=== PATIENT | male | born 1980 | race Caucasian/White ===

== ENCOUNTER 2016-10-31 09:00 | Outpatient (RCR) | payer MEDICAID ==
[~2016-10-31 09:00] MED LIST: ALBU8.5H2 IH; CEPH500C PO; HYDR1TAB PO; INSU100I14 SQ; INSU100I29 SQ; LEVO500T80 PO; METF500T8 PO; OFLO5DRO6 OT; PRD5T PO; PRED20TA PO; SULF1TAB38 PO
== END 2016-12-04 13:55 | disposition home or self-care (01) ==
PROVIDERS: ATTEND Nurse Practitioner Adult Health
DX: M54.9 Dorsalgia, unspecified (principal)

== ENCOUNTER → 2016-12-18 | Outpatient (CLI) | payer MEDICAID ==
[~2016-12-18] MED LIST changes: +RT-ALBUTEROL SULF 2.5 MG/3 ML PRE-MIX VIAL IH ONE
[2016-12-18 13:13] LABS: ABG BASE EXCESS -0.7 MMOL/L (-2.5-2.5); ABG HCO3 24 MMOL/L (23-27); ABG OXYGEN SATURATION 98 % (94-100); ABG PCO2 38 MMHG (35-45); ABG PO2 115 MMHG (79-93); ABG TCO2 24.7 MMOL/L (21.0-31.0)
[2016-12-18 13:14] LABS: ALLENS TEST YES-POS; PATIENT TEMP 97.9
--- NOTE | 2016-12-18 14:10 | Diagnostic Imaging Report ---
PA and lateral views of the chest. INDICATION: Shortness of breath. FINDINGS: There is suggestion of a prominent right pericardial fat pad with no focal infiltrate identified. The heart size is normal. No effusion or pneumothorax. Mediastinum and albin appear unremarkable. IMPRESSION: Unremarkable exam. Dictated by: Dictated on workstation # [id number]
== END ==
LOC: RT 11:40
PROVIDERS: ATTEND Nurse Practitioner Family
DX: G47.50 Parasomnia, unspecified (principal); G47.10 Hypersomnia, unspecified; F12.10 Cannabis abuse, uncomplicated; R06.00 Dyspnea, unspecified
CPT/HCPCS: 71020; 82805; 94060; 94640; 94726; 94729

== ENCOUNTER 2017-12-24 19:45 | Observation (INO) | payer MEDICAID ==
[~2017-12-24] VITALS: Ht 170.2 cm; Wt 163.3 kg
[~2017-12-24 19:45] MED LIST changes: -RT-ALBUTEROL SULF 2.5 MG/3 ML PRE-MIX VIAL IH ONE
[2017-12-24] MEDS ORDERED: ATOR40TA70 PO (20:32)
[2017-12-24] MEDS ORDERED: METF-399 PO (20:32)
[2017-12-24] MEDS ORDERED: LISI-556 PO (20:32)
[2017-12-24] MEDS ORDERED: NS IV 1000 ML 1,000 ML IV ONE (20:50)
--- NOTE | 2017-12-24 20:53 | ED General ---
General Chief Complaint: Abdominal/GI Problems Stated Complaint: NAUSEA/STOMACH PAIN Nursing Triage Note: UPPER ABDOMINAL PAIN, NAUSEA, X2 DAYS Nursing Sepsis Screen: Possible Sepsis Risk Source of Information: Patient Exam Limitations: No Limitations History of Present Illness Date Seen by Provider: Dec 24, 2017 Time Seen by Provider: 20:40 Initial Comments Here with report of upper abdominal pain and nausea for the last couple of days. Had normal bowel movement today. States he has not been able to eat well. Arrives with fever and sweating. Timing/Duration: 2-3 Days Severity: Moderate Associated Systoms: No Chest Pain, No Cough; Fever/Chills, Nausea/Vomiting; No Shortness of Air, No Weakness Allergies and Home Medications Allergies Coded Allergies: No Known Drug Allergies (Unverified , 12/19/10) Patient Home Medication List Home Medication List Reviewed: Yes Review of Systems Review of Systems Constitutional: see HPI, chills, fever EENTM: no symptoms reported Respiratory: No cough, No short of breath Cardiovascular: No chest pain, No edema Gastrointestinal: abdominal pain; No diarrhea; nausea; No vomiting Genitourinary: No dysuria, No pain Musculoskeletal: no symptoms reported Skin: no symptoms reported All Other Systems Reviewed Negative Unless Noted: Yes Past Bnrkfxa-Acoggv-Iabizx Hx Past Med/Social Hx: Reviewed Nursing Past Med/Soc Hx Patient Social History Alcohol Use: Denies Use Recreational Drug Use: Yes Drug of Choice: CANNIBUS Smoking Status: Never a Smoker 2nd Hand Smoke Exposure: No Recent Foreign Travel: No Contact w/Someone Who Travel: No Recent Infectious Disease Expo: No Recent Hopitalizations: No Immunizations Up To Date Tetanus Booster (TDap): Less than 5yrs PED Vaccines UTD: No Date of Influenza Vaccine: Feb 06, 2012 Seasonal Allergies Seasonal Allergies: No Past Medical History Surgeries: Yes (HERNIA REPAIR, ear tubes) Respiratory: Yes Asthma Currently Using CPAP: No Currently Using BIPAP: No Cardiac: No High Cholesterol, Hypertension Neurological: No Reproductive Disorders: No Genitourinary: Yes Kidney Stones Gastrointestinal: Yes (UMBILICAL HERNIA) Musculoskeletal: Yes (ankle fracture) Fractures Endocrine: Yes Diabetes, Non-Insulin dep HEENT: No Cancer: No Psychosocial: No Integumentary: No Blood Disorders: No Family Medical History Reviewed Nursing Family Hx Patient reports no known family medical history. No Pertinent Family Hx Physical Exam-Suspected Sepsis Physical Exam Vital Signs Vital Signs - First Documented 12/24/17 20:25 Temp 101.0 Pulse 117 Resp 20 B/P (MAP) 176/113 (134) Pulse Ox 98 O2 Delivery Room Air Capillary Refill : Less Than 3 Seconds Blood Pressure Mean: 134 Height, Weight, BMI Height: 5'7.00" Weight: 300lbs. 0oz. 136.541577zt; 50.23 BMI Method:Stated General Appearance: No Apparent Distress, WD/WN HEENT: PERRL/EOMI, Pharynx Normal Neck: Non Tender, Supple Respiratory: Lungs Clear, Normal Breath Sounds Cardiovascular: No Murmur, Tachycardia Gastrointestinal: Non Tender, Soft Back: Normal Inspection, No CVA Tenderness, No Vertebral Tenderness Extremity: Normal Range of Motion, Non Tender Neurologic/Psychiatric: Alert, Oriented x3 Skin: normal color, warm/dry Focused Exam Lactate Level 12/24/17 20:40: Lactic Acid Level 2.59*H 12/24/17 23:10: Lactic Acid Level 1.29 Lactic Acid Level Laboratory Tests Test 12/24/17 20:40 12/24/17 23:10 Lactic Acid Level 2.59 MMOL/L (0.50-2.00) *H 1.29 MMOL/L (0.50-2.00) Progress/Results/Core Measures Suspected Sepsis Recent Fever Within 48 Hours: Yes Infection Criteria Present: Suspected New Infection New/Unexplained Altered Menta: No Sepsis Screen: Possible Sepsis Risk SIRS Temperature:101.0 Pulse: 117 Respiratory Rate: 20 Laboratory Tests 12/24/17 20:40: White Blood Count 16.5H Blood Pressure 176 /113 Mean: 134 12/24/17 20:40: Lactic Acid Level 2.59*H 12/24/17 23:10: Lactic Acid Level 1.29 Laboratory Tests 12/24/17 20:40: Creatinine 0.87, INR Comment 1.0, Platelet Count 326, Total Bilirubin 0.8 Results/Orders Lab Results Laboratory Tests Test 12/24/17 20:40 12/24/17 20:54 12/24/17 23:10 Range/Units White Blood Count 16.5 H 4.3-11.0 10^3/uL Red Blood Count 5.01 4.35-5.85 10^6/uL Hemoglobin 14.4 13.3-17.7 G/DL Hematocrit 42 40-54 % Mean Corpuscular Volume 84 80-99 FL Mean Corpuscular Hemoglobin 29 25-34 PG Mean Corpuscular Hemoglobin Concent 34 32-36 G/DL Red Cell Distribution Width 14.0 10.0-14.5 % Platelet Count 326 130-400 10^3/uL Mean Platelet Volume 10.8 H 7.4-10.4 FL Neutrophils (%) (Auto) 77 H 42-75 % Lymphocytes (%) (Auto) 14 12-44 % Monocytes (%) (Auto) 9 0-12 % Eosinophils (%) (Auto) 0 0-10 % Basophils (%) (Auto) 0 0-10 % Neutrophils # (Auto) 12.7 H 1.8-7.8 X 10^3 Lymphocytes # (Auto) 2.3 1.0-4.0 X 10^3 Monocytes # (Auto) 1.5 H 0.0-1.0 X 10^3 Eosinophils # (Auto) 0.0 0.0-0.3 10^3/uL Basophils # (Auto) 0.0 0.0-0.1 10^3/uL Neutrophils % (Manual) 77 % Lymphocytes % (Manual) 14 % Monocytes % (Manual) 8 % Eosinophils % (Manual) 0 % Basophils % (Manual) 0 % Band Neutrophils 1 % Blood Morphology Comment NORMAL Prothrombin Time 13.1 12.2-14.7 SEC INR Comment 1.0 0.8-1.4 Activated Partial Thromboplast Time 27 24-35 SEC Sodium Level 138 135-145 MMOL/L Potassium Level 3.5 L 3.6-5.0 MMOL/L Chloride Level 102 98-107 MMOL/L Carbon Dioxide Level 23 21-32 MMOL/L Anion Gap 13 5-14 MMOL/L Blood Urea Nitrogen 7 7-18 MG/DL Creatinine 0.87 0.60-1.30 MG/DL Estimat Glomerular Filtration Rate > 60 BUN/Creatinine Ratio 8 Glucose Level 170 H 70-105 MG/DL Lactic Acid Level 2.59 *H 1.29 0.50-2.00 MMOL/L Calcium Level 10.2 H 8.5-10.1 MG/DL Corrected Calcium 10.0 8.5-10.1 MG/DL Total Bilirubin 0.8 0.1-1.0 MG/DL Aspartate Amino Transf (AST/SGOT) 22 5-34 U/L Alanine Aminotransferase (ALT/SGPT) 48 0-55 U/L Alkaline Phosphatase 126 40-136 U/L Total Protein 7.2 6.4-8.2 GM/DL Albumin 4.2 3.2-4.5 GM/DL Amylase Level 34 25-125 U/L Lipase 13 8-78 U/L Urine Color YELLOW Urine Clarity CLEAR Urine pH 7 5-9 Urine Specific [place] 1.015 L 1.016-1.022 Urine Protein 2+ H NEGATIVE Urine Glucose (UA) 4+ H NEGATIVE Urine Ketones 1+ H NEGATIVE Urine Nitrite NEGATIVE NEGATIVE Urine Bilirubin NEGATIVE NEGATIVE Urine Urobilinogen NORMAL NORMAL MG/DL Urine Leukocyte Esterase 1+ H NEGATIVE Urine RBC (Auto) 2+ H NEGATIVE Urine RBC 0-2 /HPF Urine WBC 10-25 H /HPF Urine Crystals NONE /LPF Urine Bacteria FEW H /HPF Urine Casts NONE /LPF Urine Mucus NEGATIVE /LPF Urine Culture Indicated YES My Orders Orders - FABIAN OBREGON MD Cbc With Automated Diff (12/24/17 20:50) Comprehensive Metabolic Panel (12/24/17 20:50) Blood Culture (12/24/17 20:50) Sputum Culture (12/24/17 20:50) Urinalysis (12/24/17 20:50) Protime With Inr (12/24/17 20:50) Partial Thromboplastin Time (12/24/17 20:50) Acetaminophen Tablet (Tylenol Tablet) (12/24/17 21:00) Saline Lock/Iv-Start (12/24/17 20:50) Saline Lock/Iv-Start (12/24/17 20:50) Vital Signs Adult Sepsis Patie Q15M (12/24/17 20:50) O2 (12/24/17 20:50) Remove Rings In Anticipation O (12/24/17 20:50) Lactic Acid Analyzer (12/24/17 20:50) Saline Lock/Iv-Start (12/24/17 20:50) Ns Iv 1000 Ml (Sodium Chloride 0.9%) (12/24/17 20:50) Chest Pa/Lat (2 View) (12/24/17 20:50) Amylase (12/24/17 20:52) Lipase (12/24/17 20:52) Manual Differential (12/24/17 20:40) Urine Culture (12/24/17 20:54) Ct Abdomen/Pelvis Wo (12/24/17 22:10) Ceftriaxone For Iv Use (Rocephin For I (12/24/17 23:15) Lorazepam Injection (Ativan Injection) (12/24/17 23:30) Medications Given in ED Current Medications Medications Dose Ordered Sig/Franco Route Start Time Stop Time Status Last Admin Dose Admin Acetaminophen 1,000 mg ONCE PRN PO 12/24/17 21:00 12/24/17 21:00 DC 12/24/17 20:56 1,000 MG Ceftriaxone Sodium 1000 mg/ Sodium Chloride 60 ml @ 100 mls/hr ONCE ONCE IV 12/24/17 23:15 12/24/17 23:50 12/24/17 23:14 100 MLS/HR Lorazepam 0.5 mg ONCE ONCE IVP 12/24/17 23:30 12/24/17 23:31 DC 12/24/17 23:31 0.5 MG Sodium Chloride 1,000 ml @ 0 mls/hr Q0M ONCE IV 12/24/17 20:50 12/24/17 20:52 DC 12/24/17 20:55 0 MLS/HR Vital Signs/I&O 12/24/17 12/24/17 12/24/17 20:25 20:56 21:50 Temp 101.0 101.0 101.3 Pulse 117 Resp 20 B/P (MAP) 176/113 (134) Pulse Ox 98 O2 Delivery Room Air Capillary Refill : Less Than 3 Seconds Blood Pressure Mean: 134 Progress Note : Progress Note Seen and evaluated. IV, labs, UA, normal saline 1 L bolus and chest x-ray ordered. Monitor patient. Lactic acid elevated. Patient seems to have right upper quadrant abdominal pain. We will get CT abdomen pelvis with contrast. Patient declined contrast so this was changed to a noncontrasted CT scan. Overall doing better after Tylenol and a liter of fluid. 2300: CT results noted. UA is positive. We will initiate Rocephin 1 g IV. 2325: I did discuss the case with Dr. Wilson and Dr. Paul. Patient to be admitted on the [facility] to Dr. Paul with Dr. Wilson on consult. We will get a gallbladder ultrasound in the morning. Patient is somewhat anxious. Ativan 0.5 mg IV ordered. We will continue that as needed. Patient informed of all the concerning findings and agrees with plan. Diagnostic Imaging Diagonstic Imaging: Xray Plain Films/CT/US/NM/MRI: chest Comments NAME: GRAEME ROBERTS [facility] REC#: [id number] PT STATUS: REG ER : 1980 PHYSICIAN: FABIAN OBREGON MD ADMIT DATE: 12/24/17/ER Signed Date of Exam: 12/24/17 CHEST PA/LAT (2 VIEW) INDICATION: Abdominal pain and nausea. Exam compared 12/18/2016 FINDINGS: The heart size upper limits but stable. No gross overdistention of the vascularity. The lungs are free of infiltrate. There is no effusion or pneumothorax. There has been no change. IMPRESSION: Stable chest Dictated by: Dictated on workstation # [id number] Dict: 12/24/172104 Trans: 12/24/172127 Interpreted by: DANIEL RANDALL Electronically signed by: DANIEL RANDALL 12/24/172127 Diagonstic Imaging: CT Plain Films/CT/US/NM/MRI: abdomen, pelvis Comments Noncontrast CT abdomen pelvis shows diffuse fatty filtration of the liver. Punctate calcifications or suspected in the right kidney without evidence of hydronephrosis or ureteral stone. Reviewed: Reviewed Night Vin Study, Reviewed by Me Departure Communication (Admissions) Time/Spoke to Admitting Phy: 23:25 Time/Spoke to Consulting Phy: 23:15 Impression Primary Impression: Urinary tract infection Qualified Codes: N30.00 - Acute cystitis without hematuria Additional Impression: Upper abdominal pain Disposition: ADMITTED INPATIENT Condition: Improved Admissions Decision to Admit Reason: Admit from ER (General) Decision to Admit/Date: Dec 24, 2017 Time/Decision to Admit Time: 23:25 Departure-Patient Inst. Referrals: LILLIE TOLBERT (PCP) Primary Care Physician [facility] (Family) Primary Care Physician FABIAN OBREGON MD Dec 24, 2017 20:52
[2017-12-24] MEDS ORDERED: ACETAMINOPHEN 500 MG TAB (TYLENOL) PO PRN (21:00)
[2017-12-24 21:05] LABS: BASOPHILS % (AUTO) 0 % (0-10); EOSINOPHILS % (AUTO) 0 % (0-10); HEMATOCRIT 42 % (40-54); HEMOGLOBIN 14.4 G/DL (13.3-17.7); LYMPHOCYTES # (AUTO) 2.3 X 10^3 (1.0-4.0); LYMPHOCYTES % (AUTO) 14 % (12-44); MEAN CORPUSCULAR HEMOGLOBIN 29 PG (25-34); MEAN CORPUSCULAR HGB CONC 34 G/DL (32-36); MEAN CORPUSCULAR VOLUME 84 FL (80-99); MEAN PLATELET VOLUME 10.8 FL (7.4-10.4); MONOCYTES # (AUTO) 1.5 X 10^3 (0.0-1.0); MONOCYTES % (AUTO) 9 % (0-12); NEUTROPHILS # (AUTO) 12.7 X 10^3 (1.8-7.8); NEUTROPHILS % (AUTO) 77 % (42-75); PLATELET COUNT 326 10^3/uL (130-400); RED BLOOD COUNT 5.01 10^6/uL (4.35-5.85); WHITE BLOOD COUNT 16.5 10^3/uL (4.3-11.0)
--- NOTE | 2017-12-24 21:12 | Diagnostic Imaging Report ---
INDICATION: Abdominal pain and nausea. Exam compared 12/18/2016 FINDINGS: The heart size upper limits but stable. No gross overdistention of the vascularity. The lungs are free of infiltrate. There is no effusion or pneumothorax. There has been no change. IMPRESSION: Stable chest Dictated by: Dictated on workstation # [id number]
[2017-12-24 21:13] LABS: BILIRUBIN,URINE NEGATIVE (NEGATIVE); CLARITY,URINE CLEAR; COLOR,URINE YELLOW; GLUCOSE, URINE (UA) 4+ (NEGATIVE); KETONES,URINE 1+ (NEGATIVE); LEUKOCYTE ESTERASE ,URINE 1+ (NEGATIVE); NITRITE,URINE NEGATIVE (NEGATIVE); PH,URINE 7 (5-9); PROTEIN,URINE 2+ (NEGATIVE); UROBILINOGEN,URINE NORMAL (NORMAL)
[2017-12-24 21:16] LABS: PROTHROMBIN TIME PATIENT 13.1 SEC (12.2-14.7)
[2017-12-24 21:24] LABS: ALANINE AMINOTRANSFERASE 48 U/L (0-55); ALBUMIN 4.2 GM/DL (3.2-4.5); ALKALINE PHOSPHATASE 126 U/L (40-136); AMYLASE 34 U/L (25-125); BILIRUBIN,TOTAL 0.8 MG/DL (0.1-1.0); BUN/CREATININE RATIO 8; CALCIUM 10.2 MG/DL (8.5-10.1); CARBON DIOXIDE 23 MMOL/L (21-32); CHLORIDE 102 MMOL/L (98-107); CREATININE SERUM 0.87 MG/DL (0.60-1.30); GFR ESTIMATED > 60; GLUCOSE 170 MG/DL (70-105); LIPASE 13 U/L (8-78); POTASSIUM 3.5 MMOL/L (3.6-5.0); SODIUM 138 MMOL/L (135-145); TOTAL PROTEIN 7.2 GM/DL (6.4-8.2)
[2017-12-24 21:26] LABS: BACTERIA,URINE FEW /HPF; RBC,URINE 0-2 /HPF
[2017-12-24 21:29] LABS: BAND NEUTROPHILS 1 %; BASOPHILS % (MANUAL) 0 %; EOSINOPHILS % (MANUAL) 0 %; LYMPHOCYTES % (MANUAL) 14 %; MONOCYTES % (MANUAL) 8 %; NEUTROPHILS % (MANUAL) 77 %; RBC MORPH NORMAL
[2017-12-24] MEDS ORDERED: cefTRIAXone FOR IV USE 1,000 MG in NS (IVPB) 50 ML IV ONE (23:15)
[2017-12-24] MEDS ORDERED: LORazepam INJ 2 MG/ML (ATIVAN) VIAL IVP ONE (23:30)
--- OUTSIDE RECORDS SUMMARY | 2017-12-24 23:53 | XMS REPORT ---
Author Author MARGARITA THOMAS [facility] Address [address] [place] [address] Care Team Providers Care Mds Coordinator Name Role Phone MARGARITA THOMAS Unavailable PROBLEMS Type Condition ICD9-CM Code GAU48-XK Code Onset Dates Condition Status SNOMED Code Problem Hypertriglyceridemia E78.1 Active 632911488 Problem Essential hypertension I10 Active 25331562 Problem Tarsal tunnel syndrome, right G57.51 Active 57852137 Problem Type 2 diabetes mellitus with diabetic neuropathy E11.40 Active 91775990 Problem Morbid obesity E66.01 Active 599460726 Problem Neuropathy G62.9 Active 634395882 Problem Other chronic pain G89.29 Active 41177316 Problem Fatty liver K76.0 Active 753035168 Problem Obstructive sleep apnea syndrome G47.33 Active 68429325 Problem Pain in right ankle and joints of right foot M25.571 Active 488973178 ALLERGIES No Information ENCOUNTERS Encounter Location Date Diagnosis [facility] [address] [id number] Nov, Dental examination Z01.20 [facility] [id number] [place] [id number] Nov, Dental examination Z01.20 [facility] [id number] [place] [address] 18185- 7370 Nov, [facility] [id number] [place] [address]011- 3196 Nov, Type 2 diabetes mellitus with diabetic neuropathy E11.40 ; Morbid obesity E66.01 and BMI 50.0-59.9, adult Z68.43 [facility] [id number] [place] [address] 97267- 1757 August, [facility] [address] [address] August, Type 2 diabetes mellitus with diabetic neuropathy E11.40 ; Hypertriglyceridemia E78.1 and Essential hypertension I10 [facility] [id number] [place] [address]283 -1713 Apr, Cough R05 ; Bronchitis J40 and BMI 50.0-59.9, adult Z68.43 [place] [address] [address]- [address] Jan, [place] [address] [address]- 1340 Jan, Type 2 diabetes mellitus with diabetic neuropathy E11.40 ; Neuropathy G62.9 and Other chronic pain G89.29 [place] [id number] [place] [address] 47419- 9181 Dec, [place] [address] [address]- [address] Dec, Neuropathy G62.9 [place] [address] 74982- 6771 Dec, [facility] [id number] [place] [address] 13273 -7826 23 Dec, 2016 Marquis splints, left, initial encounter S86.892A [place] [id number] [place] [address] 17877- 0344 Dec, Other chronic pain G89.29 [place] [address] [address]- [address]282 14 Dec, 2016 nursing home current use of opiate analgesic Z79.891 and Other chronic pain G89.29 [place] [address] 10659- 0608 12 Dec, 2016 Other chronic pain G89.29 [place] [id number] [place] [address] 73207- 6824 Nov, Neuropathy G62.9 [place] [address] [address] Nov, [facility] [id number] [place] [address] 50824- 3299 Nov, [facility] [id number] [place] [address] 13230- 3767 Oct, [facility] [id number] [place] [address] 79698- 1397 Oct, [facility] [id number] [place] [address] 31003- 1303 Oct, Type 2 diabetes mellitus with diabetic neuropathy E11.40 ; Hypertriglyceridemia E78.1 ; local [employer] 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 ; Essential hypertension I10 ; Other chronic pain G89.29 ; Shortness of breath R06.02 ; Obstructive sleep apnea syndrome G47.33 and Neuropathy G62.9 [place] [id number] [place] [address] 70380- 6450 Oct, Type 2 diabetes mellitus with diabetic neuropathy E11.40 ; Fatty liver K76.0 and Hypertriglyceridemia E78.1 [place] [id number] [place] [address] 00062- 6349 Oct, [facility] [id number] [place] [address] 36422- 1649 Oct, [place] [id number] [place] [address] 11854- 1921 Oct, Other chronic pain G89.29 [facility] [id number] [place] [address] 80736 -9098 Sep, Oral candidiasis B37.0 ; Strep pharyngitis J02.0 and Sore throat J02.9 [facility] [address] [address] Sep, Type 2 diabetes mellitus with diabetic neuropathy E11.40 ; Long-term insulin use Z79.4 ; Tarsal tunnel syndrome, right G57.51 ; Other chronic pain G89.29 ; Hypertriglyceridemia E78.1 ; Shortness of breath R06.02 ; Essential hypertension I10 and Obstructive sleep apnea syndrome G47.33 [facility] [id number] [place] [address] 54860- 2317 August, [facility] [id number] [place] [address] 74018- 3006 August, [facility] [id number] [place] [address] 56474- 1637 August, Back pain at L4-L5 level M54.5 [facility] [id number] [place] [address] 09520- 2264 Jul, [place] [id number] [place] [address] 33206- 0551 14 May, 2016 Type 2 diabetes mellitus with diabetic neuropathy E11.40 ; Hypertriglyceridemia E78.1 ; Tarsal tunnel syndrome, right G57.51 ; Fatty liver K76.0 ; Acute upper respiratory infection, unspecified J06.9 ; Other viral agents as the cause of diseases classified elsewhere B97.89 ; Disorder of teeth and supporting structures, unspecified K08.9 ; Pain in right ankle and joints of right foot M25.571 ; Other chronic pain G89.29 and Back pain at L4-L5 level M54.5 [place] [id number] [place] [address] 76208- 3891 14 May, 2016 [facility] [id number] [place] [address] 86441- 1156 May, [facility] [id number] [place] [address] 74940- 7246 Apr, [place] [id number] [place] [address] 90709- 7296 Mar, [facility] [id number] [place] [address] 61606- 3695 Feb, Fatty liver K76.0 and Hypertriglyceridemia E78.1 [place] [id number] [place] [address] 29098- 0285 Feb, [facility] [address] 8[address]11- 7770 Feb, Hypertriglyceridemia, essential E78.1 and Elevated liver enzymes R74.8 [facility] [address] 15695- 3008 Feb, [facility] [address] 00957- 5090 Feb, Type 2 diabetes mellitus with diabetic neuropathy E11.40 ; Diastasis recti M62.08 ; Essential hypertension I10 and nursing home 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 [facility] [id number] [place] [address] 32690- 3618 Feb, Tarsal tunnel syndrome, right G57.51 and Neuroma D36.10 [facility] [id number] [place] [address] 50742- 8171 Dec, Type 2 diabetes mellitus with diabetic neuropathy E11.40 [facility] [id number] [place] [address] 00548- 5364 Dec, [facility] [id number] [place] [address] 51699- 9362 Nov, Low back pain M54.5 [facility] [id number] [place] [address] 51663- 5017 Nov, [facility] [id number] [place] [address] 69866- 6082 Nov, [facility] [id number] [place] [address] 16219- 8691 Nov, [facility] [id number] [place] [address] 28632- 9051 Nov, [facility] [id number] [place] [address] 72985- 1274 Nov, [facility] [address] [address]- 7001 Oct, [facility] [id number] [place] [address] 87515- 2785 Oct, Type 2 diabetes mellitus with diabetic autonomic (poly) neuropathy E11.43 ; nursing home 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 ; Low back pain M54.5 and Other chronic pain G89.29 [place] [id number] [place] [address] 97120- 9462 Sep, [place] [id number] [place] [address] 25350- 8811 August, [place] [id number] [place] [address] 13412- 7483 August, [place] [id number] [place] [address] 83761- 4320 August, Type 2 diabetes mellitus with diabetic neuropathy E11.40 ; Diabetes type 2, uncontrolled E11.65 ; Long-term insulin use Z79.4 and 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 [place] [id number] [place] [address] 70218- 8220 August, Type 2 diabetes mellitus with diabetic neuropathy E11.40 [place] [address] [address]- 7420 Jun, Type 2 diabetes mellitus with diabetic neuropathy E11.40 ; Long-term insulin use Z79.4 and Hypertriglyceridemia E78.1 [place] [address] [address]- 1630 Jun, [place] [id number] [place] [address] 04834- 9820 Jun, Diabetes type 2, uncontrolled E11.65 [place] [address] [address]- 9639 Jun, [place] [id number] [place] [address] 75443- 2808 Jul, [facility] [id number] [address]- 6196 Jul, [facility] [address], [place] [address] 2546 Nov, [facility] [address] [address] 2546 Oct, [facility] [id number] [place] [address] 78769- 2546 Oct, [facility] [address], [place] [address] 2540 Oct, [facility] [address] [address] 2546 Sep, [facility] [address] [address] 2548 Sep, [facility] [address], [place] [address] 2546 Nov, IMMUNIZATIONS No Known Immunizations SOCIAL HISTORY Never Assessed REASON FOR VISIT Maria E PLAN OF CARE VITAL SIGNS MEDICATIONS Unknown Medications RESULTS No Results PROCEDURES No Known procedures INSTRUCTIONS MEDICATIONS ADMINISTERED No Known Medications MEDICAL (GENERAL) HISTORY Type Description Date Medical History Diabetes Mellitus Type 2 w/ peripheral neuropathy - dx 06/2015 (A1c 8.6%) Medical History hx of benign nasopharyngela mass ([place]) Medical History hx of back injury (football) Medical History Hypertriglyceridemia Medical History hypertension Medical History Tubes in ears Surgical History Laryngoscopy Surgical History Ear tubes Surgical History Umbilical hernia repair Hospitalization History New onset DM type 2 w/ severe hyperglycemia 06/24-06/26
--- OUTSIDE RECORDS SUMMARY | 2017-12-24 23:54 | XMS REPORT ---
Author Author MARGARITA THOMAS Organization [facility] Address [address] [place] [address] Care Team Providers Care Nurse Aide Name Role Phone MARGARITA THOMAS Unavailable PROBLEMS Type Condition ICD9-CM Code KNC45-DW Code Onset Dates Condition Status SNOMED Code Problem Hypertriglyceridemia E78.1 Active 501802425 Problem Essential hypertension I10 Active 94807618 Problem Tarsal tunnel syndrome, right G57.51 Active 16645711 Problem Type 2 diabetes mellitus with diabetic neuropathy E11.40 Active 18713648 Problem Morbid obesity E66.01 Active 303010979 Problem Neuropathy G62.9 Active 140119887 Problem Other chronic pain G89.29 Active 53204829 Problem Fatty liver K76.0 Active 550441161 Problem Obstructive sleep apnea syndrome G47.33 Active 43275433 Problem Pain in right ankle and joints of right foot M25.571 Active [id number] ALLERGIES No Information ENCOUNTERS Encounter Location Date Diagnosis [facility] [address] [address]- 3999 Nov, [facility] [id number] [place] [address] 82345- 1025 Nov, Type 2 diabetes mellitus with diabetic neuropathy E11.40 ; Morbid obesity E66.01 and BMI 50.0-59.9, adult Z68.43 [facility] [id number] [place] [address] 39830- 4485 August, [facility] [address] [address]- 4810 August, Type 2 diabetes mellitus with diabetic neuropathy E11.40 ; Hypertriglyceridemia E78.1 and Essential hypertension I10 [facility] [id number] [place] [address] 23918 -9832 Apr, Cough R05 ; Bronchitis J40 and BMI 50.0-59.9, adult Z68.43 [facility] [address] 25000- 6072 13 Jan, 2017 [facility] [address] 9[address]45- 3940 02 Jan, 2017 Type 2 diabetes mellitus with diabetic neuropathy E11.40 ; Neuropathy G62.9 and Other chronic pain G89.29 [facility] [address] 10060- 7643 28 Dec, 2016 [facility] [address] 20004- 1669 27 Dec, 2016 Neuropathy G62.9 [place] [address] 58165- 1535 26 Dec, 2016 [facility] [address] 77048 -2245 23 Dec, 2016 Marquis splints, left, initial encounter S86.892A [facility] [address] 61290- 8160 21 Dec, 2016 Other chronic pain G89.29 [place] [address] 69164- 2012 14 Dec, 2016 Other chronic pain G89.29 and 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 Z79.891 [place] [address] 99322- 5951 12 Dec, 2016 Other chronic pain G89.29 [facility] [address] 13325- 4232 Nov, Neuropathy G62.9 [facility] [address] 67201- 9031 Nov, [facility] [address] 06123- 3246 Nov, [facility] [address] 97215- 3970 Oct, [facility] [id number] [place] [address] 03702- 6402 Oct, [place] [id number] [place] [address] 47370- 8841 Oct, Type 2 diabetes mellitus with diabetic neuropathy E11.40 ; Hypertriglyceridemia E78.1 ; 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 ; Essential hypertension I10 ; Other chronic pain G89.29 ; Shortness of breath R06.02 ; Obstructive sleep apnea syndrome G47.33 and Neuropathy G62.9 [place] [id number] [place] [address] 87224- 2220 Oct, Type 2 diabetes mellitus with diabetic neuropathy E11.40 ; Fatty liver K76.0 and Hypertriglyceridemia E78.1 [place] [id number] [place] [address] 17115- 5529 Oct, [place] [id number] [place] [address] 88419- 9877 Oct, [place] [id number] [place] [address] 96084- 5156 Oct, Other chronic pain G89.29 [facility] [address] [place] [id number] [place] [address] 22094 -3798 Sep, Oral candidiasis B37.0 ; Strep pharyngitis J02.0 and Sore throat J02.9 [place] [id number] [place] [address] 36582- 2156 Sep, Type 2 diabetes mellitus with diabetic neuropathy E11.40 ; Long-term insulin use Z79.4 ; Tarsal tunnel syndrome, right G57.51 ; Other chronic pain G89.29 ; Hypertriglyceridemia E78.1 ; Shortness of breath R06.02 ; Essential hypertension I10 and Obstructive sleep apnea syndrome G47.33 [place] [id number] [place] [address] 53008- 9156 August, [facility] [id number] [place] [address] 44436- 0183 August, [facility] [id number] [place] [address] 66067- 9499 August, Back pain at L4-L5 level M54.5 [facility] [id number] [place] [address] 54053- 4606 Jul, [facility] [id number] [place] [address] 98903- 2945 14 May, 2016 Type 2 diabetes mellitus [...] and Back pain at L4-L5 level M54.5 [facility] [id number] [place] [address] 92238- 6565 14 May, 2016 [facility] [id number] [place] [address] 41587- 0534 May, [facility] [id number] [place] [address] 73537- 8279 Apr, [facility] [id number] [place] [address] 12405- 6936 Mar, [facility] [id number] [place] [address] 00243- 9118 Feb, Fatty liver K76.0 and Hypertriglyceridemia E78.1 [facility] [id number] [place] [address] 10668- 5202 Feb, [facility] [id number] [place] [address] 80898- 3539 Feb, Hypertriglyceridemia, essential E78.1 and Elevated liver enzymes R74.8 [facility] [id number] [place] [address] 47356- 0636 Feb, [facility] [id number] [place] [address] 92369- 0548 Feb, Type 2 diabetes mellitus with diabetic neuropathy E11.40 ; Diastasis recti M62.08 ; Essential hypertension I10 and [facility] 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 [facility] [id number] [place] [address] 55124- 2527 Feb, Tarsal tunnel syndrome, right G57.51 and Neuroma D36.10 [facility] [id number] [place] [address] 39392- 9522 Dec, Type 2 diabetes mellitus with diabetic neuropathy E11.40 [facility] [id number] [place] [address] 91642- 1304 Dec, [facility] [id number] [place] [address] 73153- 8470 Nov, Low back pain M54.5 [facility] [id number] [place] [address] 49689- 6537 Nov, [facility] [id number] [place] [address] 33072- 8598 Nov, [facility] [id number] [place] [address] 63426- 9939 Nov, [facility] [id number] [place] [address] 70133- 9426 Nov, [facility] [id number] [place] [address] 54520- 4812 Nov, [facility] [id number] [place] [address] 67341- 5396 Oct, [facility] [id number] [place] [address] 29894- 9700 Oct, Type 2 diabetes mellitus with diabetic autonomic (poly) neuropathy E11.43 ; [facility] 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 ; Low back pain M54.5 and Other chronic pain G89.29 [facility] [id number] [place] [address] 17912- 5613 Sep, [facility] [address] [address]- 0473 August, [facility] [id number] [place] [address] 42533- 0034 August, [facility] [id number] [place] [address] 86391- 3149 August, Type 2 diabetes mellitus with diabetic neuropathy E11.40 ; Diabetes type 2, uncontrolled E11.65 ; Long-term insulin use Z79.4 and 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 [facility] [id number] [place] [address] 55378- 0683 August, Type 2 diabetes mellitus with diabetic neuropathy E11.40 [facility] [id number] [place] [address] 46757- 3591 Jun, Type 2 diabetes mellitus with diabetic neuropathy E11.40 ; Long-term insulin use Z79.4 and Hypertriglyceridemia E78.1 [facility] [address] [place] [address] 64545- 1516 Jun, [facility] [address] [address]- 0196 Jun, Diabetes type 2, uncontrolled E11.65 [facility] [address] [address]- 4345 Jun, [facility] [address] [place] [address] 79527- 9462 Jul, [facility] [id number] [place] [address] 90541- 6703 Jul, [facility] [address] [place] [address]- 8957 Nov, [facility] [id number] [address]- 7013 Oct, [facility] [id number] [address]- 6308 Oct, [facility] [address] [place] [address]- 5088 Oct, [facility] [id number] [address]- 4711 Sep, [facility] [address] [place] [address]- 6295 Sep, [facility] [address] [address]- 7566 Nov, IMMUNIZATIONS No Known Immunizations SOCIAL HISTORY Never Assessed REASON FOR VISIT PA initiated- Approved PLAN OF CARE VITAL SIGNS MEDICATIONS Unknown [...]
--- OUTSIDE RECORDS SUMMARY | 2017-12-24 23:54 | XMS REPORT ---
Author Author MARGARITA THOMAS Organization [facility] Address [address] [place] [address] Care Team Providers Care Field Property Loss Specialist Name Role Phone MARGARITA THOMAS Unavailable PROBLEMS Type Condition ICD9-CM Code MPC29-VQ Code Onset Dates Condition Status SNOMED Code Problem Hypertriglyceridemia E78.1 Active 597030106 Problem Essential hypertension I10 Active 04163956 Problem Tarsal tunnel syndrome, right G57.51 Active 34287848 Problem Type 2 diabetes mellitus with diabetic neuropathy E11.40 Active 25691410 Problem Morbid obesity E66.01 Active 590513279 Problem Neuropathy G62.9 Active 689283938 Problem Other chronic pain G89.29 Active 44193429 Problem Fatty liver K76.0 Active 839988312 Problem Obstructive sleep apnea syndrome G47.33 Active 90268948 Problem Pain in right ankle and joints of right foot M25.571 Active 199574651 ALLERGIES No Known Allergies ENCOUNTERS Encounter Location Date Diagnosis [facility] [id number] [place] [address] 16724- 0572 Nov, [facility] [id number] [place] [address] 14968- 1453 Nov, Type 2 diabetes mellitus with diabetic neuropathy E11.40 ; Morbid obesity E66.01 and BMI 50.0-59.9, adult Z68.43 [facility] [id number] [place] [address] 97915- 7553 August, [facility] [address] 90243- 1905 August, Type 2 diabetes mellitus with diabetic neuropathy E11.40 ; Hypertriglyceridemia E78.1 and Essential hypertension I10 [facility] [id number] [place] [address] 40754 -1606 11 George, 2018 Cough R05 ; Bronchitis J40 and BMI 50.0-59.9, adult Z68.43 [facility] [address] 84925- 8060 Jan, [facility] [address] 76446- 7658 02 Jan, 2017 Type 2 diabetes mellitus with diabetic neuropathy E11.40 ; Neuropathy G62.9 and Other chronic pain G89.29 [facility] [address] 17705- 5972 28 Dec, 2016 [facility] [address] 24595- 3893 27 Dec, 2016 Neuropathy G62.9 [facility] [address] 39077- 3188 26 Dec, 2016 [facility] [address] 75459 -6912 23 Dec, 2016 Marquis splints, left, initial encounter S86.892A [facility] [address] 34076- 4817 21 Dec, 2016 Other chronic pain G89.29 [facility] [id number] [place] [address] 80865- 7465 14 Dec, 2016 Other chronic pain G89.29 and 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 [place] [address] 77543- 3954 12 Dec, 2016 Other chronic pain G89.29 [facility] [id number] [place] [address] 73745- 5076 Nov, Neuropathy G62.9 [facility] [address] 48200- 8815 Nov, [facility] [address] 82572- 2325 Nov, [facility] [address] [place] [address]- 9457 Oct, [facility] [address] 24554- 0060 Oct, [place] [address] 91555- 7715 Oct, Type 2 diabetes mellitus with diabetic neuropathy E11.40 ; Hypertriglyceridemia E78.1 ; halfway 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 ; Essential hypertension I10 ; Other chronic pain G89.29 ; Shortness of breath R06.02 ; Obstructive sleep apnea syndrome G47.33 and Neuropathy G62.9 [place] [address] 77298- 8933 Oct, Type 2 diabetes mellitus with diabetic neuropathy E11.40 ; Fatty liver K76.0 and Hypertriglyceridemia E78.1 [place] [address] 98256- 1673 Oct, [place] [address] 07418- 6802 Oct, [place] [address] 81349- 7327 Oct, Other chronic pain G89.29 [facility] [id number] [place] [address] 36231 -2410 Sep, Oral candidiasis B37.0 ; Strep pharyngitis J02.0 and Sore throat J02.9 [facility] [address] 55952- 8684 Sep, Type 2 diabetes mellitus with diabetic neuropathy E11.40 ; Long-term insulin use Z79.4 ; Tarsal tunnel syndrome, right G57.51 ; Other chronic pain G89.29 ; Hypertriglyceridemia E78.1 ; Shortness of breath R06.02 ; Essential hypertension I10 and Obstructive sleep apnea syndrome G47.33 [place] [address] 25087- 1358 August, [facility] [id number] [place] [address] 29204- 0812 August, [facility] [id number] [place] [address] 56621- 0670 August, Back pain at L4-L5 level M54.5 [facility] [id number] [place] [address] 34955- 4926 Jul, [facility] [id number] [place] [address] 45437- 4912 14 May, 2016 Type 2 diabetes mellitus [...] and Back pain at L4-L5 level M54.5 [facility] [id number] [place] [address] 68178- 1977 14 May, 2016 [facility] [id number] [place] [address] 99733- 7435 May, [facility] [id number] [place] [address] 99598- 4618 Apr, [facility] [id number] [place] [address] 93012- 3113 Mar, [facility] [id number] [place] [address] 48755- 1163 Feb, Fatty liver K76.0 and Hypertriglyceridemia E78.1 [facility] [id number] [place] [address] 23380- 5561 Feb, [facility] [id number] [place] [address] 82778- 1326 Feb, Hypertriglyceridemia, essential E78.1 and Elevated liver enzymes R74.8 [facility] [id number] [place] [address] 69438- 1970 Feb, [facility] [address] 89847- 2049 Feb, Type 2 diabetes mellitus with diabetic neuropathy E11.40 ; Diastasis recti M62.08 ; Essential hypertension I10 and 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 [facility] [address] 99991- 3460 Feb, Tarsal tunnel syndrome, right G57.51 and Neuroma D36.10 [facility] [id number] [place] [address] 62614- 0905 Dec, Type 2 diabetes mellitus with diabetic neuropathy E11.40 [facility] [address] 16450- 8640 Dec, [facility] [address] 83299- 0563 Nov, Low back pain M54.5 [facility] [id number] [place] [address] 86094- 2338 Nov, [facility] [id number] [place] [address] 86013- 5602 Nov, [facility] [id number] [place] [address] 71215- 0784 Nov, [facility] [id number] [place] [address] 36250- 8125 Nov, [facility] [id number] [place] [address] 65084- 5851 Nov, [facility] [id number] [place] [address] 73587- 3920 Oct, [facility] [id number] [place] [address] 53989- 5632 Oct, Type 2 diabetes mellitus with diabetic autonomic (poly) neuropathy E11.43 ; halfway 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 ; Low back pain M54.5 and Other chronic pain G89.29 [facility] [id number] [place] [address] 49158- 3637 Sep, [facility] [id number] [address]- 4072 August, [facility] [id number] [place] [address] 05293- 6444 August, [facility] [id number] [place] [address] 76276- 9501 August, Type 2 diabetes mellitus with diabetic neuropathy E11.40 ; Diabetes type 2, uncontrolled E11.65 ; Long-term insulin use Z79.4 and 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 [facility] [id number] [place] [address] 60795- 0837 August, Type 2 diabetes mellitus with diabetic neuropathy E11.40 [facility] [id number] [place] [address] 63598- 9688 Jun, Type 2 diabetes mellitus with diabetic neuropathy E11.40 ; Long-term insulin use Z79.4 and Hypertriglyceridemia E78.1 [facility] [address], [place] [address]- 4659 Jun, [facility] [address], [place] [address]- 9715 Jun, Diabetes type 2, uncontrolled E11.65 [facility] [address], [place] [address]- 7823 Jun, [facility] [id number] [place] [address] 52082- 9211 Jul, [facility] [id number] [place] [address] 30237- 8547 Jul, [facility] [address], [place] [address]- 7164 Nov, [facility] [address] [facility] [id number] [address]- 4692 Oct, [facility] [id number] [address]- 4897 Oct, [facility] [id number] [address]- 9402 Oct, [facility] [address], [place] [address]- 7669 Sep, [facility] [address] [facility] [id number] [address]- 5661 Sep, [facility] [address], [place] [address]- 8792 Nov, IMMUNIZATIONS No Known Immunizations SOCIAL HISTORY Never Assessed REASON FOR VISIT Transition of Care, PT is in need of med refills and has lots of foot pain- Jaylen ALCANTAR PLAN OF CARE Activity Details Follow Up 3 Months Reason: VITAL SIGNS Height 67 in 2017-08-05 Weight 354.3 lbs 2017-08-05 Temperature 98.2 degrees Fahrenheit 2017-08-05 Heart Rate 78 bpm 2017-08-05 Respiratory Rate 22 2017-08-05 BMI 55.49 kg/m2 2017-08-05 Blood pressure systolic 108 mmHg 2017-08-05 Blood pressure diastolic 80 mmHg 2017-08-05 MEDICATIONS Medication Instructions Dosage Frequency Start Date End Date Duration Status Atorvastatin Calcium 40 mg Orally Once a day 1 tablet 24h 30 Active ProAir HFA 108 (90 Base) MCG/ACT Inhalation every 6 hrs 2 puffs as needed 6h Apr, 5 days Active Metformin HCl 1000 MG Orally Twice a day 1 tablet 12h 30 Active Lisinopril 5 mg Orally Once a day 1 tablet 24h 30 Active Lyrica 150 MG Orally twice a day 1 12h August, Active RESULTS Name Result Date Reference Range A1C (IN HOUSE) 2017-08-05 A1C IN HOUSE 6.9 4.3 - 5.6 % Previous A1c 6.1 Lot [id number] Exp date 05/2019 PROCEDURES Procedure Date Ordered Result Body Site GLYCATED HEMOGLOBIN TEST August 05, 2017 INSTRUCTIONS MEDICATIONS ADMINISTERED No Known Medications MEDICAL [...]
--- OUTSIDE RECORDS SUMMARY | 2017-12-24 23:54 | XMS REPORT ---
Author Author TOMASZ LILLIE [facility] Address [address] [place] [address] Care Team Providers Care Microfilm Operator Name Role Phone LILLIE TOLBERT Unavailable PROBLEMS Type Condition ICD9-CM Code [id number] Code Onset Dates Condition Status SNOMED Code Problem FCI 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 Active 329997794 Problem Essential hypertension I10 Active 29718797 Problem Tarsal tunnel syndrome, right G57.51 Active 04176830 Problem Type 2 diabetes mellitus with diabetic neuropathy E11.40 Active 41833881 Problem Hypertriglyceridemia E78.1 Active 357613421 Problem Neuropathy G62.9 Active 230367903 Problem Shortness of breath R06.02 Active 093548801 Problem Pain in right ankle and joints of right foot M25.571 Active 071162241 Problem Fatty liver K76.0 Active 241144294 Problem Obstructive sleep apnea syndrome G47.33 Active 78770385 Problem Other chronic pain G89.29 Active 81252189 ALLERGIES No Known Allergies SOCIAL HISTORY Never Assessed PLAN OF CARE Activity Details Follow Up 4 Weeks Reason:dm VITAL SIGNS Height 67 in 2016-05-21 Weight 336.9 lbs 2016-05-21 Temperature 98.4 degrees Fahrenheit 2016-05-21 Heart Rate 86 bpm 2016-05-21 Respiratory Rate 22 2016-05-21 BMI 52.76 kg/m2 2016-05-21 Blood pressure systolic 112 mmHg 2016-05-21 Blood pressure diastolic 78 mmHg 2016-05-21 MEDICATIONS Medication Instructions Dosage Frequency Start Date End Date Duration Status Levemir Flexpen 100units subcutaneously evening 25 units Active Metformin HCl 1000 MG Orally Twice a day 1 tablet 12h Apr, Active Ultram 50 mg Orally in the evening and then before bed 1 tablet as needed May, 30 days Active Neurontin 600 MG Orally Three times a day 1 capsule 8h Jun, Active Atorvastatin Calcium 40 mg Orally Once a day 1 tablet 24h Feb, Active Levemir Flexpen 100 UNIT/ML 30units Jun, Active Lisinopril 10 mg Orally Once a day 1 tablet 24h Feb, Active Bydureon 2 MG Subcutaneous Once weekly. DX- E11.65 Inject 2 mg 1 times per week Active RESULTS Name Result Date Reference Range A1C (IN HOUSE) 2016-05-21 A1C IN HOUSE 6.3 4.3 - 5.6 % Previous A1c 6.8 Lot [id number] Exp date 02/2018 MICROALBUMIN, URINE (IN HOUSE) MICROALBUMIN Lot # Exp date Clarity Color ALB CRE A:C (IN HOUSE) Control Control Lot # Exp date Xray : Spine, Lumbar 2-3 views (IN HOUSE) 2016-05-21 Xray : Ankle, Right 3 views (IN HOUSE) 2016-05-21 PROCEDURES Procedure Date Ordered Result Body Site GLYCATED HEMOGLOBIN TEST May 21, 2016 MICROALBUMIN, SEMIQUANT May 21, 2016 X-RAY EXAM OF LOWER SPINE May 21, 2016 X-RAY EXAM OF ANKLE May 21, 2016 IMMUNIZATIONS No Known Immunizations MEDICAL (GENERAL) HISTORY Type Description Date Medical [...]
--- OUTSIDE RECORDS SUMMARY | 2017-12-24 23:54 | XMS REPORT ---
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
--- OUTSIDE RECORDS SUMMARY | 2017-12-24 23:54 | XMS REPORT ---
Author Author Negrito LILLIE Organization [facility] Address [address] [place] [address] Care Team Providers Care Audit Mgr Name Role Phone [email or web address] LILLIE Unavailable PROBLEMS Type Condition ICD9-CM Code MAX06-IA Code Onset Dates Condition Status SNOMED Code Problem Hypertriglyceridemia E78.1 Active 532522346 Problem Tarsal tunnel syndrome, right G57.51 Active 07702171 Problem Type 2 diabetes mellitus with diabetic neuropathy E11.40 Active 59454089 Problem Neuropathy G62.9 Active 981242855 Problem Obstructive sleep apnea syndrome G47.33 Active 55951071 Problem Fatty liver K76.0 Active 471934546 Problem Essential hypertension I10 Active 89882532 Problem Pain in right ankle and joints of right foot M25.571 Active 001543408 Problem Other chronic pain G89.29 Active 55616808 ALLERGIES No Information ENCOUNTERS Encounter Location Date Diagnosis [facility] [address] [address] August, [facility] [address] [address] Apr, Cough R05 ; Bronchitis J40 and BMI 50.0-59.9, adult Z68.43 [facility] [address] [address] Jan, [facility] [address] [address] Jan, Type 2 diabetes mellitus with diabetic neuropathy E11.40 ; Neuropathy G62.9 and Other chronic pain G89.29 [facility] [address] [address] Dec, [facility] [address] [place] [address] 27 Dec, 2016 Neuropathy G62.9 [facility] [address] [id number] [place] [address] 26 Dec, 2016 [facility] [id number] [place] [address] 23 Dec, 2016 Marquis splints, left, initial encounter S86.892A [facility] [address] [address] 21 Dec, 2016 Other chronic pain G89.29 [facility] [address] [address] 14 Dec, 2016 detention current use of opiate analgesic Z79.891 and Other chronic pain G89.29 [place] [address] [address] 12 Dec, 2016 Other chronic pain G89.29 [facility] [id number] [place] [address] Nov, Neuropathy G62.9 [place] [address] [address] Nov, [facility] [facility] [id number] [place] [address] Nov, [facility] [facility] [id number] [place] [address] Oct, [place] [address] [address] Oct, [facility] [id number] [place] [address] Oct, Type 2 diabetes mellitus with diabetic neuropathy E11.40 ; Hypertriglyceridemia E78.1 ; 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 ; Essential hypertension I10 ; Other chronic pain G89.29 ; Shortness of breath R06.02 ; Obstructive sleep apnea syndrome G47.33 and Neuropathy G62.9 [facility] [id number] [place] [address] Oct, Type 2 diabetes mellitus with diabetic neuropathy E11.40 ; Fatty liver K76.0 and Hypertriglyceridemia E78.1 [facility] [id number] [place] [address] Oct, [facility] [address] [address] Oct, [facility] [address] [address] Oct, Other chronic pain G89.29 [facility] [address] [address] Sep, Oral candidiasis B37.0 ; Strep pharyngitis J02.0 and Sore throat J02.9 [place] [address] [address] Sep, Type 2 diabetes mellitus with diabetic neuropathy E11.40 ; Long-term insulin use Z79.4 ; Tarsal tunnel syndrome, right G57.51 ; Other chronic pain G89.29 ; Hypertriglyceridemia E78.1 ; Shortness of breath R06.02 ; Essential hypertension I10 and Obstructive sleep apnea syndrome G47.33 [facility] [facility] [id number] [place] [address] August, [facility] [id number] [place] [address] August, [facility] [id number] [place] [address] August, Back pain at L4-L5 level M54.5 [facility] [address] [address] Jul, [facility] [id number] [place] [address] May, [facility] [address] [address] 14 May, 2016 Type 2 diabetes mellitus [...] and Back pain at L4-L5 level M54.5 [place] [address] [address] 14 May, 2016 [place] [address] [address] 10 May, 2016 [place] [address] [address] Apr, [facility] [id number] [place] [address] Mar, [place] [address] [address] Feb, Fatty liver K76.0 and Hypertriglyceridemia E78.1 [place] [id number] [place] [address] Feb, [place] [facility] [id number] [place] [address] Feb, Hypertriglyceridemia, essential E78.1 and Elevated liver enzymes R74.8 [facility] [id number] [place] [address] Feb, [place] [address] [address] Feb, Type 2 diabetes mellitus with diabetic neuropathy E11.40 ; Diastasis recti M62.08 ; Essential hypertension I10 and detention 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 [place] [address] [address] Feb, Tarsal tunnel syndrome, right G57.51 and Neuroma D36.10 [facility] [id number] [place] [address] Dec, Type 2 diabetes mellitus with diabetic neuropathy E11.40 [facility] [id number] [place] [address] Dec, [facility] [id number] [place] [address] Nov, Low back pain M54.5 [facility] [id number] [place] [address] Nov, [facility] [id number] [place] [address] Nov, [facility] [id number] [place] [address] Nov, [facility] [id number] [place] [address]- [address] Nov, [facility] [id number] [place] [address] Nov, [facility] [id number] [place] [address] Oct, [facility] [id number] [place] [address] Oct, Type 2 diabetes mellitus with diabetic autonomic (poly) neuropathy E11.43 ; detention 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 ; Low back pain M54.5 and Other chronic pain G89.29 [facility] [id number] [place] [address] Sep, [facility] [id number] [place] [address] August, [facility] [id number] [place] [address] August, [facility] [address] [address] August, Type 2 diabetes mellitus with diabetic neuropathy E11.40 ; Diabetes type 2, uncontrolled E11.65 ; Long-term insulin use Z79.4 and 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 [facility] [address] [address] August, Type 2 diabetes mellitus with diabetic neuropathy E11.40 [facility] [id number] [place] [address] Jun, Type 2 diabetes mellitus with diabetic neuropathy E11.40 ; Long-term insulin use Z79.4 and Hypertriglyceridemia E78.1 [facility] [address] [address] Jun, [facility] [id number] [place] [address] Jun, Diabetes type 2, uncontrolled E11.65 [facility] [address] [address] Jun, [facility] [id number] [address] Jul, [facility] [address] [address] Jul, [facility] [address] [address] Nov, [facility] [address] [address] Oct, [facility] [id number] [address] Oct, [facility] [address] [address] Oct, [facility] [address] [address] Sep, [facility] [address] [facility] [id number] [address] Sep, [facility] [address] [facility] [id number] [place] [address] Nov, IMMUNIZATIONS No Known Immunizations SOCIAL HISTORY Never Assessed REASON FOR VISIT Controlled Med Refill PLAN OF CARE VITAL SIGNS MEDICATIONS Unknown [...]
--- OUTSIDE RECORDS SUMMARY | 2017-12-24 23:54 | XMS REPORT ---
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
--- OUTSIDE RECORDS SUMMARY | 2017-12-24 23:54 | XMS REPORT ---
Author Author MARGARITA THOMAS Organization [facility] Address [address] [place] [address] Care Team Providers Care Focus Puller Name Role Phone MARGARITA THOMAS Unavailable PROBLEMS Type Condition ICD9-CM Code KID41-YI Code Onset Dates Condition Status SNOMED Code Problem Hypertriglyceridemia E78.1 Active 970690695 Problem Tarsal tunnel syndrome, right G57.51 Active 80704247 Problem Type 2 diabetes mellitus with diabetic neuropathy E11.40 Active 30153624 Problem Neuropathy G62.9 Active 414055994 Problem Obstructive sleep apnea syndrome G47.33 Active 47489713 Problem Fatty liver K76.0 Active 367008168 Problem Essential hypertension I10 Active 89678137 Problem Pain in right ankle and joints of right foot M25.571 Active 668807131 Problem Other chronic pain G89.29 Active 74672711 ALLERGIES No Known Allergies ENCOUNTERS Encounter Location Date Diagnosis [facility] [address] [address] August, [facility] [address] [address] August, Type 2 diabetes mellitus with diabetic neuropathy E11.40 ; Hypertriglyceridemia E78.1 and Essential hypertension I10 [facility] [id number] [place] [address]83 -[address]01 Apr, Cough R05 ; Bronchitis J40 and BMI 50.0-59.9, adult Z68.43 [facility] [address] [address] Jan, [facility] [address] [address] Jan, Type 2 diabetes mellitus with diabetic neuropathy E11.40 ; Neuropathy G62.9 and Other chronic pain G89.29 [facility] [address] [place] [address] 34657- 9873 28 Dec, 2016 [facility] [id number] [place] [address] 38106- 3311 27 Dec, 2016 Neuropathy G62.9 [facility] [id number] [place] [address] 91029- 2555 26 Dec, 2016 [facility] [id number] [place] [address] 34525 -3711 23 Dec, 2016 Marquis splints, left, initial encounter S86.892A [facility] [id number] [place] [address] 54908- 5825 21 Dec, 2016 Other chronic pain G89.29 [facility] [id number] [place] [address] 92484- 1483 14 Dec, 2016 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.891 and Other chronic pain G89.29 [facility] [id number] [place] [address] 93086- 4865 12 Dec, 2016 Other chronic pain G89.29 [facility] [id number] [place] [address] 25596- 3226 18 Nov, 2016 Neuropathy G62.9 [facility] [id number] [place] [address] 34552- 8631 Nov, [facility] [id number] [place] [address] 68192- 5610 Nov, [facility] [id number] [place] [address] 69618- 3042 Oct, [facility] [id number] [place] [address] 72301- 6679 Oct, [facility] [address] [place] [address] 37861- 3314 Oct, Type 2 diabetes mellitus with diabetic neuropathy E11.40 ; Hypertriglyceridemia E78.1 ; snf 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 ; Essential hypertension I10 ; Other chronic pain G89.29 ; Shortness of breath R06.02 ; Obstructive sleep apnea syndrome G47.33 and Neuropathy G62.9 [facility] [id number] [place] [address] 20503- 2890 Oct, Type 2 diabetes mellitus with diabetic neuropathy E11.40 ; Fatty liver K76.0 and Hypertriglyceridemia E78.1 [place] [address] [address]- 5849 Oct, [facility] [address] 30[address]- 6694 Oct, [place] [address] 22[address]- 4949 Oct, Other chronic pain G89.29 [facility] [address] [address] Sep, Oral candidiasis B37.0 ; Strep pharyngitis J02.0 and Sore throat J02.9 [place] [id number] [place] [address] 54837- 5589 Sep, Type 2 diabetes mellitus with diabetic neuropathy E11.40 ; Long-term insulin use Z79.4 ; Tarsal tunnel syndrome, right G57.51 ; Other chronic pain G89.29 ; Hypertriglyceridemia E78.1 ; Shortness of breath R06.02 ; Essential hypertension I10 and Obstructive sleep apnea syndrome G47.33 [place] [facility] [id number] [place] [address] 33643- 4864 August, [place] [facility] [id number] [place] [address] 09034- 5768 August, [place] [facility] [id number] [place] [address] 15731- 3678 August, Back pain at L4-L5 level M54.5 [place] [facility] [id number] [place] [address] 44834- 7845 Jul, [place] [facility] [id number] [place] [address] 38364- 4173 May, [place] [address] 0[address]- 7142 May, Type 2 diabetes mellitus with diabetic neuropathy [...] and Back pain at L4-L5 level M54.5 [place] [facility] [id number] [place] [address] 52911- 6242 14 May, 2016 [place] [address] [address]- 3804 May, [place] [address] 289[address]- 2407 Apr, [place] [address] 22409- 0697 Mar, [place] [id number] [place] [address] 12113- 8606 Feb, Fatty liver K76.0 and Hypertriglyceridemia E78.1 [place] [id number] [place] [address] 78998- 0078 Feb, [place] [facility] [id number] [place] [address] 60308- 1827 Feb, Hypertriglyceridemia, essential E78.1 and Elevated liver enzymes R74.8 [place] [id number] [place] [address] 91550- 3394 Feb, [facility] [id number] [place] [address] 03715- 1969 Feb, Type 2 diabetes mellitus with diabetic neuropathy E11.40 ; Diastasis recti M62.08 ; Essential hypertension I10 and terminal carman 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 [facility] [id number] [place] [address] 17015- 9029 Feb, Tarsal tunnel syndrome, right G57.51 and Neuroma D36.10 [facility] [id number] [place] [address] 95831- 1812 Dec, Type 2 diabetes mellitus with diabetic neuropathy E11.40 [facility] [id number] [place] [address] 78428- 1155 Dec, [facility] [address] 33439- 9125 Nov, Low back pain M54.5 [facility] [id number] [place] [address] 98640- 3553 Nov, [facility] [id number] [place] [address] 33607- 4212 Nov, [facility] [id number] [place] [address] 95275- 1728 Nov, [facility] [id number] [place] [address] 97178- 9327 Nov, [facility] [id number] [place] [address] 48267- 1539 Nov, [facility] [id number] [place] [address] 23363- 7170 Oct, [facility] [id number] [place] [address] 40781- 8209 Oct, Type 2 diabetes mellitus with diabetic autonomic (poly) neuropathy E11.43 ; terminal carman 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 ; Low back pain M54.5 and Other chronic pain G89.29 [facility] [id number] [place] [address] 03367- 2576 Sep, [facility] [id number] [place] [address] [place] [address]- 9391 August, [facility] [address] [address] August, [facility] [address] [address] August, Type 2 diabetes mellitus with diabetic neuropathy E11.40 ; Diabetes type 2, uncontrolled E11.65 ; Long-term insulin use Z79.4 and 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 [facility] [address] [address] August, Type 2 diabetes mellitus with diabetic neuropathy E11.40 [facility] [id number] [place] [address] 16672- 5554 Jun, Type 2 diabetes mellitus with diabetic neuropathy E11.40 ; Long-term insulin use Z79.4 and Hypertriglyceridemia E78.1 [facility] [id number] [address]- 8824 Jun, [facility] [address] [address]- 0321 Jun, Diabetes type 2, uncontrolled E11.65 [facility] [address] [address]- 4255 Jun, [facility] [address] [address]- 7721 Jul, [facility] [address] [address]- 0912 Jul, [facility] [address] [address]- 2335 Nov, [facility] [address] [address] 8580 Oct, [facility] [address] [address]- 0325 Oct, [facility] [id number] [address]- 8137 Oct, [facility] [address] [facility] [id number] [address] 0818 Sep, [facility] [address] [facility] [id number], [place] [address]- 9382 Sep, [facility] [address] [facility] [id number] [address]- [address]17 Nov, IMMUNIZATIONS No Known Immunizations SOCIAL HISTORY Never Assessed REASON FOR VISIT Diabetes and neurothopy pain . PT is also having lots of pain in his right leg- Jaylen ALCANTAR PLAN OF CARE Activity Details Follow Up 3 Months Reason: VITAL SIGNS Height 67 in 2017-01-06 Weight 340.8 lbs 2017-01-06 Temperature 98.3 degrees Fahrenheit 2017-01-06 Heart Rate 96 bpm 2017-01-06 Respiratory Rate 20 2017-01-06 BMI 53.37 kg/m2 2017-01-06 Blood pressure systolic 168 mmHg 2017-01-06 Blood pressure diastolic 86 mmHg 2017-01-06 MEDICATIONS Medication Instructions Dosage Frequency Start Date End Date Duration Status Acetaminophen 500 MG Orally every 6 hrs 2 capsules as needed 6h Active Metformin HCl 1000 MG Orally Twice a day 1 tablet 12h 30 Active Proventil HFA 108 (90 Base) MCG/ACT Inhalation every 4 hrs 2 puffs as needed 4h Sep, Active Gabapentin 600 MG Orally Three times a day 1 capsule 8h Dec, 30 day(s) Active Atorvastatin Calcium 40 mg Orally Once a day 1 tablet 24h 30 Active Lisinopril 10 mg Orally Once a day 1 tablet 24h 30 Active Lopid 600 MG Orally Twice a day 1 tablet 12h Oct, 30 day(s) Active Actos 45 MG Orally Once a day 1 tablet 24h Sep, 30 day(s) Active Naproxen 500 mg Orally every 12 hrs 1 tablet as needed 12h Dec, Active Levemir Flexpen 100units subcutaneously evening 25 units Active RESULTS Name Result Date Reference Range A1C (IN HOUSE) 2017-01-06 A1C IN HOUSE 6.1 4.3 - 5.6 % Previous A1c 7.0 Lot 0732 Exp date 08/2018 PROCEDURES Procedure Date Ordered Result Body Site GLYCATED HEMOGLOBIN TEST Jan 06, 2017 INSTRUCTIONS MEDICATIONS ADMINISTERED No Known Medications [...]
--- OUTSIDE RECORDS SUMMARY | 2017-12-24 23:55 | XMS REPORT ---
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 Active Problem Diabetes type 2, uncontrolled E11.65 Active Problem Type 2 diabetes mellitus with diabetic autonomic (poly)neuropathy E11.43 Active Problem Hypertriglyceridemia E78.1 Active Problem Type 2 diabetes mellitus with diabetic neuropathy E11.40 Active Problem Long-term insulin use Z79.4 Active Medications Medication Code System Code Instructions Start Date End Date Status Dosage Trulicity NDC [address]-92 0.75 MG/0.5ML Subcutaneous Nov 06, 2015 Dec 06, 2015 0.5 ml Levemir Flexpen NDC 0 100 UNIT/ML Subcutaneous BID June 27, 2015 30 units in the am; 25 units qhs Results No Known Results Summary Purpose eClinicalWorks Submission
--- OUTSIDE RECORDS SUMMARY | 2017-12-24 23:55 | XMS REPORT ---
Author Author LILLIE Mahan Organization [facility] Address [address] [place] [address] Care Team Providers Care Marble Machine Tender Name Role Phone [email or web address] LILLIE Unavailable PROBLEMS Type Condition ICD9-CM Code QIB15-CU Code Onset Dates Condition Status SNOMED Code Problem Hypertriglyceridemia E78.1 Active 329744975 Problem Tarsal tunnel syndrome, right G57.51 Active 78651327 Problem Type 2 diabetes mellitus with diabetic neuropathy E11.40 Active 90011292 Problem Neuropathy G62.9 Active 100615930 Problem Obstructive sleep apnea syndrome G47.33 Active 73413923 Problem Fatty liver K76.0 Active 095452586 Problem Essential hypertension I10 Active 74295842 Problem Pain in right ankle and joints of right foot M25.571 Active 343449838 Problem Other chronic pain G89.29 Active 72172671 ALLERGIES No Information ENCOUNTERS Encounter Location Date Diagnosis [facility] [address] [address] August, [facility] [address] [address] Apr, Cough R05 ; Bronchitis J40 and BMI 50.0-59.9, adult Z68.43 [facility] [address] [address]- 1266 Jan, [facility] [address] 33[address]- 4479 Jan, Type 2 diabetes mellitus with diabetic neuropathy E11.40 ; Neuropathy G62.9 and Other chronic pain G89.29 [facility] [address] [address]- 8942 Dec, [facility] [address] [place] [address]- 2675 27 Dec, 2016 Neuropathy G62.9 [facility] [id number] [place] [address] 66334- 7343 26 Dec, 2016 [facility] [id number] [place] [address] 66942 -6389 23 Dec, 2016 Marquis splints, left, initial encounter S86.892A [facility] [address] [address]- 2439 21 Dec, 2016 Other chronic pain G89.29 [facility] [address] 40826- 2259 14 Dec, 2016 Other chronic pain G89.29 and 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 [place] [address] 996[address]- 9692 12 Dec, 2016 Other chronic pain G89.29 [place] [id number] [place] [address] 03382- 1768 Nov, Neuropathy G62.9 [place] [address] 00713- 1058 Nov, [place] [id number] [place] [address] 51994- 9357 Nov, [place] [id number] [place] [address] 77364- 8141 Oct, [place] [address] 57798- 8402 Oct, [place] [id number] [place] [address] 24422- 4435 Oct, Type 2 diabetes mellitus with diabetic neuropathy E11.40 ; Hypertriglyceridemia E78.1 ; 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 community 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 ; Essential hypertension I10 ; Other chronic pain G89.29 ; Shortness of breath R06.02 ; Obstructive sleep apnea syndrome G47.33 and Neuropathy G62.9 [place] [id number] [place] [address] 08973- 3991 Oct, Type 2 diabetes mellitus with diabetic neuropathy E11.40 ; Fatty liver K76.0 and Hypertriglyceridemia E78.1 [facility] [id number] [place] [address] 00457- 6237 Oct, [facility] [address] 22[address]- 1556 Oct, [facility] [address] 08066- 6160 Oct, Other chronic pain G89.29 [facility] [address] [address]137 Sep, Oral candidiasis B37.0 ; Strep pharyngitis J02.0 and Sore throat J02.9 [place] [address] 55487- 8988 Sep, Type 2 diabetes mellitus with diabetic neuropathy E11.40 ; Long-term insulin use Z79.4 ; Tarsal tunnel syndrome, right G57.51 ; Other chronic pain G89.29 ; Hypertriglyceridemia E78.1 ; Shortness of breath R06.02 ; Essential hypertension I10 and Obstructive sleep apnea syndrome G47.33 [place] [id number] [place] [address] 40921- 0001 August, [facility] [id number] [place] [address] 15587- 0531 August, [facility] [id number] [place] [address] 05320- 5038 August, Back pain at L4-L5 level M54.5 [facility] [address] 33896- 8694 Jul, [facility] [id number] [place] [address] 82998- 4588 May, [facility] [address] 70268- 8645 14 May, 2016 Type 2 diabetes mellitus [...] and Back pain at L4-L5 level M54.5 [place] [address] 31164- 3608 14 May, 2016 [place] [address] 36365- 1804 10 May, 2016 [place] [address] 48[address]- 2109 Apr, [place] [id number] [place] [address] 83714- 2402 Mar, [place] [address] 69204- 1686 Feb, Fatty liver K76.0 and Hypertriglyceridemia E78.1 [place] [id number] [place] [address] 35447- 4087 Feb, [place] [id number] [place] [address] 07723- 3020 Feb, Hypertriglyceridemia, essential E78.1 and Elevated liver enzymes R74.8 [place] [id number] [place] [address] 61365- 0152 Feb, [place] [address] 46955- 4976 Feb, Type 2 diabetes mellitus with diabetic neuropathy E11.40 ; Diastasis recti M62.08 ; Essential hypertension I10 and alf 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 [place] [address] 19180- 6765 Feb, Tarsal tunnel syndrome, right G57.51 and Neuroma D36.10 [facility] [id number] [place] [address] 77849- 6347 Dec, Type 2 diabetes mellitus with diabetic neuropathy E11.40 [facility] [id number] [place] [address] 41091- 1320 Dec, [facility] [id number] [place] [address] 97429- 2409 Nov, Low back pain M54.5 [facility] [id number] [place] [address] 21218- 1736 Nov, [facility] [id number] [place] [address] 03900- 5923 Nov, [facility] [id number] [place] [address] 04965- 4072 Nov, [facility] [id number] [place] [address] 69392- 2120 Nov, [facility] [id number] [place] [address] 61007- 1262 Nov, [facility] [id number] [place] [address] 90590- 9107 Oct, [facility] [id number] [place] [address] 95907- 5284 Oct, Type 2 diabetes mellitus with diabetic autonomic (poly) neuropathy E11.43 ; alf 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 ; Low back pain M54.5 and Other chronic pain G89.29 [facility] [id number] [place] [address] 53717- 5101 Sep, [facility] [id number] [place] [address] 44665- 8559 August, [facility] [id number] [place] [address] 16300- 4078 August, [facility] [address] [address]- 5286 August, Type 2 diabetes mellitus with diabetic neuropathy E11.40 ; Diabetes type 2, uncontrolled E11.65 ; Long-term insulin use Z79.4 and 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 [facility] [address] [address]- 3014 August, Type 2 diabetes mellitus with diabetic neuropathy E11.40 [facility] [id number] [place] [address] 99919- 9392 Jun, Type 2 diabetes mellitus with diabetic neuropathy E11.40 ; Long-term insulin use Z79.4 and Hypertriglyceridemia E78.1 [facility] [address] [address]- 0171 Jun, [facility] [id number] [place] [address] 19677- 9087 Jun, Diabetes type 2, uncontrolled E11.65 [facility] [address] [address]- 5258 Jun, [facility] [id number] [address]- 6136 Jul, [facility] [address] [address]- 9185 Jul, [facility] [id number] [address]- 3898 Nov, [facility] [id number] [address]- 9012 Oct, [facility] [id number] 2386 Oct, [facility] [id number] [address]- 1836 Oct, [facility] [id number] 3739 Sep, [facility] [address] [facility] [id number] [place] [address]859 Sep, [facility] [address] [facility] [id number] [place] [address] 6397 Nov, IMMUNIZATIONS No Known Immunizations SOCIAL HISTORY Never Assessed REASON FOR VISIT Other PLAN OF CARE VITAL SIGNS MEDICATIONS Unknown [...]
--- OUTSIDE RECORDS SUMMARY | 2017-12-24 23:55 | XMS REPORT ---
Author DIXIE Richards eClinical[employer] Address Unknown Phone Unavailable Care Team Providers Care Principal Engineer Name Role Phone DIXIE CHIRINOS CP Unavailable Allergies, Adverse Reactions, Alerts Substance Reaction Event Type N.K.D.A. 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 Active Problem Diabetes type 2, uncontrolled E11.65 Active Problem Type 2 diabetes mellitus with diabetic autonomic (poly)neuropathy E11.43 Active Problem Hypertriglyceridemia E78.1 Active Assessment Type 2 diabetes mellitus with diabetic autonomic (poly)neuropathy E11.43 Active Problem Type 2 diabetes mellitus with diabetic neuropathy E11.40 Active Problem Long-term insulin use Z79.4 Active Medications Medication Code System Code Instructions Start Date End Date Status Dosage OneTouch Delica Lancets 33G [facility] [id number] 33 TEST TWO TIMES A DAY Levemir Flexpen NDC 0 100 UNIT/ML Subcutaneous BID June 27, 2015 30 units in the am; 25 units qhs BD U/F Mini Pen Needle [facility] 27970657527 31 gauge USE ONE - DAILY INSTRUCTED Glucometer NDC 0 glucometer 2 times a day- June 27, 2015 test blood sugar Neurontin [facility] [address]-93 600 MG Orally Three times a day July 03, 2015 1 capsule MetFORMIN HCl ER [facility] [address]-79 500 MG Orally 2 times a day June 27, 2015 1 tablets Mobic [facility] [address]-06 7.5 MG Orally 2 times a day October 23, 2015 1 tablet NovoLog Flexpen [facility] 10913762242 100 UNIT/ML INJECT 25 UNITS SUBCUTANEOUSLY BEFORE MEALS One Touch Delica Lancets NDC 0 One Touch 2 times a day August 07, 2015 test blood sugar BD U/F Short Pen Needle [facility] 30924737638 31 gauge as directed BD U/F Short Pen Needle ND 8290-163657 31G X 8 MM June 27, 2015 as directed OneTouch Ultra Test [facility] [id number] TEST TWO TIMES A DAY Procedures Procedure Coding System Code Date Office Visit, Est Pt., Level 4 CPT-4 38909 October 23, 2015 GLYCATED HEMOGLOBIN TEST CPT-4 63558 October 23, 2015 Vital Signs Date/Time: October 23, 2015 Cardiac Monitoring Heart Rate 92 bpm Weight 349.6 lbs Height 67 in Blood Pressure Diastolic 82 mmHg Blood Pressure Systolic 128 mmHg Results No Known Results Summary Purpose eClinicalWorks Submission
--- OUTSIDE RECORDS SUMMARY | 2017-12-24 23:55 | XMS REPORT ---
Author Author LILLIE Mahan Organization [facility] Address [address] [place] [address] Care Team Providers Care Sizing End Bander Name Role Phone [email or web address] LILLIE Unavailable PROBLEMS Type Condition ICD9-CM Code HTM87-NT Code Onset Dates Condition Status SNOMED Code Problem Hypertriglyceridemia E78.1 Active 734459754 Problem Tarsal tunnel syndrome, right G57.51 Active 23019289 Problem Type 2 diabetes mellitus with diabetic neuropathy E11.40 Active 90962836 Problem Neuropathy G62.9 Active 630773550 Problem Obstructive sleep apnea syndrome G47.33 Active 47829511 Problem Fatty liver K76.0 Active 909920739 Problem Essential hypertension I10 Active 90861600 Problem Pain in right ankle and joints of right foot M25.571 Active 339346439 Problem Other chronic pain G89.29 Active 79139025 ALLERGIES No Information ENCOUNTERS Encounter Location Date Diagnosis [facility] [address] [address] August, [facility] [address] [address] Apr, Cough R05 ; Bronchitis J40 and BMI 50.0-59.9, adult Z68.43 [facility] [address] [address] Jan, [facility] [address] [address] Jan, Type 2 diabetes mellitus with diabetic neuropathy E11.40 ; Neuropathy G62.9 and Other chronic pain G89.29 [facility] [address] [address] Dec, [facility] [address] [place] [address] 27 Dec, 2016 Neuropathy G62.9 [facility] [id number] [place] [address] 26 Dec, 2016 [facility] [id number] [place] [address] 23 Dec, 2016 Marquis splints, left, initial encounter S86.892A [facility] [address] [address] 21 Dec, 2016 Other chronic pain G89.29 [facility] [address] [address] 14 Dec, 2016 Other chronic pain G89.29 and 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 [place] [address] [address] 12 Dec, 2016 Other chronic pain G89.29 [place] [id number] [place] [address] Nov, Neuropathy G62.9 [place] [address] [address] Nov, [place] [id number] [place] [address] Nov, [place] [id number] [place] [address] Oct, [place] [address] [address] Oct, [place] [id number] [place] [address] Oct, Type 2 diabetes mellitus with diabetic neuropathy E11.40 ; Hypertriglyceridemia E78.1 ; 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 ; Essential hypertension I10 ; Other chronic pain G89.29 ; Shortness of breath R06.02 ; Obstructive sleep apnea syndrome G47.33 and Neuropathy G62.9 [place] [id number] [place] [address] Oct, Type 2 diabetes mellitus with diabetic neuropathy E11.40 ; Fatty liver K76.0 and Hypertriglyceridemia E78.1 [facility] [id number] [place] [address] Oct, [facility] [address] [address] Oct, [facility] [address] [address] Oct, Other chronic pain G89.29 [facility] [address] [address] Sep, Oral candidiasis B37.0 ; Strep pharyngitis J02.0 and Sore throat J02.9 [place] [address] [address] Sep, Type 2 diabetes mellitus with diabetic neuropathy E11.40 ; Long-term insulin use Z79.4 ; Tarsal tunnel syndrome, right G57.51 ; Other chronic pain G89.29 ; Hypertriglyceridemia E78.1 ; Shortness of breath R06.02 ; Essential hypertension I10 and Obstructive sleep apnea syndrome G47.33 [place] [id number] [place] [address] August, [facility] [id number] [place] [address] August, [facility] [id number] [place] [address] August, Back pain at L4-L5 level M54.5 [facility] [address] [address] Jul, [facility] [id number] [place] [address] May, [facility] [address] [address] 14 May, 2016 Type 2 diabetes mellitus [...] and Back pain at L4-L5 level M54.5 [place] [address] [address] 14 May, 2016 [place] [address] [address] 10 May, 2016 [place] [address] [address] Apr, [place] [id number] [place] [address] Mar, [place] [address] [address] Feb, Fatty liver K76.0 and Hypertriglyceridemia E78.1 [place] [id number] [place] [address] Feb, [place] [id number] [place] [address] Feb, Hypertriglyceridemia, essential E78.1 and Elevated liver enzymes R74.8 [place] [id number] [place] [address] Feb, [place] [address] [address] Feb, Type 2 diabetes mellitus with diabetic neuropathy E11.40 ; Diastasis recti M62.08 ; Essential hypertension I10 and half-way 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 [place] [address] [address] Feb, Tarsal tunnel syndrome, right G57.51 and Neuroma D36.10 [facility] [id number] [place] [address] Dec, Type 2 diabetes mellitus with diabetic neuropathy E11.40 [facility] [id number] [place] [address] Dec, [facility] [id number] [place] [address] Nov, Low back pain M54.5 [facility] [id number] [place] [address] Nov, [facility] [id number] [place] [address] Nov, [facility] [id number] [place] [address] Nov, [facility] [id number] [place] [address] Nov, [facility] [id number] [place] [address] Nov, [facility] [id number] [place] [address] Oct, [facility] [id number] [place] [address] Oct, Type 2 diabetes mellitus with diabetic autonomic (poly) neuropathy E11.43 ; half-way 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 ; Low back pain M54.5 and Other chronic pain G89.29 [facility] [id number] [place] [address] Sep, [facility] [id number] [place] [address] August, [facility] [id number] [place] [address] August, [facility] [address] [place] [address] August, Type 2 diabetes mellitus with diabetic neuropathy E11.40 ; Diabetes type 2, uncontrolled E11.65 ; Long-term insulin use Z79.4 and 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 [facility] [address] [place] [address] August, Type 2 diabetes mellitus with diabetic neuropathy E11.40 [facility] [id number] [place] [address] Jun, Type 2 diabetes mellitus with diabetic neuropathy E11.40 ; Long-term insulin use Z79.4 and Hypertriglyceridemia E78.1 [facility] [address] [address] Jun, [facility] [id number] [place] [address] Jun, Diabetes type 2, uncontrolled E11.65 [facility] [address] [place] [address] Jun, [facility] [id number] [place] [address] Jul, [facility] [address] [place] [address] Jul, [facility] [address] [place] [address] Nov, [facility] [address] [place] [address] Oct, [facility] [id number] [address] Oct, [facility] [address] [place] [address] Oct, [facility] [address] [address] Sep, [facility] [address] [facility] [id number] [address] Sep, [facility] [address] [facility] [id number] [place] [address] Nov, IMMUNIZATIONS No Known Immunizations SOCIAL HISTORY Never Assessed REASON FOR VISIT Narc VIolation- PLAN OF CARE VITAL SIGNS MEDICATIONS Unknown [...]
--- OUTSIDE RECORDS SUMMARY | 2017-12-24 23:55 | XMS REPORT ---
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
--- OUTSIDE RECORDS SUMMARY | 2017-12-24 23:55 | XMS REPORT ---
Author DIXIE Richards eClinicalWorks Address Unknown Phone Unavailable Care Team Providers Care Heat Sealing Machine Operator Name Role Phone DIXIE CHIRINOS CP Unavailable Allergies, Adverse Reactions, Alerts Substance Reaction Event Type N.K.D.A. 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 35114647493 500 MG TAKE ONE TABLET BY MOUTH TWICE DAILY FOR 7 DAYS THEN INCREASE TO TWO TABLETS TWICE DAILY THEREAFTER Neurontin [facility] [address]-87 600 MG Orally Three times a day July 03, [address] [facility] [address]-76 2 MG Subcutaneous Once weekly. DX- E11.65 Nov Inject 2 mg 1 times per week MetFORMIN HCl ER [facility] 85072963321 1000 MG orally twice daily 1 tablet Levemir Flexpen [facility] 0 100 UNIT/ML Subcutaneous BID June 27, 2015 30 units in the am; 25 units qhs Lisinopril [facility] [address]-75 10 mg Orally Once a day Feb 12, 2016 as directed Procedures Procedure Coding System Code Date [facility] CPT-4 NOBLL Feb 12, 2016 VENIPUNCT, ROUTINE* CPT-4 28297 Feb 12, 2016 GLYCATED HEMOGLOBIN TEST CPT-4 06325 Feb 12, 2016 Office Visit, Est Pt., Level 4 CPT-4 08129 Feb 12, 2016 MICROALBUMIN, SEMIQUANT CPT-4 03249 Feb 12, 2016 Vital Signs Date/Time: Feb 12, 2016 Cardiac Monitoring Heart Rate 90 bpm Weight 350 lbs Height 67 in BMI 54.81 Index Blood Pressure Diastolic 90 mmHg Blood Pressure Systolic 140 mmHg Results Name Result Date Reference Range Unit Abnormality Flag MICROALBUMIN, URINE (IN HOUSE) ----Exp date 20160212 ----Clarity clear 20160212 ----[place] 20160212 ----ALB 30mg/L 20160212 ----CRE 200mg/dl 20160212 ----A:C (IN HOUSE) <30 mg/g 20160212 ----MICROALBUMIN normal 20160212 ----Lot # [id number] 20160212 MICROALBUMIN/CREATININE RATIO, URINE ----Creatinine, Urine 108.8 20160212 Not Estab. mg/dL ----Microalb/Creat Ratio 3.0 20160212 0.0-30.0 mg/g creat ----Microalbumin, Urine 3.3 20160212 Not Estab. ug/mL ROUTINE VENIPUNCTURE A1C (IN HOUSE) ----Exp date 20160212 ----Previous A1c 7.2 20160212 ----Lot [id number] 20160212 ----A1C IN HOUSE 6.8 20160212 4.3 - 5.6 % LIPID PANEL ----LDL Cholesterol Calc 113 20149406 0-99 mg/dL H ----VLDL Cholesterol Kye 35 18774891 5-40 mg/dL ----HDL Cholesterol 40 86392911 >39 mg/dL ----Triglycerides 176 89766476 0-149 mg/dL H ----Cholesterol, Total 188 40527658 100-199 mg/dL CMP ----Creatinine, Serum 1.04 78757644 0.76-1.27 mg/dL ----BUN 12 20160212 6-20 mg/dL ----eGFR If Africn Am 108 07830629 >59 mL/min/1.73 ----eGFR If NonAfricn Am 93 26456260 >59 mL/min/1.73 ----Sodium, Serum 138 20160212 136-144 mmol/L ----BUN/Creatinine Ratio 12 20160212 8-19 ----Chloride, Serum 97 20160212 97-106 mmol/L ----Potassium, Serum 4.7 94837728 3.5-5.2 mmol/L ----Carbon Dioxide, Total 26 20160212 18-29 mmol/L ----Protein, Total, Serum 6.7 20160212 6.0-8.5 g/dL ----Calcium, Serum 9.3 20160212 8.7-10.2 mg/dL ----Globulin, Total 2.5 82278413 1.5-4.5 g/dL ----Albumin, Serum 4.2 20160212 3.5-5.5 g/dL ----Bilirubin, Total 0.4 20160212 0.0-1.2 mg/dL ----Glucose, Serum 125 20160212 65-99 mg/dL H ----A/G Ratio 1.7 20160212 1.1-2.5 ----ALT (SGPT) 86 22472922 0-44 IU/L H ----Alkaline Phosphatase, S 127 06018241 39-117 IU/L H ----AST (SGOT) 81 29961131 0-40 IU/L H Summary Purpose eClinicalWorks Submission
--- OUTSIDE RECORDS SUMMARY | 2017-12-24 23:56 | XMS REPORT ---
Author Author MALISSA ORTEGA [facility] Address [address] [place] [address] Care Team Providers Care Post Graduate Intern Name Role Phone SHANNONADRIANAN Unavailable PROBLEMS Type Condition ICD9-CM Code ZKL40-TE Code Onset Dates Condition Status SNOMED Code Problem Hypertriglyceridemia E78.1 Active 369639834 Problem Tarsal tunnel syndrome, right G57.51 Active 00552148 Problem Type 2 diabetes mellitus with diabetic neuropathy E11.40 Active 70105028 Problem Neuropathy G62.9 Active 299097914 Problem Obstructive sleep apnea syndrome G47.33 Active 37903824 Problem Fatty liver K76.0 Active 916304334 Problem Essential hypertension I10 Active 73783925 Problem Pain in right ankle and joints of right foot M25.571 Active 282170971 Problem Other chronic pain G89.29 Active 40974334 ALLERGIES No Information SOCIAL HISTORY Never Assessed PLAN OF CARE Activity Details Follow Up 2 Weeks Reason:F/U PT VITAL SIGNS MEDICATIONS Unknown Medications RESULTS No Results PROCEDURES Procedure Date Ordered Result Body Site PT RE-EVALUATION August 21, 2016 IMMUNIZATIONS No Known Immunizations MEDICAL [...]
--- OUTSIDE RECORDS SUMMARY | 2017-12-24 23:56 | XMS REPORT ---
Author Author MALA SOLITARIO [facility] eClinicalWorks Address Unknown Phone Unavailable Care Team Providers Care Global Security Architect Name Role Phone MALA SOLITARIO CP Unavailable Allergies No Known Allergies Problems Problem Type Condition Code Onset Dates Condition Status Problem assisted 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 Active Problem Type 2 diabetes mellitus with diabetic neuropathy E11.40 Active Problem Tarsal tunnel syndrome, right G57.51 Active Assessment Tarsal tunnel syndrome, right G57.51 Active Assessment Neuroma D36.10 Active Problem Long-term insulin use Z79.4 Active Problem Hypertriglyceridemia E78.1 Active Medications No Known Medications Procedures Procedure Coding System Code Date Office Visit, Est Pt., Level 3 CPT-4 02490 Feb 09, 2016 Vital Signs Date/Time: Feb 09, 2016 Blood Pressure Diastolic 90 mmHg Blood Pressure Systolic 132 mmHg Height 67 in Results No Known Results Summary Purpose eClinicalWorks Submission
--- OUTSIDE RECORDS SUMMARY | 2017-12-24 23:56 | XMS REPORT ---
Author Author LILLIE TOLBERT Organization [facility] Address [address] [place] [address] Care Team Providers Care An Employee Sponsor Or Advocate And Name Role Phone TOLBERT LILLIE Unavailable PROBLEMS Type Condition ICD9-CM Code UVY42-AO Code Onset Dates Condition Status SNOMED Code Problem Hypertriglyceridemia E78.1 Active 949886474 Problem Tarsal tunnel syndrome, right G57.51 Active 98111686 Problem Type 2 diabetes mellitus with diabetic neuropathy E11.40 Active 31490986 Problem Neuropathy G62.9 Active 649091309 Problem Obstructive sleep apnea syndrome G47.33 Active 42242206 Problem Fatty liver K76.0 Active 037671632 Problem Essential hypertension I10 Active 44670052 Problem Pain in right ankle and joints of right foot M25.571 Active 247350724 Problem Other chronic pain G89.29 Active 84725198 ALLERGIES No Information SOCIAL HISTORY Never Assessed PLAN OF CARE VITAL SIGNS MEDICATIONS No Known Medications RESULTS No Results PROCEDURES No Known procedures IMMUNIZATIONS No Known Immunizations MEDICAL (GENERAL) HISTORY [...]
--- OUTSIDE RECORDS SUMMARY | 2017-12-24 23:56 | XMS REPORT ---
Author Author LILLIE Mahan Organization [facility] Address [address] [place] [address] Care Team Providers Care Web Analytics Developer Name Role Phone jaredJethroANJU LILLIE Unavailable PROBLEMS Type Condition ICD9-CM Code TTM19-AK Code Onset Dates Condition Status SNOMED Code Problem Hypertriglyceridemia E78.1 Active 696337032 Problem Tarsal tunnel syndrome, right G57.51 Active 18743437 Problem Type 2 diabetes mellitus with diabetic neuropathy E11.40 Active 22114159 Problem Neuropathy G62.9 Active 761860746 Problem Obstructive sleep apnea syndrome G47.33 Active 32746212 Problem Fatty liver K76.0 Active 272302616 Problem Essential hypertension I10 Active 38846236 Problem Pain in right ankle and joints of right foot M25.571 Active 714662568 Problem Other chronic pain G89.29 Active 36240887 ALLERGIES No Information ENCOUNTERS Encounter Location Date Diagnosis [facility] [address] [address] August, [facility] [address] [address] Apr, Cough R05 ; Bronchitis J40 and BMI 50.0-59.9, adult Z68.43 [facility] [address] [address] Jan, [facility] [address] [address] Jan, Type 2 diabetes mellitus with diabetic neuropathy E11.40 ; Neuropathy G62.9 and Other chronic pain G89.29 [facility] [address] [address] Dec, [facility] [address] [place] [address] 27 Dec, 2016 Neuropathy G62.9 [facility] [address] [id number] [place] [address] 99364- 4095 26 Dec, 2016 [facility] [id number] [place] [address] 36562 -6098 23 Dec, 2016 Marquis splints, left, initial encounter S86.892A [facility] [address] [address] 21 Dec, 2016 Other chronic pain G89.29 [facility] [address] [address]- 0713 14 Dec, 2016 [facility] current use of opiate analgesic Z79.891 and Other chronic pain G89.29 [place] [address] [address]- [address] 12 Dec, 2016 Other chronic pain G89.29 [facility] [id number] [place] [address] 68084- 7217 Nov, Neuropathy G62.9 [place] [address] 5[address]- 4295 Nov, [place] [id number] [place] [address] 95573- 8847 Nov, [place] [id number] [place] [address] 22411- 5975 Oct, [place] [address] 0[address]- [address] Oct, [facility] [id number] [place] [address] 68099- 1819 Oct, Type 2 diabetes mellitus with diabetic neuropathy E11.40 ; Hypertriglyceridemia E78.1 ; 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 ; Essential hypertension I10 ; Other chronic pain G89.29 ; Shortness of breath R06.02 ; Obstructive sleep apnea syndrome G47.33 and Neuropathy G62.9 [facility] [id number] [place] [address] 82901- 6210 Oct, Type 2 diabetes mellitus with diabetic neuropathy E11.40 ; Fatty liver K76.0 and Hypertriglyceridemia E78.1 [facility] [id number] [place] [address] 45866- 3313 Oct, [facility] [address] [address] Oct, [facility] [address] 48[address]- 2638 Oct, Other chronic pain G89.[address] [facility] [address] [address] Sep, Oral candidiasis B37.0 ; Strep pharyngitis J02.0 and Sore throat J02.9 [place] [address] 86[address]- 1655 Sep, Type 2 diabetes mellitus with diabetic neuropathy E11.40 ; Long-term insulin use Z79.4 ; Tarsal tunnel syndrome, right G57.51 ; Other chronic pain G89.29 ; Hypertriglyceridemia E78.1 ; Shortness of breath R06.02 ; Essential hypertension I10 and Obstructive sleep apnea syndrome G47.33 [place] [id number] [place] [address] 01666- 3508 August, [facility] [id number] [place] [address] 18603- 6371 August, [facility] [id number] [place] [address] 79507- 2705 August, Back pain at L4-L5 level M54.5 [facility] [address] 336[address]- 0350 Jul, [facility] [id number] [place] [address] 51539- 6223 May, [facility] [address] 84547- 4958 14 May, 2016 Type 2 diabetes mellitus [...] and Back pain at L4-L5 level M54.5 [place] [address] 47683- 9882 14 May, 2016 [place] [address] 537[address]- 3745 10 May, 2016 [place] [address] 20153- 7257 Apr, [place] [address] [id number] [place] [address] 64423- 6852 Mar, [place] [address] 87184- 9099 Feb, Fatty liver K76.0 and Hypertriglyceridemia E78.1 [place] [id number] [place] [address] 96568- 8163 Feb, [place] [id number] [place] [address] 54150- 9987 Feb, Hypertriglyceridemia, essential E78.1 and Elevated liver enzymes R74.8 [place] [id number] [place] [address] 02785- 4531 Feb, [place] [address] 91234- 4147 Feb, Type 2 diabetes mellitus with diabetic neuropathy E11.40 ; Diastasis recti M62.08 ; Essential hypertension I10 and [facility] 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 [place] [address] 10952- 0567 Feb, Tarsal tunnel syndrome, right G57.51 and Neuroma D36.10 [facility] [id number] [place] [address] 70682- 3645 Dec, Type 2 diabetes mellitus with diabetic neuropathy E11.40 [facility] [id number] [place] [address] 35572- 4271 Dec, [facility] [id number] [place] [address] 96336- 4675 Nov, Low back pain M54.5 [facility] [id number] [place] [address] 38637- 5040 Nov, [facility] [id number] [place] [address] 71986- 9075 Nov, [facility] [id number] [place] [address] 27810- 4848 Nov, [facility] [id number] [place] [address] 53875- 4216 Nov, [facility] [id number] [place] [address] 04272- 9292 Nov, [facility] [id number] [place] [address] 26248- 3366 Oct, [facility] [id number] [place] [address] 27996- 7284 Oct, Type 2 diabetes mellitus with diabetic autonomic (poly) neuropathy E11.43 ; [facility] 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 ; Low back pain M54.5 and Other chronic pain G89.29 [facility] [id number] [place] [address] 59767- 7100 Sep, [facility] [id number] [place] [address] 96964- 3733 August, [facility] [id number] [place] [address] 88262- 2813 August, [facility] [address] [address] August, Type 2 diabetes mellitus with diabetic neuropathy E11.40 ; Diabetes type 2, uncontrolled E11.65 ; Long-term insulin use Z79.4 and 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 [facility] [address] [address] 9[address] August, Type 2 diabetes mellitus with diabetic neuropathy E11.40 [facility] [id number] [place] [address] 79625- 0922 Jun, Type 2 diabetes mellitus with diabetic neuropathy E11.40 ; Long-term insulin use Z79.4 and Hypertriglyceridemia E78.1 [facility] [address] [address] 0[address] Jun, [facility] [id number] [place] [address] 61668- 6815 Jun, Diabetes type 2, uncontrolled E11.65 [facility] [address] [address]- 8260 Jun, [facility] [id number] [address]- 2699 Jul, [facility] [address] [address]- 8832 Jul, [facility] [address] [address]- 8093 Nov, [facility] [address] [address]- 5520 Oct, [facility] [id number] 0392 Oct, [facility] [address] [address]- 4966 Oct, [facility] [address] 89[address] Sep, [facility] [address] [facility] [id number] [place] [address] Sep, [facility] [address] [facility] [id number] [place] [address]- 0792 Nov, IMMUNIZATIONS No Known Immunizations SOCIAL HISTORY Never Assessed REASON FOR VISIT meds per lab PLAN OF CARE VITAL SIGNS MEDICATIONS Medication Instructions Dosage Frequency Start Date End Date Duration Status Lopid 600 MG Orally Twice a day 1 tablet 12h Oct, 30 day(s) Active RESULTS No Results PROCEDURES No Known procedures [...]
--- OUTSIDE RECORDS SUMMARY | 2017-12-24 23:56 | XMS REPORT ---
Author Author TOMASZ LILLIE Organization [facility] Address [address] [place] [address] Care Team Providers Care Counter Clerk Name Role Phone GUSTAVO TOLBERTE Unavailable PROBLEMS Type Condition ICD9-CM Code KEV33-VI Code Onset Dates Condition Status SNOMED Code Problem Hypertriglyceridemia E78.1 Active 623672602 Problem Tarsal tunnel syndrome, right G57.51 Active 87762728 Problem Type 2 diabetes mellitus with diabetic neuropathy E11.40 Active 20008449 Problem Neuropathy G62.9 Active 416702247 Problem Obstructive sleep apnea syndrome G47.33 Active 37643697 Problem Fatty liver K76.0 Active 334071974 Problem Essential hypertension I10 Active 57027896 Problem Pain in right ankle and joints of right foot M25.571 Active 832760850 Problem Other chronic pain G89.29 Active 77439401 ALLERGIES No Known Allergies SOCIAL HISTORY Never Assessed PLAN OF CARE Activity Details Follow Up one month Reason:diabetes, htn, sleep apnes VITAL SIGNS Height 67 in 2016-09-09 Weight 337.3 lbs 2016-09-09 Temperature 98.0 degrees Fahrenheit 2016-09-09 Heart Rate 84 bpm 2016-09-09 Respiratory Rate 22 2016-09-09 BMI 52.82 kg/m2 2016-09-09 Blood pressure systolic 128 mmHg 2016-09-09 Blood pressure diastolic 76 mmHg 2016-09-09 MEDICATIONS Medication Instructions Dosage Frequency Start Date End Date Duration Status Proventil HFA 108 (90 Base) MCG/ACT Inhalation every 4 hrs 2 puffs as needed 4h Sep, Active Actos 45 MG Orally Once a day 1 tablet 24h Sep, 30 day(s) Active Ultram 50 mg Orally 3 times a day 1 tablet as needed 8h Sep, Active Lisinopril 10 mg Orally Once a day 1 tablet 24h 30 Active Atorvastatin Calcium 40 mg Orally Once a day 1 tablet 24h 30 Active Acetaminophen 500 MG Orally every 6 hrs 2 capsules as needed 6h Active Metformin HCl 1000 MG Orally Twice a day 1 tablet 12h 30 Active RESULTS No Results PROCEDURES Procedure Date Ordered Result Body Site GLYCATED HEMOGLOBIN TEST September 09, 2016 CHEST X-RAY September 09, 2016 MICROALBUMIN, SEMIQUANT September 09, 2016 LAB NOT BILLED BY [facility] September 09, 2016 IMMUNIZATIONS No Known Immunizations MEDICAL (GENERAL) [...]
--- OUTSIDE RECORDS SUMMARY | 2017-12-24 23:56 | XMS REPORT ---
Author DIXIE Richards [facility] eClinicalWorks Address Unknown Phone Unavailable Care Team Providers Care Solar Photovoltaic Installer Name Role Phone DIXIE CHIRINOS CP Unavailable Allergies No Known Allergies Problems Problem Type Condition Code Onset Dates Condition Status Problem Type 2 diabetes mellitus with diabetic neuropathy E11.40 Active Problem Long-term insulin use Z79.4 Active Problem Diabetes type 2, uncontrolled E11.65 Active Problem Hypertriglyceridemia E78.1 Active Assessment Type 2 diabetes mellitus with diabetic neuropathy E11.40 Active Medications Medication Code System Code Instructions Start Date End Date Status Dosage One Touch Delica Lancets NDC 0 One Touch 2 times a day August 07, 2015 test blood sugar OneTouch Ultra Test ND [id number] TEST TWO TIMES A DAY BD U/F Short Pen Needle ND [id number] 31 gauge as directed Results No Known Results Summary Purpose eClinicalWorks Submission
--- OUTSIDE RECORDS SUMMARY | 2017-12-24 23:56 | XMS REPORT ---
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
--- OUTSIDE RECORDS SUMMARY | 2017-12-24 23:56 | XMS REPORT ---
Author Author Negrito LILLIE Organization [facility] Address [address] [place] [address] Care Team Providers Care Manager Mining Name Role Phone jaredLILLIE Mckeon Unavailable PROBLEMS Type Condition ICD9-CM Code SSZ71-JK Code Onset Dates Condition Status SNOMED Code Problem Hypertriglyceridemia E78.1 Active 983887641 Problem Tarsal tunnel syndrome, right G57.51 Active 36059967 Problem Type 2 diabetes mellitus with diabetic neuropathy E11.40 Active 68439547 Problem Neuropathy G62.9 Active 000983740 Problem Obstructive sleep apnea syndrome G47.33 Active 06431313 Problem Fatty liver K76.0 Active 638622904 Problem Essential hypertension I10 Active 00986290 Problem Pain in right ankle and joints of right foot M25.571 Active 127781402 Problem Other chronic pain G89.29 Active 00793741 ALLERGIES No Information ENCOUNTERS Encounter Location Date Diagnosis [facility] [address] [address] August, [facility] [address] [address]- [address] August, Type 2 diabetes mellitus with diabetic neuropathy E11.40 ; Hypertriglyceridemia E78.1 and Essential hypertension I10 [facility] [address] [address] Apr, Cough R05 ; Bronchitis J40 and BMI 50.0-59.9, adult Z68.43 [facility] [address] [address]- 5695 Jan, [facility] [address] [address]- 7549 Jan, Type 2 diabetes mellitus with diabetic neuropathy E11.40 ; Neuropathy G62.9 and Other chronic pain G89.29 [facility] [address] [address]- [address] 28 Dec, 2016 [facility] [id number] [place] [address] 46781- 7686 27 Dec, 2016 Neuropathy G62.9 [facility] [address] [place] [address] 99435- 5822 26 Dec, 2016 [facility] [id number] [place] [address] 95016 -4610 23 Dec, 2016 Marquis splints, left, initial encounter S86.892A [facility] [id number] [place] [address] 47726- 0592 21 Dec, 2016 Other chronic pain G89.29 [facility] [id number] [place] [address] 40552- 8696 14 Dec, 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 and Other chronic pain G89.29 [facility] [id number] [place] [address] 89997- 3132 12 Dec, 2016 Other chronic pain G89.29 [facility] [id number] [place] [address] 83157- 9939 Nov, Neuropathy G62.9 [facility] [address] [place] [address] 57823- 8647 Nov, [facility] [id number] [place] [address] 65656- 5520 Nov, [facility] [address] [place] [address] 15324- 2498 Oct, [facility] [id number] [place] [address] 68130- 9468 Oct, [facility] [address] [place] [address] 82537- 1619 Oct, Type 2 diabetes mellitus with diabetic neuropathy E11.40 ; Hypertriglyceridemia E78.1 ; [facility] 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 ; Essential hypertension I10 ; Other chronic pain G89.29 ; Shortness of breath R06.02 ; Obstructive sleep apnea syndrome G47.33 and Neuropathy G62.9 [place] [address] [address]- [address] Oct, Type 2 diabetes mellitus with diabetic neuropathy E11.40 ; Fatty liver K76.0 and Hypertriglyceridemia E78.1 [place] [address] 00604- 4635 Oct, [place] [address] [address]- 3707 Oct, [address] [address]- [address] Oct, Other chronic pain G89.29 [facility] [address] [address] Sep, Oral candidiasis B37.0 ; Strep pharyngitis J02.0 and Sore throat J02.9 [place] [id number] [place] [address] 78817- 9782 Sep, Type 2 diabetes mellitus with diabetic neuropathy E11.40 ; Long-term insulin use Z79.4 ; Tarsal tunnel syndrome, right G57.51 ; Other chronic pain G89.29 ; Hypertriglyceridemia E78.1 ; Shortness of breath R06.02 ; Essential hypertension I10 and Obstructive sleep apnea syndrome G47.33 [place] [id number] [place] [address] 70262- 5694 August, [place] [address] 72[address]- 0644 August, [address] [address]- 8855 August, Back pain at L4-L5 level M54.5 [place] [address] 46616- 0719 Jul, [facility] [id number] [place] [address] 40365- 6173 May, [facility] [id number] [place] [address] 96796- 1229 May, Type 2 diabetes mellitus with diabetic [...] and Back pain at L4-L5 level M54.5 [facility] [id number] [place] [address] 43737- 1944 May, [facility] [address] 58809- 9222 May, [facility] [id number] [place] [address] 64515- 7500 Apr, [facility] [address] 89[address]- 3372 Mar, [facility] [id number] [place] [address] 88294- 8906 Feb, Fatty liver K76.0 and Hypertriglyceridemia E78.1 [facility] [id number] [place] [address] 15418- 3234 Feb, [facility] [id number] [place] [address] 29743- 5814 Feb, Hypertriglyceridemia, essential E78.1 and Elevated liver enzymes R74.8 [facility] [id number] [place] [address] 16197- 2885 Feb, [facility] [id number] [place] [address] 78207- 7236 Feb, Type 2 diabetes mellitus with diabetic neuropathy E11.40 ; Diastasis recti M62.08 ; Essential hypertension I10 and 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 [facility] [id number] [place] [address] 98148- 7762 Feb, Tarsal tunnel syndrome, right G57.51 and Neuroma D36.10 [facility] [id number] [place] [address] 28946- 1963 Dec, Type 2 diabetes mellitus with diabetic neuropathy E11.40 [facility] [id number] [place] [address] 67737- 3100 Dec, [facility] [id number] [place] [address] 60647- 6774 Nov, Low back pain M54.5 [facility] [id number] [place] [address] 72923- 1663 Nov, [facility] [id number] [place] [address] 44285- 6106 Nov, [facility] [id number] [place] [address] 23253- 6254 Nov, [facility] [id number] [place] [address] 15164- 1695 Nov, [facility] [id number] [place] [address] 25706- 3797 Nov, [facility] [id number] [place] [address] 13459- 4632 Oct, [facility] [id number] [place] [address] 79222- 7261 Oct, Type 2 diabetes mellitus with diabetic autonomic (poly) neuropathy E11.43 ; 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 ; Low back pain M54.5 and Other chronic pain G89.29 [facility] [id number] [place] [address] 57878- 7252 Sep, [facility] [address] [address]- 9475 August, [facility] [address] [address]- 9413 August, [facility] [address] [address]- 4367 August, Type 2 diabetes mellitus with diabetic neuropathy E11.40 ; Diabetes type 2, uncontrolled E11.65 ; Long-term insulin use Z79.4 and 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 [facility] [address] [address]- 1794 August, Type 2 diabetes mellitus with diabetic neuropathy E11.40 [facility] [address] [address]- 0712 Jun, Type 2 diabetes mellitus with diabetic neuropathy E11.40 ; Long-term insulin use Z79.4 and Hypertriglyceridemia E78.1 [facility] [address] [address]- 8024 Jun, [facility] [address] [address]- 4688 Jun, Diabetes type 2, uncontrolled E11.65 [facility] [address] [address]- 1620 Jun, [facility] [address] [address]- 5661 Jul, [facility] [address] [address]- 6522 Jul, [facility] [address], [place] [address]- 6132 Nov, [facility] [address] [address]- 1371 Oct, [facility] [address] [address]- 3231 Oct, [facility] [address] [place] [id number] [address]- 6286 Oct, [facility] [address] [facility] [id number] [place] [address]- 4790 Sep, [facility] [address] [id number] [address]- 4038 Sep, [facility] [address] [facility] [id number] [address]- 8904 Nov, IMMUNIZATIONS No Known Immunizations SOCIAL HISTORY Never Assessed REASON FOR VISIT PLAN OF CARE VITAL SIGNS MEDICATIONS Unknown [...]
--- OUTSIDE RECORDS SUMMARY | 2017-12-24 23:56 | XMS REPORT ---
Author Author LILLIE Mahan Organization [facility] Address [address] [place] [address] Care Team Providers Care Human Resources Hr Representative Name Role Phone [email or web address] LILLIE Unavailable PROBLEMS Type Condition ICD9-CM Code WWN19-SR Code Onset Dates Condition Status SNOMED Code Problem Hypertriglyceridemia E78.1 Active 440205188 Problem Tarsal tunnel syndrome, right G57.51 Active 27713249 Problem Type 2 diabetes mellitus with diabetic neuropathy E11.40 Active 48230196 Problem Neuropathy G62.9 Active 365138097 Problem Obstructive sleep apnea syndrome G47.33 Active 44560048 Problem Fatty liver K76.0 Active 596876680 Problem Essential hypertension I10 Active 66669242 Problem Pain in right ankle and joints of right foot M25.571 Active 884371842 Problem Other chronic pain G89.29 Active 50803725 ALLERGIES No Information ENCOUNTERS Encounter Location Date Diagnosis [facility] [address] [address] August, [facility] [address] [address] Apr, Cough R05 ; Bronchitis J40 and BMI 50.0-59.[address], [address] [facility] [address] [address]658 Jan, [facility] [address] 50149- 9357 Jan, Type 2 diabetes mellitus with diabetic neuropathy E11.40 ; Neuropathy G62.9 and Other chronic pain G89.29 [facility] [address] [address] Dec, [facility] [address] [place] [address] 27 Dec, [address] [facility] [address] [place] [id number] [place] [address] 73030- 4657 26 Dec, 2016 [facility] [id number] [place] [address] 75269 -4661 23 Dec, 2016 Marquis splints, left, initial encounter S86.892A [facility] [address] [address]- 7428 21 Dec, 2016 Other chronic pain G89.29 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 [place] [address] 6[address]01- 5806 12 Dec, 2016 Other chronic pain G89.29 [place] [address] [place] [id number] [place] [address] 31164- 3295 Nov, Neuropathy G62.9 [place] [address] 60418- 0935 Nov, [place] [address] [address] [id number] [place] [address] 30355- 1599 Nov, [place] [address] [address] [id number] [place] [address] 77683- 8857 Oct, [place] [address] 59554- 2292 Oct, [place] [address] [address] [id number] [place] [address] 69974- 5653 Oct, Type 2 diabetes mellitus with diabetic neuropathy E11.40 ; Hypertriglyceridemia E78.1 ; 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 [id number] [place] [address] 47232- 4219 Oct, [facility] [address] 9[address]- 1639 Oct, [facility] [address] 91109- 8393 Oct, Other chronic pain G89.29 [facility] [address] 59[address]2273 Sep, Oral candidiasis B37.0 ; Strep pharyngitis J02.0 and Sore throat J02.9 [place] [address] 42607- 9780 Sep, Type 2 diabetes mellitus with diabetic neuropathy E11.40 ; Long-term insulin use Z79.4 ; Tarsal tunnel syndrome, right G57.51 ; Other chronic pain G89.29 ; Hypertriglyceridemia E78.1 ; Shortness of breath R06.02 ; Essential hypertension I10 and Obstructive sleep apnea syndrome G47.33 [place] [address] [address] [id number] [place] [address] 15692- 5311 August, [facility] [id number] [place] [address] 64299- 1896 August, [facility] [id number] [place] [address] 56191- 8508 August, Back pain at L4-L5 level M54.5 [facility] [address] 75785- 5306 Jul, [facility] [address] [address] [id number] [place] [address] 86985- 3738 May, [facility] [address] 51710- 8722 14 May, 2016 Type 2 diabetes mellitus [...] and Back pain at L4-L5 level M54.5 [place] [address] 72247- 6273 14 May, 2016 [place] [address] 09421- 1725 10 May, 2016 [place] [address] 42088- 7682 Apr, [place] [address] [place] [id number] [place] [address] 82269- 3417 Mar, [place] [address] 15970- 7737 Feb, Fatty liver K76.0 and Hypertriglyceridemia E78.1 [place] [address] [address] [id number] [place] [address] 64267- 2262 Feb, [place] [address] [address] [id number] [place] [address] 26512- 6551 Feb, Hypertriglyceridemia, essential E78.1 and Elevated liver enzymes R74.8 [place] [address] [address] [id number] [place] [address] 87132- 0804 Feb, [place] [address] 56214- 9812 Feb, Type 2 diabetes mellitus with diabetic neuropathy E11.40 ; Diastasis recti M62.08 ; Essential hypertension I10 and detention 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 [id number] [place] [address] 87319- 0456 Dec, Type 2 diabetes mellitus with diabetic neuropathy E11.40 [facility] [id number] [place] [address] 27660- 4983 Dec, [facility] [id number] [place] [address] 14563- 5342 Nov, Low back pain M54.5 [facility] [id number] [place] [address] 90900- 0978 Nov, [facility] [id number] [place] [address] 64118- 8061 Nov, [facility] [id number] [place] [address] 75807- 7768 Nov, [facility] [id number] [place] [address] 55048- 2511 Nov, [facility] [id number] [place] [address] 54810- 1811 Nov, [facility] [id number] [place] [address] 94795- 1244 Oct, 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 [id number] [place] [address] 99785- 7458 Sep, [facility] [id number] [place] [address] 50552- 3266 August, [facility] [id number] [place] [address] 02041- 8155 August, [facility] [address] [address] 89[address] August, Type 2 diabetes mellitus with diabetic neuropathy E11.40 ; Diabetes type 2, uncontrolled E11.65 ; Long-term insulin use Z79.4 and 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 [facility] [address] [address]- 4354 August, Type 2 diabetes mellitus with diabetic neuropathy E11.40 [facility] [id number] [place] [address] 18152- 3490 Jun, Type 2 diabetes mellitus with diabetic neuropathy E11.40 ; Long-term insulin use Z79.[address] [facility] [address] [address]3 Jun, [facility] [id number] [place] [address] 85555- 2883 Jun, Diabetes type 2, uncontrolled E11.65 [facility] [address], [place] [address]- 3990 Jun, [facility] [address] [address]- 3283 Jul, [facility] [address] [place] [address]- 7454 Jul, [facility] [address], [place] [address]- 4501 Nov, [facility] [address], [place] [address]- 0371 Oct, [facility] [address] 6[address] Oct, [facility] [address], [place] [address]- 9866 Oct, [facility] [address] Sep, [facility] [address] [facility] [id number] [place] [address]- [address] Sep, [facility] [address] [facility] [id number] [place] [address]- 0099 Nov, IMMUNIZATIONS No Known Immunizations SOCIAL HISTORY Never Assessed REASON FOR VISIT Lab (walk-in) PLAN OF CARE VITAL SIGNS MEDICATIONS Unknown Medications RESULTS Name Result Date Reference Range CBC 2016-10-31 WBC 10.0 3.4-10.8 RBC 4.91 4.14-5.80 Hemoglobin 14.1 12.6-17.7 Hematocrit 42.6 37.5-51.0 MCV 87 79-97 MCH 28.7 26.6-33.0 MCHC 33.1 31.5-35.7 RDW 13.9 12.3-15.4 Platelets 400 150-379 Neutrophils 53 Lymphs 35 Monocytes 8 Eos 3 Basos 0 Neutrophils (Absolute) 5.3 1.4-7.0 Lymphs (Absolute) 3.5 0.7-3.1 Monocytes(Absolute) 0.8 0.1-0.9 Eos (Absolute) 0.3 0.0-0.4 Baso (Absolute) 0.0 0.0-0.2 Immature Granulocytes 1 Immature Grans (Abs) 0.1 0.0-0.1 LIPID PANEL 2016-10-31 Cholesterol, Total 150 100-199 Triglycerides 446 0-149 HDL Cholesterol 39 >39 VLDL Cholesterol Kye 5-40 LDL Cholesterol Calc 0-99 CMP 2016-10-31 Glucose, Serum 104 65-99 BUN 10 6-20 Creatinine, Serum 0.91 0.76-1.27 eGFR If NonAfricn Am 110 >59 eGFR If Africn Am 127 >59 BUN/Creatinine Ratio 11 9-20 Sodium, Serum 138 134-144 Potassium, Serum 4.4 3.5-5.2 Chloride, Serum 98 96-106 Carbon Dioxide, Total 24 18-29 Calcium, Serum 10.2 8.7-10.2 Protein, Total, Serum 7.3 6.0-8.5 Albumin, Serum 4.3 3.5-5.5 Globulin, Total 3.0 1.5-4.5 A/G Ratio 1.4 1.2-2.2 Bilirubin, Total 0.4 0.0-1.2 Alkaline Phosphatase, S 137 39-117 AST (SGOT) 21 0-40 ALT (SGPT) 27 0-44 PROCEDURES Procedure Date Ordered Result Body Site LAB NOT BILLED BY [facility] October 31, 2016 VENIPUNCT, ROUTINE* October 31, 2016 INSTRUCTIONS MEDICATIONS ADMINISTERED No Known Medications MEDICAL [...]
--- OUTSIDE RECORDS SUMMARY | 2017-12-24 23:57 | XMS REPORT ---
Author Author PARRISH KAELA Organization [facility] Address [address] [place] [address] Care Team Providers Care Pot Room Tapper Name Role Phone KAELA SENIOR Unavailable PROBLEMS Type Condition ICD9-CM Code ALE62-RZ Code Onset Dates Condition Status SNOMED Code Problem Hypertriglyceridemia E78.1 Active 278783463 Problem Tarsal tunnel syndrome, right G57.51 Active 85435689 Problem Type 2 diabetes mellitus with diabetic neuropathy E11.40 Active 37337089 Problem Neuropathy G62.9 Active 818895123 Problem Obstructive sleep apnea syndrome G47.33 Active 69783614 Problem Fatty liver K76.0 Active 496835633 Problem Essential hypertension I10 Active 33479542 Problem Pain in right ankle and joints of right foot M25.571 Active 825507700 Problem Other chronic pain G89.29 Active 59853543 ALLERGIES No Information ENCOUNTERS Encounter Location Date Diagnosis [place] [id number] [address] August, [address] [address]- [address]702 August, Type 2 diabetes mellitus with diabetic neuropathy E11.40 ; Hypertriglyceridemia E78.1 and Essential hypertension I10 [facility] [address] [address] Apr, Cough R05 ; Bronchitis J40 and BMI 50.0-59.9, adult Z68.43 [facility] [address] [place] [address] 87583- 9707 Jan, [facility] [address] [place] [address] 44675- 5601 Jan, Type 2 diabetes mellitus with diabetic neuropathy E11.40 ; Neuropathy G62.9 and Other chronic pain G89.29 [place] [address] [place] [id number] [address]- 1665 28 Dec, 2016 [facility] [address] [place] [id number] [place] [address] 71605- 4983 27 Dec, 2016 Neuropathy G62.9 [facility] [address] [place] [id number] [place] [address] 78152- 6077 26 Dec, 2016 [facility] [address] [place] [address] [id number] [place] [address] 69858 -0435 23 Dec, 2016 Marquis splints, left, initial encounter S86.892A [facility] [address] [place] [id number] [place] [address] 12209- 3823 21 Dec, 2016 Other chronic pain G89.29 [facility] [address] [place] [id number] [place] [address] 32652- 1917 14 Dec, 2016 Other chronic pain G89.29 and alf current use of opiate analgesic Z79.891 [facility] [address] [place] [id number] [place] [address] 79836- 6376 12 Dec, 2016 Other chronic pain G89.29 [facility] [address] [place] [id number] [place] [address] 92427- 5826 18 Nov, 2016 Neuropathy G62.9 [facility] [address] [place] [address] [id number] [place] [address] 49493- 6320 10 Nov, 2016 [facility] [address] [place] [address] [id number] [place] [address] 63384- 6247 Nov, [facility] [address] [place] [address] [id number] [place] [address] 83374- 3015 Oct, [facility] [address] [place] [address] [id number] [place] [address] 47889- 6534 Oct, [facility] [address] [place] [address] 89861- 6715 Oct, Type 2 diabetes mellitus with diabetic neuropathy E11.40 ; Hypertriglyceridemia E78.1 ; 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 ; Essential hypertension I10 ; Other chronic pain G89.29 ; Shortness of breath R06.02 ; Obstructive sleep apnea syndrome G47.33 and Neuropathy G62.9 [facility] [address] [place] [id number] [place] [address] 97256- 7162 Oct, Type 2 diabetes mellitus with diabetic neuropathy E11.40 ; Fatty liver K76.0 and Hypertriglyceridemia E78.1 [place] [address] [place] [id number] [place] [address] 92532- 6070 Oct, [facility] [address] [place] [address] [id number] [place] [address] 62117- 1780 Oct, [place] [address] [place] [id number] [place] [address] 04300- 1421 Oct, Other chronic pain G89.29 [facility] [address] [place] [address] [id number] [place] [address] 05163 -9394 Sep, Oral candidiasis B37.0 ; Strep pharyngitis J02.0 and Sore throat J02.9 [place] [address] [place] [id number] [place] [address] 96363- 5225 Sep, Type 2 diabetes mellitus with diabetic neuropathy E11.40 ; Long-term insulin use Z79.4 ; Tarsal tunnel syndrome, right G57.51 ; Other chronic pain G89.29 ; Hypertriglyceridemia E78.1 ; Shortness of breath R06.02 ; Essential hypertension I10 and Obstructive sleep apnea syndrome G47.33 [place] [address] [place] [id number] [place] [address] 74138- 3594 August, [place] [address] [place] [id number] [place] [address] 79870- 4141 August, [place] [address] [place] [id number] [place] [address] 65967- 7279 August, Back pain at L4-L5 level M54.5 [place] [address] [place] [id number] [place] [address] 20110- 3773 Jul, [facility] [address] [place] [id number] [place] [address] 50388- 7591 May, [facility] [address] [place] [id number] [place] [address] 25114- 8372 May, Type 2 diabetes mellitus with diabetic [...] and Back pain at L4-L5 level M54.5 [place] [address] [place] [id number] [place] [address] 47066- 6441 14 May, 2016 [place] [address] [place] [id number] [place] [address] 58139- 5361 May, [place] [address] [place] [id number] [place] [address] 38578- 2680 Apr, [facility] [address] [place] [id number] [place] [address] 86311- 7281 Mar, [facility] [address] [place] [id number] [place] [address] 76485- 6491 Feb, Fatty liver K76.0 and Hypertriglyceridemia E78.1 [place] [address] [place] [id number] [place] [address] 12038- 9354 Feb, [place] [address] [place] [id number] [place] [address] 46483- 1994 Feb, Hypertriglyceridemia, essential E78.1 and Elevated liver enzymes R74.8 [place] [address] 10712- 8956 Feb, [facility] [address] [place] [id number] [place] [address] 26719- 8652 Feb, Type 2 diabetes mellitus with diabetic neuropathy E11.40 ; Diastasis recti M62.08 ; Essential hypertension I10 and 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 [facility] [address] [place] [id number] [place] [address] 20286- 6290 Feb, Tarsal tunnel syndrome, right G57.51 and Neuroma D36.10 [facility] [address] [place] [id number] [place] [address] 09845- 9152 Dec, Type 2 diabetes mellitus with diabetic neuropathy E11.40 [facility] [address] 44198- 9103 Dec, [facility] [address] [place] [id number] [place] [address] 71250- 6370 Nov, Low back pain M54.5 [facility] [address] [place] [id number] [place] [address] 63446- 2757 Nov, [facility] [address] [place] [id number] [place] [address] 69368- 0891 Nov, [facility] [address] [place] [address] [id number] [place] [address] 67796- 1625 Nov, [facility] [address] [place] [id number] [place] [address] 59821- 2903 Nov, [facility] [address] [place] [id number] [place] [address] 60447- 7088 Nov, [facility] [address] [place] [id number] [place] [address] 16112- 6819 Oct, [facility] [address] [place] [id number] [place] [address] 21626- 5534 Oct, Type 2 diabetes mellitus with diabetic autonomic (poly) neuropathy E11.43 ; alf 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 ; Low back pain M54.5 and Other chronic pain G89.29 [facility] [address] [place] [id number] [place] [address] 87262- 6802 Sep, [facility] [address] [place] [id number] [place] [address] 34861- 4361 August, [facility] [address] [address]- 1355 August, [facility] [address] 7224 August, Type 2 diabetes mellitus with diabetic neuropathy E11.40 ; Diabetes type 2, uncontrolled E11.65 ; Long-term insulin use Z79.4 and 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 [facility] [address], [place] [address]- 1450 August, Type 2 diabetes mellitus with diabetic neuropathy E11.40 [facility] [address] [place] [id number] [place] [address] 89639- 8610 Jun, Type 2 diabetes mellitus with diabetic neuropathy E11.40 ; Long-term insulin use Z79.4 and Hypertriglyceridemia E78.1 [facility] [address] [place] [id number] [place] [address] 62505- 2913 Jun, [facility] [address], [place] [address]- 1434 Jun, Diabetes type 2, uncontrolled E11.65 [facility] [address] [address]- 3851 Jun, [facility] [address] [address]- 1561 Jul, [facility] [address], [place] [address]- 1488 Jul, [facility] [address] [address]- 0808 Nov, [facility] [address] [place] [id number] [address]- 4654 Oct, [facility] [address] [address]- 3296 Oct, [facility] [address] [place] [address]- 0596 Oct, [facility] [address] [facility] [id number] [place] [address]- 8496 Sep, [facility] [address] [facility] [id number] [address]- [address] Sep, [facility] [address] [facility] [id number] [place] [address]- 4396 Nov, IMMUNIZATIONS No Known Immunizations SOCIAL HISTORY Never Assessed REASON FOR VISIT PA for Gabapentin PLAN OF CARE VITAL SIGNS MEDICATIONS Unknown [...]
--- OUTSIDE RECORDS SUMMARY | 2017-12-24 23:57 | XMS REPORT ---
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 Active 095287699 Problem Essential hypertension I10 Active 48727203 Problem Tarsal tunnel syndrome, right G57.51 Active 18008829 Problem Type 2 diabetes mellitus with diabetic neuropathy E11.40 Active 53854156 Problem Hypertriglyceridemia E78.1 Active 853649492 Problem Neuropathy G62.9 Active 481104363 Problem Shortness of breath R06.02 Active 237751588 Problem Pain in right ankle and joints of right foot M25.571 Active 817713364 Problem Fatty liver K76.0 Active 470704434 Problem Obstructive sleep apnea syndrome G47.33 Active 74022736 Problem Other chronic pain G89.29 Active 10386009 ALLERGIES Unknown Allergies SOCIAL HISTORY No smoking Hx information available PLAN OF CARE VITAL SIGNS MEDICATIONS Medication Instructions Dosage Frequency Start Date End Date Duration Status Metformin HCl 1000 MG Orally Twice a day 1 tablet with meals 12h Apr, 30 day(s) Active RESULTS No Results PROCEDURES No Known procedures IMMUNIZATIONS No Known Immunizations
--- OUTSIDE RECORDS SUMMARY | 2017-12-24 23:57 | XMS REPORT ---
Author DIXIE Richards [facility] eClinicalWorks Address Unknown Phone Unavailable Care Team Providers Care Spiral Winding Machine Helper Name Role Phone DIXIE CHIRINOS CP Unavailable Allergies No Known Allergies Problems Problem Type Condition Code Onset Dates Condition Status Assessment Fatty liver K76.0 Active Assessment Hypertriglyceridemia E78.1 Active Problem Essential hypertension I10 Active Problem Tarsal tunnel syndrome, right G57.51 Active Problem Fatty liver K76.0 Active Problem Long-term insulin use Z79.4 Active Problem Hypertriglyceridemia E78.1 Active Problem [facility] 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 Active Problem Type 2 diabetes mellitus with diabetic neuropathy E11.40 Active Medications Medication Code System Code Instructions Start Date End Date Status Dosage Atorvastatin Calcium [facility] [place] [address]-12 40 mg Orally Once a day Feb 22, 2016 1 tablet Results No Known Results Summary Purpose eClinicalWorks Submission
--- OUTSIDE RECORDS SUMMARY | 2017-12-24 23:57 | XMS REPORT ---
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 [id number] 1000 MG orally twice daily 1 tablet [address] [facility] [address]-85 10 mg Orally Once a day Feb 12, 2016 1 tablet Results No Known Results Summary Purpose eClinicalWorks Submission
--- OUTSIDE RECORDS SUMMARY | 2017-12-24 23:57 | XMS REPORT ---
Author Author LILLIE Mahan Organization [facility] [place] Address [address] [place] [address] Care Team Providers Care Metal Mold Dresser Name Role Phone [email or web address] LILLIE Unavailable PROBLEMS Type Condition ICD9-CM Code JIV01-XX Code Onset Dates Condition Status SNOMED Code Problem Hypertriglyceridemia E78.1 Active 420599358 Problem Tarsal tunnel syndrome, right G57.51 Active 64703326 Problem Type 2 diabetes mellitus with diabetic neuropathy E11.40 Active 38455192 Problem Neuropathy G62.9 Active 079477377 Problem Obstructive sleep apnea syndrome G47.33 Active 32050047 Problem Fatty liver K76.0 Active 680070962 Problem Essential hypertension I10 Active 74097370 Problem Pain in right ankle and joints of right foot M25.571 Active 619588626 Problem Other chronic pain G89.29 Active 36515126 ALLERGIES No Known Allergies ENCOUNTERS Encounter Location Date Diagnosis [facility] [place] [address] [address] August, [facility] [address] [address] Apr, Cough R05 ; Bronchitis J40 and BMI 50.0-59.9, adult Z68.43 [facility] [place] [id number] [place] [address] Jan, [facility] [place] [address] [address] Jan, Type 2 diabetes mellitus with diabetic neuropathy E11.40 ; Neuropathy G62.9 and Other chronic pain G89.29 [facility] [place] [address] [address] Dec, [facility] [place] [address] [place] [address] 27 Dec, 2016 Neuropathy G62.9 [facility] [place] [id number] [place] [address] 26 Dec, 2016 [facility] [id number] [place] [address] 23 Dec, 2016 Marquis splints, left, initial encounter S86.892A [facility] [place] [address] [address] 21 Dec, 2016 Other chronic pain G89.29 [facility] [place] [id number] [place] [address]- [address] 14 Dec, 2016 senior living current use of opiate analgesic Z79.891 and Other chronic pain G89.29 [facility] [id number] [place] [address] 12 Dec, 2016 Other chronic pain G89.29 [facility] [place] [id number] [place] [address]368 Nov, Neuropathy G62.9 [facility] [address] [address] Nov, [facility] [id number] [place] [address]- 4596 Nov, [facility] [id number] [place] [address]248- 9290 Oct, [facility] [id number] [place] [address]- 67[address] Oct, [facility] [id number] [place] [address]- [address] Oct, Type 2 diabetes mellitus with diabetic neuropathy E11.40 ; Hypertriglyceridemia E78.1 ; 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 ; Essential hypertension I10 ; Other chronic pain G89.29 ; Shortness of breath R06.02 ; Obstructive sleep apnea syndrome G47.33 and Neuropathy G62.9 [facility] [place] [id number] [place] [address] 89476- 65[address] Oct, Type 2 diabetes mellitus with diabetic neuropathy E11.40 ; Fatty liver K76.0 and Hypertriglyceridemia E78.1 [facility] [place] [id number] [place] [address]- [address] Oct, [facility] [place] [id number] [place] [address] 0[address]- [address] Oct, [facility] [place] [address] [address] Oct, Other chronic pain G89.29 [facility] [address] [address] Sep, Oral candidiasis B37.0 ; Strep pharyngitis J02.0 and Sore throat J02.9 [facility] [address] [address] Sep, Type 2 diabetes mellitus with diabetic neuropathy E11.40 ; Long-term insulin use Z79.4 ; Tarsal tunnel syndrome, right G57.51 ; Other chronic pain G89.29 ; Hypertriglyceridemia E78.1 ; Shortness of breath R06.02 ; Essential hypertension I10 and Obstructive sleep apnea syndrome G47.33 [facility] [id number] [place] [address] August, [facility] [place] [id number] [place] [address]26- [address] August, [facility] [place] [id number] [place] [address]- [address] August, Back pain at L4-L5 level M54.5 [facility] [place] [address] [address] Jul, [facility] [place] [id number] [place] [address]- [address] May, [facility] [place] [address] [address] 14 May, 2016 Type 2 diabetes mellitus [...] and Back pain at L4-L5 level M54.5 [facility] [address] [address] 14 May, 2016 [place] [address] [address] 10 May, 2016 [place] [address] [address] Apr, [facility] [address] [address] Mar, [facility] [address] [address] Feb, Fatty liver K76.0 and Hypertriglyceridemia E78.1 [facility] [id number] [place] [address] Feb, [facility] [id number] [place] [address]51- [address]284 Feb, Hypertriglyceridemia, essential E78.1 and Elevated liver enzymes R74.8 [facility] [id number] [place] [address] 6[address]65- [address] Feb, [facility] [address] [address] Feb, Type 2 diabetes mellitus with diabetic neuropathy E11.40 ; Diastasis recti M62.08 ; Essential hypertension I10 and senior living 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 [address] Feb, Tarsal tunnel syndrome, right G57.51 and Neuroma D36.10 [facility] [place] [id number] [place] [address]686- 9546 Dec, Type 2 diabetes mellitus with diabetic neuropathy E11.40 [facility] [place] [id number] [place] [address] 5[address]67- 395[address] Dec, [facility] [place] [id number] [place] [address] 61748- 7185 Nov, Low back pain M54.5 [facility] [place] [id number] [place] [address] 70741- 1778 Nov, [facility] [place] [id number] [place] [address]11- 6083 Nov, [facility] [place] [id number] [place] [address] 94169- 9661 Nov, [facility] [place] [id number] [place] [address] 64397- 12[address] Nov, [facility] [place] [id number] [place] [address] 18135- 3957 Nov, [facility] [place] [id number] [place] [address] 64129- 7275 Oct, [facility] [place] [id number] [place] [address]- 8723 Oct, Type 2 diabetes mellitus with diabetic autonomic (poly) neuropathy E11.43 ; 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 ; Low back pain M54.5 and Other chronic pain G89.29 [facility] [place] [id number] [place] [address] 10893- 5228 Sep, [facility] [place] [id number] [place] [address]- 2917 August, [facility] [place] [id number] [place] [address] 8[address]31- 9953 August, [facility] [place] [address] [address] August, Type 2 diabetes mellitus with diabetic neuropathy E11.40 ; Diabetes type 2, uncontrolled E11.65 ; Long-term insulin use Z79.4 and 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 [facility] [place] [address] [address] August, Type 2 diabetes mellitus with diabetic neuropathy E11.40 [facility] [place] [id number] [place] [address]108- 0074 Jun, Type 2 diabetes mellitus with diabetic neuropathy E11.40 ; Long-term insulin use Z79.4 and Hypertriglyceridemia E78.1 [facility] [place] [address] [address] Jun, [facility] [place] [id number] [place] [address] 59075- 2851 Jun, Diabetes type 2, uncontrolled E11.65 [facility] [place] [address] [address] 9[address] Jun, [facility] [place] [id number] [address] Jul, [facility] [place] [address] [address] Jul, [facility] [place] [address] [address] Nov, [facility] [place] [address] [address] Oct, [facility] [place] [id number] Oct, [facility] [place] [address] Oct, [facility] [place] [address] Sep, [facility] [place] [address] [facility] [id number] [place] [address]- 80[address] Sep, [facility] [place] [address] [facility] [id number] [place] Nov, IMMUNIZATIONS No Known Immunizations SOCIAL HISTORY Never Assessed REASON FOR VISIT Diabetes bs have been 110-120 fasting Carolian PLAN OF CARE Activity Details Follow Up 3 Months Reason:dm, htn VITAL SIGNS Height 67 in 2016-10-31 Weight 324 lbs 2016-10-31 Temperature 97.8 degrees Fahrenheit 2016-10-31 Heart Rate 104 bpm 2016-10-31 Respiratory Rate 18 2016-10-31 BMI 50.74 kg/m2 2016-10-31 Blood pressure systolic 118 mmHg 2016-10-31 Blood pressure diastolic 68 mmHg 2016-10-31 MEDICATIONS Medication Instructions Dosage Frequency Start Date End Date Duration Status Metformin HCl 1000 MG Orally Twice a day 1 tablet 12h 30 Active Acetaminophen 500 MG Orally every 6 hrs 2 capsules as needed 6h Active Lyrica 50 mg Orally 2 times daily 1 capsule Oct, Active Ultram 50 mg Orally 3 times a day 1 tablet as needed 8h Sep, Active Hydrocodone-Acetaminophen 5-325 MG Orally 3 times a day 1 tablet as needed 8h Oct, Active Actos 45 MG Orally Once a day 1 tablet 24h Sep, 30 day(s) Active Proventil HFA 108 (90 Base) MCG/ACT Inhalation every 4 hrs 2 puffs as needed 4h Sep, Active Atorvastatin Calcium 40 mg Orally Once a day 1 tablet 24h 30 Active Lisinopril 10 mg Orally Once a day 1 tablet 24h 30 Active RESULTS Name Result Date Reference Range MICROALBUMIN, URINE (IN HOUSE) 2016-10-31 MICROALBUMIN Abnormal Lot # [id number] Exp date 09/04/17 Clarity clear Color yellow ALB 80 CRE 200 A:C (IN HOUSE) 30-300 Control + Control Lot # Exp date PROCEDURES Procedure Date Ordered Result Body Site MICROALBUMIN, SEMIQUANT October 31, 2016 INSTRUCTIONS MEDICATIONS ADMINISTERED No [...]
--- OUTSIDE RECORDS SUMMARY | 2017-12-24 23:57 | XMS REPORT ---
Author Author KAELA SENIOR Organization [facility] Address [address] [place] [address] Care Team Providers Care Base Filler Name Role Phone KAELA SENIOR Unavailable PROBLEMS Type Condition ICD9-CM Code SQM52-JK Code Onset Dates Condition Status SNOMED Code Problem Hypertriglyceridemia E78.1 Active 325702117 Problem Tarsal tunnel syndrome, right G57.51 Active 69502380 Problem Type 2 diabetes mellitus with diabetic neuropathy E11.40 Active 61007028 Problem Neuropathy G62.9 Active 590095942 Problem Obstructive sleep apnea syndrome G47.33 Active 14874819 Problem Fatty liver K76.0 Active 659128887 Problem Essential hypertension I10 Active 31310202 Problem Pain in right ankle and joints of right foot M25.571 Active 360825536 Problem Other chronic pain G89.29 Active 57236599 ALLERGIES No Known Allergies ENCOUNTERS Encounter Location Date Diagnosis [facility] [address] [address] August, [facility] [id number] [place] [address]4870 -9030 Apr, Cough R05 ; Bronchitis J40 and BMI 50.0-59.[address], [address] [facility] [id number] [place] [address] 04151- 3701 Jan, [facility] [id number] [place] [address] 77347- 9787 Jan, Type 2 diabetes mellitus with diabetic neuropathy E11.40 ; Neuropathy G62.9 and Other chronic pain G89.29 [facility] [id number] [place] [address] 63483- 1431 Dec, [facility] [address] 89366- 6657 Dec, Neuropathy G62.9 [facility] [id number] [place] [address] 50827- 8468 Dec, [facility] [id number] [place] [address] 59858 -6154 23 Dec, 2016 Marquis splints, left, initial encounter S86.892A [facility] [id number] [place] [address] 23840- 6534 21 Dec, 2016 Other chronic pain G89.29 [facility] [id number] [place] [address] 24729- 1656 14 Dec, 2016 [facility] current use of opiate analgesic Z79.891 and Other chronic pain G89.29 [facility] [id number] [place] [address] 57226- 3188 12 Dec, 2016 Other chronic pain G89.29 [facility] [id number] [place] [address] 74493- 8645 Nov, Neuropathy G62.9 [facility] [id number] [place] [address] 21269- 0673 Nov, [facility] [id number] [place] [address] 88008- 3056 Nov, [facility] [id number] [place] [address] 61734- 1410 Oct, [facility] [id number] [place] [address] 27484- 6324 Oct, 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 [id number] [place] [address] 05058- 8405 Oct, Type 2 diabetes mellitus with diabetic neuropathy E11.40 ; Fatty liver K76.[address]1 [facility] [id number] [place] [address] 54680- 4219 Oct, [facility] [id number] [place] [address] 23990- 0683 Oct, [facility] [id number] [place] [address] 58041- 3002 Oct, Other chronic pain G89.29 [facility] [id number] [place] [address] 91569 -8002 Sep, Oral candidiasis B37.0 ; Strep pharyngitis J02.0 and Sore throat J02.9 [place] [id number] [place] [address] 10652- 3535 Sep, Type 2 diabetes mellitus with diabetic neuropathy E11.40 ; Long-term insulin use Z79.4 ; Tarsal tunnel syndrome, right G57.51 ; Other chronic pain G89.29 ; Hypertriglyceridemia E78.1 ; Shortness of breath R06.02 ; Essential hypertension I10 and Obstructive sleep apnea syndrome G47.33 [place] [id number] [place] [address] 20327- 7450 August, [place] [id number] [place] [address] 01755- 1526 August, [facility] [id number] [place] [address] 86982- 8127 August, Back pain at L4-L5 level M54.5 [place] [id number] [place] [address] 53849- 8410 Jul, [facility] [id number] [place] [address] 96089- 0807 May, [facility] [id number] [place] [address] 98329- 7989 May, Type 2 diabetes mellitus with diabetic [...] and Back pain at L4-L5 level M54.5 [place] [address] 23421- 7754 14 May, 2016 [place] [address] 05772- 2478 10 May, 2016 [place] [address] 62867- 3262 Apr, [place] [address] 22848- 9009 Mar, [place] [address] 89362- 9328 Feb, Fatty liver K76.0 and Hypertriglyceridemia E78.[address] 71030- 1588 Feb, [place] [address] 74086- 7896 Feb, Hypertriglyceridemia, essential E78.1 and Elevated liver enzymes R74.8 [place] [id number] [place] [address] 57134- 1447 Feb, [address] 70948- 0377 Feb, Type 2 diabetes mellitus with diabetic neuropathy E11.40 ; Diastasis recti M62.08 ; Essential hypertension I10 and 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 [address] [address]- 9287 Dec, Type 2 diabetes mellitus with diabetic neuropathy E11.40 [facility] [address] [facility] [id number] [address] 6408 Dec, [facility] [id number] [place] [address] 29181- 2246 Nov, Low back pain M54.5 [facility] [address] [facility] [id number] [place] [address]- 6470 Nov, [facility] [id number] [place] [address] 28312- 7367 Nov, [facility] [address] [place] [address] 49991- 6819 Nov, [facility] [address] [place] [address] 59364- 5860 Nov, [facility] [id number] [address]- 5404 Nov, [facility] [address] [place] [address] 75559- 0741 Oct, [facility] [address] [address]- 6988 Oct, Type 2 diabetes mellitus with diabetic autonomic (poly) neuropathy E11.43 ; [facility] 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 ; Low back pain M54.5 and Other chronic pain G89.29 [facility] [address] [address]- 0383 Sep, [facility] [address] [address]- 3581 August, [facility] [address] [address]- 3727 August, [facility] [address] [address]- 0518 August, Type 2 diabetes mellitus with diabetic neuropathy E11.40 ; Diabetes type 2, uncontrolled E11.65 ; Long-term insulin use Z79.4 and 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 [facility] [address] [address]- 9513 August, Type 2 diabetes mellitus with diabetic neuropathy E11.40 [facility] [address] [address]- 1488 Jun, Type 2 diabetes mellitus with diabetic neuropathy E11.40 ; Long-term insulin use Z79.[address] [facility] [address] [address]- 6116 Jun, [facility] [address] [address]- 0856 Jun, Diabetes type 2, uncontrolled E11.65 [facility] [address] [address]- 0969 Jun, [facility] [address] [address]- 5222 Jul, [facility] [address] [address]- 4086 Jul, [facility] [address] [address]- 4894 Nov, [facility] [address] [address]- 1044 Oct, [facility] [address] [address]- 9970 Oct, [facility] [address]- 6090 Oct, [facility] [address] [address] 6387 Sep, [facility] [address] [address]- 1760 Sep, [facility] [address] [facility] [id number] [address]- 4673 Nov, IMMUNIZATIONS No Known Immunizations SOCIAL HISTORY Never Assessed REASON FOR VISIT leg pain left ankle for about 1 week JStrasserRN, Ameritox failed last week PLAN OF CARE VITAL SIGNS Height 67 in 2016-12-28 Weight 334.0 lbs 2016-12-28 Temperature 98.0 degrees Fahrenheit 2016-12-28 Heart Rate 88 bpm 2016-12-28 Respiratory Rate 22 2016-12-28 BMI 52.31 kg/m2 2016-12-28 Blood pressure systolic 120 mmHg 2016-12-28 Blood pressure diastolic 70 mmHg 2016-12-28 MEDICATIONS Medication Instructions Dosage Frequency Start Date End Date Duration Status Lisinopril 10 mg Orally Once a day 1 tablet 24h 30 Active Naproxen 500 mg Orally every 12 hrs 1 tablet as needed 12h Dec, Active PredniSONE 20 mg Orally Once a day 2 tablets 24h Dec, Dec, 05 days Active Actos 45 MG Orally Once a day 1 tablet 24h Sep, 30 day(s) Active Atorvastatin Calcium 40 mg Orally Once a day 1 tablet 24h 30 Active Acetaminophen 500 MG Orally every 6 hrs 2 capsules as needed 6h Active Metformin HCl 1000 MG Orally Twice a day 1 tablet 12h 30 Active Lopid 600 MG Orally Twice a day 1 tablet 12h Oct, 30 day(s) Active Proventil HFA 108 (90 Base) MCG/ACT Inhalation every 4 hrs 2 puffs as needed 4h Sep, Active RESULTS No Results PROCEDURES No Known [...]
--- OUTSIDE RECORDS SUMMARY | 2017-12-24 23:58 | XMS REPORT ---
Author Author Negrito LILLIE Organization [facility] Address [address] [place] [address] Care Team Providers Care Supervisor Tank [employer] Name Role Phone [email or web address] LILLIE Unavailable PROBLEMS Type Condition ICD9-CM Code NNZ46-NM Code Onset Dates Condition Status SNOMED Code Problem Hypertriglyceridemia E78.1 Active 882313178 Problem Tarsal tunnel syndrome, right G57.51 Active 61019475 Problem Type 2 diabetes mellitus with diabetic neuropathy E11.40 Active 11409849 Problem Neuropathy G62.9 Active 337869207 Problem Obstructive sleep apnea syndrome G47.33 Active 63833950 Problem Fatty liver K76.0 Active 742329228 Problem Essential hypertension I10 Active 82160157 Problem Pain in right ankle and joints of right foot M25.571 Active 839836159 Problem Other chronic pain G89.29 Active 44846501 ALLERGIES No Information ENCOUNTERS Encounter Location Date Diagnosis [facility] [address] [address]- 9294 August, [facility] [address] 78745 -6998 Apr, Cough R05 ; Bronchitis J40 and BMI 50.0-59.9, adult Z68.43 [facility] [address] [address]- 4965 Jan, [facility] [address] 88042- 0989 Jan, Type 2 diabetes mellitus with diabetic neuropathy E11.40 ; Neuropathy G62.9 and Other chronic pain G89.29 [facility] [address] 98013- 4721 Dec, [facility] [address] [place] [address]- 6210 27 Dec, 2016 Neuropathy G62.9 [facility] [id number] [place] [address] 67466- 9485 26 Dec, 2016 [facility] [id number] [place] [address] 89907 -6176 23 Dec, 2016 Marquis splints, left, initial encounter S86.892A [facility] [address] 82458- 6995 21 Dec, 2016 Other chronic pain G89.29 [facility] [address] 17376- 1184 14 Dec, 2016 Other chronic pain G89.29 and 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 [place] [address] 06189- 3419 12 Dec, 2016 Other chronic pain G89.29 [place] [id number] [place] [address] 57667- 3405 Nov, Neuropathy G62.9 [place] [address] 60121- 5089 Nov, [place] [id number] [place] [address] 22901- 2980 Nov, [place] [id number] [place] [address] 57843- 5496 Oct, [place] [address] 36133- 0248 Oct, [place] [id number] [place] [address] 84685- 0515 Oct, Type 2 diabetes mellitus with diabetic neuropathy E11.40 ; Hypertriglyceridemia E78.1 ; intermediate card tender 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 ; Essential hypertension I10 ; Other chronic pain G89.29 ; Shortness of breath R06.02 ; Obstructive sleep apnea syndrome G47.33 and Neuropathy G62.9 [place] [id number] [place] [address] 83999- 4742 Oct, Type 2 diabetes mellitus with diabetic neuropathy E11.40 ; Fatty liver K76.0 and Hypertriglyceridemia E78.1 [facility] [id number] [place] [address] 78029- 0723 Oct, [facility] [address] 97388- 8830 Oct, [facility] [address] 08325- 9096 Oct, Other chronic pain G89.29 [facility] [address] [address] -3132 Sep, Oral candidiasis B37.0 ; Strep pharyngitis J02.0 and Sore throat J02.9 [place] [address] [address]32- 0005 Sep, Type 2 diabetes mellitus with diabetic neuropathy E11.40 ; Long-term insulin use Z79.4 ; Tarsal tunnel syndrome, right G57.51 ; Other chronic pain G89.29 ; Hypertriglyceridemia E78.1 ; Shortness of breath R06.02 ; Essential hypertension I10 and Obstructive sleep apnea syndrome G47.33 [place] [id number] [place] [address] 19567- 7297 August, [facility] [id number] [place] [address] 68588- 7871 August, [facility] [id number] [place] [address] 59376- 0267 August, Back pain at L4-L5 level M54.5 [facility] [address] 40691- 4064 Jul, [facility] [id number] [place] [address] 55611- 4731 May, [facility] [address] 19454- 2027 14 May, 2016 Type 2 diabetes mellitus [...] and Back pain at L4-L5 level M54.5 [place] [address] 01864- 4094 14 May, 2016 [place] [address] 00071- 9760 10 May, 2016 [place] [address] 67553- 8086 Apr, [place] [id number] [place] [address] 64009- 4255 Mar, [place] [address] 20502- 3823 Feb, Fatty liver K76.0 and Hypertriglyceridemia E78.1 [place] [id number] [place] [address] 57873- 7094 Feb, [place] [id number] [place] [address] 69627- 2015 Feb, Hypertriglyceridemia, essential E78.1 and Elevated liver enzymes R74.8 [place] [id number] [place] [address] 66867- 5943 Feb, [place] [address] 68507- 5445 Feb, Type 2 diabetes mellitus with diabetic neuropathy E11.40 ; Diastasis recti M62.08 ; Essential hypertension I10 and group home 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 [place] [address] 16438- 7950 Feb, Tarsal tunnel syndrome, right G57.51 and Neuroma D36.10 [facility] [id number] [place] [address] 26791- 6983 Dec, Type 2 diabetes mellitus with diabetic neuropathy E11.40 [facility] [id number] [place] [address] 77778- 1751 Dec, [facility] [id number] [place] [address] 71905- 5001 Nov, Low back pain M54.5 [facility] [id number] [place] [address] 02145- 3070 Nov, [facility] [id number] [place] [address] 03705- 9312 Nov, [facility] [id number] [place] [address] 14593- 6317 Nov, [facility] [id number] [place] [address] 47203- 0113 Nov, [facility] [id number] [place] [address] 92896- 3435 Nov, [facility] [id number] [place] [address] 40658- 5215 Oct, [facility] [id number] [place] [address] 78264- 8619 Oct, Type 2 diabetes mellitus with diabetic autonomic (poly) neuropathy E11.43 ; group home 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 ; Low back pain M54.5 and Other chronic pain G89.29 [facility] [id number] [place] [address] 06127- 8816 Sep, [facility] [id number] [place] [address] 44860- 4127 August, [facility] [id number] [place] [address] 78877- 1663 August, [facility] [address] [address]- 3085 August, Type 2 diabetes mellitus with diabetic neuropathy E11.40 ; Diabetes type 2, uncontrolled E11.65 ; Long-term insulin use Z79.4 and 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 [facility] [address] [address]- 4142 August, Type 2 diabetes mellitus with diabetic neuropathy E11.40 [facility] [id number] [place] [address] 85645- 6328 Jun, Type 2 diabetes mellitus with diabetic neuropathy E11.40 ; Long-term insulin use Z79.4 and Hypertriglyceridemia E78.1 [facility] [address] [address]- 6420 Jun, [facility] [id number] [place] [address] 70080- 0523 Jun, Diabetes type 2, uncontrolled E11.65 [facility] [address] [address]- 7313 Jun, [facility] [id number] [address]- 6853 Jul, [facility] [address] [address]- 6327 Jul, [facility] [address], [place] [address]- 1652 Nov, [facility] [address] [address]- 1525 Oct, [facility] [id number] 9524 Oct, [facility] [address], [place] [address]- 9906 Oct, [facility] [address]- 3747 Sep, [facility] [address] [facility] [id number] [id number] [address]20 Sep, [facility] [address] [facility] [id number] [place] [address] 5383 Nov, IMMUNIZATIONS No Known Immunizations SOCIAL HISTORY Never Assessed REASON FOR VISIT Controlled Refill Request PLAN OF CARE VITAL SIGNS MEDICATIONS Medication Instructions Dosage Frequency Start Date End Date Duration Status Ultram 50 mg Orally 3 times a day 1 tablet as needed 8h Sep, Active RESULTS No Results PROCEDURES No [...]
--- OUTSIDE RECORDS SUMMARY | 2017-12-24 23:58 | XMS REPORT ---
Author Author Negrito LILLIE Organization [facility] Address [address] [place] [address] Care Team Providers Care Assembler Cards And Announcements Name Role Phone jaredJethroANJU LILLIE Unavailable PROBLEMS Type Condition ICD9-CM Code SLX16-BB Code Onset Dates Condition Status SNOMED Code Problem Hypertriglyceridemia E78.1 Active 508303052 Problem Tarsal tunnel syndrome, right G57.51 Active 05871414 Problem Type 2 diabetes mellitus with diabetic neuropathy E11.40 Active 62483683 Problem Neuropathy G62.9 Active 646122853 Problem Obstructive sleep apnea syndrome G47.33 Active 51354780 Problem Fatty liver K76.0 Active 530462506 Problem Essential hypertension I10 Active 90992843 Problem Pain in right ankle and joints of right foot M25.571 Active 097992033 Problem Other chronic pain G89.29 Active 38116778 ALLERGIES No Information ENCOUNTERS Encounter Location Date Diagnosis [facility] [address] [address] August, [facility] [address] [address] Apr, Cough R05 ; Bronchitis J40 and BMI 50.0-59.9, adult Z68.43 [facility] [address] [address] Jan, [facility] [address] [address]- 5[address] Jan, Type 2 diabetes mellitus with diabetic neuropathy E11.40 ; Neuropathy G62.9 and Other chronic pain G89.29 [facility] [address] [address] Dec, [facility] [address] [place] [address] 27 Dec, 2016 Neuropathy G62.9 [facility] [id number] [place] [address] 41809- 1172 26 Dec, 2016 [facility] [id number] [place] [address] 8[address]19 -8705 23 Dec, 2016 Marquis splints, left, initial encounter S86.892A [facility] [address] [address] 0398 21 Dec, 2016 Other chronic pain G89.29 [facility] [address] 86369- 6862 14 Dec, 2016 Other chronic pain G89.29 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 [place] [address] [address]- 7308 12 Dec, 2016 Other chronic pain G89.29 [facility] [facility] [id number] [place] [address] 44986- 6492 Nov, Neuropathy G62.9 [place] [address] 9[address]31- 8295 Nov, [place] [id number] [place] [address] 44162- 7355 Nov, [place] [id number] [place] [address] 25081- 0939 Oct, [place] [address] 58163- 1267 Oct, [place] [id number] [place] [address] 67800- 9169 Oct, Type 2 diabetes mellitus with diabetic neuropathy E11.40 ; Hypertriglyceridemia E78.1 ; 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 ; Essential hypertension I10 ; Other chronic pain G89.29 ; Shortness of breath R06.02 ; Obstructive sleep apnea syndrome G47.33 and Neuropathy G62.9 [place] [id number] [place] [address] 60417- 8556 Oct, Type 2 diabetes mellitus with diabetic neuropathy E11.40 ; Fatty liver K76.0 and Hypertriglyceridemia E78.1 [facility] [id number] [place] [address] 75681- 5554 Oct, [facility] [address] 8[address]- 0649 Oct, [facility] [address] 66872- 0409 Oct, Other chronic pain G89.29 [facility] [address] [address] Sep, Oral candidiasis B37.0 ; Strep pharyngitis J02.0 and Sore throat J02.9 [place] [address] 9[address]- 1721 Sep, Type 2 diabetes mellitus with diabetic neuropathy E11.40 ; Long-term insulin use Z79.4 ; Tarsal tunnel syndrome, right G57.51 ; Other chronic pain G89.29 ; Hypertriglyceridemia E78.1 ; Shortness of breath R06.02 ; Essential hypertension I10 and Obstructive sleep apnea syndrome G47.33 [facility] [id number] [place] [address] 30069- 6199 August, [facility] [id number] [place] [address] 09958- 3870 August, [facility] [id number] [place] [address] 72682- 9917 August, Back pain at L4-L5 level M54.5 [facility] [address] 89814- 5606 Jul, [facility] [id number] [place] [address] 59872- 7280 May, [facility] [address] 07952- 0526 14 May, 2016 Type 2 diabetes mellitus [...] and Back pain at L4-L5 level M54.5 [place] [address] 6[address]- 5623 14 May, 2016 [place] [address] 38937- 7861 10 May, 2016 [place] [address] 60533- 8309 Apr, [place] [id number] [place] [address] 35711- 1771 Mar, [place] [address] 57336- 0266 Feb, Fatty liver K76.0 and Hypertriglyceridemia E78.1 [place] [id number] [place] [address] 75466- 2284 Feb, [facility] [id number] [place] [address] 03340- 1611 Feb, Hypertriglyceridemia, essential E78.1 and Elevated liver enzymes R74.8 [place] [id number] [place] [address] 17996- 3464 Feb, [place] [address] 03317- 0228 Feb, Type 2 diabetes mellitus with diabetic neuropathy E11.40 ; Diastasis recti M62.08 ; Essential hypertension I10 and prison 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 [place] [address] 39992- 8029 Feb, Tarsal tunnel syndrome, right G57.51 and Neuroma D36.10 [facility] [id number] [place] [address] 68006- 8340 Dec, Type 2 diabetes mellitus with diabetic neuropathy E11.40 [facility] [id number] [place] [address] 17560- 6969 Dec, [facility] [id number] [place] [address] 34378- 9164 Nov, Low back pain M54.5 [facility] [id number] [place] [address] 32857- 6795 Nov, [facility] [id number] [place] [address] 27116- 6819 Nov, [facility] [id number] [place] [address] 21495- 7479 Nov, [facility] [id number] [place] [address] 88678- 4025 Nov, [facility] [id number] [place] [address] 73126- 4901 Nov, [facility] [id number] [place] [address] 51574- 1892 Oct, [facility] [id number] [place] [address] 17859- 5051 Oct, Type 2 diabetes mellitus with diabetic autonomic (poly) neuropathy E11.43 ; prison 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 ; Low back pain M54.5 and Other chronic pain G89.29 [facility] [id number] [place] [address] 09843- 7887 Sep, [facility] [id number] [place] [address] 56423- 2429 August, [facility] [id number] [place] [address] 74445- 6268 August, [facility] [address] [address] 0994 August, Type 2 diabetes mellitus with diabetic neuropathy E11.40 ; Diabetes type 2, uncontrolled E11.65 ; Long-term insulin use Z79.4 and 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 [facility] [address], [place] [address] 7761 August, Type 2 diabetes mellitus with diabetic neuropathy E11.40 [facility] [id number] [place] [address] 18047- 6183 Jun, Type 2 diabetes mellitus with diabetic neuropathy E11.40 ; Long-term insulin use Z79.4 and Hypertriglyceridemia E78.1 [facility] [address] [address]- 8868 Jun, [facility] [id number] [place] [address] 07121- 3789 Jun, Diabetes type 2, uncontrolled E11.65 [facility] [address] [address]- 3066 Jun, [facility] [id number] [address]- 9835 Jul, [facility] [address] [address]- 2259 Jul, [facility] [address] [address]- 0544 Nov, [facility] [address] [address]- 3162 Oct, [facility] [id number] 2705 Oct, [facility] [address] [address]- 5176 Oct, [facility] [address] [address] [address] Sep, [facility] [address] [facility] [id number] [place] [address] Sep, [facility] [address] [facility] [id number] [place] [address] Nov, IMMUNIZATIONS No Known Immunizations SOCIAL HISTORY Never Assessed REASON FOR VISIT PA for sleep study. PLAN OF CARE VITAL SIGNS MEDICATIONS Unknown [...]
--- OUTSIDE RECORDS SUMMARY | 2017-12-24 23:59 | XMS REPORT ---
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
--- OUTSIDE RECORDS SUMMARY | 2017-12-24 23:59 | XMS REPORT ---
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 Active 470661143 Problem Essential hypertension I10 Active 27310949 Problem Tarsal tunnel syndrome, right G57.51 Active 72553049 Problem Type 2 diabetes mellitus with diabetic neuropathy E11.40 Active 90130431 Problem Hypertriglyceridemia E78.1 Active 353589621 Problem Neuropathy G62.9 Active 419402914 Problem Shortness of breath R06.02 Active 744430768 Problem Pain in right ankle and joints of right foot M25.571 Active 601715264 Problem Fatty liver K76.0 Active 556472468 Problem Obstructive sleep apnea syndrome G47.33 Active 38281533 Problem Other chronic pain G89.29 Active 44109378 ALLERGIES No Known Allergies SOCIAL HISTORY Never Assessed PLAN OF CARE VITAL SIGNS MEDICATIONS Medication Instructions Dosage Frequency Start Date End Date Duration Status Bydureon 2 MG Subcutaneous Once weekly. DX- E11.65 Inject 2 mg 1 times per week 28 Active Atorvastatin Calcium 40 mg Orally Once a day 1 tablet 24h Feb, Active Metformin HCl 1000 MG Orally Twice a day 1 tablet 12h Apr, Active Levemir Flexpen 100units subcutaneously evening 25 units Active Lisinopril 10 mg Orally Once a day 1 tablet 24h Feb, Active Levemir Flexpen 100 UNIT/ML 30units Jun, Active Neurontin 600 MG Orally Three times a day 1 capsule 8h 28 Jun, 2015 Active RESULTS No Results PROCEDURES No Known [...]
--- OUTSIDE RECORDS SUMMARY | 2017-12-24 23:59 | XMS REPORT ---
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
--- OUTSIDE RECORDS SUMMARY | 2017-12-24 23:59 | XMS REPORT ---
Author Author Negrito LILLIE Organization [facility] [place] Address [address] [place] [address] Care Team Providers Care Bleach Plant Operator Name Role Phone jaredJethroANJU LILLIE Unavailable PROBLEMS Type Condition ICD9-CM Code KCE60-KF Code Onset Dates Condition Status SNOMED Code Problem Hypertriglyceridemia E78.1 Active 856465282 Problem Tarsal tunnel syndrome, right G57.51 Active 94155885 Problem Type 2 diabetes mellitus with diabetic neuropathy E11.40 Active 59976687 Problem Neuropathy G62.9 Active 141297421 Problem Obstructive sleep apnea syndrome G47.33 Active 19255514 Problem Fatty liver K76.0 Active 331182812 Problem Essential hypertension I10 Active 97930278 Problem Pain in right ankle and joints of right foot M25.571 Active 067631812 Problem Other chronic pain G89.29 Active 23142336 ALLERGIES No Information ENCOUNTERS Encounter Location Date Diagnosis [facility] [place] [address] [address] August, [facility] [address] [address]04 Apr, Cough R05 ; Bronchitis J40 and BMI 50.0-59.9, adult Z68.43 [facility] [place] [address] 78466- 6965 Jan, [facility] [place] [address] 78498- 3792 Jan, Type 2 diabetes mellitus with diabetic neuropathy E11.40 ; Neuropathy G62.9 and Other chronic pain G89.29 [facility] [place] [address] 367[address]- 2690 Dec, [facility] [place] [address] [place] [address]- 2801 27 Dec, 2016 Neuropathy G62.9 [facility] [place] [id number] [place] [address] 91040- 5160 26 Dec, 2016 [facility] [id number] [place] [address] 80810 -8213 23 Dec, 2016 Marquis splints, left, initial encounter S86.892A [facility] [place] [address] 60096- 1805 21 Dec, 2016 Other chronic pain G89.29 [facility] [place] [address] 08751- 8564 14 Dec, 2016 Other chronic pain G89.29 and terminal system operator current use of opiate analgesic Z79.891 [place] [address] 88483- 5678 12 Dec, 2016 Other chronic pain G89.29 [place] [id number] [place] [address] 72184- 3688 Nov, Neuropathy G62.9 [place] [address] 81113- 6873 Nov, [place] [id number] [place] [address] 24152- 0082 Nov, [place] [id number] [place] [address] 42831- 2829 Oct, [place] [address] 64438- 2940 Oct, [place] [id number] [place] [address] 68836- 9469 Oct, Type 2 diabetes mellitus with diabetic neuropathy E11.40 ; Hypertriglyceridemia E78.1 ; terminal system operator 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 ; Essential hypertension I10 ; Other chronic pain G89.29 ; Shortness of breath R06.02 ; Obstructive sleep apnea syndrome G47.33 and Neuropathy G62.9 [place] [id number] [place] [address] 56475- 8426 Oct, Type 2 diabetes mellitus with diabetic neuropathy E11.40 ; Fatty liver K76.0 and Hypertriglyceridemia E78.1 [facility] [place] [id number] [place] [address] 69512- 9106 Oct, [facility] [place] [address] 68600- 9973 Oct, [facility] [place] [address] 76715- 2125 Oct, Other chronic pain G89.29 [facility] [address] 38[address] -[address]56 Sep, Oral candidiasis B37.0 ; Strep pharyngitis J02.0 and Sore throat J02.9 [place] [address] 61472- 9102 Sep, Type 2 diabetes mellitus with diabetic neuropathy E11.40 ; Long-term insulin use Z79.4 ; Tarsal tunnel syndrome, right G57.51 ; Other chronic pain G89.29 ; Hypertriglyceridemia E78.1 ; Shortness of breath R06.02 ; Essential hypertension I10 and Obstructive sleep apnea syndrome G47.33 [place] [id number] [place] [address] 56754- 8554 August, [facility] [place] [id number] [place] [address] 76001- 3109 August, [facility] [place] [id number] [place] [address] 16790- 7277 August, Back pain at L4-L5 level M54.5 [facility] [place] [address] 65641- 6206 Jul, [facility] [place] [id number] [place] [address] 39911- 3374 May, [facility] [place] [address] [address]83- 1969 14 May, 2016 Type 2 diabetes mellitus [...] and Back pain at L4-L5 level M54.5 [place] [address] 04186- 5139 14 May, 2016 [place] [address] 15623- 6395 10 May, 2016 [place] [address] 38573- 3451 Apr, [place] [id number] [place] [address] 77249- 3021 Mar, [place] [address] 07380- 0510 Feb, Fatty liver K76.0 and Hypertriglyceridemia E78.1 [place] [id number] [place] [address] 33899- 2674 Feb, [place] [id number] [place] [address] 30834- 6149 Feb, Hypertriglyceridemia, essential E78.1 and Elevated liver enzymes R74.8 [place] [id number] [place] [address] 43003- 4156 Feb, [place] [address] 31874- 7327 Feb, Type 2 diabetes mellitus with diabetic neuropathy E11.40 ; Diastasis recti M62.08 ; Essential hypertension I10 and residential 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 [place] [address] 07428- 0704 Feb, Tarsal tunnel syndrome, right G57.51 and Neuroma D36.10 [facility] [place] [id number] [place] [address] 19541- 8247 Dec, Type 2 diabetes mellitus with diabetic neuropathy E11.40 [facility] [place] [id number] [place] [address] 30370- 9987 Dec, [facility] [place] [id number] [place] [address] 02909- 8737 Nov, Low back pain M54.5 [facility] [place] [id number] [place] [address] 37197- 4433 Nov, [facility] [place] [id number] [place] [address] 97925- 5491 Nov, [facility] [place] [id number] [place] [address] 82669- 3243 Nov, [facility] [place] [id number] [place] [address] 40146- 5514 Nov, [facility] [place] [id number] [place] [address] 03873- 4707 Nov, [facility] [place] [id number] [place] [address] 62151- 2814 Oct, [facility] [place] [id number] [place] [address] 12242- 4838 Oct, Type 2 diabetes mellitus with diabetic autonomic (poly) neuropathy E11.43 ; residential 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 ; Low back pain M54.5 and Other chronic pain G89.29 [facility] [place] [id number] [place] [address] 50150- 8342 Sep, [facility] [place] [id number] [place] [address] 09294- 1172 August, [facility] [place] [id number] [place] [address] 24851- 5379 August, [facility] [place] [address] [address]- 8871 August, Type 2 diabetes mellitus with diabetic neuropathy E11.40 ; Diabetes type 2, uncontrolled E11.65 ; Long-term insulin use Z79.4 and 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 [facility] [place] [address] [address]- 6620 August, Type 2 diabetes mellitus with diabetic neuropathy E11.40 [facility] [place] [id number] [place] [address] 80794- 3681 Jun, Type 2 diabetes mellitus with diabetic neuropathy E11.40 ; Long-term insulin use Z79.4 and Hypertriglyceridemia E78.1 [facility] [place] [address] [address]- 0382 Jun, [facility] [place] [id number] [place] [address] 85281- 6700 Jun, Diabetes type 2, uncontrolled E11.65 [facility] [place] [address] [address]- 2302 Jun, [facility] [place] [id number] [address]- 2170 Jul, [facility] [place] [address] [address]- 3464 Jul, [facility] [place] [address] [address]- 6446 Nov, [facility] [place] [address] [address]- 9942 Oct, [facility] [place] [id number] 2335 Oct, [facility] [place] [address] [address]- 4246 Oct, [facility] [place] [address] [address]304 Sep, [facility] [place] [address] [facility] [id number] [address]- 8037 Sep, [facility] [place] [address] [facility] [id number] [id number] Nov, IMMUNIZATIONS No Known Immunizations SOCIAL HISTORY Never Assessed REASON FOR VISIT Duong Dawson RN, Patient here to complete UDS (in house) and Ameritox as ordered due to previous UDS (in house) being positive for methamphetamine and THC, Patient requesting narcotics be refilled today PLAN OF CARE VITAL SIGNS MEDICATIONS Unknown Medications RESULTS Name Result Date Reference Range AMERITOX 2016-12-20 URINE DRUG SCREEN (IN HOUSE) 2016-12-20 Lot # [id number] Exp date 03/2018 Control + COCAINE Negative AMPH Negative MTD Negative THC Positive OPIATE Negative BENZO Negative PCP Negative BAR Negative OXY Negative MAMP Negative TCA Negative BUP Negative MDMA Negative PROCEDURES Procedure Date Ordered Result Body Site No Charge Dec 19, 2016 LAB NOT BILLED BY [facility] Dec 19, 2016 INSTRUCTIONS MEDICATIONS ADMINISTERED No Known Medications [...]
--- OUTSIDE RECORDS SUMMARY | 2017-12-24 23:59 | XMS REPORT ---
Author MALISSA Gonzales [facility] eClinicalWorks Address Unknown Phone Unavailable Care Team Providers Care Assistant Professor Of English Name Role Phone MALISSA ORTEGA CP Unavailable Allergies No Known Allergies Problems Problem Type Condition Code Onset Dates Condition Status Problem nursing home 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 Active Problem Diabetes type 2, uncontrolled E11.65 Active Problem Type 2 diabetes mellitus with diabetic autonomic (poly)neuropathy E11.43 Active Problem Hypertriglyceridemia E78.1 Active Assessment Low back pain M54.5 Active Problem Type 2 diabetes mellitus with diabetic neuropathy E11.40 Active Problem Long-term insulin use Z79.4 Active Medications No Known Medications Procedures Procedure Coding System Code Date THERAPEUTIC EXERCISES CPT-4 26238 Nov 27, 2015 PT EVALUATION CPT-4 75562 Nov 27, 2015 Results No Known Results Summary Purpose eClinicalWorks Submission
--- OUTSIDE RECORDS SUMMARY | 2017-12-24 23:59 | XMS REPORT ---
Author DIXIE Richards [facility] eClinicalWorks Address Unknown Phone Unavailable Care Team Providers Care Chauffeur Name Role Phone DIXIE CHIRINOS CP Unavailable Allergies No Known Allergies Problems Problem Type Condition Code Onset Dates Condition Status Problem nutrition intern 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 Active Problem Diabetes type 2, uncontrolled E11.65 Active Problem Type 2 diabetes mellitus with diabetic autonomic (poly)neuropathy E11.43 Active Problem Hypertriglyceridemia E78.1 Active Problem Type 2 diabetes mellitus with diabetic neuropathy E11.40 Active Problem Long-term insulin use Z79.4 Active Medications No Known Medications Results No Known Results Summary Purpose eClinicalWorks Submission
--- OUTSIDE RECORDS SUMMARY | 2017-12-24 23:59 | XMS REPORT ---
Author DIXIE Richards [facility] eClinicalWorks Address Unknown Phone Unavailable Care Team Providers Care Thread Spinner Name Role Phone DIXIE CHIRINOS CP Unavailable Allergies No Known Allergies Problems Problem Type Condition Code Onset Dates Condition Status Assessment Elevated liver enzymes R74.8 Active Problem Tarsal tunnel syndrome, right G57.51 Active Problem emt intermediate 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 Active Problem Essential hypertension I10 Active Problem Hypertriglyceridemia E78.1 Active Assessment Hypertriglyceridemia, essential E78.1 Active Problem Type 2 diabetes mellitus with diabetic neuropathy E11.40 Active Problem Long-term insulin use Z79.4 Active Medications No Known Medications Results No Known Results Summary Purpose eClinicalWorks Submission
--- OUTSIDE RECORDS SUMMARY | 2017-12-24 23:59 | XMS REPORT ---
Author Author Negrito LILLIE Organization [facility] [place] Address [address] [place] [address] Care Team Providers Care Licensed Mortgage Loan Officer Name Role Phone [email or web address] LILLIE Unavailable PROBLEMS Type Condition ICD9-CM Code KUG60-EQ Code Onset Dates Condition Status SNOMED Code Problem Hypertriglyceridemia E78.1 Active 240867127 Problem Tarsal tunnel syndrome, right G57.51 Active 68065189 Problem Type 2 diabetes mellitus with diabetic neuropathy E11.40 Active 57487030 Problem Neuropathy G62.9 Active 817119872 Problem Obstructive sleep apnea syndrome G47.33 Active 58283905 Problem Fatty liver K76.0 Active 871461286 Problem Essential hypertension I10 Active 09166791 Problem Pain in right ankle and joints of right foot M25.571 Active 978768448 Problem Other chronic pain G89.29 Active 04282189 ALLERGIES No Information ENCOUNTERS Encounter Location Date Diagnosis [facility] [place] [address] [address] August, [facility] [address] [address] Apr, Cough R05 ; Bronchitis J40 and BMI 50.0-59.9, adult Z68.43 [facility] [place] [address] [address] Jan, [facility] [place] [address] [address] Jan, Type 2 diabetes mellitus with diabetic neuropathy E11.40 ; Neuropathy G62.9 and Other chronic pain G89.29 [facility] [place] [address] [address] Dec, [facility] [place] [address] [place] [address] 27 Dec, 2016 Neuropathy G62.9 [facility] [place] [address] [place] [id number] [place] [address] 26 Dec, 2016 [facility] [id number] [place] [address] 23 Dec, 2016 Marquis splints, left, initial encounter S86.892A [facility] [place] [address] [address] 21 Dec, 2016 Other chronic pain G89.29 [facility] [place] [address] [address] 14 Dec, 2016 long-term current use of opiate analgesic Z79.891 and Other chronic pain G89.29 [place] [address] [address] 12 Dec, 2016 Other chronic pain G89.29 [facility] [place] [id number] [place] [address] Nov, Neuropathy G62.9 [place] [address] [address] Nov, [place] [address] [place] [id number] [place] [address] Nov, [place] [address] [place] [id number] [place] [address] Oct, [place] [address] [address] Oct, [facility] [place] [id number] [place] [address] Oct, Type 2 diabetes mellitus with diabetic neuropathy E11.40 ; Hypertriglyceridemia E78.1 ; 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 ; Essential hypertension I10 ; Other chronic pain G89.29 ; Shortness of breath R06.02 ; Obstructive sleep apnea syndrome G47.33 and Neuropathy G62.9 [facility] [place] [id number] [place] [address] Oct, Type 2 diabetes mellitus with diabetic neuropathy E11.40 ; Fatty liver K76.0 and Hypertriglyceridemia E78.1 [facility] [place] [id number] [place] [address] Oct, [facility] [place] [address] [address] Oct, [facility] [place] [address] [address] Oct, Other chronic pain G89.29 [facility] [address] [address] Sep, Oral candidiasis B37.0 ; Strep pharyngitis J02.0 and Sore throat J02.9 [place] [address] [address] Sep, Type 2 diabetes mellitus with diabetic neuropathy E11.40 ; Long-term insulin use Z79.4 ; Tarsal tunnel syndrome, right G57.51 ; Other chronic pain G89.29 ; Hypertriglyceridemia E78.1 ; Shortness of breath R06.02 ; Essential hypertension I10 and Obstructive sleep apnea syndrome G47.33 [place] [id number] [place] [address] August, [facility] [place] [id number] [place] [address] August, [facility] [place] [id number] [place] [address] August, Back pain at L4-L5 level M54.5 [facility] [place] [address] [address] Jul, [facility] [place] [id number] [place] [address] May, [facility] [place] [address] [address] 14 May, 2016 Type 2 diabetes mellitus [...] and Back pain at L4-L5 level M54.5 [place] [address] [address] 14 May, 2016 [place] [address] [address] 10 May, 2016 [place] [address] [address] Apr, [place] [address] [id number] [place] [address] Mar, [place] [address] [address] Feb, Fatty liver K76.0 and Hypertriglyceridemia E78.1 [place] [address] [id number] [place] [address] Feb, [place] [address] [id number] [place] [address] Feb, Hypertriglyceridemia, essential E78.1 and Elevated liver enzymes R74.8 [place] [id number] [place] [address] Feb, [place] [address] [address] Feb, Type 2 diabetes mellitus with diabetic neuropathy E11.40 ; Diastasis recti M62.08 ; Essential hypertension I10 and long-term 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 [place] [address] [address] Feb, Tarsal tunnel syndrome, right G57.51 and Neuroma D36.10 [facility] [place] [id number] [place] [address] Dec, Type 2 diabetes mellitus with diabetic neuropathy E11.40 [facility] [place] [id number] [place] [address] Dec, [facility] [place] [id number] [place] [address] Nov, Low back pain M54.5 [facility] [place] [id number] [place] [address] Nov, [facility] [place] [id number] [place] [address]- [address] Nov, [facility] [place] [id number] [place] [address] 136[address]- [address] Nov, [facility] [place] [id number] [place] [address] 12[address]- [address] Nov, [facility] [place] [id number] [place] [address] 29[address]- [address] Nov, [facility] [place] [id number] [place] [address]- [address] Oct, [facility] [place] [id number] [place] [address]- [address] Oct, Type 2 diabetes mellitus with diabetic autonomic (poly) neuropathy E11.43 ; long-term 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 ; Low back pain M54.5 and Other chronic pain G89.29 [facility] [place] [id number] [place] [address] 8[address]- [address] Sep, [facility] [place] [id number] [place] [address]- [address] August, [facility] [place] [id number] [place] [address] August, [facility] [place] [address] [place] [address] August, Type 2 diabetes mellitus with diabetic neuropathy E11.40 ; Diabetes type 2, uncontrolled E11.65 ; Long-term insulin use Z79.4 and 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 [facility] [place] [address] [place] [address] August, Type 2 diabetes mellitus with diabetic neuropathy E11.40 [facility] [place] [id number] [place] [address]- [address] Jun, Type 2 diabetes mellitus with diabetic neuropathy E11.40 ; Long-term insulin use Z79.4 and Hypertriglyceridemia E78.1 [facility] [place] [address] [place] [address] Jun, [facility] [place] [id number] [place] [address]- [address] Jun, Diabetes type 2, uncontrolled E11.65 [facility] [place] [address] [place] [address] Jun, [facility] [place] [id number] [address] Jul, [facility] [place] [address] [place] [address] Jul, [facility] [place] [address] [place] [address] Nov, [facility] [place] [address] [place] [address] Oct, [facility] [place] [id number] [address] Oct, [facility] [place] [address] [place] [address] Oct, [facility] [place] [address] [address] Sep, [facility] [place] [address] [facility] [id number] [place] [id number] Sep, [facility] [place] [address] [facility] [id number] [place] [address] Nov, IMMUNIZATIONS No Known Immunizations SOCIAL HISTORY [...]
--- OUTSIDE RECORDS SUMMARY | 2017-12-24 23:59 | XMS REPORT ---
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 DX- E11.65 Nov Inject 2 mg 1 times per week Results No Known Results Summary Purpose eClinicalWorks Submission
--- OUTSIDE RECORDS SUMMARY | 2017-12-25 | XMS REPORT ---
Author Author LILLIE Mahan Organization [facility] Address [address] [place] [address] Care Team Providers Care Fac Engineer Name Role Phone [email or web address] LILLIE Unavailable PROBLEMS Type Condition ICD9-CM Code TYI80-MX Code Onset Dates Condition Status SNOMED Code Problem Hypertriglyceridemia E78.1 Active 586945478 Problem Tarsal tunnel syndrome, right G57.51 Active 22619731 Problem Type 2 diabetes mellitus with diabetic neuropathy E11.40 Active 86652479 Problem Neuropathy G62.9 Active 610885748 Problem Obstructive sleep apnea syndrome G47.33 Active 27303302 Problem Fatty liver K76.0 Active 746897888 Problem Essential hypertension I10 Active 88193981 Problem Pain in right ankle and joints of right foot M25.571 Active 957902656 Problem Other chronic pain G89.29 Active [id number] ALLERGIES No Information ENCOUNTERS Encounter Location Date Diagnosis [facility] [address] [address] August, [facility] [address] [address] Apr, Cough R05 ; Bronchitis J40 and BMI 50.0-59.9, adult Z68.43 [facility] [address] [address] Jan, [facility] [address] [address] Jan, Type 2 diabetes mellitus with diabetic neuropathy E11.40 ; Neuropathy G62.9 and Other chronic pain G89.29 [facility] [address] [address] Dec, [facility] [address] [place] [address] 27 Dec, 2016 Neuropathy G62.9 [facility] [id number] [place] [address] 26 Dec, 2016 [facility] [id number] [place] [address] 23 Dec, 2016 Marquis splints, left, initial encounter S86.892A [facility] [address] [address] 21 Dec, 2016 Other chronic pain G89.29 [facility] [address] [address] 14 Dec, 2016 intermediate current use of opiate analgesic Z79.891 and Other chronic pain G89.29 [place] [address] [address] 12 Dec, 2016 Other chronic pain G89.29 [facility] [id number] [place] [address] Nov, Neuropathy G62.9 [place] [address] [address] Nov, [place] [id number] [place] [address] Nov, [place] [id number] [place] [address] Oct, [place] [address] [address] Oct, [facility] [id number] [place] [address] Oct, Type 2 diabetes mellitus with diabetic neuropathy E11.40 ; Hypertriglyceridemia E78.1 ; 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 ; Essential hypertension I10 ; Other chronic pain G89.29 ; Shortness of breath R06.02 ; Obstructive sleep apnea syndrome G47.33 and Neuropathy G62.9 [facility] [id number] [place] [address] Oct, Type 2 diabetes mellitus with diabetic neuropathy E11.40 ; Fatty liver K76.0 and Hypertriglyceridemia E78.1 [facility] [id number] [place] [address] Oct, [facility] [address] [address] Oct, [facility] [address] [address] Oct, Other chronic pain G89.29 [facility] [address] [address] Sep, Oral candidiasis B37.0 ; Strep pharyngitis J02.0 and Sore throat J02.9 [place] [address] [address] Sep, Type 2 diabetes mellitus with diabetic neuropathy E11.40 ; Long-term insulin use Z79.4 ; Tarsal tunnel syndrome, right G57.51 ; Other chronic pain G89.29 ; Hypertriglyceridemia E78.1 ; Shortness of breath R06.02 ; Essential hypertension I10 and Obstructive sleep apnea syndrome G47.33 [place] [id number] [place] [address] August, [facility] [id number] [place] [address] August, [facility] [id number] [place] [address] August, Back pain at L4-L5 level M54.5 [facility] [address] [address] Jul, [facility] [id number] [place] [address] May, [facility] [address] [address] 14 May, 2016 Type 2 diabetes mellitus [...] and Back pain at L4-L5 level M54.5 [place] [address] [address] 14 May, 2016 [place] [address] [address] 10 May, 2016 [place] [address] [address] Apr, [place] [id number] [place] [address] Mar, [place] [address] [address] Feb, Fatty liver K76.0 and Hypertriglyceridemia E78.1 [place] [id number] [place] [address] Feb, [place] [id number] [place] [address] Feb, Hypertriglyceridemia, essential E78.1 and Elevated liver enzymes R74.8 [place] [id number] [place] [address] Feb, [place] [address] [address] Feb, Type 2 diabetes mellitus with diabetic neuropathy E11.40 ; Diastasis recti M62.08 ; Essential hypertension I10 and intermediate 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 [place] [address] [address] Feb, Tarsal tunnel syndrome, right G57.51 and Neuroma D36.10 [facility] [id number] [place] [address] Dec, Type 2 diabetes mellitus with diabetic neuropathy E11.40 [facility] [id number] [place] [address] Dec, [facility] [id number] [place] [address] Nov, Low back pain M54.5 [facility] [id number] [place] [address] Nov, [facility] [id number] [place] [address]- [address] Nov, [facility] [id number] [place] [address]- [address] Nov, [facility] [id number] [place] [address] Nov, [facility] [id number] [place] [address] Nov, [facility] [id number] [place] [address] Oct, [facility] [id number] [place] [address]- [address] Oct, Type 2 diabetes mellitus with diabetic autonomic (poly) neuropathy E11.43 ; intermediate 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 ; Low back pain M54.5 and Other chronic pain G89.29 [facility] [id number] [place] [address] Sep, [facility] [id number] [place] [address]- [address] August, [facility] [id number] [place] [address] August, [facility] [address] [place] [address] August, Type 2 diabetes mellitus with diabetic neuropathy E11.40 ; Diabetes type 2, uncontrolled E11.65 ; Long-term insulin use Z79.4 and 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 [facility] [address] [place] [address] August, Type 2 diabetes mellitus with diabetic neuropathy E11.40 [facility] [id number] [place] [address] Jun, Type 2 diabetes mellitus with diabetic neuropathy E11.40 ; Long-term insulin use Z79.4 and Hypertriglyceridemia E78.1 [facility] [address] [place] [address] Jun, [facility] [id number] [place] [address]- [address] Jun, Diabetes type 2, uncontrolled E11.65 [facility] [address] [place] [address] Jun, [facility] [id number] [place] [address] Jul, [facility] [address] [place] [address] Jul, [facility] [address] [place] [address] Nov, [facility] [address] [place] [address] Oct, [facility] [id number] [address] Oct, [facility] [address] [place] [address] Oct, [facility] [address] Sep, [facility] [address] [facility] [id number] [place] [id number] Sep, [facility] [address] [facility] [id number] [place] [id number] Nov, IMMUNIZATIONS No Known Immunizations SOCIAL HISTORY Never Assessed REASON FOR VISIT diet education PLAN OF CARE VITAL SIGNS MEDICATIONS Unknown [...]
--- OUTSIDE RECORDS SUMMARY | 2017-12-25 | XMS REPORT | Continuity of Care Document ---
Author Author [facility] Organization [facility] Address Unknown Phone Unavailable Allergies Active Description Code Type Severity Reaction Onset Reported/Identified Relationship to Patient Clinical Status Yes No Known Drug Allergies [id number] Drug Allergy Unknown N/A 12/19/2010 Medications There is no data. 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 Ot M54.9 DORSALGIA, UNSPECIFIED 10/29/2016 LILLIE TOLBERT CERTIFIED ALCOHOL AND DRUG COUNSELOR Ot M54.9 DORSALGIA, UNSPECIFIED 11/25/2016 LILLIE TOLBERT CERTIFIED ALCOHOL AND DRUG COUNSELOR Ot M54.9 DORSALGIA, UNSPECIFIED 11/29/2016 LILLIE TOLBERT CERTIFIED ALCOHOL AND DRUG COUNSELOR Ot M54.9 DORSALGIA, UNSPECIFIED 12/24/2016 SERGIO GHOTRA APRN Ot F12.10 CANNABIS ABUSE, UNCOMPLICATED 12/24/2016 SERGIO GHOTRA APRN Ot G47.10 HYPERSOMNIA, UNSPECIFIED 12/24/2016 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 Results Test Result Range Microalb/Creat Ratio, [facility] Ur - 02/12/16 11:14 Creatinine, Urine 108.8 mg/dL Not Estab. Microalbumin, Urine 3.3 ug/mL Not Estab. Microalb/Creat Ratio 3.0 mg/g creat 0.0-30.0 Comp. Metabolic Panel (14) - 02/12/16 11:14 Glucose, Serum 125 mg/dL 65-99 BUN 12 mg/dL 6-20 Creatinine, Serum 1.04 mg/dL 0.76-1.27 eGFR If NonAfricn Am 93 mL/min/1.73 >59 eGFR If Africn Am 108 mL/min/1.73 >59 BUN/Creatinine Ratio 12 8-19 Sodium, Serum 138 mmol/L 136-144 Potassium, Serum 4.7 mmol/L 3.5-5.2 Chloride, Serum 97 mmol/L 97-106 Carbon Dioxide, Total 26 mmol/L 18-29 Calcium, Serum 9.3 mg/dL 8.7-10.2 Protein, Total, Serum 6.7 g/dL 6.0-8.5 Albumin, Serum 4.2 g/dL 3.5-5.5 Globulin, Total 2.5 g/dL 1.5-4.5 A/G Ratio 1.7 1.1-2.5 Bilirubin, Total 0.4 mg/dL 0.0-1.2 Alkaline Phosphatase, S 127 IU/L 39-117 AST (SGOT) 81 IU/L 0-40 ALT (SGPT) 86 IU/L 0-44 Lipid Panel - 02/12/16 11:14 Cholesterol, Total 188 mg/dL 100-199 Triglycerides 176 mg/dL 0-149 HDL Cholesterol 40 mg/dL >39 VLDL Cholesterol Kye 35 mg/dL 5-40 LDL Cholesterol Calc 113 mg/dL 0-99 CBC With Differential/Platelet - 10/31/16 09:42 WBC 10.0 x10E3/uL 3.4-10.8 RBC 4.91 x10E6/uL 4.14-5.80 Hemoglobin 14.1 g/dL 12.6-17.7 Hematocrit 42.6 % 37.5-51.0 MCV 87 fL 79-97 MCH 28.7 pg 26.6-33.0 MCHC 33.1 g/dL 31.5-35.7 RDW 13.9 % 12.3-15.4 Platelets 400 x10E3/uL 150-379 Neutrophils 53 % Lymphs 35 % Monocytes 8 % Eos 3 % Basos 0 % Neutrophils (Absolute) 5.3 x10E3/uL 1.4-7.0 Lymphs (Absolute) 3.5 x10E3/uL 0.7-3.1 Monocytes(Absolute) 0.8 x10E3/uL 0.1-0.9 Eos (Absolute) 0.3 x10E3/uL 0.0-0.4 Baso (Absolute) 0.0 x10E3/uL 0.0-0.2 Immature Granulocytes 1 % Immature Grans (Abs) 0.1 x10E3/uL 0.0-0.1 Comp. Metabolic Panel (14) - 10/31/16 09:42 Glucose, Serum 104 mg/dL 65-99 BUN 10 mg/dL 6-20 Creatinine, Serum 0.91 mg/dL 0.76-1.27 eGFR If NonAfricn Am 110 mL/min/1.73 >59 eGFR If Africn Am 127 mL/min/1.73 >59 BUN/Creatinine Ratio 11 9-20 Sodium, Serum 138 mmol/L 134-144 Potassium, Serum 4.4 mmol/L 3.5-5.2 Chloride, Serum 98 mmol/L 96-106 Carbon Dioxide, Total 24 mmol/L 18-29 Calcium, Serum 10.2 mg/dL 8.7-10.2 Protein, Total, Serum 7.3 g/dL 6.0-8.5 Albumin, Serum 4.3 g/dL 3.5-5.5 Globulin, Total 3.0 g/dL 1.5-4.5 A/G Ratio 1.4 1.2-2.2 Bilirubin, Total 0.4 mg/dL 0.0-1.2 Alkaline Phosphatase, S 137 IU/L 39-117 AST (SGOT) 21 IU/L 0-40 ALT (SGPT) 27 IU/L 0-44 Lipid Panel - 10/31/16 09:42 Cholesterol, Total 150 mg/dL 100-199 Triglycerides 446 mg/dL 0-149 HDL Cholesterol 39 mg/dL >39 VLDL Cholesterol Kye Comment mg/dL 5-40 LDL Cholesterol Calc Comment mg/dL 0-99 Arterial blood gas measurement - 12/18/16 12:58 Blood pCO2 38 mm[Hg] 35-45 Blood pO2 115 mm[Hg] 79-93 Arterial blood bicarbonate measurement (moles/volume) 24 mmol/L 23-27 Arterial blood base excess by calculation -0.7 mmol/L - 2.5-2.5 Arterial blood oxygen saturation measurement 98 % 94-100 * Inhaled oxygen flow rate ROOM AIR NRG Arterial blood pH measurement with patient temperature correction 7.40 7.37-7.43 Arterial blood carbon dioxide, total measurement (moles/volume) 24.7 mmol/L 21.0-31.0 Body site RR NRG Assessment of wrist artery patency prior to arterial puncture YES- POS NRG Setting of ventilation mode NO NRG Measurement of body temperature 97.9 NRG Complete blood count (CBC) with automated white blood cell (WBC) differential - 12/24/17 20:40 Blood leukocytes automated count (number/volume) 16.5 10*3/uL 4.3-11.0 Blood erythrocytes automated count (number/volume) 5.01 10*6/uL 4.35-5.85 Venous blood hemoglobin measurement (mass/volume) 14.4 g/dL 13.3-17.7 Blood hematocrit (volume fraction) 42 % 40-54 Automated erythrocyte mean corpuscular volume 84 [foz_us] 80-99 Automated erythrocyte mean corpuscular hemoglobin (mass per erythrocyte) 29 pg 25-34 Automated erythrocyte mean corpuscular hemoglobin concentration measurement ( mass/volume) 34 g/dL 32-36 Automated erythrocyte distribution width ratio 14.0 % 10.0-14.5 Automated blood platelet count (count/volume) 326 10*3/uL 130-400 Automated blood platelet mean volume measurement 10.8 [foz_us] 7.4-10.4 Automated blood neutrophils/100 leukocytes 77 % 42-75 Automated blood lymphocytes/100 leukocytes 14 % 12-44 Blood monocytes/100 leukocytes 9 % 0-12 Automated blood eosinophils/100 leukocytes 0 % 0-10 Automated blood basophils/100 leukocytes 0 % 0-10 Blood neutrophils automated count (number/volume) 12.7 10*3 1.8-7.8 Blood lymphocytes automated count (number/volume) 2.3 10*3 1.0-4.0 Blood monocytes automated count (number/volume) 1.5 10*3 0.0-1.0 Automated eosinophil count 0.0 10*3/uL 0.0-0.3 Automated blood basophil count (count/volume) 0.0 10*3/uL 0.0-0.1 PT panel in platelet poor plasma by coagulation assay - 12/24/17 20:40 Prothrombin time (PT) in platelet poor plasma by coagulation assay 13.1 s 12.2-14.7 INR in platelet poor plasma or blood by coagulation assay 1.0 0.8-1.4 Activated partial thromboplastin time (aPTT) in platelet poor plasma bycoagulation assay - 12/24/17 20:40 Activated partial thromboplastin time (aPTT) in platelet poor plasma bycoagulation assay 27 s 24-35 Blood lactic acid measurement (moles/volume) - 12/24/17 20:40 Blood lactic acid measurement (moles/volume) 2.59 mmol/L 0.50-2.00 Comprehensive metabolic panel - 12/24/17 20:40 Serum or plasma sodium measurement (moles/volume) 138 mmol/L 135-145 Serum or plasma potassium measurement (moles/volume) 3.5 mmol/L 3.6-5.0 Serum or plasma chloride measurement (moles/volume) 102 mmol/L 98-107 Carbon dioxide 23 mmol/L 21-32 Serum or plasma anion gap determination (moles/volume) 13 mmol/L 5-14 Serum or plasma urea nitrogen measurement (mass/volume) 7 mg/dL 7-18 Serum or plasma creatinine measurement (mass/volume) 0.87 mg/dL 0.60-1.30 Serum or plasma urea nitrogen/creatinine mass ratio 8 NRG Serum or plasma creatinine measurement with calculation of estimated glomerular filtration rate > NRG Serum or plasma glucose measurement (mass/volume) 170 mg/dL 70-105 Serum or plasma calcium measurement (mass/volume) 10.2 mg/dL 8.5-10.1 Serum or plasma total bilirubin measurement (mass/volume) 0.8 mg/dL 0.1-1.0 Serum or plasma alkaline phosphatase measurement (enzymatic activity/volume) 126 U/L 40-136 Serum or plasma aspartate aminotransferase measurement (enzymatic activity/ volume) 22 U/L 5-34 Serum or plasma alanine aminotransferase measurement (enzymatic activity/volume ) 48 U/L 0-55 Serum or plasma protein measurement (mass/volume) 7.2 g/dL 6.4-8.2 Serum or plasma albumin measurement (mass/volume) 4.2 g/dL 3.2-4.5 CALCIUM CORRECTED 10.0 mg/dL 8.5-10.1 Serum or plasma amylase measurement (enzymatic activity/volume) - 12/24/17 20: 40 Serum or plasma amylase measurement (enzymatic activity/volume) 34 U /L 25-125 Lipase - 12/24/17 20:40 Lipase 13 U/L 8-78 Blood manual differential performed detection - 12/24/17 20:40 Blood monocytes/100 leukocytes 8 % NRG Manual blood segmented neutrophils/100 leukocytes 77 % NRG Blood band neutrophils/100 leukocytes 1 % NRG Manual blood lymphocytes/100 leukocytes 14 % NRG Manual eosinophils/100 leukocytes in nose 0 % NRG Manual blood basophils/100 leukocytes 0 % NRG Blood erythrocyte morphology finding identification NORMAL NRG Complete urinalysis with reflex to culture - 12/24/17 20:54 Urine color determination YELLOW NRG Urine clarity determination CLEAR NRG Urine pH measurement by test strip 7 5-9 Specific gravity of urine by test strip 1.015 1.016- 1.022 Urine protein assay by test strip, semi-quantitative 2+ NEGATIVE Urine glucose detection by automated test strip 4+ NEGATIVE Erythrocytes detection in urine sediment by light microscopy 2+ NEGATIVE Urine ketones detection by automated test strip 1+ NEGATIVE Urine nitrite detection by test strip NEGATIVE NEGATIVE Urine total bilirubin detection by test strip NEGATIVE NEGATIVE Urine urobilinogen measurement by automated test strip (mass/volume) NORMAL NORMAL Urine leukocyte esterase detection by dipstick 1+ NEGATIVE Automated urine sediment erythrocyte count by microscopy (number/high power field) [HPF] NRG Automated urine sediment leukocyte count by microscopy (number/high power field ) [HPF] NRG Bacteria detection in urine sediment by light microscopy FEW NRG Crystals detection in urine sediment by light microscopy NONE NRG Casts detection in urine sediment by light microscopy NONE NRG Mucus detection in urine sediment by light microscopy NEGATIVE NRG Complete urinalysis with reflex to culture YES NRG Serum or plasma lactate measurement (moles/volume) - 12/24/17 23:10 Serum or plasma lactate measurement (moles/volume) 1.29 mmol/L 0.50-2.00 Encounters ACCT No. Visit Date/Time Discharge Status Pt. Type Provider Facility Loc./Unit Complaint [id number] 12/18/2016 11:40:00 12/18/2016 23:59:59 CLS Outpatient SERGIO GHOTRA APRN [facility] RT SOB R06.00 [id number] 10/31/2016 09:00:00 12/04/2016 13:55:00 DIS Outpatient LILLIE TOLBERT [facility] REHAB CHRONIC BACK PAIN [id number] 11/19/2016 11:50:00 11/19/2016 23:59:59 CLS Preadmit SERGIO GHOTRA APRN [facility] SLEEP PARASOMNIA G47.50 [id number] 11/01/2016 11:52:00 11/01/2016 23:59:59 CLS Preadmit OTHER, UNLISTED [facility] RAD OBSERVED APNEAS [id number] 02/19/2016 07:23:00 02/19/2016 23:59:59 CLS Outpatient DIXIE CHIRINOS DO [facility] RAD ELEVATED LIVER ENZYMES [id number] 06/26/2015 08:30:00 06/27/2015 10:15:00 DIS Inpatient HELEN PAULSON MD [facility] 4TH [id number] 10/24/2014 20:02:00 10/24/2014 21:12:00 DIS Emergency LOUIS HESS [facility] ER [id number] 11/11/2012 06:48:00 11/11/2012 23:59:59 CLS Outpatient [id number] 11/09/2012 11:40:00 11/09/2012 23:59:59 CLS Outpatient [id number] 09/05/2012 13:28:00 09/05/2012 23:59:59 CLS Outpatient [id number] 07/31/2012 17:37:00 07/31/2012 23:59:59 CLS Outpatient [id number] 12/24/2017 21:13:00 Document Registration [id number] 11/01/2016 09:09:00 Document Registration [id number] 02/13/2016 13:06:00 Document Registration [id number] 02/13/2016 13:06:00 Document Registration [id number] 11/06/2017 09:00:00 11/06/2017 23:59:59 CLS Outpatient MARTHA LOCKHART, MARGARITA VILLEGASNii [id number] 10/24/2014 20:03:03 ACT Document Registration
[2017-12-25] MEDS ORDERED: NS IV 1000 ML 1,000 ML ONE (01:04)
[2017-12-25] MEDS ORDERED: ACETAMINOPHEN 500 MG TAB (TYLENOL) PO PRN (02:15)
[2017-12-25] MEDS ORDERED: LORazepam INJ 2 MG/ML (ATIVAN) VIAL IV PRN (02:15)
[2017-12-25] MEDS ORDERED: NS IV 1000 ML 1,000 ML IV SCH (02:15)
[2017-12-25] MEDS ORDERED: ONDANSETRON 4 MG/2 ML (SDV) Z0FRAN IV PRN (02:15)
[2017-12-25] MEDS ORDERED: CATHETER FLUSH 10 ML SYR IV PRN (02:15)
[2017-12-25 04:01] VITALS: BP 159/91
[2017-12-25] MEDS ORDERED: CATHETER FLUSH 10 ML SYR IV SCH (06:00)
[2017-12-25 07:08] LABS: BASOPHILS % (AUTO) 0 % (0-10); EOSINOPHILS % (AUTO) 0 % (0-10); HEMATOCRIT 39 % (40-54); HEMOGLOBIN 13.7 G/DL (13.3-17.7); LYMPHOCYTES % (AUTO) 15 % (12-44); MEAN CORPUSCULAR HEMOGLOBIN 30 PG (25-34); MEAN CORPUSCULAR HGB CONC 35 G/DL (32-36); MEAN CORPUSCULAR VOLUME 85 FL (80-99); MEAN PLATELET VOLUME 10.9 FL (7.4-10.4); MONOCYTES # (AUTO) 1.5 X 10^3 (0.0-1.0); MONOCYTES % (AUTO) 12 % (0-12); NEUTROPHILS # (AUTO) 9.5 X 10^3 (1.8-7.8); NEUTROPHILS % (AUTO) 73 % (42-75); PLATELET COUNT 267 10^3/uL (130-400); RED BLOOD COUNT 4.62 10^6/uL (4.35-5.85); RED CELL DISTRIBUTION WIDTH 13.7 % (10.0-14.5); WHITE BLOOD COUNT 13.1 10^3/uL (4.3-11.0)
[2017-12-25 07:33] LABS: ALANINE AMINOTRANSFERASE 39 U/L (0-55); ALBUMIN 3.9 GM/DL (3.2-4.5); ALKALINE PHOSPHATASE 111 U/L (40-136); BUN/CREATININE RATIO 6; CALCIUM 9.3 MG/DL (8.5-10.1); CARBON DIOXIDE 22 MMOL/L (21-32); CHLORIDE 103 MMOL/L (98-107); CREATININE SERUM 0.82 MG/DL (0.60-1.30); GFR ESTIMATED > 60; GLUCOSE 181 MG/DL (70-105); POTASSIUM 3.5 MMOL/L (3.6-5.0); SODIUM 137 MMOL/L (135-145); TOTAL PROTEIN 6.8 GM/DL (6.4-8.2)
--- NOTE | 2017-12-25 07:43 | Diagnostic Imaging Report ---
PROCEDURE: CT abdomen and pelvis without contrast. TECHNIQUE: Multiple contiguous axial images were obtained through the abdomen and pelvis without the use of intravenous contrast. INDICATION: Abdominal pain with nausea Study is limited by patient body habitus. Comparison is made to study of 07/24/2016. There is diffuse low-density throughout the liver. No focal hepatic or splenic abnormality is identified. There is no evidence of biliary ductal dilatation. Pancreas, adrenal glands and kidneys are unremarkable. There is slight prominence of the left renal collecting system with a questionable punctate calcification at the left ureteropelvic junction. No bowel obstruction is identified. There is no evidence of free fluid in the abdomen or pelvis. No organized fluid collection is seen. IMPRESSION: Mild prominence of left renal collecting system with possible punctate calcification at the left ureteropelvic junction which may represent a stone. This is suboptimally visualized due to patient body habitus and clinical correlation and urinalysis would be of use. Otherwise, there is hepatic steatosis without other evidence of acute abnormality in the abdomen or pelvis. Dictated by: Dictated on workstation # [id number]
--- NOTE | 2017-12-25 08:51 | Diagnostic Imaging Report ---
PROCEDURE: US Gallbladder. TECHNIQUE: Multiple real-time grayscale images were obtained over the right upper quadrant in various projections. INDICATION: Right upper quadrant pain. The liver is enlarged at 20 cm. There appears to be increased echogenicity suggestive of hepatic steatosis. No discrete liver mass is identified. Gallbladder is without stones or sludge. No wall thickening or biliary ductal dilatation is seen, although the extrahepatic bile duct is somewhat difficult to visualize due to bowel gas. The pancreas is obscured. The right kidney is very difficult to visualize. Imaging is limited due to patient body habitus. No ascites is seen. IMPRESSION: 1. Hepatomegaly and probable hepatic steatosis. 2. No definite evidence of cholelithiasis or acute cholecystitis. Dictated by: Dictated on workstation # [id number]
[2017-12-25] MEDS ORDERED: FLU QUADRIvalent (5+ YOA) 2018-2019 (AFLURIA) 0.5 ML IM ONE (09:00)
--- NOTE | 2017-12-25 10:28 | Short Stay Summary-Hospitalist ---
LANDON BROWNE MEDICAL STUDENT 12/25/17 1028: History of Present Illness HPI/Chief Complaint CC: Abdominal Pain HPI: Pt is a 37 yo male with a history of HTN, HLD, DM, asthma, and nephrolithiasis. One day prior to admission, he developed a left upper flank pain that he says felt tight. He had nausea and felt like he needed to vomit, but never did. Because of the nausea, he has had decreased PO intake the past few days. At first he thought it was a kidney stone as he has had two in the past, but the next day his pain began to radiate across his entire upper abdomen. There were no changes in his bowel movements associated with his pain. He did not note feeling feverish at home - he was sweaty but this is baseline for him. He denies burning or frequency with urination as well. Source: patient Exam Limitations: no limitations Date Seen 12/25/17 Time Seen by a Provider: 10:15 Attending Physician Sunshine Hannah Lynnette A Arnp Referring Physician Date of Admission Dec 24, 2017 at 23:30 Home Medications & Allergies Home Medications Reviewed patient Home Medication Reconciliation performed by pharmacy medication reconciliations commercial technician and/or nursing. Patients Allergies have been reviewed. Allergies Allergies Coded Allergies No Known Drug Allergies (Unverified12/19/10) Past Ibhmzrd-Ekvssk-Eledzz Hx Past Med/Social Hx: Reviewed Nursing Past Med/Soc Hx Patient Social History Number of Children: 2 Employed/Student: employed Alcohol Use: Denies Use Recreational Drug Use: Yes (CANNIBUS) Drug of Choice: CANNIBUS Smoking Status: Former Smoker (15 pack year history) 2nd Hand Smoke Exposure: No Physical Abuse Screen: No Sexual Abuse: No Recent Foreign Travel: No Contact w/other who traveled: No Recent Hopitalizations: No Recent Infectious Disease Expo: No Immunizations Up To Date Tetanus Booster (TDap): Less than 5yrs Pediatric: No Date of Influenza Vaccine: Feb 06, 2012 Seasonal Allergies Seasonal Allergies: No Past Medical History Surgeries: Abdominal (Hernia repair), Ear Surgery (Tympanostomy tubes) Respiratory: Asthma Currently Using CPAP: No Currently Using BIPAP: No Cardiac: High Cholesterol, Hypertension Reproductive: No Genitourinary: Kidney Stones Musculoskeletal: Fractures Endocrine: Diabetes, Non-Insulin dep Are Your Blood Sugars Over 250: No Psychosocial: Anxiety History of Blood Disorders: No Adverse Reaction to Blood Ruiz: No Family History Reviewed Nursing Family Hx Patient reports no known family medical history. No Pertinent Family Hx Review of Systems Constitutional: diaphoresis, weight loss (17 lb intentional weight loss) EENTM: No nose congestion, No throat pain Respiratory: No cough Cardiovascular: No chest pain Gastrointestinal: abdominal pain (LUQ and RUQ), diarrhea, nausea; No vomiting Genitourinary: no symptoms reported Skin: no symptoms reported Physical Exam Physical Exam Vital Signs Vital Signs - First Documented 12/24/17 20:25 Temp 101.0 Pulse 117 Resp 20 B/P (MAP) 176/113 (134) Pulse Ox 98 O2 Delivery Room Air Capillary Refill : Less Than 3 Seconds Height, Weight, BMI Height: 5'7.00" Weight: 360lbs. 0.0oz. [id number]; 56.4 BMI Method:Stated General Appearance: No Apparent Distress, WD/WN HEENT: Moist Mucous Membranes Respiratory: Chest Non Tender, Lungs Clear, Normal Breath Sounds Cardiovascular: Regular Rate, Rhythm, No Murmur Gastrointestinal: Normal Bowel Sounds, Non Tender, Soft, Distended Extremity: No Pedal Edema Neurologic/Psychiatric: Alert, Oriented x3 Skin: Normal Color, Warm/Dry Results Results/Procedures Labs Laboratory Tests 12/24/17 20:40 12/25/17 06:51 Patient resulted labs reviewed. Short Stay Diagnosis Discharge Diagnosis-Short Stay Admission Diagnosis Urinary Tract Infection Final Discharge Diagnosis Urinary Tract Infection Conclusion Plan 37 year old male with HTN, HLD, DM, nephrolithiasis, and asthma that presented to the ED with 2 days of abdominal pain found to have an elevated white count and UTI and potential stone at his left UPJ. Abdominal Pain: Likely UTI vs. nephrolithiasis. CT suggests possible nephrolithiasis. Abdominal US negative for cholecystitis. -Received NS bolus and rocephin in the ED and white count has decreased from 16 to 13 overnight -Pt asymptomatic today and wanting to discharge -Discharge on cefdinir for a 7 day course Dispo: Discharge home today Diagnosis/Problems Diagnosis/Problems (1) UTI (urinary tract infection) Status: Acute (2) Essential (primary) hypertension Status: Chronic (3) Mixed hyperlipidemia Status: Chronic (4) Nephrolithiasis Status: Acute (5) Diabetes mellitus Status: Chronic Qualifiers: Qualified Codes: E11.42 - Type 2 diabetes mellitus with diabetic polyneuropathy (6) Upper abdominal pain Status: Acute Clinical Quality Measures DVT/VTE Risk/Contraindication: Risk Factor Score Per Nursin RFS Level Per Nursing on Admit: 2=Moderate SUNSHINE HANNAH DO 12/25/17 1148: History of Present Illness HPI/Chief Complaint Patient seen and examined and patient feels well and will be DC. Appreciate Dr Wilson consultation. Source: patient, family Exam Limitations: no limitations Time Seen by a Provider: 10:30 Past Wwuzjbs-Dqrvzr-Fhpkom Hx Past Med/Social Hx: Reviewed Nursing Past Med/Soc Hx, Reviewed and Corrections made Patient Social History Smoking Status: Former Smoker (15 pack year history) Family History Patient reports no known family medical history. Review of Systems Constitutional: diaphoresis, weakness EENTM: no symptoms reported Respiratory: no symptoms reported Cardiovascular: no symptoms reported Gastrointestinal: abdominal pain (LUQ and RUQ), diarrhea, nausea Genitourinary: no symptoms reported Musculoskeletal: no symptoms reported Skin: no symptoms reported Psychiatric/Neurological: No Symptoms Reported All Other Systems Reviewed Negative Unless Noted: Yes Physical Exam Physical Exam General Appearance: No Apparent Distress, WD/WN, Chronically ill, Obese Eyes: Bilateral Eye Normal Inspection, Bilateral Eye PERRL HEENT: PERRL/EOMI, TMs Normal, Normal ENT Inspection, Pharynx Normal Neck: Full Range of Motion, Normal Inspection, Non Tender, Supple, Carotid Bruit Respiratory: Chest Non Tender, Lungs Clear, Normal Breath Sounds, No Accessory Muscle Use, No Respiratory Distress Cardiovascular: Regular Rate, Rhythm, No Edema, No Gallop, No JVD, No Murmur, Normal Peripheral Pulses Gastrointestinal: Normal Bowel Sounds, No Organomegaly, No Pulsatile Mass, Non Tender, Soft Back: Normal Inspection, No CVA Tenderness, No Vertebral Tenderness Extremity: Normal Capillary Refill, Normal Inspection, Normal Range of Motion, Non Tender, No Calf Tenderness, No Pedal Edema Neurologic/Psychiatric: Alert, Oriented x3, No Motor/Sensory Deficits, Normal Mood/Affect Skin: Normal Color, Warm/Dry Lymphatic: No Adenopathy Short Stay Diagnosis Discharge Diagnosis-Short Stay Admission Diagnosis Fever Kidney stone UTI Obesity HTN HLP Final Discharge Diagnosis Fever Kidney stone UTI Obesity HTN HLP Conclusion Plan DC home Abx PCP in 1 week Diagnosis/Problems Diagnosis/Problems (1) Upper abdominal pain Status: Acute (2) Diabetes mellitus Status: Chronic Qualifiers: Qualified Codes: E11.42 - Type 2 diabetes mellitus with diabetic polyneuropathy (3) Nephrolithiasis Status: Acute (4) Mixed hyperlipidemia Status: Chronic (5) UTI (urinary tract infection) Status: Acute (6) Essential (primary) hypertension Status: Chronic (7) Elevated lactic acid level (8) Obesity LANDON BROWNE MEDICAL STUDENT Dec 25, 2017 10:28 SUNSHINE HANNAH DO Dec 25, 2017 11:48
[2017-12-25] MEDS ORDERED: RT-ALBUINH INH (10:39)
[2017-12-25] MEDS ORDERED: GABA600T2 PO (10:39)
[2017-12-25] MEDS ORDERED: CEFD300C3 PO (10:58)
--- NOTE | 2017-12-25 11:52 | Consultation ---
History of Present Illness History of Present Illness Patient Consulted On(jackie/time) 12/25/17 11:51 Time Seen by Provider: 10:34 History of Present Illness Surgery asked to consult regarding RUQ pain, Leukocytosis. HPI per ED: Here with report of upper abdominal pain and nausea for the last couple of days. Had normal bowel movement today. States he has not been able to eat well. Arrives with fever and sweating. Timing/Duration: 2-3 Days Severity: Moderate Associated Systoms: No Chest Pain, No Cough; Fever/Chills, Nausea/Vomiting; No Shortness of Air, No Weakness HPI per IM: Pt is a 37 yo male with a history of HTN, HLD, DM, asthma, and nephrolithiasis. One day prior to admission, he developed a left upper flank pain that he says felt tight. He had nausea and felt like he needed to vomit, but never did. Because of the nausea, he has had decreased PO intake the past few days. At first he thought it was a kidney stone as he has had two in the past, but the next day his pain began to radiate across his entire upper abdomen. There were no changes in his bowel movements associated with his pain. He did not note feeling feverish at home - he was sweaty but this is baseline for him. He denies burning or frequency with urination as well. When I saw pt he stated his pain was gone, he was hungry and he wanted to leave. States he feels better. When he came in last night he met sepsis criteria and the CT was not a good study, so they wanted to get an US this am since his main complaint was RUQ pain. Allergies and Home Medications Allergies Coded Allergies: No Known Drug Allergies (Unverified , 12/19/10) Home Medications Albuterol Sulfate 1 Puff Puff, 2 PUFF INH Q4H PRN for SHORTNESS OF BREATH, ( Reported) Atorvastatin Calcium 40 Mg Tablet, 40 MG PO HS, (Reported) LAST FILLED #30 8-2-18 Cefdinir 300 Mg Capsule, 300 MG PO BID Prescribed by: ALEJANDRINA HANNAH on 12/25/17 1058 Gabapentin 600 Mg Tablet, 600 MG PO BID, (Reported) LAST FILLED #90 5-8-18 Lisinopril 5 Mg Tablet, 5 MG PO DAILY, (Reported) LAST FILLED #30 8-2-18 Metformin HCl 1,000 Mg Tablet, 1,000 MG PO BID, (Reported) LAST FILLED #180 08-05-17 Patient Home Medication List Home Medication List Reviewed: Yes Past Sjwyioi-Aedeqb-Jgwivx Hx Patient Social History Alcohol Use: Denies Use Recreational Drug Use: Yes (CANNIBUS) Drug of Choice: CANNIBUS Smoking Status: Former Smoker (15 pack year history) 2nd Hand Smoke Exposure: No Recent Foreign Travel: No Contact w/Someone Who Travel: No Recent Infectious Disease Expo: No Recent Hopitalizations: No Physical Abuse Screen: No Sexual Abuse: No Immunizations Up To Date Tetanus Booster (TDap): Less than 5yrs PED Vaccines UTD: No Date of Influenza Vaccine: Feb 06, 2012 Seasonal Allergies Seasonal Allergies: No Surgeries History of Surgeries: Yes (EAR TUBES, UMBILICAL HERNIA) Surgeries: Abdominal (Hernia repair), Ear Surgery (Tympanostomy tubes) Respiratory History of Respiratory Disorde: Yes Respiratory Disorders: Asthma Cardiovascular History of Cardiac Disorders: Yes Cardiac Disorders: High Cholesterol, Hypertension Neurological History of Neurological Disord: No Reproductive System Hx Reproductive Disorders: No Genitourinary History of Genitourinary Disor: Yes Genitourinary Disorders: Kidney Stones Gastrointestinal History of Gastrointestinal Di: Yes (UMBILICAL HERNIA) Musculoskeletal History of Musculoskeletal Dis: Yes (ANKLE FRACTURE) Musculoskeletal Disorders: Fractures Endocrine History of Endocrine Disorders: Yes Endocrine Disorders: Diabetes, Non-Insulin dep HEENT History of HEENT Disorders: No Cancer History of Cancer: No Psychosocial History of Psychiatric Problem: Yes Behavioral Health Disorders: Anxiety Integumentary History of Skin or Integumenta: No Blood Transfusions History of Blood Disorders: No Adverse Reaction to a Blood Tr: No Family Medical History Significant Family History: No Pertinent Family Hx, Diabetes, Hypertension Family Medial History: Patient reports no known family medical history. Review of Systems-General Constitutional: chills, malaise, weakness EENTM: No blurred vision, No double vision, No mouth swelling, No epistaxis Respiratory: No cough, No dyspnea on exertion, No hemoptysis, No short of breath, No wheezing Cardiovascular: No chest pain, No edema Gastrointestinal: RUQ; No hematemesis, No jaundice Genitourinary: dysuria, frequency; No hematuria; nocturia Musculoskeletal: back pain, joint pain, muscle stiffness Psychiatric/Neurological: Anxiety, Depressed Physical Exam-General Problems Physical Exam Vital Signs Vital Signs - First Documented 12/24/17 20:25 Temp 101.0 Pulse 117 Resp 20 B/P (MAP) 176/113 (134) Pulse Ox 98 O2 Delivery Room Air Capillary Refill : Less Than 3 Seconds General Appearance: WD/WN, no apparent distress, obese HEENT: PERRL/EOMI, pharynx normal Respiratory: chest non-tender, lungs clear, normal breath sounds, no respiratory distress, no accessory muscle use Cardiovascular: regular rate, rhythm, no edema, no gallop, no JVD, no murmur Gastrointestinal: normal bowel sounds, soft, no organomegaly Back: no CVA tenderness, no vertebral tenderness Extremities: no pedal edema, no calf tenderness, normal capillary refill 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, no motor/sensory deficits, alert, normal mood/affect, oriented x 3 Skin: normal color, warm/dry Lymphatic: no adenopathy (neck, axilla or groin) Data Review Labs Laboratory Tests 12/24/17 20:40: White Blood Count 16.5H, Red Blood Count 5.01, Hemoglobin 14.4, Hematocrit 42, Mean Corpuscular Volume 84, Mean Corpuscular Hemoglobin 29, Mean Corpuscular Hemoglobin Concent 34, Red Cell Distribution Width 14.0, Platelet Count 326, Mean Platelet Volume 10.8H, Neutrophils (%) (Auto) 77H, Lymphocytes (%) (Auto) 14, Monocytes (%) (Auto) 9, Eosinophils (%) (Auto) 0, Basophils (%) (Auto) 0, Neutrophils # (Auto) 12.7H, Lymphocytes # (Auto) 2.3, Monocytes # (Auto) 1.5H, Eosinophils # (Auto) 0.0, Basophils # (Auto) 0.0, Neutrophils % (Manual) 77, Lymphocytes % (Manual) 14, Monocytes % (Manual) 8, Eosinophils % (Manual) 0, Basophils % (Manual) 0, Band Neutrophils 1, Blood Morphology Comment NORMAL, Prothrombin Time 13.1, INR Comment 1.0, Activated Partial Thromboplast Time 27, Sodium Level 138, Potassium Level 3.5L, Chloride Level 102, Carbon Dioxide Level 23, Anion Gap 13, Blood Urea Nitrogen 7, Creatinine 0.87, Estimat Glomerular Filtration Rate > 60, BUN/Creatinine Ratio 8, Glucose Level 170H, Lactic Acid Level 2.59*H, Calcium Level 10.2H, Corrected Calcium 10.0, Total Bilirubin 0.8, Aspartate Amino Transf (AST/SGOT) 22, Alanine Aminotransferase ( ALT/SGPT) 48, Alkaline Phosphatase 126, Total Protein 7.2, Albumin 4.2, Amylase Level 34, Lipase 13 12/24/17 20:54: Urine Color YELLOW, Urine Clarity CLEAR, Urine pH 7, Urine Specific [place] 1.015L, Urine Protein 2+H, Urine Glucose (UA) 4+H, Urine Ketones 1+H, Urine Nitrite NEGATIVE, Urine Bilirubin NEGATIVE, Urine Urobilinogen NORMAL, Urine Leukocyte Esterase 1+H, Urine RBC (Auto) 2+H, Urine RBC 0-2, Urine WBC 10-25H, Urine Crystals NONE, Urine Bacteria FEWH, Urine Casts NONE, Urine Mucus NEGATIVE , Urine Culture Indicated YES 12/24/17 23:10: Lactic Acid Level 1.29 12/25/17 06:51: White Blood Count 13.1H, Red Blood Count 4.62, Hemoglobin 13.7, Hematocrit 39L, Mean Corpuscular Volume 85, Mean Corpuscular Hemoglobin 30, Mean Corpuscular Hemoglobin Concent 35, Red Cell Distribution Width 13.7, Platelet Count 267, Mean Platelet Volume 10.9H, Neutrophils (%) (Auto) 73, Lymphocytes (%) (Auto) 15 , Monocytes (%) (Auto) 12, Eosinophils (%) (Auto) 0, Basophils (%) (Auto) 0, Neutrophils # (Auto) 9.5H, Lymphocytes # (Auto) 2.0, Monocytes # (Auto) 1.5H, Eosinophils # (Auto) 0.0, Basophils # (Auto) 0.0, Sodium Level 137, Potassium Level 3.5L, Chloride Level 103, Carbon Dioxide Level 22, Anion Gap 12, Blood Urea Nitrogen 5L, Creatinine 0.82, Estimat Glomerular Filtration Rate > 60, BUN/ Creatinine Ratio 6, Glucose Level 181H, Calcium Level 9.3, Corrected Calcium 9.4 , Total Bilirubin 1.0, Aspartate Amino Transf (AST/SGOT) 18, Alanine Aminotransferase (ALT/SGPT) 39, Alkaline Phosphatase 111, Total Protein 6.8, Albumin 3.9 Radiology NAME: [facility] REC#: [id number] PHYSICIAN: ALEJANDRINA HANNAH DO CC: LILIANA RIZVI MD; ALEJANDRINA HANNAH DO Page 1 of 1 RADIOLOGY REPORT VIA [facility]. [place], [place] CC: LILIANA RIZVI MD; ALEJANDRINA HANNAH DO Page 1 of 1 RADIOLOGY REPORT PROCEDURE: US Gallbladder. TECHNIQUE: Multiple real-time grayscale images were obtained over the right upper quadrant in various projections. INDICATION: Right upper quadrant pain. The liver is enlarged at 20 cm. There appears to be increased echogenicity suggestive of hepatic steatosis. No discrete liver mass is identified. Gallbladder is without stones or sludge. No wall thickening or biliary ductal dilatation is seen, although the extrahepatic bile duct is somewhat difficult to visualize due to bowel gas. The pancreas is obscured. The right kidney is very difficult to visualize. Imaging is limited due to patient body habitus. No ascites is seen. IMPRESSION: 1. Hepatomegaly and probable hepatic steatosis. 2. No definite evidence of cholelithiasis or acute cholecystitis. Dictated by: Dictated on workstation # [id number] Dict: 12/25/17 0847 Trans: 12/25/17 1054 Interpreted by: LILIANA RIZVI MD Electronically signed by: LILIANA RIZVI MD 12/25/17 1054 Assessment/Plan Assessment/Plan Assessment/Plan RUQ pain Leukocytosis UTI Pt WBC is trending down, CT did not show anything specific and US also showed no stones or acute cholecystitis. Most likely pt's pain and elevated WBC was due to UTI. Pt does not need surgery at this time. Thank you for this consult. Clinical Quality Measures DVT/VTE Risk/Contraindication: Risk Factor Score Per Nursin RFS Level Per Nursing on Admit: 2=Moderate PREMA POLLACK DO Dec 25, 2017 11:51
[2017-12-25 11:57] VITALS: BP 159/91
[2017-12-25] MEDS ORDERED: cefTRIAXone 1 GM/NS 50 ML IVPB IV SCH ×2 (21:00)
== END 2017-12-25 11:59 | disposition home or self-care (01) ==
LOC: ER 19:45 → EDUNIT# 19:45 → 4TH 23:30
PROVIDERS: ADMIT Internal Medicine; ATTEND Internal Medicine
DX: N39.0 Urinary tract infection, site not specified (principal); I10 Essential (primary) hypertension; E78.2 Mixed hyperlipidemia; N20.0 Calculus of kidney; E11.42 Type 2 diabetes mellitus with diabetic polyneuropathy; Z87.891 Personal history of nicotine dependence; E66.9 Obesity, unspecified; J45.909 Unspecified asthma, uncomplicated; Z68.43 Body mass index [BMI] 50.0-59.9, adult; F41.9 Anxiety disorder, unspecified
CPT/HCPCS: 36415; 71046; 74176; 76705; 80053; 81000; 82150; 83605; 83690; 85007; 85025; 85027; 85610; 85730; 87040; 87088; 96361; 96365; 96375; G0378

== ENCOUNTER 2018-01-20 19:10 | Emergency (ER) | payer SELFPAY ==
[~2018-01-20] VITALS: Ht 190.5 cm; Wt 102.1 kg
[~2018-01-20 19:10] MED LIST changes: +ATOR40TA70 PO; +CEFD300C3 PO; +GABA600T2 PO; +LISI-556 PO; +METF-399 PO; +RT-ALBUINH INH
--- OUTSIDE RECORDS SUMMARY | 2018-01-20 19:39 | XMS REPORT ---
Author Author MIKI DAVIS [facility] Address Unknown Care Team Providers Care Station Chief Name Role Phone MIKI DAVIS Unavailable PROBLEMS Type Condition ICD9-CM Code BRG83-GI Code Onset Dates Condition Status SNOMED Code Problem Hypertriglyceridemia E78.1 Active 230898080 Problem Essential hypertension I10 Active 44542897 Problem Tarsal tunnel syndrome, right G57.51 Active 33834467 Problem Type 2 diabetes mellitus with diabetic neuropathy E11.40 Active 34735707 Problem Morbid obesity E66.01 Active 103931680 Problem Neuropathy G62.9 Active 611437723 Problem Other chronic pain G89.29 Active 52744405 Problem Fatty liver K76.0 Active 035364856 Problem Obstructive sleep apnea syndrome G47.33 Active 26345797 Problem Pain in right ankle and joints of right foot M25.571 Active 084061335 ALLERGIES No Known Allergies ENCOUNTERS Encounter Location Date Diagnosis [facility] [address] [id number] Nov, Dental examination Z01.20 [facility] [id number] [place] [address] [id number] Nov, Dental examination Z01.20 [facility] [id number] [place] [address] 31407- 8818 Nov, [facility] [id number] [place] [address] 26673- 2088 Nov, Type 2 diabetes mellitus with diabetic neuropathy E11.40 ; Morbid obesity E66.01 and BMI 50.0-59.9, adult Z68.43 [facility] [id number] [place] [address] 36786- 5116 August, [facility] [id number] [place] [address] 68010- 4827 August, Type 2 diabetes mellitus with diabetic neuropathy E11.40 ; Hypertriglyceridemia E78.1 and Essential hypertension I10 [facility] [id number] [place] [address] 60209 -7056 Apr, Cough R05 ; Bronchitis J40 and BMI 50.0-59.9, adult Z68.43 [facility] [address] 50433- 4537 Jan, [place] [address] 03776- 6298 Jan, Type 2 diabetes mellitus with diabetic neuropathy E11.40 ; Neuropathy G62.9 and Other chronic pain G89.29 [place] [address] 66581- 0137 Dec, [facility] [address] 97905- 3801 Dec, Neuropathy G62.9 [facility] [address] 18022- 1304 Dec, [facility] [address] 40620 -9038 23 Dec, 2016 Marquis splints, left, initial encounter S86.892A [facility] [id number] [place] [address] 56658- 2532 Dec, Other chronic pain G89.29 [facility] [id number] [place] [address] 63722- 9875 14 Dec, 2016 long-term current use of opiate analgesic Z79.891 and Other chronic pain G89.29 [place] [address] 77378- 5042 12 Dec, 2016 Other chronic pain G89.29 [facility] [id number] [place] [address] 26039- 8704 Nov, Neuropathy G62.9 [facility] [address] 40589- 6652 Nov, [place] [id number] [place] [address] 86980- 3437 Nov, [place] [id number] [place] [address] 75687- 3178 Oct, [place] [id number] [place] [address] 44773- 0580 Oct, [place] [id number] [place] [address] 80328- 1532 Oct, Type 2 diabetes mellitus with diabetic neuropathy E11.40 ; Hypertriglyceridemia E78.1 ; emt intermediate 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 ; Essential hypertension I10 ; Other chronic pain G89.29 ; Shortness of breath R06.02 ; Obstructive sleep apnea syndrome G47.33 and Neuropathy G62.9 [place] [id number] [place] [address] 65590- 7103 Oct, Type 2 diabetes mellitus with diabetic neuropathy E11.40 ; Fatty liver K76.0 and Hypertriglyceridemia E78.1 [place] [id number] [place] [address] 14081- 0919 Oct, [place] [id number] [place] [address] 37805- 2979 Oct, [place] [id number] [place] [address] 97705- 8853 Oct, Other chronic pain G89.29 [facility] [address] [place] [address] 02665 -9645 Sep, Oral candidiasis B37.0 ; Strep pharyngitis J02.0 and Sore throat J02.9 [place] [address] [place] [address] 96872- 1771 Sep, Type 2 diabetes mellitus with diabetic neuropathy E11.40 ; Long-term insulin use Z79.4 ; Tarsal tunnel syndrome, right G57.51 ; Other chronic pain G89.29 ; Hypertriglyceridemia E78.1 ; Shortness of breath R06.02 ; Essential hypertension I10 and Obstructive sleep apnea syndrome G47.33 [place] [id number] [place] [address] 64360- 1511 August, [place] [id number] [place] [address] 06305- 8652 August, [place] [address] 80210- 9522 August, Back pain at L4-L5 level M54.5 [place] [id number] [place] [address] 39497- 8200 Jul, [place] [address] 47935- 2369 14 May, 2016 Type 2 diabetes mellitus [...] and Back pain at L4-L5 level M54.5 [place] [id number] [place] [address] 64644- 7666 14 May, 2016 [place] [id number] [place] [address] 79477- 7565 May, [place] [id number] [place] [address] 54650- 0181 Apr, [place] [id number] [place] [address] 42877- 6814 Mar, [place] [id number] [place] [address] 44582- 7659 Feb, Fatty liver K76.0 and Hypertriglyceridemia E78.1 [place] [id number] [place] [address] 22831- 9509 Feb, [facility] [id number] [place] [address] 56080- 6894 Feb, Hypertriglyceridemia, essential E78.1 and Elevated liver enzymes R74.8 [facility] [id number] [place] [address] 54864- 2995 Feb, [facility] [address] 04771- 7479 Feb, Type 2 diabetes mellitus with diabetic neuropathy E11.40 ; Diastasis recti M62.08 ; Essential hypertension I10 and long-term 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 [facility] [address] 48102- 9717 Feb, Tarsal tunnel syndrome, right G57.51 and Neuroma D36.10 [facility] [id number] [place] [address] 21786- 0531 Dec, Type 2 diabetes mellitus with diabetic neuropathy E11.40 [facility] [id number] [place] [address] 22678- 3055 Dec, [facility] [id number] [place] [address] 43017- 3043 Nov, Low back pain M54.5 [facility] [id number] [place] [address] 14466- 3044 Nov, [facility] [id number] [place] [address] 04750- 2056 Nov, [facility] [id number] [place] [address] 07102- 3674 Nov, [facility] [id number] [place] [address] 59297- 6498 Nov, [facility] [id number] [place] [address] 93855- 0481 Nov, [facility] [id number] [place] [address] 11379- 2944 Oct, [facility] [address] [address]- 3850 Oct, Type 2 diabetes mellitus with diabetic autonomic (poly) neuropathy E11.43 ; long-term 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 ; Low back pain M54.5 and Other chronic pain G89.29 [facility] [id number] [place] [address] 35061- 1436 Sep, [facility] [id number] [place] [address] 28067- 1532 August, [facility] [id number] [place] [address] 91229- 7081 August, [facility] [id number] [place] [address] 20371- 3121 August, Type 2 diabetes mellitus with diabetic neuropathy E11.40 ; Diabetes type 2, uncontrolled E11.65 ; Long-term insulin use Z79.4 and 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 [place] [address] [place] [address] 73560- 2798 August, Type 2 diabetes mellitus with diabetic neuropathy E11.40 [place] [id number] [place] [address] 04739- 5641 Jun, Type 2 diabetes mellitus with diabetic neuropathy E11.40 ; Long-term insulin use Z79.4 and Hypertriglyceridemia E78.1 [place] [address] [address]- 3357 Jun, [facility] [id number] [place] [address] 32572- 1881 Jun, Diabetes type 2, uncontrolled E11.65 [facility] [id number] [place] [address] 71443- 1653 Jun, [facility] [address] [address]- 1217 Jul, [facility] [id number] [address]- 6776 Jul, [facility] [address] [address]- 4228 Nov, [facility] [address] [address]- 7786 Oct, [facility] [address] [place] [address]- 0369 Oct, [facility] [address] [place] [address]- 8818 Oct, [facility] [id number] [place] [address] 44802- 5969 Sep, [facility] [address], [place] [address]- 6850 Sep, [facility] [address] [place] [address]- 6978 Nov, IMMUNIZATIONS No Known Immunizations SOCIAL HISTORY Never Assessed REASON FOR VISIT RADHA/PAIN PLAN OF CARE Activity Details Follow Up 1 Week Reason:te VITAL SIGNS Height 67 in 2017-11-25 Blood pressure systolic 150 mmHg 2017-11-25 Blood pressure diastolic 98 mmHg 2017-11-25 MEDICATIONS Medication Instructions Dosage Frequency Start Date End Date Duration Status Atorvastatin Calcium 40 mg Orally Once a day 1 tablet 24h 30 Active Clindamycin HCl 150 MG Orally every 6 hrs 2 capsules 6h 7 days Active Zithromax Z-Alfredo 250 MG Orally Once a day 2 tablets on the first day, then 1 tablet daily for 4 days 24h Nov, 2 Dec, 2017 5 day(s) Active Lisinopril 5 mg Orally Once a day 1 tablet 24h 30 Active Lyrica 150 MG Orally twice a day 1 12h August, Active Metformin HCl 1000 MG Orally Twice a day 1 tablet 12h Active ProAir HFA 108 (90 Base) MCG/ACT Inhalation every 6 hrs 2 puffs as needed 6h Apr, 5 days Active Saxenda (Dose Escalation) 18 mg/3 mL Subcutaneous Once a day 0.6 mg QD x 7 days, 1.2 mg QD x 7 days, 1.8 mg QD x 7 days, 2.4 mg QD x 7 days, then 3 mg QD ( GOAL) 24h Nov, Active RESULTS No Results PROCEDURES Procedure Date Ordered Result Body Site LTD ORAL EVALUATION - PROBLEM FOCUS Nov 25, 2017 INTRAORL-PERIAPICAL 1 FILM 76431 Nov 25, 2017 BITEWING - SINGLE FILM Nov 25, 2017 INSTRUCTIONS MEDICATIONS ADMINISTERED No Known Medications [...]
--- OUTSIDE RECORDS SUMMARY | 2018-01-20 19:39 | XMS REPORT ---
Author Author MIKI DAVIS [facility] Address Unknown Care Team Providers Care Wire Strander Name Role Phone MIKI DAVIS Unavailable PROBLEMS Type Condition ICD9-CM Code BMA44-CI Code Onset Dates Condition Status SNOMED Code Problem Hypertriglyceridemia E78.1 Active 457669533 Problem Essential hypertension I10 Active 84709110 Problem Tarsal tunnel syndrome, right G57.51 Active 11904870 Problem Type 2 diabetes mellitus with diabetic neuropathy E11.40 Active 80956579 Problem Morbid obesity E66.01 Active 245797877 Problem Neuropathy G62.9 Active 109136245 Problem Other chronic pain G89.29 Active 46703495 Problem Fatty liver K76.0 Active 421901705 Problem Obstructive sleep apnea syndrome G47.33 Active 87099770 Problem Pain in right ankle and joints of right foot M25.571 Active 417682339 ALLERGIES No Known Allergies ENCOUNTERS Encounter Location Date Diagnosis [facility] [address] [id number] Nov, Dental examination Z01.20 [facility] [id number] [place] [address] [id number] Nov, Dental examination Z01.20 [facility] [id number] [place] [address] 18953- 3880 Nov, [facility] [id number] [place] [address] 57497- 1266 Nov, Type 2 diabetes mellitus with diabetic neuropathy E11.40 ; Morbid obesity E66.01 and BMI 50.0-59.9, adult Z68.43 [facility] [id number] [place] [address] 12887- 0389 August, [facility] [id number] [place] [address] 79893- 4420 August, Type 2 diabetes mellitus with diabetic neuropathy E11.40 ; Hypertriglyceridemia E78.1 and Essential hypertension I10 [facility] [id number] [place] [address] 85572 -4299 Apr, Cough R05 ; Bronchitis J40 and BMI 50.0-59.9, adult Z68.43 [facility] [address] 13208- 5707 Jan, [place] [address] 60784- 8554 Jan, Type 2 diabetes mellitus with diabetic neuropathy E11.40 ; Neuropathy G62.9 and Other chronic pain G89.29 [place] [address] 75545- 7157 Dec, [facility] [address] 86641- 3366 Dec, Neuropathy G62.9 [facility] [address] 67362- 7117 Dec, [facility] [address] 53269 -4373 23 Dec, 2016 Marquis splints, left, initial encounter S86.892A [facility] [id number] [place] [address] 20071- 2060 Dec, Other chronic pain G89.29 [facility] [id number] [place] [address] 68657- 7828 14 Dec, 2016 penitentiary current use of opiate analgesic Z79.891 and Other chronic pain G89.29 [place] [address] 47577- 9315 12 Dec, 2016 Other chronic pain G89.29 [facility] [id number] [place] [address] 82413- 9043 Nov, Neuropathy G62.9 [facility] [address] 12848- 0910 Nov, [place] [id number] [place] [address] 50525- 3830 Nov, [place] [address] [id number] [place] [address] 06156- 7837 Oct, [place] [id number] [place] [address] 46375- 7514 Oct, [place] [id number] [place] [address] 45313- 2152 Oct, Type 2 diabetes mellitus with diabetic neuropathy E11.40 ; Hypertriglyceridemia E78.1 ; long term care administrator 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 ; Essential hypertension I10 ; Other chronic pain G89.29 ; Shortness of breath R06.02 ; Obstructive sleep apnea syndrome G47.33 and Neuropathy G62.9 [place] [id number] [place] [address] 38594- 3826 Oct, Type 2 diabetes mellitus with diabetic neuropathy E11.40 ; Fatty liver K76.0 and Hypertriglyceridemia E78.1 [place] [address] [place] [address] 87517- 2992 Oct, [place] [id number] [place] [address] 12419- 5377 Oct, [place] [address] [place] [address] 71279- 9791 Oct, Other chronic pain G89.29 [facility] [address] [place] [address] 19350 -1883 Sep, Oral candidiasis B37.0 ; Strep pharyngitis J02.0 and Sore throat J02.9 [place] [address] [place] [address] 05949- 0911 Sep, Type 2 diabetes mellitus with diabetic neuropathy E11.40 ; Long-term insulin use Z79.4 ; Tarsal tunnel syndrome, right G57.51 ; Other chronic pain G89.29 ; Hypertriglyceridemia E78.1 ; Shortness of breath R06.02 ; Essential hypertension I10 and Obstructive sleep apnea syndrome G47.33 [place] [address] [id number] [place] [address] 99619- 3387 August, [place] [address] [id number] [place] [address] 81991- 8713 August, [place] [address] 31826- 0387 August, Back pain at L4-L5 level M54.5 [place] [id number] [place] [address] 48216- 3494 Jul, [place] [address] 50008- 1835 14 May, 2016 Type 2 diabetes mellitus [...] and Back pain at L4-L5 level M54.5 [place] [id number] [place] [address] 35765- 5910 14 May, 2016 [place] [id number] [place] [address] 02569- 7504 May, [place] [id number] [place] [address] 47492- 1608 Apr, [place] [id number] [place] [address] 44849- 2716 Mar, [place] [id number] [place] [address] 33663- 5191 Feb, Fatty liver K76.0 and Hypertriglyceridemia E78.1 [place] [id number] [place] [address] 38323- 0909 Feb, [facility] [id number] [place] [address] 42204- 9951 Feb, Hypertriglyceridemia, essential E78.1 and Elevated liver enzymes R74.8 [facility] [id number] [place] [address] 20926- 5398 Feb, [facility] [address] 56621- 8535 Feb, Type 2 diabetes mellitus with diabetic neuropathy E11.40 ; Diastasis recti M62.08 ; Essential hypertension I10 and penitentiary 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 [facility] [address] 89983- 3059 Feb, Tarsal tunnel syndrome, right G57.51 and Neuroma D36.10 [facility] [id number] [place] [address] 90890- 8292 Dec, Type 2 diabetes mellitus with diabetic neuropathy E11.40 [facility] [id number] [place] [address] 49195- 7599 Dec, [facility] [id number] [place] [address] 18856- 0287 Nov, Low back pain M54.5 [facility] [id number] [place] [address] 82147- 2517 Nov, [facility] [id number] [place] [address] 85643- 7924 Nov, [facility] [id number] [place] [address] 84047- 0012 Nov, [facility] [id number] [place] [address] 27768- 8536 Nov, [facility] [id number] [place] [address] 86391- 8242 Nov, [facility] [id number] [place] [address] 84379- 1567 Oct, [facility] [address] [address]- 3040 Oct, Type 2 diabetes mellitus with diabetic autonomic (poly) neuropathy E11.43 ; penitentiary 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 ; Low back pain M54.5 and Other chronic pain G89.29 [facility] [id number] [place] [address] 60509- 3321 Sep, [facility] [id number] [place] [address] 65979- 4787 August, [facility] [id number] [place] [address] 98789- 0643 August, [facility] [id number] [place] [address] 30419- 4267 August, Type 2 diabetes mellitus with diabetic neuropathy E11.40 ; Diabetes type 2, uncontrolled E11.65 ; Long-term insulin use Z79.4 and 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 [place] [address] [place] [address] 15199- 3047 August, Type 2 diabetes mellitus with diabetic neuropathy E11.40 [place] [id number] [place] [address] 83462- 4833 Jun, Type 2 diabetes mellitus with diabetic neuropathy E11.40 ; Long-term insulin use Z79.4 and Hypertriglyceridemia E78.1 [place] [address] [address]- 3682 Jun, [facility] [id number] [place] [address] 34374- 7071 Jun, Diabetes type 2, uncontrolled E11.65 [facility] [id number] [place] [address] 29610- 4129 Jun, [facility] [address] [address]- 1811 Jul, [facility] [id number] [address]- 7622 Jul, [facility] [address], [place] [address]- 5560 Nov, [facility] [address], [place] [address]- 9639 Oct, [facility] [address], [place] [address]- 4614 Oct, [facility] [address] [address]- 0286 Oct, [facility] [id number] [place] [address] 58867- 9816 Sep, [facility] [address], [place] [address]- 3400 Sep, [facility] [address], [place] [address]- 3045 Nov, IMMUNIZATIONS No Known Immunizations SOCIAL HISTORY Never Assessed REASON FOR VISIT TE PLAN OF CARE Activity Details Follow Up prn Reason:catherine/hygiene VITAL SIGNS Height 67 in 2017-12-02 Blood pressure systolic 135 mmHg 2017-12-02 Blood pressure diastolic 88 mmHg 2017-12-02 MEDICATIONS Medication Instructions Dosage Frequency Start Date End Date Duration Status Lyrica 150 MG Orally twice a day 1 12h August, Active Clindamycin HCl 150 MG Orally every 6 hrs 2 capsules 6h 7 days Active Lisinopril 5 mg Orally Once a day 1 tablet 24h 30 Active Metformin HCl 1000 MG Orally Twice a day 1 tablet 12h Active ProAir HFA 108 (90 Base) MCG/ACT Inhalation every 6 hrs 2 puffs as needed 6h Apr, 5 days Active Atorvastatin Calcium 40 mg Orally Once a day 1 tablet 24h 30 Active Saxenda (Dose Escalation) 18 mg/3 mL Subcutaneous Once a day 0.6 mg QD x 7 days, 1.2 mg QD x 7 days, 1.8 mg QD x 7 days, 2.4 mg QD x 7 days, then 3 mg QD ( GOAL) 24h Nov, Active RESULTS No Results PROCEDURES Procedure Date Ordered Result Body Site Dental no charge Dec 02, 2017 INSTRUCTIONS MEDICATIONS ADMINISTERED No Known Medications [...]
--- OUTSIDE RECORDS SUMMARY | 2018-01-20 19:46 | XMS REPORT | Continuity of Care Document ---
Author Author [facility] Organization [facility] Address Unknown Phone Unavailable Allergies Active Description Code Type Severity Reaction Onset Reported/Identified Relationship to Patient Clinical Status Yes No Known Drug Allergies [id number] Drug Allergy Unknown N/A 12/19/2010 Medications There is no data. Problems Date Dx Coded Attending Type Code Diagnosis Diagnosed By 10/24/2014 LOUIS HESS Ot 380.10 INFEC OTITIS EXTERNA NOS 10/24/2014 LOUIS HESS Ot 388.70 OTALGIA NOS 10/24/2014 LOUIS HESS Ot 473.9 CHRONIC SINUSITIS NOS 06/27/2015 HELEN PAULSON MD Ot B96.89 OTH BACTERIAL AGENTS THE CAUSE OF DIS 06/27/2015 HELEN PAULSON MD Ot E11.65 TYPE 2 DIABETES MELLITUS WITH HYPERGLYCE 06/27/2015 HELEN PAULSON MD Ot E66.01 MORBID (SEVERE) OBESITY DUE TO EXCESS CA 06/27/2015 HELEN PAULSON MD Ot E78.1 PURE HYPERGLYCERIDEMIA 06/27/2015 HELEN PAULSON MD Ot N39.0 URINARY TRACT INFECTION, SITE NOT SPECIF 06/27/2015 HELEN PAULSON MD Ot Z68.43 BODY MASS INDEX (BMI) 50-59.9 , ADULT 02/20/2016 DIXIE CHIRINOS DO Ot R74.8 ABNORMAL LEVELS OF OTHER SERUM ENZYMES 03/07/2016 DIXIE CHIRINOS DO Ot R74.8 ABNORMAL LEVELS OF OTHER SERUM ENZYMES 10/24/2016 LILLIE TOLBERT [employer]AF[employer]Y INSTRUCTION POLICE OFFICER Ot M54.9 DORSALGIA, UNSPECIFIED 10/29/2016 LILLIE TOLBERT [employer]AF[employer] INSTRUCTION POLICE OFFICER Ot M54.9 DORSALGIA, UNSPECIFIED 11/25/2016 LILLIE TOLBERT SAFETY INSTRUCTION POLICE OFFICER Ot M54.9 DORSALGIA, UNSPECIFIED 11/29/2016 LILLIE TOLBERT SAFETY INSTRUCTION POLICE OFFICER Ot M54.9 DORSALGIA, UNSPECIFIED 12/04/2016 LILLIE TOLBERT SAFETY INSTRUCTION POLICE OFFICER Ot M54.9 DORSALGIA, UNSPECIFIED 12/24/2016 SERGIO GHOTRA PLACEMENT INTERVIEWER Ot F12.10 CANNABIS ABUSE, UNCOMPLICATED 12/24/2016 SERGIO GHOTRA PLACEMENT INTERVIEWER Ot G47.10 HYPERSOMNIA, UNSPECIFIED 12/24/2016 BRANDINSERGIO TA PLACEMENT INTERVIEWER Ot G47.50 PARASOMNIA, UNSPECIFIED 12/24/2016 SERGIO GHOTRA PLACEMENT INTERVIEWER Ot R06.00 DYSPNEA, UNSPECIFIED 01/03/2017 BRANDINSERGIO TA PLACEMENT INTERVIEWER Ot F12.10 CANNABIS ABUSE, UNCOMPLICATED 01/03/2017 BRANDINSERGIO TA PLACEMENT INTERVIEWER Ot G47.10 HYPERSOMNIA, UNSPECIFIED 01/03/2017 SERGIO GHOTRA PLACEMENT INTERVIEWER Ot G47.50 PARASOMNIA, UNSPECIFIED 01/03/2017 SERGIO GHOTRA PLACEMENT INTERVIEWER Ot R06.00 DYSPNEA, UNSPECIFIED 12/24/2017 BREANNA LOCKHART, MAGALY Pierce Ot 553.1 UMBILICAL HERNIA 12/24/2017 BREANNA LOCKHART, MAGALY Pierce Ot V72.63 PRE-PROCEDURAL LABORATORY EXAMINATION 12/24/2017 BREANNA LOCKHART, MAGALY Pierce Ot V72.83 EXAM PRE-OPERATIVE NEC 12/24/2017 BREANNA LOCKHART, MAGALY Pierce Ot V74.8 SCREEN-BACTERIAL DIS NEC 12/24/2017 BREANNA LOCKHART, MAGALY Pierce Ot 553.1 UMBILICAL HERNIA 12/24/2017 DIXIE CHIRINOS DO Ot R74.8 ABNORMAL LEVELS OF OTHER SERUM ENZYMES 12/24/2017 SERGIO GHOTRA PLACEMENT INTERVIEWER Ot F12.10 CANNABIS ABUSE, UNCOMPLICATED 12/24/2017 SERGIO GHOTRA PLACEMENT INTERVIEWER Ot G47.10 HYPERSOMNIA, UNSPECIFIED 12/24/2017 SERGIO GHOTRA PLACEMENT INTERVIEWER Ot G47.50 PARASOMNIA, UNSPECIFIED 12/24/2017 SERGIO GHOTRA PLACEMENT INTERVIEWER Ot R06.00 DYSPNEA, UNSPECIFIED 12/25/2017 HANNAH DO, ALEJANDRINA Ot E11.42 TYPE 2 DIABETES MELLITUS WITH DIABETIC P 12/25/2017 HANNAH DO, ALEJANDRINA Ot E66.9 OBESITY, UNSPECIFIED 12/25/2017 HANNAH DO, ALEJANDRINA Ot E78.2 MIXED HYPERLIPIDEMIA 12/25/2017 HANNAH DO, ALEJANDRINA Ot F41.9 ANXIETY DISORDER, UNSPECIFIED 12/25/2017 ALEJANDRINA HANNAH DO Ot I10 ESSENTIAL (PRIMARY) HYPERTENSION 12/25/2017 ALEJANDRINA HANNAH DO Ot J45.909 UNSPECIFIED ASTHMA, UNCOMPLICATED 12/25/2017 SUE HANNAH DOI Ot N20.0 CALCULUS OF KIDNEY 12/25/2017 SUE HANNAH DOI Ot N39.0 URINARY TRACT INFECTION, SITE NOT SPECIF 12/25/2017 ALEJANDRINA HANNAH DO Ot Z68.43 BODY MASS INDEX (BMI) 50-59.9 , ADULT 12/25/2017 SUE HANNAH DOI Ot Z87.891 PERSONAL HISTORY OF NICOTINE DEPENDENCE Procedures There is no data. Results Test Result Range Microalb/Creat Ratio, Rand Ur - 02/12/16 11:14 Creatinine, Urine 108.8 [...] 12/24/17 20:40 Blood monocytes/100 leukocytes 8 % NR Manual blood segmented neutrophils/100 leukocytes 77 % NRG Blood band neutrophils/100 leukocytes 1 % NRG Manual blood lymphocytes/100 leukocytes 14 % NRG Manual eosinophils/100 leukocytes in nose 0 % NR Manual blood basophils/100 leukocytes 0 % NR Blood erythrocyte morphology finding identification NORMAL NR Bacterial blood culture - 12/24/17 20:40 FREE TEXT EXTERNAL PROBABLE KLEBSIELLA OR ENTEROBACTER NRG QUANTITY OF GROWTH . [facility] Bacterial blood culture SEE REPORT NR Complete urinalysis with reflex to culture - [...] urinalysis with reflex to culture YES NRG Bacterial urine culture - 12/24/17 20:54 Bacterial urine culture SEE COMMEN NRG COLONY COUNT . NRG Bacterial blood culture - 12/24/17 21:14 Bacterial blood culture NG NRG Serum or plasma lactate measurement (moles/volume) - 12/24/17 23:10 Serum or plasma lactate measurement (moles/volume) 1.29 mmol/L 0.50-2.00 Complete blood count (CBC) with automated white blood cell (WBC) differential - 12/25/17 06:51 Blood leukocytes automated count (number/volume) 13.1 10*3/uL 4.3-11.0 Blood erythrocytes automated count (number/volume) 4.62 10*6/uL 4.35-5.85 Venous blood hemoglobin measurement (mass/volume) 13.7 g/dL 13.3-17.7 Blood hematocrit (volume fraction) 39 % 40-54 Automated erythrocyte mean corpuscular volume 85 [foz_us] 80-99 Automated erythrocyte mean corpuscular hemoglobin (mass per erythrocyte) 30 pg 25-34 Automated erythrocyte mean corpuscular hemoglobin concentration measurement ( mass/volume) 35 g/dL 32-36 Automated erythrocyte distribution width ratio 13.7 % 10.0-14.5 Automated blood platelet count (count/volume) 267 10*3/uL 130-400 Automated blood platelet mean volume measurement 10.9 [foz_us] 7.4-10.4 Automated blood neutrophils/100 leukocytes 73 % 42-75 Automated blood lymphocytes/100 leukocytes 15 % 12-44 Blood monocytes/100 leukocytes 12 % 0-12 Automated blood eosinophils/100 leukocytes 0 % 0-10 Automated blood basophils/100 leukocytes 0 % 0-10 Blood neutrophils automated count (number/volume) 9.5 10*3 1.8-7.8 Blood lymphocytes automated count (number/volume) 2.0 10*3 1.0-4.0 Blood monocytes automated count (number/volume) 1.5 10*3 0.0-1.0 Automated eosinophil count 0.0 10*3/uL 0.0-0.3 Automated blood basophil count (count/volume) 0.0 10*3/uL 0.0-0.1 Comprehensive metabolic panel - 12/25/17 06:51 Serum or plasma sodium measurement (moles/volume) 137 mmol/L 135-145 Serum or plasma potassium measurement (moles/volume) 3.5 mmol/L 3.6-5.0 Serum or plasma chloride measurement (moles/volume) 103 mmol/L 98-107 Carbon dioxide 22 mmol/L 21-32 Serum or plasma anion gap determination (moles/volume) 12 mmol/L 5-14 Serum or plasma urea nitrogen measurement (mass/volume) 5 mg/dL 7-18 Serum or plasma creatinine measurement (mass/volume) 0.82 mg/dL 0.60-1.30 Serum or plasma urea nitrogen/creatinine mass ratio 6 NRG Serum or plasma creatinine measurement with calculation of estimated glomerular filtration rate > NRG Serum or plasma glucose measurement (mass/volume) 181 mg/dL 70-105 Serum or plasma calcium measurement (mass/volume) 9.3 mg/dL 8.5-10.1 Serum or plasma total bilirubin measurement (mass/volume) 1.0 mg/dL 0.1-1.0 Serum or plasma alkaline phosphatase measurement (enzymatic activity/volume) 111 U/L 40-136 Serum or plasma aspartate aminotransferase measurement (enzymatic activity/ volume) 18 U/L 5-34 Serum or plasma alanine aminotransferase measurement (enzymatic activity/volume ) 39 U/L 0-55 Serum or plasma protein measurement (mass/volume) 6.8 g/dL 6.4-8.2 Serum or plasma albumin measurement (mass/volume) 3.9 g/dL 3.2-4.5 CALCIUM CORRECTED 9.4 mg/dL 8.5-10.1 Encounters ACCT No. Visit Date/Time Discharge Status Pt. Type Provider Facility Loc./Unit Complaint [id number] 12/24/2017 23:30:00 12/25/2017 12:00:00 DIS Inpatient ALEJANDRINA HANNAH DO [facility] 4TH UTI [id number] 12/18/2016 11:40:00 12/18/2016 23:59:59 CLS Outpatient SERGIO GHOTRA APRN [facility] RT SOB R06.00 [id number] 10/31/2016 09:00:00 12/04/2016 13:55:00 DIS Outpatient LILLIE TOLBERT JAMESON [facility] REHAB CHRONIC BACK PAIN [id number] 11/19/2016 11:50:00 11/19/2016 23:59:59 CLS Preadmit SERGIO GHOTRA APRN [facility] SLEEP PARASOMNIA G47.50 [id number] 11/01/2016 11:52:00 11/01/2016 23:59:59 CLS Preadmit OTHER, UNLISTED [facility] RAD OBSERVED APNEAS [id number] 02/19/2016 07:23:00 02/19/2016 23:59:59 CLS Outpatient CANDIS MARTEL DIXIE K [facility] RAD ELEVATED LIVER ENZYMES [id number] 06/26/2015 08:30:00 06/27/2015 10:15:00 DIS Inpatient HELEN PAULSON MD [facility] 4TH NEW ONSET DIABETES;HHNK; UTI [id number] 10/24/2014 20:02:00 10/24/2014 21:12:00 DIS Emergency LOUIS HESS [facility] ER R EAR PAIN [id number] 11/11/2012 06:48:00 11/11/2012 23:59:59 CLS Outpatient MAGALY CARLOS MD [facility] SDC UMBILICAL HERNIA [id number] 11/09/2012 11:40:00 11/09/2012 23:59:59 CLS Outpatient MAGALY CARLOS MD [facility] PREOP UMBILICAL HERNIA REPAIR [id number] 09/05/2012 13:28:00 09/05/2012 23:59:59 CLS Outpatient [id number] 07/31/2012 17:37:00 07/31/2012 23:59:59 CLS Outpatient [id number] 11/01/2016 09:09:00 Document Registration [id number] 02/13/2016 13:06:00 Document Registration [id number] 02/13/2016 13:06:00 Document Registration [id number] 11/06/2017 09:00:00 11/06/2017 23:59:59 CLS Outpatient MARTHA LOCKHART, MARGARITA WANG [id number] 10/24/2014 20:03:03 ACT Document Registration
[2018-01-20] MEDS ORDERED: HYDROcodone/APAP 7.5 MG/325 MG (LORTAB, LORCET PLUS) TABLET PO ONE (20:15)
--- NOTE | 2018-01-20 20:18 | Diagnostic Imaging Report ---
INDICATION: Cough, left rib pain 3 views of the left ribs show no fracture or other bony abnormality. There is no effusion or pneumothorax. IMPRESSION: Normal left ribs. Dictated by: Dictated on workstation # [id number]
--- NOTE | 2018-01-20 20:18 | Diagnostic Imaging Report ---
INDICATION: Cough, left rib pain EXAMINATION: PA and lateral views of the chest. FINDINGS: The heart size and vascularity are normal. Lungs are clear. There is no effusion. There is no acute bony abnormality. IMPRESSION: No acute abnormality is seen. There is no change from 12/24/2017. Dictated by: Dictated on workstation # [id number]
[2018-01-20] MEDS ORDERED: ACHD5005 PO (20:33)
[2018-01-20] MEDS ORDERED: CYCL10TA9 PO (20:33)
--- NOTE | 2018-01-20 20:33 | ED General ---
General Chief Complaint: Chest Wall/Rib Pain Stated Complaint: SOB/RIB PAIN L SIDE/COUGH Nursing Triage Note: pt presents to ed with complaints of l sided upper rib pain under l breast worse with deep breaths and coughing/sneezing. pt reports initial pain started after a coughing spell. Nursing Sepsis Screen: No Definite Risk Source of Information: Patient Exam Limitations: No Limitations History of Present Illness Date Seen by Provider: Jan 20, 2018 Time Seen by Provider: 19:58 Initial Comments Patient is a 38 year old male who presents to the emergency room with complaints of left sided rib pain for 1 week. He reports that 1 week ago he reports choking on a piece of chicken while eating and immediately coughed it back up but in doing so he felt that his ribs on the left side popped. He report pain to the left ribs with coughing and sneezing now. Timing/Duration: 1 Week Associated Systoms: Cough Allergies and Home Medications Allergies Coded Allergies: No Known Drug Allergies (Unverified , 12/19/10) Home Medications Albuterol Sulfate 1 Puff Puff, 2 PUFF INH Q4H PRN for SHORTNESS OF BREATH, ( Reported) Atorvastatin Calcium 40 Mg Tablet, 40 MG PO HS, (Reported) LAST FILLED #30 18 Cefdinir 300 Mg Capsule, 300 MG PO BID Prescribed by: ALEJANDRINA HANNAH on 12/25/17 105 Cyclobenzaprine HCl 10 Mg Tablet, 10 MG PO TID Prescribed by: JI BAZAN on 01/20/182032 Gabapentin 600 Mg Tablet, 600 MG PO BID, (Reported) LAST FILLED #90 18 Hydrocodone Bit/Acetaminophen 1 Tab Tab, 1 EACH PO Q4-6HR PRN for PAIN-MODERATE Prescribed by: JI BAZAN on 01/20/182032 Lisinopril 5 Mg Tablet, 5 MG PO DAILY, (Reported) LAST FILLED #30 2-18 Metformin HCl 1,000 Mg Tablet, 1,000 MG PO BID, (Reported) LAST FILLED #180 18 Patient Home Medication List Home Medication List Reviewed: Yes Review of Systems Review of Systems Constitutional: see HPI; No chills, No fever Respiratory: see HPI, cough; No short of breath; other (left rib pain ) Cardiovascular: see HPI; No chest pain All Other Systems Reviewed Negative Unless Noted: Yes Past Yxotfam-Wnvioy-Euclag Hx Past Med/Social Hx: Reviewed Nursing Past Med/Soc Hx Patient Social History Alcohol Use: Denies Use Recreational Drug Use: Yes (MARIJUANA IN PAST MONTH) Drug of Choice: CANNIBUS Smoking Status: Former Smoker Former Smoker, Quit: Jan 07, 2009 2nd Hand Smoke Exposure: No Recent Foreign Travel: No Contact w/Someone Who Travel: No Recent Infectious Disease Expo: No Recent Hopitalizations: No Physical Abuse: No Sexual Abuse: No Mistreated: No Fear: No Immunizations Up To Date Tetanus Booster (TDap): Unknown PED Vaccines UTD: No Date of Influenza Vaccine: Feb 06, 2012 Seasonal Allergies Seasonal Allergies: No Past Medical History Surgeries: Yes (EAR TUBES, UMBILICAL HERNIA) Abdominal, Ear Surgery Respiratory: Yes Asthma Currently Using CPAP: No Currently Using BIPAP: No Cardiac: Yes High Cholesterol, Hypertension Neurological: No Reproductive Disorders: No Genitourinary: Yes Kidney Stones Gastrointestinal: Yes (UMBILICAL HERNIA) Musculoskeletal: Yes (ANKLE FRACTURE) Fractures Endocrine: Yes Diabetes, Non-Insulin dep HEENT: No Cancer: No Psychosocial: Yes Anxiety Integumentary: No Blood Disorders: No Adverse Reaction/Blood Tranf: No Family Medical History Reviewed Nursing Family Hx Patient reports no known family medical history. No Pertinent Family Hx, Diabetes, Hypertension Physical Exam Vital Signs Vital Signs - First Documented 01/20/18 19:58 Temp 99.2 Pulse 79 Resp 20 B/P (MAP) 161/106 (124) Pulse Ox 97 Capillary Refill : Less Than 3 Seconds Height, Weight, BMI Height: 6'3.00" Weight: 225lbs. 0.0oz. 102.343571ev; 56.4 BMI Method:Stated General Appearance: No Apparent Distress, WD/WN HEENT: PERRL/EOMI, Normal ENT Inspection Respiratory: Lungs Clear, Normal Breath Sounds, No Accessory Muscle Use, No Respiratory Distress, Other (left chest tenderness on palpation) Cardiovascular: Regular Rate, Rhythm, No Edema, No Gallop, No JVD, No Murmur, Normal Peripheral Pulses Gastrointestinal: Normal Bowel Sounds, No Organomegaly, No Pulsatile Mass, Non Tender, Soft Back: Normal Inspection, No CVA Tenderness, No Vertebral Tenderness Neurologic/Psychiatric: Alert, Oriented x3, Normal Mood/Affect Skin: Normal Color, Warm/Dry Progress/Results/Core Measures Suspected Sepsis Recent Fever Within 48 Hours: No Infection Criteria Present: None New/Unexplained Altered Menta: No Sepsis Screen: No Definite Risk SIRS Temperature:99.2 Pulse: 79 Respiratory Rate: 20 Blood Pressure 161 /106 Mean: 124 Results/Orders My Orders Orders - JI BAZAN Chest Pa/Lat (2 View) (01/20/18 20:01) Ribs, Left 2-3 Views (01/20/18 20:01) Hydrocodone/Apap 7.5/325 Tab (Lortab 7. (01/20/18 20:15) Cyclobenzaprine Tablet (Flexeril Tablet) (01/20/18 20:45) Medications Given in ED Vital Signs/I&O Capillary Refill : Less Than 3 Seconds Blood Pressure Mean: 124 Progress Note : Time: 20:30 Progress Note I have seen and evaluated the patient. I have informed him of normal imaging studies. He agrees with plan of care, plans for discharge, return precautions were given. Voices no questions or concerns. Diagnostic Imaging Diagonstic Imaging: Xray Plain Films/CT/US/NM/MRI: chest, other (ribs) Comments NAME: GRAEME ROBERTS MED REC#: [id number] PT STATUS: REG ER : 1980 PHYSICIAN: JI BAZAN ADMIT DATE: 01/20/18/ER Signed Date of Exam: 01/20/18 CHEST PA/LAT (2 VIEW) INDICATION: Cough, left rib pain EXAMINATION: PA and lateral views of the chest. FINDINGS: The heart size and vascularity are normal. Lungs are clear. There is no effusion. There is no acute bony abnormality. IMPRESSION: No acute abnormality is seen. There is no change from 12/24/2017. Dictated by: Dictated on workstation # [id number] Dict: 01/20/182015 Trans: 01/20/182041 Interpreted by: CARLOS VARGAS MD Electronically signed by: CARLOS VARGAS MD 01/20/182041 NAME: GRAEME ROBERTS MED REC#: [id number] PT STATUS: REG ER : 1980 PHYSICIAN: JI BAZAN ADMIT DATE: 01/20/18/ER Signed Date of Exam: 01/20/18 RIBS, LEFT 2-3 VIEWS INDICATION: Cough, left rib pain 3 views of the left ribs show no fracture or other bony abnormality. There is no effusion or pneumothorax. IMPRESSION: Normal left ribs. Dictated by: Dictated on workstation # [id number] Dict: 01/20/182014 Trans: 01/20/182041 Interpreted by: CARLOS VARGAS MD Electronically signed by: CARLOS VARGAS MD 01/20/182041 Reviewed: Reviewed by Me Departure Impression Primary Impression: Rib pain Disposition: HOME, SELF-CARE Condition: Stable/Unchanged Departure-Patient Inst. Decision time for Depature: 20:30 Referrals: LILLIE TOLBERT (PCP) Primary Care Physician [facility] (Family) Primary Care Physician Patient Instructions: RIB CONTUSION Add. Discharge Instructions: Take medications as directed. Follow-up with your primary care provider within 1 week for recheck. Return back to the emergency room for any worsening symptoms or concerns as needed. All discharge instructions reviewed with patient and/or family. Voiced understanding. Scripts Hydrocodone Bit/Acetaminophen (Hydrocodone/Acetaminophen 5/325mg Tablet) 1 Tab Tab 1 EACH PO Q4-6HR PRN for PAIN-MODERATE MDD 10, #14 TAB Prov: JI BAZAN 01/20/18 Cyclobenzaprine HCl (Cyclobenzaprine HCl) 10 Mg Tablet 10 MG PO TID, #14 TAB Prov: JI BAZAN 01/20/18 JI BAZAN Jan 20, 2018 20:33
[2018-01-20] MEDS ORDERED: CYCLOBENZAPRINE 10 MG (FLEXERIL) TAB PO SCH (20:45)
[2018-01-20 20:58] VITALS: BP 139/89
== END 2018-01-20 20:58 | disposition home or self-care (01) ==
LOC: EDUNIT# 19:10 → ER 19:12
DX: R07.81 Pleurodynia (principal); J45.909 Unspecified asthma, uncomplicated; E78.00 Pure hypercholesterolemia, unspecified; I10 Essential (primary) hypertension; F41.9 Anxiety disorder, unspecified; E11.9 Type 2 diabetes mellitus without complications; F12.10 Cannabis abuse, uncomplicated; Z87.19 Personal history of other diseases of the digestive system; Z87.442 Personal history of urinary calculi; Z79.51 Long term (current) use of inhaled steroids; Z79.84 Long term (current) use of oral hypoglycemic drugs; Z87.891 Personal history of nicotine dependence
CPT/HCPCS: 71046; 71100

== ENCOUNTER 2018-01-29 07:43 | Emergency (ER) | payer SELFPAY ==
[~2018-01-29] VITALS: Ht 170.2 cm; Wt 140.6 kg
[~2018-01-29 07:43] MED LIST changes: +ACHD5005 PO; +CYCL10TA9 PO
--- OUTSIDE RECORDS SUMMARY | 2018-01-29 07:55 | XMS REPORT | Continuity of Care Document ---
Author Author [facility] Organization [facility] Address Unknown Phone Unavailable Allergies Active Description Code Type Severity Reaction Onset Reported/Identified Relationship to Patient Clinical Status Yes No Known Drug Allergies [id number] Drug Allergy Unknown N/A 12/19/2010 Medications There [...] OF OTHER SERUM ENZYMES 10/24/2016 LILLIE TOLBERT COMPUGRAPH OPERATOR Ot M54.9 DORSALGIA, UNSPECIFIED 10/29/2016 LILLIE TOLBERT COMPUGRAPH OPERATOR Ot M54.9 DORSALGIA, UNSPECIFIED 11/25/2016 LILLIE TOLBERT COMPUGRAPH OPERATOR Ot M54.9 DORSALGIA, UNSPECIFIED 11/29/2016 LLILIE TOLBERT COMPUGRAPH OPERATOR Ot M54.9 DORSALGIA, UNSPECIFIED 12/04/2016 LILLIE TOLBERT COMPUGRAPH OPERATOR Ot M54.9 DORSALGIA, UNSPECIFIED 12/24/2016 SERGIO GHOTRA SHEEP RANCHER Ot F12.10 CANNABIS ABUSE, UNCOMPLICATED 12/24/2016 SERGIO GHOTRA SHEEP RANCHER Ot G47.10 HYPERSOMNIA, UNSPECIFIED 12/24/2016 BRANDINSERGIO TA SHEEP RANCHER Ot G47.50 PARASOMNIA, UNSPECIFIED 12/24/2016 SERGIO GHOTRA SHEEP RANCHER Ot R06.00 DYSPNEA, UNSPECIFIED 01/03/2017 BRANDINSERGIO TA SHEEP RANCHER Ot F12.10 CANNABIS ABUSE, UNCOMPLICATED 01/03/2017 BRANDINSERGIO TA SHEEP RANCHER Ot G47.10 HYPERSOMNIA, UNSPECIFIED 01/03/2017 SERGIO GHOTRA SHEEP RANCHER Ot G47.50 PARASOMNIA, UNSPECIFIED 01/03/2017 SERGIO GHOTRA SHEEP RANCHER Ot R06.00 DYSPNEA, UNSPECIFIED 12/24/2017 BREANNA LOCKHART, [...] OF OTHER SERUM ENZYMES 12/24/2017 SERGIO GHOTRA SHEEP RANCHER Ot F12.10 CANNABIS ABUSE, UNCOMPLICATED 12/24/2017 SERGIO GHOTRA SHEEP RANCHER Ot G47.10 HYPERSOMNIA, UNSPECIFIED 12/24/2017 SERGIO GHOTRA SHEEP RANCHER Ot G47.50 PARASOMNIA, UNSPECIFIED 12/24/2017 SERGIO GHOTRA SHEEP RANCHER Ot R06.00 DYSPNEA, UNSPECIFIED 12/25/2017 HANNAH DO, ALEJANDRINA Ot E11.42 TYPE 2 DIABETES MELLITUS WITH DIABETIC P 12/25/2017 HANNAH DO, ALEJANDRINA Ot E66.9 OBESITY, UNSPECIFIED 12/25/2017 HANNAH DO, ALEJANDRINA Ot E78.2 MIXED HYPERLIPIDEMIA 12/25/2017 HANNAH DO, ALEJANDRINA Ot F41.9 ANXIETY DISORDER, UNSPECIFIED 12/25/2017 HANNAH DO, ALEJANDRINA Ot I10 ESSENTIAL (PRIMARY) HYPERTENSION 12/25/2017 HANNAH DO, ALEJANDRINA Ot J45.909 UNSPECIFIED ASTHMA, UNCOMPLICATED 12/25/2017 HANNAH DO, ALEJANDRINA Ot N20.0 CALCULUS OF KIDNEY 12/25/2017 HANNAH DO, ALEJANDRINA Ot N39.0 URINARY TRACT INFECTION, SITE NOT SPECIF 12/25/2017 HANNAH DO ALEJANDRINA Ot Z68.43 BODY MASS INDEX (BMI) 50-59.9 , ADULT 12/25/2017 HANNAH DO, ALEJANDRINA Ot Z87.891 PERSONAL HISTORY OF NICOTINE DEPENDENCE 01/20/2018 BREANNA LOCKHART, MAGALY Pierce Ot 553.1 UMBILICAL HERNIA 01/20/2018 BREANNA LOCKHART, MAGALY Pierce Ot V72.63 PRE-PROCEDURAL LABORATORY EXAMINATION 01/20/2018 BREANNA LOCKHART, MAGALY Pierce Ot V72.83 EXAM PRE-OPERATIVE NEC 01/20/2018 BREANNA LOCHKART, MAGALY Pierce Ot V74.8 SCREEN-BACTERIAL DIS NEC 01/20/2018 BREANNA LOCKHART, MAGALY M Ot 553.1 UMBILICAL HERNIA 01/20/2018 DIXIE CHIRINOS DO Ot R74.8 ABNORMAL LEVELS OF OTHER SERUM ENZYMES 01/20/2018 SERGIO GHOTRA SHEEP RANCHER Ot F12.10 CANNABIS ABUSE, UNCOMPLICATED 01/20/2018 SERGIO GHOTRA SHEEP RANCHER Ot G47.10 HYPERSOMNIA, UNSPECIFIED 01/20/2018 SERGIO GHOTRA SHEEP RANCHER Ot G47.50 PARASOMNIA, UNSPECIFIED 01/20/2018 SERGIO GHOTRA SHEEP RANCHER Ot R06.00 DYSPNEA, UNSPECIFIED 01/22/2018 BERNOT JI Ot E11.9 TYPE 2 DIABETES MELLITUS WITHOUT COMPLIC 01/22/2018 BERNOT JI Ot E78.00 PURE HYPERCHOLESTEROLEMIA, UNSPECIFIED 01/22/2018 BERNOT, JI Ot F12.10 CANNABIS ABUSE, UNCOMPLICATED 01/22/2018 BERNOT, JI Ot F41.9 ANXIETY DISORDER, UNSPECIFIED 01/22/2018 BERNOT, JI Ot I10 ESSENTIAL (PRIMARY) HYPERTENSION 01/22/2018 BERNADDIE JI Ot J45.909 UNSPECIFIED ASTHMA, UNCOMPLICATED 01/22/2018 BERNOT, JI Ot R07.81 PLEURODYNIA 01/22/2018 BERNOT, JI Ot Z79.51 CHEMICALS DISTILLER (CURRENT) USE OF INHALED STERO 01/22/2018 JI BAZAN Ot Z79.84 ASSISTED (CURRENT) USE OF ORAL HYPOGLYC 01/22/2018 JI BAZAN Ot Z87.19 PERSONAL HISTORY OF OTHER DISEASES OF TH 01/22/2018 JI BAZAN Ot Z87.442 PERSONAL HISTORY OF URINARY CALCULI 01/22/2018 JI BAZAN Ot Z87.891 PERSONAL HISTORY OF NICOTINE DEPENDENCE Procedures There is no data. Results Test Result Range Microalb/Creat Ratio, [facility] Ur - 02/12/16 11:14 Creatinine, Urine [...] ENTEROBACTER NRG QUANTITY OF GROWTH . [facility] Bacterial blood culture SEE REPORT NR [...] count by microscopy (number/high power field) [HPF] NR Automated urine sediment leukocyte count by microscopy [...] Status Pt. Type Provider Facility Loc./Unit Complaint [id number] 01/20/2018 19:12:00 01/20/2018 20:58:00 DIS Outpatient JI BAZAN [facility] ER SOB/RIB PAIN L SIDE/COUGH [id number] 12/24/2017 23:30:00 12/25/2017 12:00:00 DIS Inpatient ALEJANDRINA HANNAH DO [facility] 4TH UTI [id number] 12/18/2016 11:40:00 12/18/2016 23:59:59 CLS Outpatient SERGIO GHOTRA APRN [facility] RT SOB R06.00 [id number] 10/31/2016 09:00:00 12/04/2016 13:55:00 DIS Outpatient LILLIE TOLBERT [facility] REHAB CHRONIC BACK PAIN [id number] 11/19/2016 11:50:00 11/19/2016 23:59:59 CLS Preadmit SERGIO GHOTRA APRN [facility] SLEEP PARASOMNIA G47.50 [id number] 11/01/2016 11:52:00 11/01/2016 23:59:59 CLS Preadmit OTHER, UNLISTED [facility] RAD OBSERVED APNEAS [id number] 02/19/2016 07:23:00 02/19/2016 23:59:59 CLS Outpatient DIXIE CHIRINOS DO [facility] RAD ELEVATED LIVER ENZYMES [id number] 06/26/2015 08:30:00 06/27/2015 10:15:00 DIS Inpatient KHURRAM LOCKHART, HELEN Zabala [facility] 4TH NEW ONSET DIABETES;HHNK; UTI [id number] 10/24/2014 20:02:00 10/24/2014 21:12:00 DIS Emergency LOUIS HESS [facility] ER R EAR PAIN [id number] 11/11/2012 06:48:00 11/11/2012 23:59:59 CLS Outpatient MAGALY CARLOS MD [facility] SDC UMBILICAL HERNIA [id number] 11/09/2012 11:40:00 11/09/2012 23:59:59 CLS Outpatient MAGALY CARLOS MD [facility] PREOP UMBILICAL HERNIA REPAIR [id number] 09/05/2012 13:28:00 09/05/2012 23:59:59 CLS Outpatient [id number] 07/31/2012 17:37:00 07/31/2012 23:59:59 CLS Outpatient [id number] 11/01/2016 09:09:00 Document Registration [id number] 02/13/2016 13:06:00 Document Registration [id number] 02/13/2016 13:06:00 Document Registration [id number] 11/06/2017 09:00:00 11/06/2017 23:59:59 [facility] Outpatient MARTH[facility] LOCKHART[id number] 10/24/2014 20:03:03 ACT Document Registration
--- NOTE | 2018-01-29 08:37 | Diagnostic Imaging Report ---
PROCEDURE: CT maxillofacial without contrast. TECHNIQUE: Multiple contiguous axial images were obtained through the facial bones without the use of intravenous contrast. INDICATION: Right-sided facial swelling. COMPARISON: None. FINDINGS: There is edema throughout the soft tissues overlying the right mandible. No discrete fluid collections are evident on this noncontrast exam. The parotid and visualized submandibular glands are negative. No sialoliths. No cervical lymphadenopathy in the kjzyk-ag-ehia. The floor the mouth, tongue base and visualized epiglottis are negative. No large periapical lucencies about the maxillary or mandibular dentition. There is a small caries in the right first mandibular molar. Symmetric mild anterior subluxation of the temporomandibular joints is likely positional. Moderate mucosal thickening in the floor of the left maxillary sinus. The mastoids and middle ears are clear. Skull base is intact. IMPRESSION: Nonspecific cellulitis in the soft tissues overlying the right mandible. No discrete fluid collections, no large periapical lucencies about the mandibular dentition. There is a small caries in the right first mandibular molar. Dictated by: Dictated on workstation # [id number]
[2018-01-29] MEDS ORDERED: CLINDAMYCIN 600 MG/4ML (CLEOCIN) VIAL IM ONE (09:00)
--- NOTE | 2018-01-29 09:02 | ED EENT ---
History of Present Illness General Chief Complaint: Dental Problems/Pain Stated Complaint: TOOTH INFECTION Nursing Triage Note: PT STATES RT LOWER DENTAL PAIN THAT STARTED YESTERDAY. STATES HE HAD THIS A COUPLE MONTHS AGO ALSO. JAW IS VISIBLY SWOLLEN. Source: patient Exam Limitations: no limitations History of Present Illness Date Seen by Provider: Jan 29, 2018 Time Seen by Provider: 07:50 Initial Comments This 38-year-old gentleman presents to emergency room with complaints of pain and swelling about the right jaw. He has had known dental problems in that area for quite a while. Pain and swelling flared up last night. He took a leftover clindamycin dose at home. He denies any fevers. Allergies and Home Medications Allergies Coded Allergies: No Known Drug Allergies (Unverified , 12/19/10) Home Medications Albuterol Sulfate 1 Puff Puff, 2 PUFF INH Q4H PRN for SHORTNESS OF BREATH, ( Reported) Atorvastatin Calcium 40 Mg Tablet, 40 MG PO HS, (Reported) LAST FILLED #30 2-18 Cefdinir 300 Mg Capsule, 300 MG PO BID Prescribed by: ALEJANDRINA HANNAH on 12/25/17 1058 Clindamycin HCl 300 Mg Capsule, 300 MG PO QID Prescribed by: DEE BOATENG on 01/29/18 0934 Cyclobenzaprine HCl 10 Mg Tablet, 10 MG PO TID Prescribed by: JI BAZAN on 01/20/182032 Gabapentin 600 Mg Tablet, 600 MG PO BID, (Reported) LAST FILLED #90 18 Hydrocodone Bit/Acetaminophen 1 Tab Tab, 1 EACH PO Q4-6HR PRN for PAIN-MODERATE Prescribed by: JI BAZAN on 01/20/182032 Lisinopril 5 Mg Tablet, 5 MG PO DAILY, (Reported) LAST FILLED #30 2-18 Metformin HCl 1,000 Mg Tablet, 1,000 MG PO BID, (Reported) LAST FILLED #180 08-05-18 Patient Home Medication List Home Medication List Reviewed: Yes Review of Systems Review of Systems Constitutional: no symptoms reported Eyes: No Symptoms Reported Ears: No Symptoms Reported Nose: no symptoms reported Mouth: see HPI Throat: no symptoms reported Respiratory: no symptoms reported Cardiovascular: no symptoms reported Gastrointestinal: no symptoms reported Musculoskeletal: no symptoms reported Skin: no symptoms reported Neurological: No Symptoms Reported Hematologic/Lymphatic: No Symptoms Reported Past Inmivov-Jtqjre-Kzrudp Hx Past Med/Social Hx: Reviewed Nursing Past Med/Soc Hx Patient Social History Alcohol Use: Denies Use Recreational Drug Use: Yes (HX OF MARIJUANA ) Drug of Choice: CANNIBUS Smoking Status: Former Smoker Former Smoker, Quit: Jan 07, 2009 2nd Hand Smoke Exposure: No Recent Foreign Travel: No Contact w/Someone Who Travel: No Recent Infectious Disease Expo: No Recent Hopitalizations: Yes (UTI 11/22) Immunizations Up To Date Tetanus Booster (TDap): Unknown PED Vaccines UTD: No Date of Influenza Vaccine: Feb 06, 2012 Seasonal Allergies Seasonal Allergies: No Past Medical History Surgeries: Yes (EAR TUBES, UMBILICAL HERNIA) Abdominal, Ear Surgery Respiratory: Yes Asthma Currently Using CPAP: No Currently Using BIPAP: No Cardiac: Yes High Cholesterol, Hypertension Neurological: No Reproductive Disorders: No Genitourinary: Yes Kidney Stones Gastrointestinal: Yes (UMBILICAL HERNIA) Musculoskeletal: Yes (ANKLE FRACTURE) Fractures Endocrine: Yes Diabetes, Non-Insulin dep HEENT: No Cancer: No Psychosocial: Yes Anxiety Integumentary: No Blood Disorders: No Adverse Reaction/Blood Tranf: No Family Medical History Patient reports no known family medical history. No Pertinent Family Hx, Diabetes, Hypertension Physical Exam Vital Signs Vital Signs - First Documented 01/29/18 07:52 Temp 97.9 Pulse 107 Resp 22 B/P (MAP) 139/80 (99) Pulse Ox 96 O2 Delivery Room Air Height, Weight, BMI Height: 5'7.00" Weight: 310lbs. 0.0oz. 140.309514sk; 56.4 BMI Method:Stated General Appearance: WD/WN, mild distress Eyes: bilateral eye normal inspection, bilateral eye PERRL, bilateral eye EOMI Ears: bilateral ear auricle normal, bilateral ear canal normal, bilateral ear TM normal Nose: normal inspection Mouth/Throat: pharynx normal, other (firm swelling to the lateral aspect of the right jaw. Difficult to ascertain if this is induration or firm abscess. External facial swelling is obvious in this region as well.) Neck: normal inspection Respiratory: lungs clear, normal breath sounds, no respiratory distress, no accessory muscle use Neurologic/Psychiatric: science editor II-XII nml as tested, no motor/sensory deficits, alert, normal mood/affect, oriented x 3 Skin: normal color, warm/dry Progress/Results/Core Measures Results/Orders My Orders Medications Given in ED Vital Signs/I&O Blood Pressure Mean: 99 Progress Progress Note : Time: 08:59 Progress Note Patient had firm swelling to the right of the jaw. It was difficult to ascertain if this was tight abscess versus induration. CT scan was offered versus attempt at aspiration followed by incision and drainage. Patient was concerned about having a wound in his mouth with being a poor healer with diabetes. He preferred to pursue the CT scan. CT scan was obtained. Inflammation was noted without overt abscess. Patient was offered attempt at aspiration to determine if any purulent material was present versus aggressive treatment with antibiotics. After discussion of risks and benefits, patient wishes to pursue antibiotics alone at this time. Clindamycin 600 mg IM has been ordered and will be followed with a prescription. Diagnostic Imaging Diagonstic Imaging: CT Plain Films/CT/US/NM/MRI: facial bones Comments CT face viewed by me and report reviewed. See report below:. NAME: [facility] REC#: [id number] PT STATUS: REG ER : 1980 PHYSICIAN: DEE MOROCHO MD ADMIT DATE: 01/29/18/ER Signed Date of Exam: 01/29/18 CT MAXILLOFACIAL WO PROCEDURE: CT maxillofacial without contrast. TECHNIQUE: Multiple contiguous axial images were obtained through the facial bones without the use of intravenous contrast. INDICATION: Right-sided facial swelling. COMPARISON: None. FINDINGS: There is edema throughout the soft tissues overlying the right mandible. No discrete fluid collections are evident on this noncontrast exam. The parotid and visualized submandibular glands are negative. No sialoliths. No cervical lymphadenopathy in the pxyyf-tp-ogpx. The floor the mouth, tongue base and visualized epiglottis are negative. No large periapical lucencies about the maxillary or mandibular dentition. There is a small caries in the right first mandibular molar. Symmetric mild anterior subluxation of the temporomandibular joints is likely positional. Moderate mucosal thickening in the floor of the left maxillary sinus. The mastoids and middle ears are clear. Skull base is intact. IMPRESSION: Nonspecific cellulitis in the soft tissues overlying the right mandible. No discrete fluid collections, no large periapical lucencies about the mandibular dentition. There is a small caries in the right first mandibular molar. Dictated by: Dictated on workstation # [id number] Dict: 01/29/18819 Trans: 01/29/181727 Interpreted by: ELLY BUERNOSTRO MD Electronically signed by: ELLY BUENROSTRO MD 01/29/181727 Departure Impression Primary Impression: Dental abscess Additional Impression: Facial cellulitis Disposition: 01 HOME, SELF-CARE Condition: Improved Departure-Patient Inst. Decision time for Depature: 09:15 Referrals: NO,LOCAL PHYSICIAN (PCP/Family) Primary Care Physician Patient Instructions: Tooth Abscess (DC) Add. Discharge Instructions: Complete your antibiotics as prescribed. Follow-up with a dentist as soon as possible. You may take ibuprofen up to 600 mg every 6 hours as needed for pain. Add Tylenol (acetaminophen) up to 1000 mg every 6 hours as needed for additional pain relief. Return to care if symptoms worsen, especially if you develop fevers over 100. All discharge instructions reviewed with patient and/or family. Voiced understanding. Scripts Clindamycin HCl (Clindamycin HCl) 300 Mg Capsule 300 MG PO QID, #40 CAP Prov: DEE MOROCHO MD 01/29/18 DEE MOROCHO MD Jan 29, 2018 09:02
[2018-01-29] MEDS ORDERED: CLIN300C11 PO (09:34)
[2018-01-29 09:50] VITALS: BP 139/80
== END 2018-01-29 09:50 | disposition home or self-care (01) ==
LOC: EDUNIT# 07:43 → ER 07:45
DX: K04.7 Periapical abscess without sinus (principal); L03.211 Cellulitis of face; E78.00 Pure hypercholesterolemia, unspecified; I10 Essential (primary) hypertension; E11.9 Type 2 diabetes mellitus without complications; F41.9 Anxiety disorder, unspecified; Z87.442 Personal history of urinary calculi; Z79.51 Long term (current) use of inhaled steroids; Z79.84 Long term (current) use of oral hypoglycemic drugs; Z87.891 Personal history of nicotine dependence; Z98.890 Other specified postprocedural states
CPT/HCPCS: 70486; 96372; 99284

== ENCOUNTER 2018-04-21 19:57 | Emergency (ER) | payer MEDICAID, OTHER ==
[~2018-04-21] VITALS: Ht 170.2 cm; Wt 137.4 kg
[~2018-04-21 19:57] MED LIST changes: +CLIN300C11 PO
[2018-04-21] MEDS ORDERED: NS IV 1000 ML 1,000 ML IV SCH ×2 (20:15→21:45)
[2018-04-21] MEDS ORDERED: inSUlin DETERMIR 1 UNIT/0.01 ML (LEVEMIR) CHARGE PER UNIT SQ ONE (20:15)
[2018-04-21] MEDS ORDERED: inSUlin (REGULAR) HUMAN 1 UNIT/0.01 ML (CHARGE PER UNIT) IV ONE ×2 (20:15→21:45)
--- NOTE | 2018-04-21 20:16 | ED GU-Male ---
General Stated Complaint: FREQUENT URINATION Source: patient Exam Limitations: no limitations History of Present Illness Date Seen by Provider: Apr 21, 2018 Time Seen by Provider: 20:14 Initial Comments To ER per private vehicle with reports of frequent urination. He states that he wakes up about every hour on the hour during the night and urinates a large volume. He states it is a very large volume that he is urinating each time. He states that he does have diabetes but he has stopped drinking pop and switched to water and occasionally even takes his metformin. He follows with [facility] Timing/Duration: constant Severity/Quality: moderate Radiation: none Prior Genitourinary Problems: none Associated Symptoms: nocturia, polyuria, urinary frequency Allergies and Home Medications Allergies Coded Allergies: No Known Drug Allergies (Unverified , 04/21/18) Home Medications Albuterol Sulfate 1 Puff Puff, 2 PUFF INH Q4H PRN for SHORTNESS OF BREATH, ( Reported) Atorvastatin Calcium 40 Mg Tablet, 40 MG PO HS, (Reported) LAST FILLED #30 2-18 Cefdinir 300 Mg Capsule, 300 MG PO BID Prescribed by: ALEJANDRINA HANNAH on 12/25/17 1058 Cefuroxime Axetil 500 Mg Tablet, 500 MG PO BID Prescribed by: LILIAN BROWNE on 04/21/182054 Clindamycin HCl 300 Mg Capsule, 300 MG PO QID Prescribed by: DEE BOATENG on 01/29/18 0934 Cyclobenzaprine HCl 10 Mg Tablet, 10 MG PO TID Prescribed by: JI BAZAN on 01/20/182032 Gabapentin 600 Mg Tablet, 600 MG PO BID, (Reported) LAST FILLED #90 58-18 Hydrocodone Bit/Acetaminophen 1 Tab Tab, 1 EACH PO Q4-6HR PRN for PAIN-MODERATE Prescribed by: JI BAZAN on 01/20/182032 Lisinopril 5 Mg Tablet, 5 MG PO DAILY, (Reported) LAST FILLED #30 8-2-18 Metformin HCl 1,000 Mg Tablet, 1,000 MG PO BID, (Reported) LAST FILLED #180 5-1-18 Metformin HCl 1,000 Mg Tablet, 1,000 MG PO BID Prescribed by: LILIAN BROWNE on 04/21/182020 Patient Home Medication List Home Medication List Reviewed: Yes Review of Systems Review of Systems Constitutional: see HPI EENTM: see HPI Respiratory: no symptoms reported Cardiovascular: no symptoms reported Genitourinary: see HPI Musculoskeletal: no symptoms reported Skin: no symptoms reported Psychiatric/Neurological: No Symptoms Reported Endocrine: No Symptoms Reported Past Aarlvzy-Tnrrlf-Liplqw Hx Patient Social History Drug of Choice: CANNIBUS Former Smoker, Quit: Jan 07, 2009 2nd Hand Smoke Exposure: No Recent Foreign Travel: No Contact w/Someone Who Travel: No Recent Hopitalizations: Yes (UTI 11/22) Immunizations Up To Date Tetanus Booster (TDap): Unknown PED Vaccines UTD: No Date of Influenza Vaccine: Feb 06, 2012 Seasonal Allergies Seasonal Allergies: No Past Medical History Surgeries: Yes (EAR TUBES, UMBILICAL HERNIA) Abdominal, Ear Surgery Respiratory: Yes Asthma Currently Using CPAP: No Currently Using BIPAP: No Cardiac: Yes High Cholesterol, Hypertension Neurological: No Reproductive Disorders: No Genitourinary: Yes Kidney Stones Gastrointestinal: Yes (UMBILICAL HERNIA) Musculoskeletal: Yes (ANKLE FRACTURE) Fractures Endocrine: Yes Diabetes, Non-Insulin dep HEENT: No Cancer: No Psychosocial: Yes Anxiety Integumentary: No Blood Disorders: No Adverse Reaction/Blood Tranf: No Family Medical History Patient reports no known family medical history. No Pertinent Family Hx, Diabetes, Hypertension Physical Exam Vital Signs Vital Signs - First Documented 04/21/18 20:03 Temp 98.1 Pulse 113 Resp 18 B/P (MAP) 130/86 (101) Pulse Ox 99 Capillary Refill : Height, Weight, BMI Height: 5'7.00" Weight: 310lbs. 0.0oz. [id number]; 56.4 BMI Method:Stated General Appearance: WD/WN, no apparent distress, obese HEENT: PERRL/EOMI, normal ENT inspection Respiratory: no respiratory distress, no accessory muscle use Gastrointestinal: normal bowel sounds, non tender Extremities: normal range of motion, non-tender Neurologic/Psychiatric: alert, normal mood/affect, oriented x 3 Skin: normal color, warm/dry Progress/Results/Core Measures Suspected Sepsis SIRS Temperature: Pulse: Respiratory Rate: Laboratory Tests 04/21/18 20:18: White Blood Count 16.8H Blood Pressure / Mean: Laboratory Tests 04/21/18 20:18: Creatinine 1.35H, Platelet Count 306, Total Bilirubin 0.7 Results/Orders Lab Results Laboratory Tests Test 04/21/18 20:12 04/21/18 20:18 04/21/18 20:30 Range/Units Glucometer 494 *H 70-110 MG/DL White Blood Count 16.8 H 4.3-11.0 10^3/uL Red Blood Count 5.51 4.35-5.85 10^6/uL Hemoglobin 15.8 13.3-17.7 G/DL Hematocrit 46 40-54 % Mean Corpuscular Volume 83 80-99 FL Mean Corpuscular Hemoglobin 29 25-34 PG Mean Corpuscular Hemoglobin Concent 35 32-36 G/DL Red Cell Distribution Width 13.6 10.0-14.5 % Platelet Count 306 130-400 10^3/uL Mean Platelet Volume 11.3 H 7.4-10.4 FL Neutrophils (%) (Auto) 74 42-75 % Lymphocytes (%) (Auto) 18 12-44 % Monocytes (%) (Auto) 7 0-12 % Eosinophils (%) (Auto) 1 0-10 % Basophils (%) (Auto) 0 0-10 % Neutrophils # (Auto) 12.4 H 1.8-7.8 X 10^3 Lymphocytes # (Auto) 3.0 1.0-4.0 X 10^3 Monocytes # (Auto) 1.2 H 0.0-1.0 X 10^3 Eosinophils # (Auto) 0.2 0.0-0.3 10^3/uL Basophils # (Auto) 0.1 0.0-0.1 10^3/uL Neutrophils % (Manual) 88 % Lymphocytes % (Manual) 8 % Monocytes % (Manual) 3 % Eosinophils % (Manual) 0 % Basophils % (Manual) 1 % Band Neutrophils 0 % Blood Morphology Comment NORMAL Sodium Level 133 L 135-145 MMOL/L Potassium Level 4.2 3.6-5.0 MMOL/L Chloride Level 99 98-107 MMOL/L Carbon Dioxide Level 12 L 21-32 MMOL/L Anion Gap 22 H 5-14 MMOL/L Blood Urea Nitrogen 11 7-18 MG/DL Creatinine 1.35 H 0.60-1.30 MG/DL Estimat Glomerular Filtration Rate 60 BUN/Creatinine Ratio 8 Glucose Level 542 *H 70-105 MG/DL Calcium Level 9.9 8.5-10.1 MG/DL Corrected Calcium 9.7 8.5-10.1 MG/DL Total Bilirubin 0.7 0.1-1.0 MG/DL Aspartate Amino Transf (AST/SGOT) 27 5-34 U/L Alanine Aminotransferase (ALT/SGPT) 49 0-55 U/L Alkaline Phosphatase 212 H 40-136 U/L Total Protein 7.6 6.4-8.2 GM/DL Albumin 4.2 3.2-4.5 GM/DL Urine Color YELLOW Urine Clarity CLEAR Urine pH 5 5-9 Urine Specific Errol 1.025 H 1.016-1.022 Urine Protein 1+ H NEGATIVE Urine Glucose (UA) 4+ H NEGATIVE Urine Ketones 4+ H NEGATIVE Urine Nitrite POSITIVE H NEGATIVE Urine Bilirubin NEGATIVE NEGATIVE Urine Urobilinogen NORMAL NORMAL MG/DL Urine Leukocyte Esterase 2+ H NEGATIVE Urine RBC (Auto) NEGATIVE NEGATIVE Urine RBC NONE /HPF Urine WBC 2-5 /HPF Urine Crystals NONE /LPF Urine Bacteria TRACE /HPF Urine Casts NONE /LPF Urine Mucus NEGATIVE /LPF Urine Yeast FEW H /HPF Urine Culture Indicated YES My Orders Orders - LILIAN BROWNE APRN Ua Culture If Indicated (04/21/18 19:59) Accucheck Stat ONCE (04/21/18 20:10) Cbc With Automated Diff (04/21/18 20:10) Comprehensive Metabolic Panel (04/21/18 20:10) Iv Heplock-Insert (Order) (04/21/18 20:10) Ns Iv 1000 Ml (Sodium Chloride 0.9%) (04/21/18 20:15) Insulin Determir (Per Unit) (Levemir (Pe (04/21/18 20:15) Insulin (Regular) Human (Humulin R (Per (04/21/18 20:15) Antacid Suspension (Mylanta Suspension (04/21/18 20:30) Lidocaine 2% Viscous 15 Ml (Xylocaine Vi (04/21/18 20:30) Manual Differential (04/21/18 20:18) Urine Culture (04/21/18 20:30) Ceftriaxone For Iv Use (Rocephin For I (04/21/18 21:00) Insulin Regular Tpn/Drip Only (Humulin R (04/21/18 21:00) Medications Given in ED Current Medications Medications Dose Ordered Sig/Franco Route Start Time Stop Time Status Last Admin Dose Admin Al Hydrox/Mg Hydrox/Simethicone 30 ml ONCE ONCE PO 04/21/18 20:30 04/21/18 20:31 DC 04/21/18 20:29 30 ML Insulin Detemir 10 unit ONCE ONCE SQ 04/21/18 20:15 04/21/18 20:16 DC 04/21/18 20:29 10 UNIT Insulin Human Regular 8 unit ONCE ONCE IV 04/21/18 20:15 04/21/18 20:16 DC 04/21/18 20:29 8 UNIT Lidocaine HCl 10 ml ONCE ONCE PO 04/21/18 20:30 04/21/18 20:31 DC 04/21/18 20:28 10 ML Vital Signs/I&O 04/21/18 20:03 Temp 98.1 Pulse 113 Resp 18 B/P (MAP) 130/86 (101) Pulse Ox 99 Capillary Refill : Departure Communication (Admissions) 2100-Discussed with him the diagnosis of diabetic ketoacidosis and the need to be admitted to the hospital on insulin drip and IV fluids. He states "no". He states "my bills don't care about my health. If I miss work tomorrow ill be fired". I strongly encouraged him to stay and have treatment but he states that he is insistent on going home. He will stay to receive a liter of IV fluids and a dose of IV antibiotics. Agrees to Sign out AGAINST MEDICAL ADVICE. Impression Primary Impression: DKA (diabetic ketoacidoses) Qualified Codes: E13.10 - Other specified diabetes mellitus with ketoacidosis without coma Additional Impressions: Diabetes mellitus Qualified Codes: E13.8 - Other specified diabetes mellitus with unspecified complications UTI (urinary tract infection) Qualified Codes: N30.00 - Acute cystitis without hematuria Disposition: 07 AGAINST MEDICAL ADVICE Condition: Against Medical Advice Departure-Patient Inst. Referrals: NO,LOCAL PHYSICIAN (PCP/Family) Primary Care Physician Scripts Cefuroxime Axetil (Cefuroxime) 500 Mg Tablet 500 MG PO BID, #14 TAB Prov: LILIAN BROWNE DIALYSIS EQUIPMENT TECHNICIAN 04/21/18 Metformin HCl (Metformin HCl) 1,000 Mg Tablet 1000 MG PO BID, #60 TAB Prov: LILIAN BROWNE DIALYSIS EQUIPMENT TECHNICIAN 04/21/18 LILIAN BROWNE DIALYSIS EQUIPMENT TECHNICIAN Apr 21, 2018 20:16
--- OUTSIDE RECORDS SUMMARY | 2018-04-21 20:18 | XMS REPORT | Continuity of Care Document ---
Author Author [facility] Organization [facility] Address Unknown Phone Unavailable Allergies Active Description Code Type Severity Reaction Onset Reported/Identified Relationship to Patient Clinical Status Yes No Known Drug Allergies [id number] Drug Allergy Unknown N/A 12/19/2010 Medications There [...] OF OTHER SERUM ENZYMES 10/24/2016 LILLIE TOLBERT PRECIPITATOR SUPERVISOR Ot M54.9 DORSALGIA, UNSPECIFIED 10/29/2016 LILLIE TOLBERT PRECIPITATOR SUPERVISOR Ot M54.9 DORSALGIA, UNSPECIFIED 11/25/2016 LILLIE TOLBERT PRECIPITATOR SUPERVISOR Ot M54.9 DORSALGIA, UNSPECIFIED 11/29/2016 LILLIE TOLBERT PRECIPITATOR SUPERVISOR Ot M54.9 DORSALGIA, UNSPECIFIED 12/04/2016 LILLIE TOLBERT PRECIPITATOR SUPERVISOR Ot M54.9 DORSALGIA, UNSPECIFIED 12/24/2016 SERGIO GHOTRA SQL ANALYST Ot F12.10 CANNABIS ABUSE, UNCOMPLICATED 12/24/2016 SERGIO GHOTRA SQL ANALYST Ot G47.10 HYPERSOMNIA, UNSPECIFIED 12/24/2016 BRANDINSERGIO TA SQL ANALYST Ot G47.50 PARASOMNIA, UNSPECIFIED 12/24/2016 SERGIO GHOTRA SQL ANALYST Ot R06.00 DYSPNEA, UNSPECIFIED 01/03/2017 BRANDINSERGIO TA SQL ANALYST Ot F12.10 CANNABIS ABUSE, UNCOMPLICATED 01/03/2017 BRANDINSERGIO TA SQL ANALYST Ot G47.10 HYPERSOMNIA, UNSPECIFIED 01/03/2017 SERGIO GHOTRA SQL ANALYST Ot G47.50 PARASOMNIA, UNSPECIFIED 01/03/2017 SERGIO GHOTRA SQL ANALYST Ot R06.00 DYSPNEA, UNSPECIFIED 12/24/2017 BREANNA LOCKHART, [...] OF OTHER SERUM ENZYMES 12/24/2017 SERGIO GHOTRA SQL ANALYST Ot F12.10 CANNABIS ABUSE, UNCOMPLICATED 12/24/2017 SERGIO GHOTRA SQL ANALYST Ot G47.10 HYPERSOMNIA, UNSPECIFIED 12/24/2017 SERGIO GHOTRA SQL ANALYST Ot G47.50 PARASOMNIA, UNSPECIFIED 12/24/2017 SERGIO GHOTRA SQL ANALYST Ot R06.00 DYSPNEA, UNSPECIFIED 12/25/2017 HANNAH DO, ALEJANDRINA Ot E11.42 TYPE 2 DIABETES MELLITUS WITH DIABETIC P 12/25/2017 HANNAH DO, ALEJANDRINA Ot E66.9 OBESITY, UNSPECIFIED 12/25/2017 HANNAH DO, ALEJANDRINA Ot E78.2 MIXED HYPERLIPIDEMIA 12/25/2017 HANNAH DO, ALEJANDRINA Ot F41.9 ANXIETY DISORDER, UNSPECIFIED 12/25/2017 HANNAH DO, ALEJANDRINA Ot I10 ESSENTIAL (PRIMARY) HYPERTENSION 12/25/2017 HANNAH , ALEJANDRINA Ot J45.909 UNSPECIFIED ASTHMA, UNCOMPLICATED 12/25/2017 HANNAH DO, ALEJANDRINA Ot N20.0 CALCULUS OF KIDNEY 12/25/2017 HANNAH DO, ALEJANDRINA Ot N39.0 URINARY TRACT INFECTION, SITE NOT SPECIF 12/25/2017 HANNAHTRINI MARTEL ALEJANDRINA Ot Z68.43 BODY MASS INDEX (BMI) 50-59.9 , ADULT 12/25/2017 HANNAH DO, ALEJANDRINA Ot Z87.891 PERSONAL HISTORY OF NICOTINE DEPENDENCE 01/20/2018 BERNOT, JI Ot E11.9 TYPE 2 DIABETES MELLITUS WITHOUT COMPLIC 01/20/2018 BERNADDIE, JI Ot E78.00 PURE HYPERCHOLESTEROLEMIA, UNSPECIFIED 01/20/2018 BERNOT, JI Ot F12.10 CANNABIS ABUSE, UNCOMPLICATED 01/20/2018 BERNADDIE, JI Ot F41.9 ANXIETY DISORDER, UNSPECIFIED 01/20/2018 BERNOT JI Ot I10 ESSENTIAL (PRIMARY) HYPERTENSION 01/20/2018 BERNADDIE JI Ot J45.909 UNSPECIFIED ASTHMA, UNCOMPLICATED 01/20/2018 BERNOT, JI Ot R07.81 PLEURODYNIA 01/20/2018 BERNADDIE JI Ot Z79.51 SNF (CURRENT) USE OF INHALED STERO 01/20/2018 BENI, JI Ot Z79.84 SNF (CURRENT) USE OF ORAL HYPOGLYC 01/20/2018 BENI, JI Ot Z87.19 PERSONAL HISTORY OF OTHER DISEASES OF TH 01/20/2018 BENI JI Ot Z87.442 PERSONAL HISTORY OF URINARY CALCULI 01/20/2018 BENI JI Ot Z87.891 PERSONAL HISTORY OF NICOTINE DEPENDENCE 01/20/2018 BREANNA LOCKHART, MAGALY Pierce Ot 553.1 UMBILICAL HERNIA 01/20/2018 BREANNA LOCKHART, MAGALY Pierce Ot V72.63 PRE-PROCEDURAL LABORATORY EXAMINATION 01/20/2018 BREANNA LOCKHART, MAGALY Pierce Ot V72.83 EXAM PRE-OPERATIVE NEC 01/20/2018 BREANNA LOCKHART, MAGALY Pierce Ot V74.8 SCREEN-BACTERIAL DIS NEC 01/20/2018 BREANNA LOCKHART, MAGALY Pierce Ot 553.1 UMBILICAL HERNIA 01/20/2018 CHIRINOS DO, DIXIE K Ot R74.8 ABNORMAL LEVELS OF OTHER SERUM ENZYMES 01/20/2018 SERGIO GHOTRA SQL ANALYST Ot F12.10 CANNABIS ABUSE, UNCOMPLICATED 01/20/2018 SERGIO GHOTRA E SQL ANALYST Ot G47.10 HYPERSOMNIA, UNSPECIFIED 01/20/2018 DOMINIC GHOTRAINE E SQL ANALYST Ot G47.50 PARASOMNIA, UNSPECIFIED 01/20/2018 SERGIO GHOTRA SQL ANALYST Ot R06.00 DYSPNEA, UNSPECIFIED 01/22/2018 BERNOT, JI Ot E11.9 TYPE 2 DIABETES MELLITUS WITHOUT COMPLIC 01/22/2018 BERNOT, JI Ot E78.00 PURE HYPERCHOLESTEROLEMIA, UNSPECIFIED 01/22/2018 BERNOT, JI Ot F12.10 CANNABIS ABUSE, UNCOMPLICATED 01/22/2018 BERNOT, JI Ot F41.9 ANXIETY DISORDER, UNSPECIFIED 01/22/2018 BERNOT, JI Ot I10 ESSENTIAL (PRIMARY) HYPERTENSION 01/22/2018 BERNOT, JI Ot J45.909 UNSPECIFIED ASTHMA, UNCOMPLICATED 01/22/2018 BERNOT, JI Ot R07.81 PLEURODYNIA 01/22/2018 BERNOT, JI Ot 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 01/22/2018 BERNOT, JI Ot Z79.84 SNF (CURRENT) USE OF ORAL HYPOGLYC 01/22/2018 BERNOT, JI Ot Z87.19 PERSONAL HISTORY OF OTHER DISEASES OF TH 01/22/2018 BERNOT, JI Ot Z87.442 PERSONAL HISTORY OF URINARY CALCULI 01/22/2018 BERNOT, JI Ot Z87.891 PERSONAL HISTORY OF NICOTINE DEPENDENCE 01/29/2018 BREANNA LOCKHART, MAGALY Pierce Ot 553.1 UMBILICAL HERNIA 01/29/2018 BREANNA LOCKHART, MAGALY Pierce Ot V72.63 PRE-PROCEDURAL LABORATORY EXAMINATION 01/29/2018 BREANNA LOCKHART, MAGALY Pierce Ot V72.83 EXAM PRE-OPERATIVE NEC 01/29/2018 BREANNA LOCKHART, MAGALY Pierce Ot V74.8 SCREEN-BACTERIAL DIS NEC 01/29/2018 BREANNA LOCKHART, MAGALY Pierce Ot 553.1 UMBILICAL HERNIA 01/29/2018 RAHUL CHIRINOS DOA K Ot R74.8 ABNORMAL LEVELS OF OTHER SERUM ENZYMES 01/29/2018 SERGIO GHOTRA SQL ANALYST Ot F12.10 CANNABIS ABUSE, UNCOMPLICATED 01/29/2018 SERGIO GHOTRA APRN Ot G47.10 HYPERSOMNIA, UNSPECIFIED 01/29/2018 SERGIO GHOTRA APRN Ot G47.50 PARASOMNIA, UNSPECIFIED 01/29/2018 SERGIO GHOTRA Glo KENDAL Ot R06.00 DYSPNEA, UNSPECIFIED Procedures There is no data. Results Test Result Range Microalb/Creat Ratio, Randm Ur - 02/12/16 11:14 Creatinine, Urine 108.8 [...] Blood erythrocyte morphology finding identification NORMAL NRG Bacterial blood culture - 12/24/17 20:40 FREE TEXT EXTERNAL PROBABLE KLEBSIELLA OR ENTEROBACTER NRG QUANTITY OF GROWTH . NR Bacterial blood culture SEE REPORT NRG Complete urinalysis with reflex to culture [...] Status Pt. Type Provider Facility Loc./Unit Complaint [id number] 01/29/2018 07:45:00 01/29/2018 09:50:00 DIS Emergency BAILEE LOCKHART, DEE Jaime [facility] ER TOOTH INFECTION [id number] 01/20/2018 19:12:00 01/20/2018 20:58:00 DIS Emergency JI BAZAN [facility] ER SOB/RIB PAIN L SIDE/COUGH [id number] 12/24/2017 23:30:00 12/25/2017 12:00:00 DIS Inpatient ALEJANDRINA HANNAH DO [facility] 4TH UTI [id number] 12/18/2016 11:40:00 12/18/2016 23:59:59 CLS Outpatient SERGIO GHOTRA APRN [facility] RT SOB R06.00 [id number] 10/31/2016 09:00:00 12/04/2016 13:55:00 DIS Outpatient LILLIE TOLBERT [facility] REHAB CHRONIC BACK PAIN [id number] 11/19/2016 11:50:00 11/19/2016 23:59:59 CLS Preadmit SERGIO GHOTRA APRN [facility] SLEEP PARASOMNIA G47.50 [id number] 11/01/2016 11:52:00 11/01/2016 23:59:59 CLS Preadmit OTHER, UNLISTED [facility] RAD OBSERVED APNEAS [id number] 02/19/2016 07:23:00 02/19/2016 23:59:59 CLS Outpatient DIXIE CHIRINOS DO [facility] RAD ELEVATED LIVER ENZYMES [id number] 06/26/2015 08:30:00 06/27/2015 10:15:00 DIS Inpatient HELEN PAULSON MD [facility] 4TH NEW ONSET DIABETES;HHNK; UTI [id number] 10/24/2014 20:02:00 10/24/2014 21:12:00 DIS Emergency LOUIS HESS [facility] ER R EAR PAIN [id number] 11/11/2012 06:48:00 11/11/2012 23:59:59 CLS Outpatient MAGALY CARLOS MD [facility] SDC UMBILICAL HERNIA [id number] 11/09/2012 11:40:00 11/09/2012 23:59:59 CLS Outpatient MAGALY CARLOS MD [facility] PREOP UMBILICAL HERNIA REPAIR [id number] 09/05/2012 13:28:00 09/05/2012 23:59:59 CLS Outpatient [id number] 07/31/2012 17:37:00 07/31/2012 23:59:59 CLS Outpatient [id number] 04/21/2018 19:59:00 ACT Emergency BROWNELILIAN SQL ANALYST [facility] ER FREQUENT URINATION [id number] 11/01/2016 09:09:00 Document Registration [id number] 02/13/2016 13:06:00 Document Registration [id number] 02/13/2016 13:06:00 Document Registration [id number] 04/08/2018 13:15:00 04/08/2018 23:59:59 [facility] Outpatient MARTHA LOCKHART, MARGARITA WANG [id number] 10/24/2014 20:03:03 ACT Document Registration
[2018-04-21] MEDS ORDERED: METF-399 PO (20:21)
[2018-04-21 20:24] LABS: BASOPHILS # (AUTO) 0.1 10^3/uL (0.0-0.1); BASOPHILS % (AUTO) 0 % (0-10); EOSINOPHILS # (AUTO) 0.2 10^3/uL (0.0-0.3); EOSINOPHILS % (AUTO) 1 % (0-10); HEMATOCRIT 46 % (40-54); HEMOGLOBIN 15.8 G/DL (13.3-17.7); LYMPHOCYTES % (AUTO) 18 % (12-44); MEAN CORPUSCULAR HEMOGLOBIN 29 PG (25-34); MEAN CORPUSCULAR HGB CONC 35 G/DL (32-36); MEAN CORPUSCULAR VOLUME 83 FL (80-99); MEAN PLATELET VOLUME 11.3 FL (7.4-10.4); MONOCYTES # (AUTO) 1.2 X 10^3 (0.0-1.0); MONOCYTES % (AUTO) 7 % (0-12); NEUTROPHILS # (AUTO) 12.4 X 10^3 (1.8-7.8); NEUTROPHILS % (AUTO) 74 % (42-75); PLATELET COUNT 306 10^3/uL (130-400); RED BLOOD COUNT 5.51 10^6/uL (4.35-5.85); RED CELL DISTRIBUTION WIDTH 13.6 % (10.0-14.5); WHITE BLOOD COUNT 16.8 10^3/uL (4.3-11.0)
[2018-04-21] MEDS ORDERED: ANTACID SUSP 30 ML UDC (MYLANTA) PO ONE (20:30)
[2018-04-21] MEDS ORDERED: LIDOCAINE 2% VISCOUS 15 ML UDC PO ONE (20:30)
[2018-04-21 20:37] LABS: BILIRUBIN,URINE NEGATIVE (NEGATIVE); CLARITY,URINE CLEAR; COLOR,URINE YELLOW; GLUCOSE, URINE (UA) 4+ (NEGATIVE); KETONES,URINE 4+ (NEGATIVE); LEUKOCYTE ESTERASE ,URINE 2+ (NEGATIVE); NITRITE,URINE POSITIVE (NEGATIVE); PH,URINE 5 (5-9); PROTEIN,URINE 1+ (NEGATIVE); UROBILINOGEN,URINE NORMAL (NORMAL)
[2018-04-21 20:45] LABS: ALBUMIN 4.2 GM/DL (3.2-4.5); BILIRUBIN,TOTAL 0.7 MG/DL (0.1-1.0); CALCIUM 9.9 MG/DL (8.5-10.1); CREATININE SERUM 1.35 MG/DL (0.60-1.30); POTASSIUM 4.2 MMOL/L (3.6-5.0); TOTAL PROTEIN 7.6 GM/DL (6.4-8.2)
[2018-04-21 20:47] LABS: BACTERIA,URINE TRACE /HPF; YEAST,URINE FEW /HPF
[2018-04-21 20:52] LABS: BAND NEUTROPHILS 0 %; BASOPHILS % (MANUAL) 1 %; EOSINOPHILS % (MANUAL) 0 %; LYMPHOCYTES % (MANUAL) 8 %; MONOCYTES % (MANUAL) 3 %; NEUTROPHILS % (MANUAL) 88 %; RBC MORPH NORMAL
[2018-04-21] MEDS ORDERED: CEFU500T63 PO (20:55)
[2018-04-21] MEDS ORDERED: cefTRIAXone FOR IV USE 1,000 MG in NS (IVPB) 50 ML IV ONE (21:00)
[2018-04-21] MEDS ORDERED: inSUlin REGULAR TPN/DRIP ONLY 250 UNITS in NORMAL SALINE 250 ML IV SCH (21:00)
--- NOTE | 2018-04-21 21:01 | NUR ---
pt does not wish to be admitted. ama paper signed
[2018-04-21] MEDS ORDERED: FAMOTIDINE 20MG/2ML IV (PEPCID) IVP ONE (22:30)
[2018-04-21 23:28] VITALS: BP 130/86
== END 2018-04-21 23:28 | disposition left against medical advice (07) ==
LOC: EDUNIT# 19:57 → ER 19:59
DX: E13.10 Other specified diabetes mellitus with ketoacidosis without coma (principal); N39.0 Urinary tract infection, site not specified; E11.9 Type 2 diabetes mellitus without complications; J45.909 Unspecified asthma, uncomplicated; E78.00 Pure hypercholesterolemia, unspecified; I10 Essential (primary) hypertension; F41.9 Anxiety disorder, unspecified; Z79.84 Long term (current) use of oral hypoglycemic drugs; Z79.51 Long term (current) use of inhaled steroids; Z87.891 Personal history of nicotine dependence; Z87.442 Personal history of urinary calculi; Z98.890 Other specified postprocedural states
CPT/HCPCS: 36415; 80053; 81000; 82962; 85007; 85027; 87077; 87088

== ENCOUNTER 2018-04-23 07:06 | Inpatient (IN) | payer MEDICAID ==
[~2018-04-23] VITALS: Ht 167.6 cm; Wt 148.1 kg
[2018-04-23] VITALS (26 sets, daily range): BP systolic 90–227; BP diastolic 57–156
[~2018-04-23 07:06] MED LIST changes: +CEFU500T63 PO; -GABA600T2 PO; +GBPN600T PO
[2018-04-23] MEDS ORDERED: NS IV 1000 ML 1,000 ML IV ONE ×3 (07:26→11:30)
[2018-04-23] MEDS ORDERED: inSUlin (REGULAR) HUMAN 1 UNIT/0.01 ML (CHARGE PER UNIT) IV STA (07:43)
--- NOTE | 2018-04-23 07:53 | NUR ---
LAB IN ROOM ATTEMPTING TO DRAW AT THIS TIME.
--- NOTE | 2018-04-23 08:22 | ED General ---
General Chief Complaint: Glucose Problems Stated Complaint: HEARTBURN;N/V Nursing Triage Note: AMBULATED TO ROO7. HYPERVENTILATING. COMPLAINS OF HEARTBURN THAT IS MAKING HIM VOMIT. ALSO STATES HIS BLOOD SUGAR HAS BEEN AROUND 400. DEMANDING WATER, ICECHIPS, AND FOOD. Nursing Sepsis Screen: No Definite Risk Source of Information: Patient Exam Limitations: No Limitations History of Present Illness Date Seen by Provider: Apr 23, 2018 Time Seen by Provider: 07:20 Initial Comments Here with report of heartburn and vomiting. This is been going on for several hours. Seen 2 days ago for the same and had diagnosis of DKA. Patient left AMA that day because he stated he needed to go to work. He returns today with rapid deep breathing and the complaint of heartburn and vomiting. Unsure if he complied with any of the directions. Denies fevers. Reports that he is extremely thirsty Timing/Duration: 1 Week, Getting Worse Severity: Moderate, Severe Associated Systoms: No Chest Pain, No Fever/Chills; Nausea/Vomiting, Shortness of Air, Weakness Allergies and Home Medications Allergies Coded Allergies: No Known Drug Allergies (Unverified , 04/21/18) Home Medications Albuterol Sulfate 1 Puff Puff, 2 PUFF INH Q4H PRN for SHORTNESS OF BREATH, ( Reported) Atorvastatin Calcium 40 Mg Tablet, 40 MG PO HS, (Reported) LAST FILLED #30 11-06-17 Cefdinir 300 Mg Capsule, 300 MG PO BID Prescribed by: ALEJANDRINA HANNAH on 12/25/17 105 Cefuroxime Axetil 500 Mg Tablet, 500 MG PO BID Prescribed by: LILIAN BROWNE on 04/21/182054 Clindamycin HCl 300 Mg Capsule, 300 MG PO QID Prescribed by: DEE BOATENG on 01/29/18 0934 Cyclobenzaprine HCl 10 Mg Tablet, 10 MG PO TID Prescribed by: JI BAZAN on 01/20/182032 Gabapentin 600 Mg Tablet, 600 MG PO BID, (Reported) LAST FILLED #90 08-12-17 Hydrocodone Bit/Acetaminophen 1 Tab Tab, 1 EACH PO Q4-6HR PRN for PAIN-MODERATE Prescribed by: JI BAZAN on 01/20/182032 Lisinopril 5 Mg Tablet, 5 MG PO DAILY, (Reported) LAST FILLED #30 11-06-17 Metformin HCl 1,000 Mg Tablet, 1,000 MG PO BID, (Reported) LAST FILLED #180 08-05-17 Metformin HCl 1,000 Mg Tablet, 1,000 MG PO BID Prescribed by: LILIAN BROWNE on 04/21/182020 Patient Home Medication List Home Medication List Reviewed: Yes Review of Systems Review of Systems Constitutional: see HPI; No chills, No fever; weakness EENTM: no symptoms reported Respiratory: No cough; short of breath; No wheezing Cardiovascular: No chest pain, No edema Gastrointestinal: abdominal pain, heartburn, nausea, vomiting Genitourinary: No dysuria; frequency Musculoskeletal: no symptoms reported Skin: no symptoms reported All Other Systems Reviewed Negative Unless Noted: Yes Past Gbbgdyv-Fclotd-Xguypa Hx Past Med/Social Hx: Reviewed Nursing Past Med/Soc Hx Patient Social History Alcohol Use: Denies Use Recreational Drug Use: Yes Drug of Choice: POT Smoking Status: Never a Smoker Former Smoker, Quit: Jan 07, 2009 2nd Hand Smoke Exposure: No Recent Foreign Travel: No Contact w/Someone Who Travel: No Recent Infectious Disease Expo: No Recent Hopitalizations: Yes (UTI 11/22) Immunizations Up To Date Tetanus Booster (TDap): Unknown PED Vaccines UTD: No Date of Influenza Vaccine: Feb 06, 2012 Seasonal Allergies Seasonal Allergies: No Past Medical History Surgeries: Yes (EAR TUBES, UMBILICAL HERNIA) Abdominal, Ear Surgery Respiratory: Yes Asthma Currently Using CPAP: No Currently Using BIPAP: No Cardiac: Yes High Cholesterol, Hypertension Neurological: No Reproductive Disorders: No Genitourinary: Yes Kidney Stones Gastrointestinal: Yes (UMBILICAL HERNIA) Musculoskeletal: Yes (ANKLE FRACTURE) Fractures Endocrine: Yes Diabetes, Non-Insulin dep HEENT: No Cancer: No Psychosocial: Yes Anxiety Integumentary: No Blood Disorders: No Adverse Reaction/Blood Tranf: No Family Medical History Reviewed Nursing Family Hx Patient reports no known family medical history. No Pertinent Family Hx, Diabetes, Hypertension Physical Exam Vital Signs Vital Signs - First Documented 04/23/18 07:10 Temp 98.0 Pulse 131 Resp 16 B/P (MAP) 96/ Pulse Ox 98 O2 Delivery Room Air Capillary Refill : Less Than 3 Seconds Height, Weight, BMI Height: 5'6.00" Weight: 300lbs. 0.0oz. 136.507067tw; 56.4 BMI Method:Stated General Appearance: No Apparent Distress, WD/WN HEENT: PERRL/EOMI, Pharynx Normal Neck: Non Tender, Supple Respiratory: Lungs Clear, Normal Breath Sounds, Other (deep, rapid breathing.) Cardiovascular: No Murmur, Tachycardia Gastrointestinal: Non Tender, Soft Back: Normal Inspection, No CVA Tenderness, No Vertebral Tenderness Extremity: Normal Range of Motion, Non Tender Neurologic/Psychiatric: Alert, Oriented x3 Skin: Normal Color, Warm/Dry Progress/Results/Core Measures Suspected Sepsis Recent Fever Within 48 Hours: No Infection Criteria Present: None New/Unexplained Altered Menta: No Sepsis Screen: No Definite Risk SIRS Temperature:98.0 Pulse: 131 Respiratory Rate: 16 Laboratory Tests 04/23/18 08:13: White Blood Count 24.1H Blood Pressure 96 / Mean: Laboratory Tests 04/23/18 08:13: Creatinine 2.09H, Platelet Count 449H, Total Bilirubin 0.5 Results/Orders Lab Results Laboratory Tests Test 04/23/18 07:28 04/23/18 08:13 04/23/18 08:54 04/23/18 09:15 Range/Units Glucometer 571 *H 574 *H 70-110 MG/DL White Blood Count 24.1 H 4.3-11.0 10^3/uL Red Blood Count 6.00 H 4.35-5.85 10^6/uL Hemoglobin 17.0 13.3-17.7 G/DL Hematocrit 51 40-54 % Mean Corpuscular Volume 86 80-99 FL Mean Corpuscular Hemoglobin 28 25-34 PG Mean Corpuscular Hemoglobin Concent 33 32-36 G/DL Red Cell Distribution Width 14.2 10.0-14.5 % Platelet Count 449 H 130-400 10^3/uL Mean Platelet Volume 11.7 H 7.4-10.4 FL Neutrophils (%) (Auto) 91 H 42-75 % Lymphocytes (%) (Auto) 6 L 12-44 % Monocytes (%) (Auto) 4 0-12 % Eosinophils (%) (Auto) 0 0-10 % Basophils (%) (Auto) 0 0-10 % Neutrophils # (Auto) 21.7 H 1.8-7.8 X 10^3 Lymphocytes # (Auto) 1.4 1.0-4.0 X 10^3 Monocytes # (Auto) 0.9 0.0-1.0 X 10^3 Eosinophils # (Auto) 0.0 0.0-0.3 10^3/uL Basophils # (Auto) 0.0 0.0-0.1 10^3/uL Neutrophils % (Manual) 90 % Lymphocytes % (Manual) 7 % Monocytes % (Manual) 1 % Eosinophils % (Manual) 0 % Basophils % (Manual) 0 % Band Neutrophils 2 % Blood Morphology Comment NORMAL Sodium Level 133 L 135-145 MMOL/L Potassium Level 4.7 3.6-5.0 MMOL/L Chloride Level 100 98-107 MMOL/L Carbon Dioxide Level < 5 *L 21-32 MMOL/L Anion Gap 28 H 5-14 MMOL/L Blood Urea Nitrogen 13 7-18 MG/DL Creatinine 2.09 H 0.60-1.30 MG/DL Estimat Glomerular Filtration Rate 36 BUN/Creatinine Ratio 6 Glucose Level 613 *H 70-105 MG/DL Calcium Level 10.7 H 8.5-10.1 MG/DL Corrected Calcium 8.5-10.1 MG/DL Phosphorus Level 6.0 H 2.3-4.7 MG/DL Magnesium Level 2.9 H 1.8-2.4 MG/DL Total Bilirubin 0.5 0.1-1.0 MG/DL Aspartate Amino Transf (AST/SGOT) 56 H 5-34 U/L Alanine Aminotransferase (ALT/SGPT) 75 H 0-55 U/L Alkaline Phosphatase 226 H 40-136 U/L C-Reactive Protein High Sensitivity 2.92 H 0.00-0.50 MG/DL Total Protein 9.3 H 6.4-8.2 GM/DL Albumin 4.9 H 3.2-4.5 GM/DL My Orders Orders - FABIAN OBREGON MD Cbc With Automated Diff (04/23/18 07:26) Comprehensive Metabolic Panel (04/23/18 07:26) Hs C Reactive Protein (04/23/18 07:26) Magnesium (04/23/18 07:26) Ua Culture If Indicated (04/23/18 07:26) Phosphorus (04/23/18 07:26) Accucheck Stat ONCE (04/23/18 07:26) Saline Lock/Iv-Start (04/23/18 07:26) Ns Iv 1000 Ml (Sodium Chloride 0.9%) (04/23/18 07:26) Insulin (Regular) Human (Humulin R (Per (04/23/18 07:43) Saline Lock/Iv-Start (04/23/18 08:18) Ns Iv 1000 Ml (Sodium Chloride 0.9%) (04/23/18 08:18) Manual Differential (04/23/18 08:13) Ekg Tracing (04/23/18 08:55) Arterial Blood Gas (04/23/18 08:56) Blood Culture (04/23/18 09:12) Ceftriaxone For Iv Use (Rocephin For I (04/23/18 09:15) Lidocaine 2% Viscous 15 Ml (Xylocaine Vi (04/23/18 09:30) Antacid Suspension (Mylanta Suspension (04/23/18 09:30) Famotidine Injection (Pepcid Injection) (04/23/18 09:18) Medications Given in ED Current Medications Medications Dose Ordered Sig/Franco Route Start Time Stop Time Status Last Admin Dose Admin Sodium Chloride 1,000 ml @ 0 mls/hr Q0M ONCE IV 04/23/18 07:26 04/23/18 07:28 DC 04/23/18 07:34 1,000 MLS/HR Sodium Chloride 1,000 ml @ 0 mls/hr Q0M ONCE IV 04/23/18 08:18 04/23/18 08:19 DC 04/23/18 08:22 1,000 MLS/HR Vital Signs/I&O 04/23/18 07:10 Temp 98.0 Pulse 131 Resp 16 B/P (MAP) 96/ Pulse Ox 98 O2 Delivery Room Air Capillary Refill : Less Than 3 Seconds Point of Care Testing Finger Stick Blood Glucose: 571 Blood Glucose Action Taken: NOTIFIED Progress Note : Progress Note Seen and evaluated. Reviewed previous visit. IV, labs, UA, normal saline 1L bolus and insulin 15 units IV ordered. Patient very difficult IV stick. We were able to get small line in the right hand. I was able to place a 20-gauge to the left antecubital space via ultrasound guidance. Second liter of fluid initiated there. Monitor patient. Patient on previous visit did have urinary tract infection and has started cefuroxime apparently yesterday. Cultures show strep agal that should be pansensitive. We will rule out any of blood cultures here and give Rocephin. Patient has findings consistent with DKA. Lactic acid not drawn as we do not believe this is septic shock. Patient does have a side note of urinary tract infection which is not the main problem that we are treating currently. We will continue treating that but the main focus will be the diabetic ketoacidosis and significantly uncontrolled diabetes. 0910: I did discuss this with Dr. Lomax and she agrees. Lactic acid will be grossly elevated and I do not believe that it is a valuable test in this instance as it is not be related to the infection but just the diabetes. Patient will be admitted to the ICU. Admit, inpatient status. Patient and family agree with plan. ECG Initial ECG Impression Date: Apr 23, 2018 Initial ECG Impression Time: 09:00 Initial ECG Rate: 126 Initial ECG Rhythm: S.Tach Comment Sinus tachycardia with left atrial abnormality. Nonspecific intraventricular conduction delay noted. Normal axis. Departure Communication (Admissions) Time/Spoke to Admitting Phy: 09:10 Impression Primary Impression: Diabetic ketoacidosis Qualified Codes: E11.10 - Type 2 diabetes mellitus with ketoacidosis without coma Additional Impression: Urinary tract infection Qualified Codes: N30.00 - Acute cystitis without hematuria Disposition: ADMITTED INPATIENT Condition: Critical Admissions Decision to Admit Reason: Admit from ER (General) Decision to Admit/Date: Apr 23, 2018 Time/Decision to Admit Time: 09:10 Departure-Patient Inst. Referrals: NO,LOCAL PHYSICIAN (PCP/Family) Primary Care Physician FABIAN OBREGON MD Apr 23, 2018 08:22
[2018-04-23 08:27] LABS: BASOPHILS % (AUTO) 0 % (0-10); EOSINOPHILS % (AUTO) 0 % (0-10); HEMATOCRIT 51 % (40-54); LYMPHOCYTES # (AUTO) 1.4 X 10^3 (1.0-4.0); LYMPHOCYTES % (AUTO) 6 % (12-44); MEAN CORPUSCULAR HEMOGLOBIN 28 PG (25-34); MEAN CORPUSCULAR HGB CONC 33 G/DL (32-36); MEAN CORPUSCULAR VOLUME 86 FL (80-99); MEAN PLATELET VOLUME 11.7 FL (7.4-10.4); MONOCYTES # (AUTO) 0.9 X 10^3 (0.0-1.0); MONOCYTES % (AUTO) 4 % (0-12); NEUTROPHILS # (AUTO) 21.7 X 10^3 (1.8-7.8); NEUTROPHILS % (AUTO) 91 % (42-75); PLATELET COUNT 449 10^3/uL (130-400); RED CELL DISTRIBUTION WIDTH 14.2 % (10.0-14.5); WHITE BLOOD COUNT 24.1 10^3/uL (4.3-11.0)
[2018-04-23 08:43] LABS: ALANINE AMINOTRANSFERASE 75 U/L (0-55); ALBUMIN 4.9 GM/DL (3.2-4.5); ALKALINE PHOSPHATASE 226 U/L (40-136); BILIRUBIN,TOTAL 0.5 MG/DL (0.1-1.0); BUN/CREATININE RATIO 6; CALCIUM 10.7 MG/DL (8.5-10.1); CHLORIDE 100 MMOL/L (98-107); CREATININE SERUM 2.09 MG/DL (0.60-1.30); GFR ESTIMATED 36; MAGNESIUM 2.9 MG/DL (1.8-2.4); POTASSIUM 4.7 MMOL/L (3.6-5.0); SODIUM 133 MMOL/L (135-145); TOTAL PROTEIN 9.3 GM/DL (6.4-8.2)
[2018-04-23 08:49] LABS: CARBON DIOXIDE < 5 MMOL/L (21-32); GLUCOSE 613 MG/DL (70-105)
[2018-04-23 08:55] LABS: BAND NEUTROPHILS 2 %; BASOPHILS % (MANUAL) 0 %; EOSINOPHILS % (MANUAL) 0 %; LYMPHOCYTES % (MANUAL) 7 %; MONOCYTES % (MANUAL) 1 %; NEUTROPHILS % (MANUAL) 90 %; RBC MORPH NORMAL
--- NOTE | 2018-04-23 08:58 | NUR ---
RT CONTACTED FOR BLOOD DRAW.
[2018-04-23 09:03] LABS: BILIRUBIN,URINE NEGATIVE (NEGATIVE); CLARITY,URINE CLEAR; COLOR,URINE YELLOW; GLUCOSE, URINE (UA) 4+ (NEGATIVE); KETONES,URINE 4+ (NEGATIVE); LEUKOCYTE ESTERASE ,URINE NEGATIVE (NEGATIVE); NITRITE,URINE NEGATIVE (NEGATIVE); PH,URINE 5 (5-9); PROTEIN,URINE 3+ (NEGATIVE); UROBILINOGEN,URINE NORMAL (NORMAL)
--- NOTE | 2018-04-23 09:11 | NUR ---
RT HERE FOR ABG.
[2018-04-23] MEDS ORDERED: cefTRIAXone FOR IV USE 1,000 MG in NS (IVPB) 50 ML IV ONE (09:15)
[2018-04-23] MEDS ORDERED: FAMOTIDINE 20MG/2ML IV (PEPCID) IV STA (09:18)
--- NOTE | 2018-04-23 09:19 | NUR ---
IN TALKING TO PT AT THIS TIME.
[2018-04-23 09:30] LABS: BACTERIA,URINE NEGATIVE /HPF; RBC,URINE 0-2 /HPF; WBC,URINE RARE /HPF; YEAST,URINE FEW /HPF
[2018-04-23 09:30] LABS: ABG BASE EXCESS -27.2 MMOL/L (-2.5-2.5); ABG OXYGEN SATURATION 99 % (94-100); ABG PO2 142 MMHG (79-93); ABG TCO2 2.5 MMOL/L (21.0-31.0)
[2018-04-23] MEDS ORDERED: ANTACID SUSP 30 ML UDC (MYLANTA) PO ONE (09:30)
[2018-04-23] MEDS ORDERED: LIDOCAINE 2% VISCOUS 15 ML UDC PO ONE (09:30)
--- NOTE | 2018-04-23 09:30 | NUR ---
UNABLE TO DRAW BLOOD CULTURES FROM IV. NOTIFIED ET LAB NOTIFIED TO COME AND DRAW.
[2018-04-23 09:33] LABS: ALLENS TEST YES-POS; INSPIRED O2 RM AIR; PATIENT TEMP 98.9; VENTILATOR NO
[2018-04-23 09:34] LABS: ABG PH 7.02 (7.37-7.43)
[2018-04-23 09:35] LABS: ABG PCO2 9 MMHG (35-45)
--- NOTE | 2018-04-23 09:43 | NUR ---
LAB IN ATTEMPTING FOR BLOOD CULTURES. NOTIFPAULA LAB IS HAVING TROUBLE.
--- NOTE | 2018-04-23 09:50 | NUR ---
GAVINO NOTIFIED IN REPORT THAT LAB WAS ABLE TO GET X1 BLOOD CX BUT STILL WANTED TO WAIT ON ROCEPHIN.
--- NOTE | 2018-04-23 10:00 | NUR ---
PT ADMITTED TO ICU7 VIA STRETCHER W/ STAFF/FAMILY. ORIENTED PT TO SURROUNDINGS AND PLACED ON MONITORS. CALL LIGHT W/IN REACH. WILL CONT TO MONITOR.
--- OUTSIDE RECORDS SUMMARY | 2018-04-23 10:11 | XMS REPORT | Continuity of Care Document ---
Author Author [facility] Organization [facility] Address Unknown Phone Unavailable Allergies Active Description Code Type Severity Reaction Onset Reported/Identified Relationship to Patient Clinical Status Yes No Known Drug Allergies [id number] Drug Allergy Unknown N/A 04/21/2018 Medications There is no data. Problems Date [...] OF OTHER SERUM ENZYMES 10/24/2016 LILLIE TOLBERT [employer] OFFICER Ot M54.9 DORSALGIA, UNSPECIFIED 10/29/2016 ILLLIE TOLBERT [employer] OFFICER Ot M54.9 DORSALGIA, UNSPECIFIED 11/25/2016 LILLIE TOLBERT [employer] OFFICER Ot M54.9 DORSALGIA, UNSPECIFIED 11/29/2016 LILLIE TOLBERT [employer] OFFICER Ot M54.9 DORSALGIA, UNSPECIFIED 12/04/2016 LILLIE TOLBERT [employer] OFFICER Ot M54.9 DORSALGIA, UNSPECIFIED 12/24/2016 SERGIO GHOTRA PET GROOMER Ot F12.10 CANNABIS ABUSE, UNCOMPLICATED 12/24/2016 SERGIO GHOTRA PET GROOMER Ot G47.10 HYPERSOMNIA, UNSPECIFIED 12/24/2016 BRANDINSERGIO TA PET GROOMER Ot G47.50 PARASOMNIA, UNSPECIFIED 12/24/2016 SERGIO GHOTRA PET GROOMER Ot R06.00 DYSPNEA, UNSPECIFIED 01/03/2017 BRANDINSERGIO TA PET GROOMER Ot F12.10 CANNABIS ABUSE, UNCOMPLICATED 01/03/2017 BRANDINESRGIO TA PET GROOMER Ot G47.10 HYPERSOMNIA, UNSPECIFIED 01/03/2017 SERGIO GHOTRA PET GROOMER Ot G47.50 PARASOMNIA, UNSPECIFIED 01/03/2017 SERGIO GHOTRA PET GROOMER Ot R06.00 DYSPNEA, UNSPECIFIED 12/24/2017 BREANNA LOCKHART, [...] OF OTHER SERUM ENZYMES 12/24/2017 SERGIO GHOTRA PET GROOMER Ot F12.10 CANNABIS ABUSE, UNCOMPLICATED 12/24/2017 SERGIO GHOTRA PET GROOMER Ot G47.10 HYPERSOMNIA, UNSPECIFIED 12/24/2017 SERGIO GHOTRA PET GROOMER Ot G47.50 PARASOMNIA, UNSPECIFIED 12/24/2017 SERGIO GHOTRA PET GROOMER Ot R06.00 DYSPNEA, UNSPECIFIED 12/25/2017 HANNAH DO, [...] R07.81 PLEURODYNIA 01/20/2018 BERNADDIE JI Ot Z79.51 LONGTERM (CURRENT) USE OF INHALED STERO 01/20/2018 BENI, JI Ot Z79.84 LONGTERM (CURRENT) USE OF ORAL HYPOGLYC 01/20/2018 BENI, [...] OF OTHER SERUM ENZYMES 01/20/2018 SERGIO GHOTRA PET GROOMER Ot F12.10 CANNABIS ABUSE, UNCOMPLICATED 01/20/2018 SERGIO GHOTRA E PET GROOMER Ot G47.10 HYPERSOMNIA, UNSPECIFIED 01/20/2018 DOMINIC GHOTRAINE E PET GROOMER Ot G47.50 PARASOMNIA, UNSPECIFIED 01/20/2018 SERGIO GHOTRA PET GROOMER Ot R06.00 DYSPNEA, UNSPECIFIED 01/22/2018 BERNOT, JI [...] R07.81 PLEURODYNIA 01/22/2018 BERNOT, JI Ot Z79.51 CARBON GRINDER (CURRENT) USE OF INHALED STERO 01/22/2018 BERNOT, JI Ot Z79.84 LONGTERM (CURRENT) USE OF ORAL HYPOGLYC 01/22/2018 BERNOT, [...] OF OTHER SERUM ENZYMES 01/29/2018 SERGIO GHOTRA PET GROOMER Ot F12.10 CANNABIS ABUSE, UNCOMPLICATED 01/29/2018 SERGIO GHOTRA APRN Ot G47.10 HYPERSOMNIA, UNSPECIFIED 01/29/2018 SERGIO GHOTRA PET GROOMER Ot G47.50 PARASOMNIA, UNSPECIFIED 01/29/2018 SERGIO GHOTRA APRN Ot R06.00 DYSPNEA, UNSPECIFIED 01/29/2018 DEE MOROCHO MD Ot E11.9 TYPE 2 DIABETES MELLITUS WITHOUT COMPLIC 01/29/2018 DEE MOROCHO MD Ot E78.00 PURE HYPERCHOLESTEROLEMIA, UNSPECIFIED 01/29/2018 DEE MOROCHO MD Ot F41.9 ANXIETY DISORDER, UNSPECIFIED 01/29/2018 DEE MOROCHO MD Ot I10 ESSENTIAL (PRIMARY) HYPERTENSION 01/29/2018 DEE MOROCHO MD Ot K04.7 PERIAPICAL ABSCESS WITHOUT SINUS 01/29/2018 DEE MOROCHO MD Ot K08.89 OTHER SPECIFIED DISORDERS OF TEETH AND S 01/29/2018 DEE MOROCHO MD Ot L03.211 CELLULITIS OF FACE 01/29/2018 DEE MOROCHO MD Ot Z79.51 CARBON GRINDER (CURRENT) USE OF INHALED STERO 01/29/2018 DEE MOROCHO MD Ot Z79.84 CARBON GRINDER (CURRENT) USE OF ORAL HYPOGLYC 01/29/2018 DEE MOROCHO MD Ot Z87.442 PERSONAL HISTORY OF URINARY CALCULI 01/29/2018 DEE MOROCHO MD Ot Z87.891 PERSONAL HISTORY OF NICOTINE DEPENDENCE 01/29/2018 DEE MOROCHO MD Ot Z98.890 OTHER SPECIFIED POSTPROCEDURAL STATES 04/23/2018 DEE MOROCHO MD Ot E11.9 TYPE 2 DIABETES MELLITUS WITHOUT COMPLIC 04/23/2018 DEE MOROCHO MD Ot E13.10 OTH DIABETES MELLITUS WITH KETOACIDOSIS 04/23/2018 DEE MOROCHO MD Ot E78.00 PURE HYPERCHOLESTEROLEMIA, UNSPECIFIED 04/23/2018 DEE MOROCHO MD Ot F41.9 ANXIETY DISORDER, UNSPECIFIED 04/23/2018 DEE MOROCHO MD, Ot I10 ESSENTIAL (PRIMARY) HYPERTENSION 04/23/2018 DEE MOROCHO MD, Ot J45.909 UNSPECIFIED ASTHMA, UNCOMPLICATED 04/23/2018 DEE MOROCHO MD, Ot N39.0 URINARY TRACT INFECTION, SITE NOT SPECIF 04/23/2018 DEE MOROCHO MD, Ot R35.0 FREQUENCY OF MICTURITION 04/23/2018 DEE MOROCHO MD, Ot Z79.51 LONGTERM (CURRENT) USE OF INHALED STERO 04/23/2018 DEE MOROCHO MD, Ot Z79.84 LONGTERM (CURRENT) USE OF ORAL HYPOGLYC 04/23/2018 DEE MOROCHO MD, Ot Z87.442 PERSONAL HISTORY OF URINARY CALCULI 04/23/2018 DEE MOROCHO MD, Ot Z87.891 PERSONAL HISTORY OF NICOTINE DEPENDENCE 04/23/2018 DEE MOROCHO MD, Ot Z98.890 OTHER SPECIFIED POSTPROCEDURAL STATES Procedures There is no data. Results Test Result Range Microalb/Creat Ratio, [facility] Ur - 02/12/16 11:14 Creatinine, Urine 108.8 [...] OR ENTEROBACTER NRG QUANTITY OF GROWTH . [facility] Bacterial blood culture SEE REPORT NRG Complete [...] g/dL 3.2-4.5 CALCIUM CORRECTED 9.4 mg/dL 8.5-10.1 Capillary blood glucose measurement by glucometer (mass/volume) - 04/21/18 20: 12 Capillary blood glucose measurement by glucometer (mass/volume) 494 mg/dL 70-110 Complete blood count (CBC) with automated white blood cell (WBC) differential - 04/21/18 20:18 Blood leukocytes automated count (number/volume) 16.8 10*3/uL 4.3-11.0 Blood erythrocytes automated count (number/volume) 5.51 10*6/uL 4.35-5.85 Venous blood hemoglobin measurement (mass/volume) 15.8 g/dL 13.3-17.7 Blood hematocrit (volume fraction) 46 % 40-54 Automated erythrocyte mean corpuscular volume 83 [foz_us] 80-99 Automated erythrocyte mean corpuscular hemoglobin (mass per erythrocyte) 29 pg 25-34 Automated erythrocyte mean corpuscular hemoglobin concentration measurement ( mass/volume) 35 g/dL 32-36 Automated erythrocyte distribution width ratio 13.6 % 10.0-14.5 Automated blood platelet count (count/volume) 306 10*3/uL 130-400 Automated blood platelet mean volume measurement 11.3 [foz_us] 7.4-10.4 Automated blood neutrophils/100 leukocytes 74 % 42-75 Automated blood lymphocytes/100 leukocytes 18 % 12-44 Blood monocytes/100 leukocytes 7 % 0-12 Automated blood eosinophils/100 leukocytes 1 % 0-10 Automated blood basophils/100 leukocytes 0 % 0-10 Blood neutrophils automated count (number/volume) 12.4 10*3 1.8-7.8 Blood lymphocytes automated count (number/volume) 3.0 10*3 1.0-4.0 Blood monocytes automated count (number/volume) 1.2 10*3 0.0-1.0 Automated eosinophil count 0.2 10*3/uL 0.0-0.3 Automated blood basophil count (count/volume) 0.1 10*3/uL 0.0-0.1 Comprehensive metabolic panel - 04/21/18 20:18 Serum or plasma sodium measurement (moles/volume) 133 mmol/L 135-145 Serum or plasma potassium measurement (moles/volume) 4.2 mmol/L 3.6-5.0 Serum or plasma chloride measurement (moles/volume) 99 mmol/L 98-107 Carbon dioxide 12 mmol/L 21-32 Serum or plasma anion gap determination (moles/volume) 22 mmol/L 5-14 Serum or plasma urea nitrogen measurement (mass/volume) 11 mg/dL 7-18 Serum or plasma creatinine measurement (mass/volume) 1.35 mg/dL 0.60-1.30 Serum or plasma urea nitrogen/creatinine mass ratio 8 NRG Serum or plasma creatinine measurement with calculation of estimated glomerular filtration rate 60 NRG Serum or plasma glucose measurement (mass/volume) 542 mg/dL 70-105 Serum or plasma calcium measurement (mass/volume) 9.9 mg/dL 8.5-10.1 Serum or plasma total bilirubin measurement (mass/volume) 0.7 mg/dL 0.1-1.0 Serum or plasma alkaline phosphatase measurement (enzymatic activity/volume) 212 U/L 40-136 Serum or plasma aspartate aminotransferase measurement (enzymatic activity/ volume) 27 U/L 5-34 Serum or plasma alanine aminotransferase measurement (enzymatic activity/volume ) 49 U/L 0-55 Serum or plasma protein measurement (mass/volume) 7.6 g/dL 6.4-8.2 Serum or plasma albumin measurement (mass/volume) 4.2 g/dL 3.2-4.5 CALCIUM CORRECTED 9.7 mg/dL 8.5-10.1 Blood manual differential performed detection - 04/21/18 20:18 Blood monocytes/100 leukocytes 3 % NRG Manual blood segmented neutrophils/100 leukocytes 88 % NRG Blood band neutrophils/100 leukocytes 0 % NRG Manual blood lymphocytes/100 leukocytes 8 % NRG Manual eosinophils/100 leukocytes in nose 0 % NRG Manual blood basophils/100 leukocytes 1 % NRG Blood erythrocyte morphology finding identification NORMAL NRG Complete urinalysis with reflex to culture - 04/21/18 20:30 Urine color determination YELLOW NRG Urine clarity determination CLEAR NRG Urine pH measurement by test strip 5 5-9 Specific gravity of urine by test strip 1.025 1.016- 1.022 Urine protein assay by test strip, semi-quantitative 1+ NEGATIVE Urine glucose detection by automated test strip 4+ NEGATIVE Erythrocytes detection in urine sediment by light microscopy NEGATIVE NEGATIVE Urine ketones detection by automated test strip 4+ NEGATIVE Urine nitrite detection by test strip POSITIVE NEGATIVE Urine total bilirubin detection by test strip NEGATIVE NEGATIVE Urine urobilinogen measurement by automated test strip (mass/volume) NORMAL NORMAL Urine leukocyte esterase detection by dipstick 2+ NEGATIVE Automated urine sediment erythrocyte count by microscopy (number/high power field) NONE NRG Automated urine sediment leukocyte count by microscopy (number/high power field ) [HPF] NRG Bacteria detection in urine sediment by light microscopy TRACE NRG Crystals detection in urine sediment by light microscopy NONE NRG Casts detection in urine sediment by light microscopy NONE NRG Mucus detection in urine sediment by light microscopy NEGATIVE NRG Complete urinalysis with reflex to culture YES NRG Yeast detection in urine sediment by light microscopy FEW NRG Encounters ACCT No. Visit Date/Time Discharge Status Pt. Type Provider Facility Loc./Unit Complaint [id number] 04/21/2018 19:59:00 04/21/2018 23:28:00 DIS Outpatient DEE MOROCHO MD [facility] ER FREQUENT URINATION [id number] 01/29/2018 07:45:00 01/29/2018 09:50:00 DIS Emergency DEE MOROCHO MD [facility] ER TOOTH INFECTION [id number] 01/20/2018 19:12:00 01/20/2018 20:58:00 DIS Emergency BERNOT, JI [facility] ER SOB/RIB PAIN L SIDE/COUGH [id number] 12/24/2017 23:30:00 12/25/2017 12:00:00 DIS Inpatient ALEJANDRINA HANNAH DO [facility] 4TH UTI [id number] 12/18/2016 11:40:00 12/18/2016 23:59:59 CLS Outpatient SERGIO GHOTRA APRN [facility] RT SOB R06.00 [id number] 10/31/2016 09:00:00 12/04/2016 13:55:00 DIS Outpatient LILLIE TOLBERT [facility] REHAB CHRONIC BACK PAIN [id number] 11/19/2016 11:50:00 11/19/2016 23:59:59 CLS Preadmit SERGIO GHOTRA APRN [facility] SLEEP PARASOMNIA G47.50 [id number] 11/01/2016 11:52:00 11/01/2016 23:59:59 CLS Preadmit OTHER, UNLISTED [facility] RAD OBSERVED APNEAS [id number] 02/19/2016 07:23:00 02/19/2016 23:59:59 CLS Outpatient DIXIE CHIRINOS DO [facility] RAD ELEVATED LIVER ENZYMES [id number] 06/26/2015 08:30:00 06/27/2015 10:15:00 DIS Inpatient HELEN PAULSON MD [facility] 4TH NEW ONSET DIABETES;HHNK; UTI [id number] 10/24/2014 20:02:00 10/24/2014 21:12:00 DIS Emergency MALIKA PA, LOUIS L [facility] ER R EAR PAIN [id number] 11/11/2012 06:48:00 11/11/2012 23:59:59 CLS Outpatient MAGALY CARLOS MD [facility] SDC UMBILICAL HERNIA [id number] 11/09/2012 11:40:00 11/09/2012 23:59:59 CLS Outpatient MAGALY CARLOS MD [facility] PREOP UMBILICAL HERNIA REPAIR [id number] 09/05/2012 13:28:00 09/05/2012 23:59:59 CLS Outpatient [id number] 07/31/2012 17:37:00 07/31/2012 23:59:59 CLS Outpatient [id number] 04/23/2018 09:32:00 ACT Inpatient ROMA FREDERICK MD [facility] ICU DKA;UTI [id number] 11/01/2016 09:09:00 Document Registration [id number] 02/13/2016 13:06:00 Document Registration [id number] 02/13/2016 13:06:00 Document Registration [id number] 04/08/2018 13:15:00 04/08/2018 23:59:59 CLS Outpatient MARTHA LOCKHART, [id number] 10/24/2014 20:03:03 ACT Document Registration
[2018-04-23] MEDS ORDERED: ONDANSETRON 4 MG/2 ML (SDV) Z0FRAN IV PRN (10:30)
--- NOTE | 2018-04-23 10:31 | NUR ---
SPOKE WITH THE PATIENT ABOUT HIS MEDICATIONS. HE ADMITS HE HE DOES NOT TAKE HIS MEDS LIKE HE IS SUPPOSED TO. WHEN HE WAS HERE LAST HE WAS PAST DUE FOR REFILLS ON HIS MAINTENANCE MEDS AND [facility] HAS NOT FILLED ANYTHING FOR HIM RECENTLY EXCEPT THE TWO SCRIPTS FROM ED WERE FILLED AND PICKED UP YESTERDAY. I REMOVED ALL MEDS EXCEPT THE TWO PICKED UP YESTERDAY FROM THE MED REC SINCE IT LOOKS THOUGH THEY HAVE NOT BEEN FILLED SINCE NOVEMBER. HE STATES HE HAS NOT BEEN TAKING ANYTHING OTC EITHER.
[2018-04-23] MEDS ORDERED: FLU QUADRIvalent (5+ YOA) 2018-2019 (AFLURIA) 0.5 ML IM ONE (10:45)
--- NOTE | 2018-04-23 10:45 | NUR ---
Pastoral care Visit.
[2018-04-23] MEDS: 1/2 NS IV SOLUTION 1,000 ML IV SCH ×4 (10:49→20:07)
[2018-04-23] MEDS: POTASSIUM CL 10MEQ/50ML IVPB 50 ML IV SCH ×3 (10:50→22:50)
--- NOTE | 2018-04-23 11:00 | NUR ---
2ND SET OF BLOOD CX'S OBTAINED, OK TO START ROCEPHIN PER DR FREDERICK.
[2018-04-23] MEDS ORDERED: MIDAZOLAM 2 MG/2 ML (VERSED) VIAL ONE (11:08)
[2018-04-23] MEDS ORDERED: MIDAZOLAM 2 MG/2 ML (VERSED) VIAL IM ONE (11:15)
[2018-04-23] MEDS ORDERED: SODIUM BICARB 8.4% 50 MEQ/50 ML (ABBOTT) SYR IV ONE (11:15)
--- NOTE | 2018-04-23 11:48 | Diagnostic Imaging Report ---
INDICATION: Central line placement. TIME OF EXAMINATION: 11:37 a.m. COMPARISON: Correlation is made with prior study from 01/20/2018. FINDINGS: Right IJ line has been placed, has a tip overlying the SVC. No pneumothorax is identified. The lungs are clear. IMPRESSION: Right IJ line placement, as described. No pneumothorax is detected. Dictated by: Dictated on workstation # [id number]
[2018-04-23 11:51] LABS: BUN/CREATININE RATIO 9; CALCIUM 9.7 MG/DL (8.5-10.1); CHLORIDE 103 MMOL/L (98-107); CREATININE SERUM 1.87 MG/DL (0.60-1.30); GFR ESTIMATED 41; POTASSIUM 5.4 MMOL/L (3.6-5.0); SODIUM 132 MMOL/L (135-145)
[2018-04-23 11:53] LABS: CARBON DIOXIDE < 5 MMOL/L (21-32); GLUCOSE 644 MG/DL (70-105)
[2018-04-23] MEDS ORDERED: NS (IVPB) 50 ML ONE (11:56)
--- NOTE | 2018-04-23 12:00 | NUR ---
OK TO USE CENTRAL LINE PER DR KELLEY.
[2018-04-23] MEDS: inSUlin REGULAR TPN/DRIP ONLY 250 UNITS in NORMAL SALINE 250 ML IV SCH (12:02)
--- NOTE | 2018-04-23 12:03 | Pulmonary Consultation ---
History of Present Illness History of Present Illness Date of Consultation 04/23/18 11:57 Date of Admission Allergies and Home Medications Allergies Coded Allergies: No Known Drug Allergies (Unverified , 04/21/18) Home Medications Cefuroxime Axetil 500 Mg Tablet, 500 MG PO BID Prescribed by: LILIAN BROWNE on 04/21/182054 Metformin HCl 1,000 Mg Tablet, 1,000 MG PO BID, (Reported) Past Hwrmlvq-Pcpvpu-Bxhfmp Hx Past Med/Social Hx: Reviewed Nursing Past Med/Soc Hx Patient Social History Alcohol Use: Denies Use Recreational Drug Use: Yes Drug of Choice: POT Smoking Status: Never a Smoker Former Smoker, Quit: Jan 07, 2009 2nd Hand Smoke Exposure: No Recent Foreign Travel: No Contact w/Someone Who Travel: No Recent Infectious Disease Expo: No Recent Hopitalizations: Yes (UTI 11/22) Immunizations Up To Date Tetanus Booster (TDap): Unknown PED Vaccines UTD: No Date of Influenza Vaccine: Feb 06, 2012 Seasonal Allergies Seasonal Allergies: No Past Medical History Surgeries: Yes (EAR TUBES, UMBILICAL HERNIA) Abdominal, Ear Surgery Respiratory: Yes Asthma Currently Using CPAP: No Currently Using BIPAP: No Cardiac: Yes High Cholesterol, Hypertension Neurological: No Reproductive Disorders: No Genitourinary: Yes Kidney Stones Gastrointestinal: Yes (UMBILICAL HERNIA) Musculoskeletal: Yes (ANKLE FRACTURE) Fractures Endocrine: Yes Diabetes, Non-Insulin dep HEENT: No Cancer: No Psychosocial: Yes Anxiety Integumentary: No Blood Disorders: No Adverse Reaction/Blood Tranf: No Family Medical History Reviewed Nursing Family Hx Patient reports no known family medical history. No Pertinent Family Hx, Diabetes, Hypertension Sepsis Event Evaluation Height, Weight, BMI Height: 5'6.00" Weight: 290lbs. 6.0oz. 131.094469ry; 46.9 BMI Method:Stated Exam Exam Vital Signs Date Time Temp Pulse Resp B/P (MAP) Pulse Ox O2 Delivery O2 Flow Rate FiO2 04/23/18 11:17 Vapotherm 10.00 30 04/23/18 10:48 118 04/23/18 10:45 118 35 145/81 (102) Vapotherm 100.00 10.00 04/23/18 10:30 117 34 152/89 (110) 100 Vapotherm 100.00 10.00 04/23/18 10:15 121 28 150/95 (113) 99 Nasal Cannula 5.00 04/23/18 09:50 127 16 139/86 (103) 98 Room Air 04/23/18 07:10 98.0 131 16 96/ 98 Room Air Height & Weight Height: 5'6.00" Weight: 290lbs. 6.0oz. 131.672934qi; 46.9 BMI Method:Stated General Appearance: WD/WN, Anxious, Obese, Severe Distress HEENT: PERRL/EOMI, Pharynx Normal Neck: Non Tender, Supple Respiratory: Lungs Clear, Normal Breath Sounds, Other (deep, rapid breathing.) Cardiovascular: No Murmur, Tachycardia Capillary Refill: Less Than 3 Seconds Extremity: Normal Range of Motion, Non Tender Neurologic/Psychiatric: Alert, Oriented x3 Skin: Normal Color, Warm/Dry Results Lab Laboratory Tests 04/23/18 08:13 04/23/18 11:22 Assessment/Plan Assessment/Plan Acute severe DKA -Give 2 amps of bicarb -DKA protocol -PT may need intubation if he does not improve soon. Currently he is very agitated. I am also going to add a Precedex gtt Dehydration -Aggressive IVF Agitation -Start Precedex Morbid obesity with OHS at bedside I explained patients current condition and answered all of her questions. AJ KELLEY DO Apr 23, 2018 12:03
[2018-04-23] MEDS: DEXMEDETOMIDINE INJECTION 200 MCG in NS (IVPB) 50 ML IV SCH ×3 (12:07→15:24)
[2018-04-23] MEDS: PANTOPRAZOLE 40 MG (PROTONIX) VIAL IV SCH (12:08)
--- NOTE | 2018-04-23 12:27 | History & Physical-Hospitalist ---
History of Present Illness HPI/Chief Complaint Pt is a 38yoCM with a PMH of NIDDMII and HTN who presented to the ER due to shortness of breath. He is very dyspneic during my exam and his history is limited due to that. He also gives a varying history with what he is able to give. He states at first all of his symptoms started last night but review of records show he was in the ER on 04/21 for similar symptoms and was diagnosed with DKA but left AMA. Source: patient Exam Limitations: no limitations Date Seen 04/23/18 Time Seen by a Provider: 12:13 Attending Physician Roma Lomax MD PCP No,Local Physician Referring Physician Date of Admission Apr 23, 2018 at 09:32 Home Medications & Allergies Home Medications Reviewed patient Home Medication Reconciliation performed by pharmacy medication reconciliations waste handling technician and/or nursing. Patients Allergies have been reviewed. Allergies Allergies Coded Allergies No Known Drug Allergies (Unverified04/23/18) Past Xjshpbn-Ctehiv-Zuemhv Hx Past Med/Social Hx: Reviewed Nursing Past Med/Soc Hx Patient Social History Alcohol Use: Denies Use Recreational Drug Use: Yes Drug of Choice: POT Smoking Status: Never a Smoker Former Smoker, Quit: Jan 07, 2009 2nd Hand Smoke Exposure: No Recent Foreign Travel: No Contact w/other who traveled: No Recent Hopitalizations: Yes (UTI 11/22) Recent Infectious Disease Expo: No Immunizations Up To Date Tetanus Booster (TDap): Unknown Pediatric: No Date of Influenza Vaccine: Feb 06, 2012 Seasonal Allergies Seasonal Allergies: No Past Medical History Surgeries: Abdominal, Ear Surgery Respiratory: Asthma Currently Using CPAP: No Currently Using BIPAP: No Cardiac: High Cholesterol, Hypertension Reproductive: No Genitourinary: Kidney Stones Musculoskeletal: Fractures Endocrine: Diabetes, Non-Insulin dep Psychosocial: Anxiety History of Blood Disorders: No Adverse Reaction to Blood Ruiz: No Family History Reviewed Nursing Family Hx Patient reports no known family medical history. No Pertinent Family Hx, Diabetes, Hypertension Review of Systems ROS-Unable to Obtain: limited due to clinical condition Constitutional: see HPI Respiratory: No cough, No phlegm; short of breath Gastrointestinal: nausea, vomiting Physical Exam Physical Exam Vital Signs Vital Signs - First Documented 04/23/18 04/23/18 04/23/18 07:10 10:15 11:17 Temp 98.0 Pulse 131 Resp 16 B/P (MAP) 96/ Pulse Ox 98 O2 Delivery Room Air O2 Flow Rate 5.00 FiO2 30 Capillary Refill : Less Than 3 Seconds Height, Weight, BMI Height: 5'6.00" Weight: 290lbs. 6.0oz. 131.862573hf; 46.9 BMI Method:Stated General Appearance: Obese, Severe Distress, Other (appears older than stated age) HEENT: PERRL/EOMI, Moist Mucous Membranes Neck: Non Tender, Supple Respiratory: Lungs Clear, Accessory Muscle Use, Other (tachypneic) Cardiovascular: No JVD, No Murmur, Tachycardia Gastrointestinal: Normal Bowel Sounds, Non Tender, Soft Extremity: No Calf Tenderness, No Pedal Edema Neurologic/Psychiatric: Alert, Oriented x3 Skin: Tattoos/Piercings Results Results/Procedures Labs Laboratory Tests 04/23/18 11:22 04/23/18 14:01 04/23/18 16:10 04/23/18 20:08 04/24/18 00:10 04/24/18 04:00 04/24/18 13:25 04/24/18 19:40 04/24/18 22:08 04/25/18 03:45 Patient resulted labs reviewed. Imaging: Reviewed Imaging Report Assessment/Plan Admission Diagnosis DKA Admission Status: Inpatient Order (span 2 midnights) Reason for Inpatient Admission: Severe DKA, bicarb less than 5, may need to be mechincally ventilated Diagnosis/Problems Diagnosis/Problems (1) Diabetic ketoacidosis Status: Acute Assessment & Plan: Severe DKA with bicarb less than 5 still Insulin gtt started Bicarb given Continue high volume fluid resuscitation Central line in place for frequent BMPs DKA protocol in place Has been noncompliant with home meds- will need education prior to discharge Qualifiers: Diabetes mellitus type: type 2 Diabetes mellitus complication detail: without coma Qualified Codes: E11.10 - Type 2 diabetes mellitus with ketoacidosis without coma (2) Acute respiratory distress Assessment & Plan: Discussed with Dr Yin given concerns for respiratory failure given accessory muscle use ABG reveals severe uncompensated metabolic acidosis Concerned that he cannot maintain respiratory status and already hyperventilated to CO2 9 Dr Yin states will go to bedside to possibly intubated (3) UTI (urinary tract infection) Status: Acute Assessment & Plan: Was on oral abx as an outpatient This is not sepsis- lab and vital abnormalities due to DKA Will get blood cultures as an abundance of caution Start on Rocephin to complete treatment Qualifiers: Urinary tract infection type: acute cystitis Hematuria presence: without hematuria Qualified Codes: N30.00 - Acute cystitis without hematuria (4) JOE (acute kidney injury) Assessment & Plan: Creatinine 2.09 and appears baseline 0.8 Continue IVF (5) Transaminitis Assessment & Plan: Likely due to hypovolemia Trend Underlying ANDERSON possible though (6) Essential (primary) hypertension Status: Chronic Assessment & Plan: Relatively well controlled currently, will trend (7) Marijuana abuse Assessment & Plan: Reports daily marijuana use Recommend cessation Clinical Quality Measures DVT/VTE Risk/Contraindication: Risk Factor Score Per Nursin RFS Level Per Nursing on Admit: 2=Moderate ROMA LOMAX MD Apr 23, 2018 12:27
[2018-04-23] MEDS ORDERED: PROPOFOL DRIP (ICU) 100 ML IV ONE ×3 (12:39→16:18)
[2018-04-23] MEDS ORDERED: fentaNYL INJECTION 100 MCG/2 ML AMP ONE (12:39)
--- NOTE | 2018-04-23 12:54 | NUR ---
DR KELLEY ON FLOOR TO INTUBATE PT. PT RECEIVED 100MG PROPOFOL VIA IVP, 50MCG FENTANYL IVP, AND 100MG SUCCINYLCHOLINE IVP. INTUBATED USING 7.5 ETT; POSITIONED 23 @ LIP.
--- NOTE | 2018-04-23 13:11 | Pulmonary Procedures ---
Pulmonary Procedures Date of Procedure Date of Service: Apr 23, 2018 Reason for Intubation: acute respiratory distress Time of Intubation: 13:09 Intubation Method: orotracheal (with glidoscope ) Medications: Fentanyl, Propofol, Succinylcholine, Versed Positive End Tide CO2: Yes Breath Sounds after Intubation: bilateral-equal Intubation Complications: no complications Post Intubation Xray: Yes AJ KELLEY DO Apr 23, 2018 13:11
[2018-04-23] MEDS ORDERED: fentaNYL INJECTION 1,250 MCG in NS (IVPB) 250 ML IV SCH (13:15)
--- NOTE | 2018-04-23 13:27 | Diagnostic Imaging Report ---
INDICATION: ET tube and OG tube placement. TIME OF EXAM: 01:09 p.m. Correlation is made with prior study earlier same day. Right IJ line has tip overlying the SVC. An ET tube has been placed and has a tip in good position above the darío. OG tube appears to pass into the stomach. Lungs are clear. There is no pneumothorax. IMPRESSION: Satisfactory OG tube and ET tube placement. Dictated by: Dictated on workstation # [id number]
[2018-04-23] MEDS ORDERED: LORazepam INJ 2 MG/ML (ATIVAN) VIAL ONE (14:58)
--- NOTE | 2018-04-23 15:00 | NUR ---
PT AGITATED AND FIGHTING VENT. DR KELLEY INFORMED,NEW ORDERS RECEIVED, SEE EMAR FOR DETAILS.
[2018-04-23 15:14] LABS: ABG BASE EXCESS -24.4 MMOL/L (-2.5-2.5); ABG OXYGEN SATURATION 100 % (94-100); ABG PO2 401 MMHG (79-93); ABG TCO2 5.1 MMOL/L (21.0-31.0)
[2018-04-23] MEDS ORDERED: HALOPERIDOL 5 MG/ML (HALDOL) AMP IV PRN (15:15)
[2018-04-23] MEDS ORDERED: LORazepam INJ 2 MG/ML (ATIVAN) VIAL IVP ONE (15:15)
[2018-04-23] MEDS: fentaNYL INJECTION 1,250 MCG in NS (IVPB) 250 ML IV SCH (15:19)
[2018-04-23 15:22] LABS: ALLENS TEST YES-POS; INSPIRED O2 100; PATIENT TEMP 99.1; VENTILATOR YES
[2018-04-23 15:22] LABS: CREATININE SERUM 1.74 MG/DL (0.60-1.30); POTASSIUM 5.5 MMOL/L (3.6-5.0)
[2018-04-23 15:24] LABS: ABG PCO2 19 MMHG (35-45); ABG PH 7.01 (7.37-7.43)
[2018-04-23] MEDS ORDERED: SODIUM BICARB 8.4% 50 MEQ/50 ML (ABBOTT) SYR IV NR (15:45)
[2018-04-23] MEDS ORDERED: SODIUM BICARB 8.4% 50 MEQ/50 ML (ABBOTT) SYR ONE (15:52)
[2018-04-23] MEDS: DEXMEDETOMIDINE INJECTION 1,000 MCG in NS (IVPB) 250 ML IV SCH ×2 (16:27→23:18)
[2018-04-23] MEDS: PROPOFOL DRIP (ICU) 100 ML IV SCH ×3 (16:27→21:42)
[2018-04-23 16:39] LABS: CALCIUM 8.3 MG/DL (8.5-10.1); CREATININE SERUM 1.63 MG/DL (0.60-1.30); POTASSIUM 5.3 MMOL/L (3.6-5.0)
--- NOTE | 2018-04-23 16:51 | Consultation ---
History of Present Illness History of Present Illness Patient Consulted On(jackie/time) 04/23/18 11:44 Date Seen by Provider: Apr 23, 2018 Time Seen by Provider: 11:20 History of Present Illness consult requested by Dr. Lomax 4 central line placement Patient is a 38-year-old male who presented to the emergency department with having extreme shortness of breath and extreme thirst. Patient states is been going on for a proximal last 24 hours or so. Patient was just in the emergency department on 2018 and was diagnosed with diabetic ketoacidosis that time but left AMA. Patient states that he is angled catch his breath. He is laboring fairly decent. Patient states he's just needing something to drink. Patient has had multiple attempts to have IV placed which none have been successful. Patient needing central line. Patient understands need. Patient giving Limited history due to condition. Allergies and Home Medications Allergies Coded Allergies: No Known Drug Allergies (Unverified , 04/21/18) Home Medications Cefuroxime Axetil 500 Mg Tablet, 500 MG PO BID Prescribed by: LILIAN BROWNE on 04/21/182054 Metformin HCl 1,000 Mg Tablet, 1,000 MG PO BID, (Reported) Patient Home Medication List Home Medication List Reviewed: Yes Past Koiwnmv-Evhomr-Joqdoz Hx Patient Social History Alcohol Use: Denies Use Recreational Drug Use: Yes Drug of Choice: POT Smoking Status: Never a Smoker Former Smoker, Quit: Jan 07, 2009 2nd Hand Smoke Exposure: No Recent Foreign Travel: No Contact w/Someone Who Travel: No Recent Infectious Disease Expo: No Recent Hopitalizations: Yes (UTI 11/22) Immunizations Up To Date Tetanus Booster (TDap): Unknown PED Vaccines UTD: No Date of Influenza Vaccine: Feb 06, 2012 Seasonal Allergies Seasonal Allergies: No Surgeries History of Surgeries: Yes (EAR TUBES, UMBILICAL HERNIA) Surgeries: Abdominal, Ear Surgery Respiratory History of Respiratory Disorde: Yes Respiratory Disorders: Asthma Cardiovascular History of Cardiac Disorders: Yes Cardiac Disorders: High Cholesterol, Hypertension Neurological History of Neurological Disord: No Reproductive System Hx Reproductive Disorders: No Genitourinary History of Genitourinary Disor: Yes Genitourinary Disorders: Kidney Stones Gastrointestinal History of Gastrointestinal Di: Yes (UMBILICAL HERNIA) Musculoskeletal History of Musculoskeletal Dis: Yes (ANKLE FRACTURE) Musculoskeletal Disorders: Fractures Endocrine History of Endocrine Disorders: Yes Endocrine Disorders: Diabetes, Non-Insulin dep HEENT History of HEENT Disorders: No Cancer History of Cancer: No Psychosocial History of Psychiatric Problem: Yes Behavioral Health Disorders: Anxiety Integumentary History of Skin or Integumenta: No Blood Transfusions History of Blood Disorders: No Adverse Reaction to a Blood Tr: No Family Medical History Significant Family History: No Pertinent Family Hx, Diabetes, Hypertension Family Medial History: Patient reports no known family medical history. Review of Systems-General ROS-Unable to Obtain: difficult to obtain due to patient condition Respiratory: see HPI Gastrointestinal: no symptoms reported Physical Exam-General Problems Physical Exam Vital Signs Vital Signs - First Documented 04/23/18 04/23/18 04/23/18 07:10 10:15 11:17 Temp 98.0 Pulse 131 Resp 16 B/P (MAP) 96/ Pulse Ox 98 O2 Delivery Room Air O2 Flow Rate 5.00 FiO2 30 Capillary Refill : Less Than 3 Seconds General Appearance: mild distress HEENT: PERRL/EOMI, other (dry oropharynx) Respiratory: chest non-tender, respiratory distress (early) Cardiovascular: tachycardia Gastrointestinal: non tender, soft Back: no CVA tenderness Extremities: non-tender, normal inspection 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, no motor/sensory deficits, alert, oriented x 3 Skin: warm/dry Lymphatic: no adenopathy Data Review Labs Laboratory Tests 04/23/18 07:28: Glucometer 571*H 04/23/18 08:13: White Blood Count 24.1H, Red Blood Count 6.00H, Hemoglobin 17.0, Hematocrit 51, Mean Corpuscular Volume 86, Mean Corpuscular Hemoglobin 28, Mean Corpuscular Hemoglobin Concent 33, Red Cell Distribution Width 14.2, Platelet Count 449H, Mean Platelet Volume 11.7H, Neutrophils (%) (Auto) 91H, Lymphocytes (%) (Auto) 6L, Monocytes (%) (Auto) 4, Eosinophils (%) (Auto) 0, Basophils (%) (Auto) 0, Neutrophils # (Auto) 21.7H, Lymphocytes # (Auto) 1.4, Monocytes # (Auto) 0.9, Eosinophils # (Auto) 0.0, Basophils # (Auto) 0.0, Neutrophils % (Manual) 90, Lymphocytes % (Manual) 7, Monocytes % (Manual) 1, Eosinophils % (Manual) 0, Basophils % (Manual) 0, Band Neutrophils 2, Blood Morphology Comment NORMAL, Sodium Level 133L, Potassium Level 4.7, Chloride Level 100, Carbon Dioxide Level < 5*L, Anion Gap 28H, Blood Urea Nitrogen 13, Creatinine 2.09H, Estimat Glomerular Filtration Rate 36, BUN/Creatinine Ratio 6, Glucose Level 613*H, Calcium Level 10.7H, Corrected Calcium , Phosphorus Level 6.0H, Magnesium Level 2.9H, Total Bilirubin 0.5, Aspartate Amino Transf (AST/SGOT) 56H, Alanine Aminotransferase (ALT/SGPT) 75H, Alkaline Phosphatase 226H, Total Creatine Kinase 55, C-Reactive Protein High Sensitivity 2.92H, Total Protein 9.3H, Albumin 4.9H 04/23/18 08:54: Urine Color YELLOW, Urine Clarity CLEAR, Urine pH 5, Urine Specific [place] 1.025H, Urine Protein 3+H, Urine Glucose (UA) 4+H, Urine Ketones 4+H, Urine Nitrite NEGATIVE, Urine Bilirubin NEGATIVE, Urine Urobilinogen NORMAL, Urine Leukocyte Esterase NEGATIVE, Urine RBC (Auto) 2+H, Urine RBC 0-2, Urine WBC RARE , Urine Squamous Epithelial Cells 2-5, Urine Crystals NONE, Urine Bacteria NEGATIVE, Urine Casts PRESENT, Urine Granular Casts 10-25H, Urine Mucus NEGATIVE , Urine Yeast FEWH, Urine Culture Indicated NO 04/23/18 09:15: Glucometer 574*H, Blood Gas Puncture Site L RAD, Blood Gas Patient Temperature 98.9, Arterial Blood pH 7.02*L, Arterial Blood Partial Pressure CO2 9*L, Arterial Blood Partial Pressure O2 142H, Arterial Blood HCO3 2*L, Arterial Blood Total CO2 2.5L, Arterial Blood Oxygen Saturation 99, Arterial Blood Base Excess -27.2L, Andrea Test YES-POS, Blood Gas Ventilator Setting NO, Blood Gas Inspired Oxygen RM AIR 04/23/18 10:31: Glucometer 590*H 04/23/18 11:22: Sodium Level 132L, Potassium Level 5.4H, Chloride Level 103, Carbon Dioxide Level < 5*L, Anion Gap 24H, Blood Urea Nitrogen 16, Creatinine 1.87H, Estimat Glomerular Filtration Rate 41, BUN/Creatinine Ratio 9, Glucose Level 644*H, Calcium Level 9.7 04/23/18 13:19: Glucometer 468*H 04/23/18 14:01: Sodium Level 131L, Potassium Level 5.5H, Chloride Level 104, Carbon Dioxide Level 6*L, Anion Gap 21H, Blood Urea Nitrogen 16, Creatinine 1.74H, Estimat Glomerular Filtration Rate 45, BUN/Creatinine Ratio 9, Glucose Level 532*H, Calcium Level 9.0 04/23/18 14:16: Glucometer 430*H 04/23/18 14:45: Blood Gas Puncture Site R RAD, Blood Gas Patient Temperature 99.1, Arterial Blood pH 7.01*L, Arterial Blood Partial Pressure CO2 19*L, Arterial Blood Partial Pressure O2 401H, Arterial Blood HCO3 5*L, Arterial Blood Total CO2 5.1L , Arterial Blood Oxygen Saturation 100, Arterial Blood Base Excess -24.4L, Andrea Test YES-POS, Blood Gas Ventilator Setting YES, Blood Gas Inspired Oxygen 100 04/23/18 15:26: Glucometer 390H 04/23/18 16:10: Sodium Level 137, Potassium Level 5.3H, Chloride Level 108H, Carbon Dioxide Level 7*L, Anion Gap 22H, Blood Urea Nitrogen 15, Creatinine 1.63H, Estimat Glomerular Filtration Rate 48, BUN/Creatinine Ratio 9, Glucose Level 375H, Calcium Level 8.3L Assessment/Plan Assessment/Plan Assessment/Plan DKA/dehydration/no venous access, marijuana use, UTI, morbid obesity Patient is 38-year-old male who is been admitted to the ICU. Central line risk and benefits were discussed with patient and family who understand wish to proceed. Patient to have central line placed. chest x-ray after to check for positioning. Patient is having some slight difficulty breathing. If this continues to persist will likely need to be intubated. Dr. Yin at bedside as well. Clinical Quality Measures DVT/VTE Risk/Contraindication: Risk Factor Score Per Nursin RFS Level Per Nursing on Admit: 2=Moderate XI DURAND DO Apr 23, 2018 16:51
[2018-04-23] MEDS: RT-ALBUTEROL/IPRATROPIUM 3 ML (DUONEB) VIAL INH SCH ×2 (19:48→22:47)
[2018-04-23] MEDS ORDERED: SUCCINYLCHOLINE INJ 100 MG/5 ML SYR INJ ONE (20:01)
[2018-04-23 20:28] LABS: CALCIUM 8.5 MG/DL (8.5-10.1); CREATININE SERUM 1.58 MG/DL (0.60-1.30)
[2018-04-23] MEDS: LORazepam INJ 2 MG/ML (ATIVAN) VIAL IVP PRN (20:33)
[2018-04-23 20:38] LABS: POTASSIUM 4.2 MMOL/L (3.6-5.0)
[2018-04-23] MEDS: D5 1/2 NS 1000 ML IV SOLUTION 1,000 ML IV SCH (21:17)
[2018-04-24] VITALS (34 sets, daily range): BP systolic 83–119; BP diastolic 39–94
[2018-04-24] MEDS: PROPOFOL DRIP (ICU) 100 ML IV SCH ×8 (00:11→23:22)
[2018-04-24 00:38] LABS: CALCIUM 8.4 MG/DL (8.5-10.1); CREATININE SERUM 1.41 MG/DL (0.60-1.30); POTASSIUM 3.5 MMOL/L (3.6-5.0)
[2018-04-24] MEDS: POTASSIUM CL 10MEQ/50ML IVPB 50 ML IV SCH ×15 (01:15→23:40)
[2018-04-24] MEDS: RT-ALBUTEROL/IPRATROPIUM 3 ML (DUONEB) VIAL INH SCH ×6 (01:55→22:38)
[2018-04-24] MEDS: 1/2 NS IV SOLUTION 1,000 ML IV SCH ×6 (02:42→22:23)
[2018-04-24] MEDS: LORazepam INJ 2 MG/ML (ATIVAN) VIAL IVP PRN ×2 (02:43→19:41)
[2018-04-24] MEDS: D5 1/2 NS 1000 ML IV SOLUTION 1,000 ML IV SCH ×5 (03:37→20:49)
--- NOTE | 2018-04-24 04:05 | OPERATIVE REPORT ---
DATE OF SERVICE: 04/23/2018 PREOPERATIVE DIAGNOSIS: Diabetic ketoacidosis with inability to get a venous access. POSTOPERATIVE DIAGNOSIS: Diabetic ketoacidosis with inability to get a venous access. PROCEDURE: Ultrasound-guided right internal jugular vein central line placement. SURGEON: Xi Shea DO ANESTHESIA: 1% lidocaine 3 mL. ESTIMATED BLOOD LOSS: Minimal. COMPLICATIONS: None. INDICATIONS: The patient is a 38-year-old male with diabetic ketoacidosis. He has had multiple attempts of getting IV placed and has been unable to get adequate access. The patient and family understand risks and benefits of procedure and wished to proceed with procedure. Consent was signed in the chart. DESCRIPTION OF PROCEDURE: The patient was prepped and draped in a sterile fashion. Timeout was performed. Using ultrasound, the right internal jugular vein was located. Local anesthetic was infiltrated using ultrasound in the right neck. Once anesthetic effect took place, the right internal jugular vein was then accessed, dark nonpulsatile blood was withdrawn. This was accessed under guidance of ultrasound. The guidewire was inserted through the needle and the needle was removed. An 11 blade scalpel was used to make a stab incision at the insertion point. A dilator was placed over the guidewire and removed. The triple lumen catheter was then placed over the guidewire and inserted and the guidewire was then removed. All ports were accessed and flushed without difficulty. The catheter was then secured with 3-0 silk suture. The area was then washed and dried and sterile bandage was applied. Chest x-ray is pending. Job ID: [id number] DocumentID: [id number] Dictated Date: 04/23/2018 16:16:47 Theater Set Production Designer Date: 04/24/2018 04:04:39 Dictated By: XI SHEA DO [facility]OSPITALRick
[2018-04-24 04:09] LABS: BASOPHILS % (AUTO) 0 % (0-10); EOSINOPHILS # (AUTO) 0.1 10^3/uL (0.0-0.3); EOSINOPHILS % (AUTO) 1 % (0-10); HEMATOCRIT 38 % (40-54); LYMPHOCYTES # (AUTO) 2.1 X 10^3 (1.0-4.0); LYMPHOCYTES % (AUTO) 16 % (12-44); MEAN CORPUSCULAR HEMOGLOBIN 29 PG (25-34); MEAN CORPUSCULAR HGB CONC 34 G/DL (32-36); MEAN CORPUSCULAR VOLUME 85 FL (80-99); MEAN PLATELET VOLUME 11.2 FL (7.4-10.4); MONOCYTES # (AUTO) 1.2 X 10^3 (0.0-1.0); MONOCYTES % (AUTO) 9 % (0-12); NEUTROPHILS # (AUTO) 9.6 X 10^3 (1.8-7.8); NEUTROPHILS % (AUTO) 74 % (42-75); PLATELET COUNT 163 10^3/uL (130-400); RED BLOOD COUNT 4.52 10^6/uL (4.35-5.85); RED CELL DISTRIBUTION WIDTH 14.2 % (10.0-14.5); WHITE BLOOD COUNT 13.1 10^3/uL (4.3-11.0)
[2018-04-24 04:25] LABS: BUN/CREATININE RATIO 7; CALCIUM 8.4 MG/DL (8.5-10.1); CARBON DIOXIDE 14 MMOL/L (21-32); CHLORIDE 114 MMOL/L (98-107); CREATININE SERUM 1.28 MG/DL (0.60-1.30); GFR ESTIMATED > 60; GLUCOSE 239 MG/DL (70-105); MAGNESIUM 2.1 MG/DL (1.8-2.4); POTASSIUM 3.4 MMOL/L (3.6-5.0); SODIUM 139 MMOL/L (135-145)
[2018-04-24 04:27] LABS: PHOSPHORUS 0.7 MG/DL (2.3-4.7)
[2018-04-24 04:27] LABS: ABG BASE EXCESS -11.5 MMOL/L (-2.5-2.5); ABG OXYGEN SATURATION 99 % (94-100); ABG PCO2 34 MMHG (35-45); ABG PO2 99 MMHG (79-93); ABG TCO2 15.4 MMOL/L (21.0-31.0)
[2018-04-24 04:29] LABS: ALLENS TEST POSITIVE; INSPIRED O2 40%; PATIENT TEMP 98.2; VENTILATOR YES
[2018-04-24 04:30] LABS: ABG PH 7.25 (7.37-7.43)
[2018-04-24] MEDS: fentaNYL INJECTION 1,250 MCG in NS (IVPB) 250 ML IV SCH ×2 (05:04→20:45)
--- NOTE | 2018-04-24 05:41 | Pulmonary Progress Note ---
Sepsis Event Evaluation Height, Weight, BMI Height: 5'6.00" Weight: 290lbs. 6.0oz. 131.863403pq; 46.9 BMI Method:Stated Exam Exam Vital Signs Date Time Temp Pulse Resp B/P (MAP) Pulse Ox O2 Delivery O2 Flow Rate FiO2 04/24/18 05:00 94 23 106/68 (81) 100 Mechanical Ventilator 40.00 04/24/18 04:00 98 21 115/63 (80) 99 Mechanical Ventilator 40.00 04/24/18 04:00 Mechanical Ventilator 40 04/24/18 03:57 98.0 04/24/18 03:55 97 19 100 Mechanical Ventilator 40.00 04/24/18 03:50 99 24 100 45 04/24/18 03:00 98 23 116/69 (85) 98 Mechanical Ventilator 50.00 04/24/18 02:45 113/62 04/24/18 02:23 98 17 113/69 (84) 98 Mechanical Ventilator 50.00 04/24/18 02:00 98 17 116/68 (84) 99 Mechanical Ventilator 60.00 04/24/18 01:56 98 20 99 60 04/24/18 01:00 99 04/24/18 01:00 99 17 117/73 (88) 100 Mechanical Ventilator 60.00 04/24/18 00:11 117/72 04/24/18 00:00 101 15 117/72 (87) 100 Mechanical Ventilator 60.00 04/24/18 00:00 Mechanical Ventilator 60 04/23/18 23:43 97.4 04/23/18 23:00 92 15 93/57 (69) 100 Mechanical Ventilator 60.00 04/23/18 22:58 90 19 100 Mechanical Ventilator 60.00 04/23/18 22:48 90 27 100 80 04/23/18 22:00 92 11 102/61 (75) 100 Mechanical Ventilator 100.00 04/23/18 21:42 92/62 04/23/18 21:00 84 13 90/59 (69) 100 Mechanical Ventilator 100.00 04/23/18 20:10 86 15 114/78 (90) 100 Mechanical Ventilator 100.00 04/23/18 20:00 97.7 04/23/18 20:00 Mechanical Ventilator 80 04/23/18 19:48 85 31 100 100 04/23/18 19:13 112/80 04/23/18 19:00 87 04/23/18 19:00 87 14 112/80 (91) 100 Mechanical Ventilator 100.00 04/23/18 18:00 90 14 104/73 (83) 100 Mechanical Ventilator 100.00 04/23/18 17:05 99.4 04/23/18 17:00 92 16 99/71 (80) Mechanical Ventilator 100.00 04/23/18 16:27 101/82 04/23/18 16:00 111 18 118/79 (92) Mechanical Ventilator 100.00 04/23/18 16:00 Mechanical Ventilator 100 04/23/18 15:00 129 22 157/144 (148) 100 Mechanical Ventilator 100.00 04/23/18 14:54 126 44 100 100 04/23/18 14:45 125 15 155/127 (136) Mechanical Ventilator 100.00 04/23/18 14:30 117 28 139/95 (110) Mechanical Ventilator 100.00 04/23/18 14:15 120 17 135/120 (125) Mechanical Ventilator 100.00 04/23/18 14:15 141/95 04/23/18 14:00 117 23 Mechanical Ventilator 100.00 04/23/18 13:45 116 41 141/95 (110) Mechanical Ventilator 100.00 04/23/18 13:30 121 22 139/101 (114) Mechanical Ventilator 100.00 04/23/18 13:15 128 25 162/124 (137) 86 Mechanical Ventilator 100.00 04/23/18 13:04 133 34 100 100 04/23/18 13:01 129 04/23/18 13:00 Mechanical Ventilator 100.00 04/23/18 13:00 129 10 100 Mechanical Ventilator 100.00 04/23/18 12:38 97.2 04/23/18 12:30 118 20 144/106 (119) 100 Vapotherm 100.00 10.00 04/23/18 12:15 128 19 181/136 (151) 100 Vapotherm 100.00 10.00 04/23/18 12:00 Room Air 04/23/18 12:00 128 23 227/156 (179) 100 Vapotherm 100.00 10.00 04/23/18 11:45 123 27 163/155 (158) 100 Vapotherm 100.00 10.00 04/23/18 11:17 Vapotherm 10.00 30 04/23/18 10:48 118 04/23/18 10:45 118 35 145/81 (102) Vapotherm 100.00 10.00 04/23/18 10:30 117 34 152/89 (110) 100 Vapotherm 100.00 10.00 04/23/18 10:15 121 28 150/95 (113) 99 Nasal Cannula 5.00 04/23/18 10:00 100 Room Air 04/23/18 10:00 97.0 120 23 150/95 (113) 100 Room Air 04/23/18 09:50 127 16 139/86 (103) 98 Room Air 04/23/18 07:10 98.0 131 16 96/ 98 Room Air I & O 04/24/18 07:00 Intake Total 4364 ml Output Total 5750 ml Balance -1386 ml Height & Weight Height: 5'6.00" Weight: 290lbs. 6.0oz. 131.224550kd; 46.9 BMI Method:Stated General Appearance: Obese, Severe Distress, Other (appears older than stated age) HEENT: PERRL/EOMI, Moist Mucous Membranes Neck: Non Tender, Supple Respiratory: Lungs Clear, Accessory Muscle Use, Other (tachypneic) Cardiovascular: No JVD, No Murmur, Tachycardia Capillary Refill: Less Than 3 Seconds Gastrointestinal: non tender, soft Extremity: No Calf Tenderness, No Pedal Edema Neurologic/Psychiatric: Alert, Oriented x3 Skin: Tattoos/Piercings Results Lab Laboratory Tests 04/23/18 08:13 04/23/18 11:22 04/23/18 14:01 04/23/18 16:10 04/23/18 20:08 04/24/18 00:10 04/24/18 04:00 Assessment/Plan Assessment/Plan Acute respiratory failure -Continue ventilator care Acute severe DKA -Repeat UA -Check LA -DKA protocol Dehydration -Aggressive IVF Hypokalemia, hypophos -replace Morbid obesity with OHS genital yeast infection/folliculitis -add miconazole powder Penile yellow discharge -check STD panel -Add AJ Keith DO Apr 24, 2018 05:41
[2018-04-24] MEDS: MAGNESIUM 1 GM/100 ML IVPB 100 ML IV SCH (05:52)
[2018-04-24] MEDS: KCL 20 MEQ TAB (K-DUR) PO SCH (05:53)
[2018-04-24] MEDS ORDERED: POTASSIUM PHOSPHATE INJ 30 MM in NS (IVPB) 250 ML IV ONE (07:00)
[2018-04-24] MEDS: MICONAZOLE 2% POWDER (DESENEX AF) 90 GM TOP SCH ×2 (07:11→20:10)
--- NOTE | 2018-04-24 07:32 | Progress Note-Hospitalist ---
Subjective HPI/CC On Admission Date Seen by Provider: Apr 24, 2018 Time Seen by Provider: 07:26 Pt is a 38yoCM with a PMH of NIDDMII and HTN who presented to the ER due to shortness of breath. He is very dyspneic during my exam and his history is limited due to that. He also gives a varying history with what he is able to give. He states at first all of his symptoms started last night but review of records show he was in the ER on 04/21 for similar symptoms and was diagnosed with DKA but left AMA. Subjective/Events-last exam Pt is intubated and sedated. Unable to provide ROS. Nurse states he has developed penile discharge overnight. Focused Exam Lactate Level 04/24/18 05:40: Lactic Acid Level 1.06 Lactic Acid Level Laboratory Tests Test 04/24/18 05:40 Lactic Acid Level 1.06 MMOL/L (0.50-2.00) Objective Exam Vital Signs Vital Signs Date Time Temp Pulse Resp B/P (MAP) Pulse Ox O2 Delivery O2 Flow Rate FiO2 04/24/18 06:33 91 23 99 40 04/24/18 06:00 117/39 (65) Mechanical Ventilator 40.00 04/24/18 03:57 98.0 Capillary Refill : Less Than 3 Seconds General Appearance: Obese, Other Respiratory: Lungs Clear, Other (intubated) Cardiovascular: Regular Rate, Rhythm Gastrointestinal: Normal Bowel Sounds, Non Tender, Soft Genital/Rectal: Other (hannon in place, purulent penile discharge) Extremity: No Calf Tenderness, No Pedal Edema Neurologic/Psychiatric: Other (sedated) Skin: Tattoos/Piercings Results/Procedures Lab Laboratory Tests 04/23/18 08:13 04/23/18 11:22 04/23/18 14:01 04/23/18 16:10 04/23/18 20:08 04/24/18 00:10 04/24/18 04:00 Patient resulted labs reviewed. Imaging: Reviewed Imaging Report Assessment/Plan Assessment and Plan Assess & Plan/Chief Complaint DKA Diagnosis/Problems Diagnosis/Problems (1) Diabetic ketoacidosis Status: Acute Assessment & Plan: Severe DKA Insulin gtt Gap closed but still very acidotic Likely hyperchloremic acidosis but will get beta hydroxybutyrate to see if still in ketosis DKA protocol in place Has been noncompliant with home meds- will need education prior to discharge A1c pending Qualifiers: Diabetes mellitus type: type 2 Diabetes mellitus complication detail: without coma Qualified Codes: E11.10 - Type 2 diabetes mellitus with ketoacidosis without coma (2) Acute respiratory distress Assessment & Plan: Intubated Pulm consulted, appreciate recs On propofol for sedatoin Previous triglycerides 490- three years ago so will check one now (3) Penile discharge Assessment & Plan: new onset overnight Rocephin added STI panel ordered (4) UTI (urinary tract infection) Status: Acute Assessment & Plan: Continue Rocephin Await culture Qualifiers: Urinary tract infection type: acute cystitis Hematuria presence: without hematuria Qualified Codes: N30.00 - Acute cystitis without hematuria (5) JOE (acute kidney injury) Assessment & Plan: Improving, now 1.28 Continue IVF (6) Hypophosphatemia Status: Acute Assessment & Plan: Likely due to electrolyte shifts Continue replacement per protocol Discussed with pharmacy and given rate limits of replacement due to potassium in K Phos will also replace with oral phosph per OG (7) Transaminitis Assessment & Plan: Likely due to hypovolemia Trend Underlying ANDERSON possible though (8) Essential (primary) hypertension Status: Chronic Assessment & Plan: Well controlled currently, will trend (9) Marijuana abuse Assessment & Plan: Reports daily marijuana use Recommend cessation Clinical Quality Measures DVT/VTE Risk/Contraindication: Risk Factor Score Per Nursin RFS Level Per Nursing on Admit: 2=Moderate ROMA FREDERICK MD Apr 24, 2018 07:32
[2018-04-24] MEDS: PANTOPRAZOLE 40 MG (PROTONIX) VIAL IV SCH (07:51)
[2018-04-24 07:58] LABS: BILIRUBIN,URINE NEGATIVE (NEGATIVE); CLARITY,URINE VERY CLOUDY; COLOR,URINE YELLOW; GLUCOSE, URINE (UA) 4+ (NEGATIVE); KETONES,URINE 4+ (NEGATIVE); LEUKOCYTE ESTERASE ,URINE 1+ (NEGATIVE); NITRITE,URINE NEGATIVE (NEGATIVE); PH,URINE 6 (5-9); PROTEIN,URINE 2+ (NEGATIVE); UROBILINOGEN,URINE NORMAL (NORMAL)
[2018-04-24 08:20] LABS: AMORPHOUS SEDIMENT,UR LARGE AMOR URATES /LPF; BACTERIA,URINE NEGATIVE /HPF; RBC,URINE RARE /HPF; WBC,URINE 0-2 /HPF
--- NOTE | 2018-04-24 08:40 | Diagnostic Imaging Report ---
INDICATION: Dyspnea and ventilator support. TIME OF EXAMINATION: 3:19 AM. COMPARISON: 04/23/2018. FINDINGS: The support lines and catheters appear to be in stable position. The heart size is stable. The lungs appear to be fairly clear. There is some minimal atelectasis in the right base. There is no effusion or pneumothorax. IMPRESSION: Stable chest with minimal right basilar subsegmental atelectasis. Dictated by: Dictated on workstation # [id number]
[2018-04-24] MEDS: ENOXAPARIN 60 MG/0.6 ML (LOVENOX) SYR SC SCH ×2 (08:48→20:48)
[2018-04-24] MEDS: cefTRIAXone FOR IV USE 1,000 MG in NS (IVPB) 50 ML IV SCH (08:53)
[2018-04-24] MEDS: FLUCONAZOLE 200 MG/100 ML 50 ML, EMPTY IV BAG (PVC) 1 EA IV SCH ×2 (09:25)
[2018-04-24] MEDS: POT PHOS/NA PHOS (K-PHOS NEUTRAL) NG SCH ×3 (09:26→20:48)
--- NOTE | 2018-04-24 09:56 | Progress Note ---
Subjective Date Seen by a Provider: Apr 24, 2018 Time Seen by a Provider: 09:54 Subjective/Events-last exam Patient intubated and sedated. No family at bedside. Central line no issues. Focused Exam Lactate Level 04/24/18 05:40: Lactic Acid Level 1.06 Objective Exam Vital Signs Date Time Temp Pulse Resp B/P (MAP) Pulse Ox O2 Delivery O2 Flow Rate FiO2 04/24/18 09:05 97 24 98 40 04/24/18 08:00 97.8 04/24/18 07:51 121/53 04/24/18 07:00 102 04/24/18 06:33 91 23 99 40 04/24/18 06:00 92 22 117/39 (65) Mechanical Ventilator 40.00 04/24/18 05:17 112/59 04/24/18 05:00 94 23 106/68 (81) 100 Mechanical Ventilator 40.00 04/24/18 04:00 98 21 115/63 (80) 99 Mechanical Ventilator 40.00 04/24/18 04:00 Mechanical Ventilator 40 04/24/18 03:57 98.0 04/24/18 03:55 97 19 100 Mechanical Ventilator 40.00 04/24/18 03:50 99 24 100 45 04/24/18 03:00 98 23 116/69 (85) 98 Mechanical Ventilator 50.00 04/24/18 02:45 113/62 04/24/18 02:23 98 17 113/69 (84) 98 Mechanical Ventilator 50.00 04/24/18 02:00 98 17 116/68 (84) 99 Mechanical Ventilator 60.00 04/24/18 01:56 98 20 99 60 04/24/18 01:00 99 04/24/18 01:00 99 17 117/73 (88) 100 Mechanical Ventilator 60.00 04/24/18 00:11 117/72 04/24/18 00:00 101 15 117/72 (87) 100 Mechanical Ventilator 60.00 04/24/18 00:00 Mechanical Ventilator 60 04/23/18 23:43 97.4 04/23/18 23:00 92 15 93/57 (69) 100 Mechanical Ventilator 60.00 04/23/18 22:58 90 19 100 Mechanical Ventilator 60.00 04/23/18 22:48 90 27 100 80 04/23/18 22:00 92 11 102/61 (75) 100 Mechanical Ventilator 100.00 04/23/18 21:42 92/62 04/23/18 21:00 84 13 90/59 (69) 100 Mechanical Ventilator 100.00 04/23/18 20:10 86 15 114/78 (90) 100 Mechanical Ventilator 100.00 04/23/18 20:00 97.7 04/23/18 20:00 Mechanical Ventilator 80 04/23/18 19:48 85 31 100 100 04/23/18 19:13 112/80 04/23/18 19:00 87 04/23/18 19:00 87 14 112/80 (91) 100 Mechanical Ventilator 100.00 04/23/18 18:00 90 14 104/73 (83) 100 Mechanical Ventilator 100.00 04/23/18 17:05 99.4 04/23/18 17:00 92 16 99/71 (80) Mechanical Ventilator 100.00 04/23/18 16:27 101/82 04/23/18 16:00 111 18 118/79 (92) Mechanical Ventilator 100.00 04/23/18 16:00 Mechanical Ventilator 100 04/23/18 15:00 129 22 157/144 (148) 100 Mechanical Ventilator 100.00 04/23/18 14:54 126 44 100 100 04/23/18 14:45 125 15 155/127 (136) Mechanical Ventilator 100.00 04/23/18 14:30 117 28 139/95 (110) Mechanical Ventilator 100.00 04/23/18 14:15 120 17 135/120 (125) Mechanical Ventilator 100.00 04/23/18 14:15 141/95 04/23/18 14:00 117 23 Mechanical Ventilator 100.00 04/23/18 13:45 116 41 141/95 (110) Mechanical Ventilator 100.00 04/23/18 13:30 121 22 139/101 (114) Mechanical Ventilator 100.00 04/23/18 13:15 128 25 162/124 (137) 86 Mechanical Ventilator 100.00 04/23/18 13:04 133 34 100 100 04/23/18 13:01 129 04/23/18 13:00 Mechanical Ventilator 100.00 04/23/18 13:00 129 10 100 Mechanical Ventilator 100.00 04/23/18 12:38 97.2 04/23/18 12:30 118 20 144/106 (119) 100 Vapotherm 100.00 10.00 04/23/18 12:15 128 19 181/136 (151) 100 Vapotherm 100.00 10.00 04/23/18 12:00 Room Air 04/23/18 12:00 128 23 227/156 (179) 100 Vapotherm 100.00 10.00 04/23/18 11:45 123 27 163/155 (158) 100 Vapotherm 100.00 10.00 04/23/18 11:17 Vapotherm 10.00 30 04/23/18 10:48 118 04/23/18 10:45 118 35 145/81 (102) Vapotherm 100.00 10.00 04/23/18 10:30 117 34 152/89 (110) 100 Vapotherm 100.00 10.00 04/23/18 10:15 121 28 150/95 (113) 99 Nasal Cannula 5.00 04/23/18 10:00 100 Room Air 04/23/18 10:00 97.0 120 23 150/95 (113) 100 Room Air I & O 04/24/18 07:00 Intake Total 4364 ml Output Total 6350 ml Balance -1986 ml Capillary Refill : Less Than 3 Seconds General Appearance: Obese, Other (intubated/sedated) HEENT: PERRL/EOMI, Moist Mucous Membranes Neck: Non Tender, Supple Respiratory: Lungs Clear, Other (intubated) Cardiovascular: Regular Rate, Rhythm Gastrointestinal: non tender, soft Extremity: No Calf Tenderness, No Pedal Edema Neurologic/Psychiatric: Other (sedated) Skin: Tattoos/Piercings Results Lab Laboratory Tests 04/23/18 10:31: Glucometer 590*H 04/23/18 11:22: Sodium Level 132L, Potassium Level 5.4H, Chloride Level 103, Carbon Dioxide Level < 5*L, Anion Gap 24H, Blood Urea Nitrogen 16, Creatinine 1.87H, Estimat Glomerular Filtration Rate 41, BUN/Creatinine Ratio 9, Glucose Level 644*H, Calcium Level 9.7 04/23/18 13:19: Glucometer 468*H 04/23/18 14:01: Sodium Level 131L, Potassium Level 5.5H, Chloride Level 104, Carbon Dioxide Level 6*L, Anion Gap 21H, Blood Urea Nitrogen 16, Creatinine 1.74H, Estimat Glomerular Filtration Rate 45, BUN/Creatinine Ratio 9, Glucose Level 532*H, Calcium Level 9.0 04/23/18 14:16: Glucometer 430*H 04/23/18 14:45: Blood Gas Puncture Site R RAD, Blood Gas Patient Temperature 99.1, Arterial Blood pH 7.01*L, Arterial Blood Partial Pressure CO2 19*L, Arterial Blood Partial Pressure O2 401H, Arterial Blood HCO3 5*L, Arterial Blood Total CO2 5.1L , Arterial Blood Oxygen Saturation 100, Arterial Blood Base Excess -24.4L, Andrea Test YES-POS, Blood Gas Ventilator Setting YES, Blood Gas Inspired Oxygen 100 04/23/18 15:26: Glucometer 390H 04/23/18 16:10: Sodium Level 137, Potassium Level 5.3H, Chloride Level 108H, Carbon Dioxide Level 7*L, Anion Gap 22H, Blood Urea Nitrogen 15, Creatinine 1.63H, Estimat Glomerular Filtration Rate 48, BUN/Creatinine Ratio 9, Glucose Level 375H, Calcium Level 8.3L 04/23/18 17:20: Glucometer 329H 04/23/18 18:43: Glucometer 295H 04/23/18 19:56: Glucometer 258H 04/23/18 20:08: Sodium Level 138, Potassium Level 4.2, Chloride Level 111H, Carbon Dioxide Level 7*L, Anion Gap 20H, Blood Urea Nitrogen 12, Creatinine 1.58H, Estimat Glomerular Filtration Rate 50, BUN/Creatinine Ratio 8, Glucose Level 280H, Calcium Level 8.5 04/23/18 21:05: Glucometer 243H 04/23/18 22:02: Glucometer 259H 04/23/18 22:53: Glucometer 269H 04/24/18 00:06: Glucometer 227H 04/24/18 00:10: Sodium Level 139, Potassium Level 3.5L, Chloride Level 113H, Carbon Dioxide Level 11L, Anion Gap 15H, Blood Urea Nitrogen 10, Creatinine 1.41H, Estimat Glomerular Filtration Rate 57, BUN/Creatinine Ratio 7, Glucose Level 240H, Calcium Level 8.4L 04/24/18 01:03: Glucometer 263H 04/24/18 01:56: Glucometer 203H 04/24/18 02:50: Glucometer 189H 04/24/18 03:59: Glucometer 224H 04/24/18 04:00: White Blood Count 13.1H, Red Blood Count 4.52, Hemoglobin 13.0#L, Hematocrit 38L , Mean Corpuscular Volume 85, Mean Corpuscular Hemoglobin 29, Mean Corpuscular Hemoglobin Concent 34, Red Cell Distribution Width 14.2, Platelet Count 163, Mean Platelet Volume 11.2H, Neutrophils (%) (Auto) 74, Lymphocytes (%) (Auto) 16 , Monocytes (%) (Auto) 9, Eosinophils (%) (Auto) 1, Basophils (%) (Auto) 0, Neutrophils # (Auto) 9.6H, Lymphocytes # (Auto) 2.1, Monocytes # (Auto) 1.2H, Eosinophils # (Auto) 0.1, Basophils # (Auto) 0.0, Sodium Level 139, Potassium Level 3.4L, Chloride Level 114H, Carbon Dioxide Level 14L, Anion Gap 11, Blood Urea Nitrogen 9, Creatinine 1.28, Estimat Glomerular Filtration Rate > 60, BUN/ Creatinine Ratio 7, Glucose Level 239H, Calcium Level 8.4L, Phosphorus Level 0.7 #*L, Magnesium Level 2.1, Triglycerides Level 642H, Beta-Hydroxybutyrate (Chem panel) 2.35H 04/24/18 04:20: Blood Gas Puncture Site LEFT RADIAL, Blood Gas Patient Temperature 98.2, Arterial Blood pH 7.25*L, Arterial Blood Partial Pressure CO2 34L, Arterial Blood Partial Pressure O2 99H, Arterial Blood HCO3 14*L, Arterial Blood Total CO2 15.4L, Arterial Blood Oxygen Saturation 99, Arterial Blood Base Excess - 11.5L, Andrea Test POSITIVE, Blood Gas Ventilator Setting YES, Blood Gas Inspired Oxygen 40% 04/24/18 05:07: Glucometer 243H 04/24/18 05:30: Urine Color YELLOW, Urine Clarity VERY CLOUDYH, Urine pH 6, Urine Specific [place] 1.020, Urine Protein 2+H, Urine Glucose (UA) 4+H, Urine Ketones 4+H, Urine Nitrite NEGATIVE, Urine Bilirubin NEGATIVE, Urine Urobilinogen NORMAL, Urine Leukocyte Esterase 1+H, Urine RBC (Auto) 2+H, Urine RBC RARE, Urine WBC 0- 2, Urine Squamous Epithelial Cells NONE, Urine Crystals NONE, Urine Amorphous Sediment LARGE LENY URATESH, Urine Bacteria NEGATIVE, Urine Casts PRESENT, Urine Coarse Granular Casts RAREH, Urine Mucus NEGATIVE, Urine Culture Indicated YES 04/24/18 05:40: Lactic Acid Level 1.06 04/24/18 05:54: 04/24/18 06:17: Glucometer 211H 04/24/18 07:05: Glucometer 211H 04/24/18 07:57: Glucometer 200H 04/24/18 08:58: Glucometer 193H Microbiology 04/24/18 Genital Culture - Preliminary, Resulted Assessment/Plan Assessment/Plan Assessment/Plan DKA/dehydration/no venous access, marijuana use, UTI, morbid obesity patient intubated and sedated central line no issues at this time medical management will sign off call if needed. Clinical Quality Measures DVT/VTE Risk/Contraindication: Risk Factor Score Per Nursin RFS Level Per Nursing on Admit: 2=Moderate XI DURAND DO Apr 24, 2018 09:55
[2018-04-24] MEDS: inSUlin REGULAR TPN/DRIP ONLY 250 UNITS in NORMAL SALINE 250 ML IV SCH (10:33)
[2018-04-24] MEDS: DEXMEDETOMIDINE INJECTION 1,000 MCG in NS (IVPB) 250 ML IV SCH ×3 (10:34→21:15)
--- NOTE | 2018-04-24 11:10 | NUR ---
Pastoral care visit, visited at bedside with pts so.
[2018-04-24 14:04] LABS: BUN/CREATININE RATIO 6; CALCIUM 8.5 MG/DL (8.5-10.1); CARBON DIOXIDE 18 MMOL/L (21-32); CHLORIDE 115 MMOL/L (98-107); CREATININE SERUM 1.08 MG/DL (0.60-1.30); GFR ESTIMATED > 60; GLUCOSE 153 MG/DL (70-105); POTASSIUM 3.2 MMOL/L (3.6-5.0); SODIUM 139 MMOL/L (135-145)
--- NOTE | 2018-04-24 14:26 | NUR ---
LABS RESULTS GIVEN TO DR KELLEY.
[2018-04-24] MEDS ORDERED: KCL 20 MEQ TAB (K-DUR) PO NR (14:44)
[2018-04-24] MEDS ORDERED: POTASSIUM PHOSPHATE INJ 30 MM in NS (IVPB) 250 ML IV NR (14:45)
--- NOTE | 2018-04-24 15:40 | NUR ---
DR FREDERICK INFORMED OF OG DRAINAGE AMT. NO NEW ORDERS RECEIVED.
[2018-04-24 20:11] LABS: BUN/CREATININE RATIO 5; CALCIUM 8.5 MG/DL (8.5-10.1); CARBON DIOXIDE 16 MMOL/L (21-32); CHLORIDE 113 MMOL/L (98-107); CREATININE SERUM 1.05 MG/DL (0.60-1.30); GFR ESTIMATED > 60; GLUCOSE 128 MG/DL (70-105); MAGNESIUM 1.8 MG/DL (1.8-2.4); PHOSPHORUS 1.2 MG/DL (2.3-4.7); POTASSIUM 3.1 MMOL/L (3.6-5.0); SODIUM 139 MMOL/L (135-145)
[2018-04-24 22:35] LABS: BUN/CREATININE RATIO 5; CALCIUM 8.3 MG/DL (8.5-10.1); CARBON DIOXIDE 16 MMOL/L (21-32); CHLORIDE 114 MMOL/L (98-107); CREATININE SERUM 1.05 MG/DL (0.60-1.30); GFR ESTIMATED > 60; GLUCOSE 216 MG/DL (70-105); SODIUM 138 MMOL/L (135-145)
[2018-04-24] MEDS ORDERED: KCL 20 MEQ POWDER FOR ORAL SOLUTION PO ONE (22:45)
[2018-04-25] VITALS (33 sets, daily range): BP systolic 90–121; BP diastolic 56–79
[2018-04-25] MEDS: POTASSIUM CL 10MEQ/50ML IVPB 50 ML IV SCH ×12 (00:12→23:33)
[2018-04-25] MEDS: D5 1/2 NS 1000 ML IV SOLUTION 1,000 ML IV SCH ×4 (01:13→22:13)
[2018-04-25] MEDS: RT-ALBUTEROL/IPRATROPIUM 3 ML (DUONEB) VIAL INH SCH ×5 (02:03→18:52)
[2018-04-25] MEDS: 1/2 NS IV SOLUTION 1,000 ML IV SCH ×6 (02:19→19:01)
[2018-04-25] MEDS: PROPOFOL DRIP (ICU) 100 ML IV SCH ×5 (02:20→21:41)
[2018-04-25 02:52] LABS: OCCULT BLOOD,GASTRIC FLUID POSITIVE (NEGATIVE)
[2018-04-25] MEDS: DEXMEDETOMIDINE INJECTION 1,000 MCG in NS (IVPB) 250 ML IV SCH ×4 (03:27→20:18)
[2018-04-25 03:52] LABS: BASOPHILS % (AUTO) 0 % (0-10); EOSINOPHILS % (AUTO) 0 % (0-10); HEMATOCRIT 37 % (40-54); HEMOGLOBIN 12.4 G/DL (13.3-17.7); LYMPHOCYTES # (AUTO) 2.5 X 10^3 (1.0-4.0); LYMPHOCYTES % (AUTO) 23 % (12-44); MEAN CORPUSCULAR HEMOGLOBIN 29 PG (25-34); MEAN CORPUSCULAR HGB CONC 34 G/DL (32-36); MEAN CORPUSCULAR VOLUME 85 FL (80-99); MEAN PLATELET VOLUME 10.9 FL (7.4-10.4); MONOCYTES # (AUTO) 1.1 X 10^3 (0.0-1.0); MONOCYTES % (AUTO) 10 % (0-12); NEUTROPHILS # (AUTO) 7.2 X 10^3 (1.8-7.8); NEUTROPHILS % (AUTO) 67 % (42-75); PLATELET COUNT 177 10^3/uL (130-400); RED BLOOD COUNT 4.31 10^6/uL (4.35-5.85); RED CELL DISTRIBUTION WIDTH 14.6 % (10.0-14.5); WHITE BLOOD COUNT 10.8 10^3/uL (4.3-11.0)
[2018-04-25 04:10] LABS: BUN/CREATININE RATIO 4; CALCIUM 8.4 MG/DL (8.5-10.1); CARBON DIOXIDE 17 MMOL/L (21-32); CHLORIDE 114 MMOL/L (98-107); CREATININE SERUM 0.97 MG/DL (0.60-1.30); GFR ESTIMATED > 60; GLUCOSE 207 MG/DL (70-105); MAGNESIUM 1.7 MG/DL (1.8-2.4); PHOSPHORUS 1.1 MG/DL (2.3-4.7); SODIUM 139 MMOL/L (135-145); TRIGLYCERIDES 438 MG/DL (<150)
[2018-04-25] MEDS ORDERED: KCL 10 MEQ TAB (MICRO K) PO ONE (05:00)
[2018-04-25] MEDS ORDERED: POTASSIUM PHOSPHATE INJ 30 MM in NS (IVPB) 250 ML IV ONE (05:00)
[2018-04-25] MEDS ORDERED: POTASSIUM CL 10MEQ/50ML IVPB 50 ML IV ONE (05:00)
[2018-04-25 05:01] LABS: ABG BASE EXCESS -6.7 MMOL/L (-2.5-2.5); ABG OXYGEN SATURATION 98 % (94-100); ABG PCO2 34 MMHG (35-45); ABG PO2 82 MMHG (79-93); ABG TCO2 18.8 MMOL/L (21.0-31.0)
[2018-04-25 05:04] LABS: ABG PH 7.34 (7.37-7.43); ALLENS TEST YES-POS; PATIENT TEMP 100.8; VENTILATOR YES
--- NOTE | 2018-04-25 05:04 | Pulmonary Progress Note ---
Subjective Time Seen by a Provider: 05:09 Subjective/Events-last exam Sedated on vent Sepsis Event Evaluation Height, Weight, BMI Height: 5'6.00" Weight: 310lbs. 0.0oz. 140.188109fe; 46.9 BMI Method:Stated Focused Exam Lactate Level 04/24/18 05:40: Lactic Acid Level 1.06 Exam Exam Vital Signs Date Time Temp Pulse Resp B/P (MAP) Pulse Ox O2 Delivery O2 Flow Rate FiO2 04/25/18 04:00 100.8 04/25/18 04:00 Mechanical Ventilator 30 04/25/18 03:00 108 28 115/71 (86) 95 Mechanical Ventilator 30.00 04/25/18 02:20 99.1 100 24 105/58 97 Mechanical Ventilator 30.00 04/25/18 02:03 100 24 97 30 04/25/18 02:00 101 25 101/61 (74) 97 Mechanical Ventilator 30.00 04/25/18 01:00 103 25 105/56 (72) 96 Mechanical Ventilator 30.00 04/25/18 01:00 103 04/25/18 00:28 105 26 97 30 04/25/18 00:00 105 25 110/68 (82) 97 Mechanical Ventilator 30.00 04/25/18 00:00 99.1 04/25/18 00:00 Mechanical Ventilator 30 04/24/18 23:22 105 04/24/18 23:00 105 23 106/60 (75) 96 Mechanical Ventilator 30.00 04/24/18 22:38 102 26 96 30 04/24/18 22:00 104 25 115/75 (88) 96 Mechanical Ventilator 30.00 04/24/18 21:00 109 25 119/74 (89) Mechanical Ventilator 30.00 04/24/18 20:09 105/47 04/24/18 20:00 99.8 04/24/18 20:00 115 26 105/47 (66) 95 Mechanical Ventilator 30.00 04/24/18 20:00 Mechanical Ventilator 30 04/24/18 19:45 117 28 95 30 04/24/18 19:00 122 22 111/56 (74) 94 Mechanical Ventilator 30.00 04/24/18 19:00 122 04/24/18 18:30 101 22 97 30 04/24/18 18:00 100 23 101/56 (71) 93 Mechanical Ventilator 30.00 1/18/19 17:00 98 19 92/60 (71) 98 Mechanical Ventilator 30.00 04/24/18 16:00 100 24 95/50 (65) 97 Mechanical Ventilator 30.00 04/24/18 15:44 95/50 04/24/18 15:35 100.5 04/24/18 15:17 Mechanical Ventilator 30 04/24/18 15:00 99 26 94/55 (68) 97 Mechanical Ventilator 30.00 04/24/18 14:32 96 25 97 40 04/24/18 14:00 96 24 105/59 (74) 97 Mechanical Ventilator 30.00 04/24/18 13:00 101 25 116/57 (76) 96 Mechanical Ventilator 30.00 04/24/18 13:00 100 04/24/18 12:44 Mechanical Ventilator 30 04/24/18 12:09 99.2 04/24/18 12:00 100 25 104/66 (79) 97 Mechanical Ventilator 30.00 04/24/18 11:38 97/66 04/24/18 11:00 104 25 97/56 (70) 95 Mechanical Ventilator 30.00 04/24/18 10:06 104 28 91 40 04/24/18 10:00 102 25 101/58 (72) 93 Mechanical Ventilator 30.00 04/24/18 09:05 97 24 98 40 04/24/18 09:00 97 22 88/66 (73) 98 Mechanical Ventilator 30.00 04/24/18 08:00 101 25 87/56 (66) 98 Mechanical Ventilator 30.00 04/24/18 08:00 Mechanical Ventilator 30 04/24/18 08:00 97.8 04/24/18 07:51 121/53 04/24/18 07:00 95 18 115/94 (101) 97 Mechanical Ventilator 30.00 04/24/18 07:00 102 04/24/18 06:33 91 23 99 40 04/24/18 06:00 92 22 117/39 (65) Mechanical Ventilator 40.00 04/24/18 05:17 112/59 04/24/18 05:00 94 23 106/68 (81) 100 Mechanical Ventilator 40.00 I & O 04/25/18 07:00 Intake Total 5092.5 ml Output Total 3650 ml Balance 1442.5 ml Height & Weight Height: 5'6.00" Weight: 310lbs. 0.0oz. 140.972767hj; 46.9 BMI Method:Stated General Appearance: Obese, Other (intubated/sedated) HEENT: PERRL/EOMI, Moist Mucous Membranes Neck: Non Tender, Supple Respiratory: Lungs Clear, Other (intubated) Cardiovascular: Regular Rate, Rhythm Capillary Refill: Less Than 3 Seconds Gastrointestinal: non tender, soft Extremity: No Calf Tenderness, No Pedal Edema Neurologic/Psychiatric: Other (sedated) Skin: Tattoos/Piercings Results Lab Laboratory Tests 04/23/18 08:13 04/23/18 11:22 04/23/18 14:01 04/23/18 16:10 04/23/18 20:08 04/24/18 00:10 04/24/18 04:00 04/24/18 13:25 04/24/18 19:40 04/24/18 22:08 04/25/18 03:45 Assessment/Plan Assessment/Plan Acute respiratory failure -Continue ventilator care for now -Check BNP Acute severe DKA -Continue DKA protocol -Will repeat UA for ketones -GAP is closed however his C02 is still only 17. I recommend continuing insulin gtt. Anemia -Gastric occult is positive -Make protonix BID IV -PT is high risk for DVT/PE- will continue ppx lovenox for now and montior hb -hb has dropped however he has received a lot of IVF. Hypokalemia, hypophos -replace -50meq per protocol -Add 40meq PO and 30mmol of Kphos -Repeat chem 2hrs after Kphos Morbid obesity with OHS genital yeast infection/folliculitis -add miconazole powder Penile yellow discharge -check STD panel -Add AJ Keith DO Apr 25, 2018 05:04
[2018-04-25] MEDS: MAGNESIUM 1 GM/100 ML IVPB 100 ML IV SCH ×4 (05:28→16:45)
[2018-04-25] MEDS: KCL 20 MEQ TAB (K-DUR) PO SCH (05:28)
[2018-04-25] MEDS ORDERED: KCL 20 MEQ POWDER FOR ORAL SOLUTION PO ONE (06:30)
[2018-04-25] MEDS: inSUlin REGULAR TPN/DRIP ONLY 250 UNITS in NORMAL SALINE 250 ML IV SCH ×2 (07:22→16:44)
--- NOTE | 2018-04-25 07:22 | Progress Note-Hospitalist ---
Subjective HPI/CC On Admission Date Seen by Provider: Apr 25, 2018 Time Seen by Provider: 07:17 Pt is a 38yoCM with a PMH of NIDDMII and HTN who presented to the ER due to shortness of breath. He is very dyspneic during my exam and his history is limited due to that. He also gives a varying history with what he is able to give. He states at first all of his symptoms started last night but review of records show he was in the ER on 04/21 for similar symptoms and was diagnosed with DKA but left AMA. Subjective/Events-last exam Pt is intubated and sedated. No ROS possible. Per RN no concerns. Potassium being replaced. Focused Exam Lactate Level 04/24/18 05:40: Lactic Acid Level 1.06 Objective Exam Vital Signs Vital Signs Date Time Temp Pulse Resp B/P (MAP) Pulse Ox O2 Delivery O2 Flow Rate FiO2 04/25/18 06:11 99/57 04/25/18 06:00 100 26 97 Mechanical Ventilator 30.00 04/25/18 04:00 100.8 04/25/18 04:00 30 Capillary Refill : Less Than 3 Seconds General Appearance: Obese, Other (sedated on vent) Respiratory: Lungs Clear, Other (on vent) Cardiovascular: Regular Rate, Rhythm, No Murmur Gastrointestinal: Normal Bowel Sounds, Non Tender, Soft Genital/Rectal: Other (hannon in place) Neurologic/Psychiatric: Other (sedated, appears to be resting comfortably) Skin: Tattoos/Piercings Results/Procedures Lab Laboratory Tests 04/24/18 13:25 04/24/18 19:40 04/24/18 22:08 04/25/18 03:45 Patient resulted labs reviewed. Imaging: Reviewed Imaging Report Assessment/Plan Assessment and Plan Assess & Plan/Chief Complaint DKA Diagnosis/Problems Diagnosis/Problems (1) Diabetic ketoacidosis Status: Acute Assessment & Plan: Severe DKA Insulin gtt- gap now closed will transition off drip Levemir 30 units ordered with SSI to follow Has been noncompliant with home meds- will need education prior to discharge A1c 15.5 Qualifiers: Diabetes mellitus type: type 2 Diabetes mellitus complication detail: without coma Qualified Codes: E11.10 - Type 2 diabetes mellitus with ketoacidosis without coma (2) Acute respiratory distress Assessment & Plan: Intubated Pulm consulted, appreciate recs On propofol for sedation but attempt to keep at dosing less than 50 due to hypertriglyceridemia (3) Penile discharge Assessment & Plan: Await culture results and GC/Chlam testing Rocephin (4) UTI (urinary tract infection) Status: Acute Assessment & Plan: Continue Rocephin Await culture Qualifiers: Urinary tract infection type: acute cystitis Hematuria presence: without hematuria Qualified Codes: N30.00 - Acute cystitis without hematuria (5) JOE (acute kidney injury) Assessment & Plan: Resolved (6) Hypophosphatemia Status: Acute Assessment & Plan: Improving Likely due to electrolyte shifts Continue replacement per protocol (7) Transaminitis Assessment & Plan: Likely due to hypovolemia Trend Underlying ANDERSON possible though (8) Essential (primary) hypertension Status: Chronic Assessment & Plan: Well controlled currently, will trend (9) Marijuana abuse Assessment & Plan: Reports daily marijuana use Recommend cessation Clinical Quality Measures DVT/VTE Risk/Contraindication: Risk Factor Score Per Nursin RFS Level Per Nursing on Admit: 2=Moderate ROMA FREDERICK MD Apr 25, 2018 07:21
[2018-04-25 07:44] LABS: BILIRUBIN,URINE NEGATIVE (NEGATIVE); CLARITY,URINE CLEAR; COLOR,URINE YELLOW; GLUCOSE, URINE (UA) 3+ (NEGATIVE); KETONES,URINE NEGATIVE (NEGATIVE); LEUKOCYTE ESTERASE ,URINE 3+ (NEGATIVE); NITRITE,URINE NEGATIVE (NEGATIVE); PH,URINE 6 (5-9); PROTEIN,URINE 1+ (NEGATIVE); UROBILINOGEN,URINE NORMAL (NORMAL)
[2018-04-25] MEDS ORDERED: NS IV 1000 ML 1,000 ML ONE (07:50)
[2018-04-25 07:55] LABS: INSPIRED O2 30% FI02
[2018-04-25] MEDS ORDERED: inSUlin DETERMIR 1 UNIT/0.01 ML (LEVEMIR) CHARGE PER UNIT SQ SCH (08:00)
[2018-04-25 08:07] LABS: WBC,URINE 50-100 /HPF
[2018-04-25 08:08] LABS: AMORPHOUS SEDIMENT,UR FEW AMOR URATES /LPF; BACTERIA,URINE TRACE /HPF; SQUAMOUS EPITHELIAL CELL,UR 0-2 /HPF
--- NOTE | 2018-04-25 08:32 | Diagnostic Imaging Report ---
INDICATION: Dyspnea. COMPARISON: 04/24/2018. DISCUSSION: Single portable upright view of the chest was obtained. Exam is limited due to patient body habitus and portable technique. The tip of the endotracheal tube is very difficult to visualize though appears grossly stable. Right IJ sheath and enteric tube are also grossly stable. Cardiomegaly is stable. Suspect moderate pulmonary edema and/or atelectasis. No pleural fluid or pneumothorax. IMPRESSION: 1. Limited exam. Cardiomegaly is again noted. There is likely moderate pulmonary edema present. Dictated by: Dictated on workstation # [id number]
[2018-04-25] MEDS: cefTRIAXone FOR IV USE 1,000 MG in NS (IVPB) 50 ML IV SCH (09:24)
[2018-04-25] MEDS: PANTOPRAZOLE 40 MG (PROTONIX) VIAL IV SCH (09:25)
[2018-04-25] MEDS: POT PHOS/NA PHOS (K-PHOS NEUTRAL) NG SCH ×3 (09:26→22:13)
[2018-04-25] MEDS: FLUCONAZOLE 200 MG/100 ML 50 ML, EMPTY IV BAG (PVC) 1 EA IV SCH ×2 (09:26)
[2018-04-25] MEDS: MICONAZOLE 2% POWDER (DESENEX AF) 90 GM TOP SCH ×2 (09:27→22:14)
[2018-04-25] MEDS: ENOXAPARIN 60 MG/0.6 ML (LOVENOX) SYR SC SCH ×2 (09:27→22:13)
[2018-04-25] MEDS: fentaNYL INJECTION 1,250 MCG in NS (IVPB) 250 ML IV SCH ×2 (09:33→17:08)
[2018-04-25] MEDS ORDERED: inSUlin ASPART (NovoLOG) 1 UNIT/0.01 ML (CHARGE PER UNIT) SC SCH (11:00)
[2018-04-25 13:30] LABS: BASOPHILS % (AUTO) 0 % (0-10); EOSINOPHILS % (AUTO) 0 % (0-10); HEMATOCRIT 35 % (40-54); HEMOGLOBIN 11.7 G/DL (13.3-17.7); LYMPHOCYTES # (AUTO) 1.6 X 10^3 (1.0-4.0); LYMPHOCYTES % (AUTO) 15 % (12-44); MEAN CORPUSCULAR HEMOGLOBIN 29 PG (25-34); MEAN CORPUSCULAR HGB CONC 33 G/DL (32-36); MEAN CORPUSCULAR VOLUME 86 FL (80-99); MEAN PLATELET VOLUME 11.2 FL (7.4-10.4); MONOCYTES # (AUTO) 1.1 X 10^3 (0.0-1.0); MONOCYTES % (AUTO) 11 % (0-12); NEUTROPHILS # (AUTO) 7.6 X 10^3 (1.8-7.8); NEUTROPHILS % (AUTO) 73 % (42-75); PLATELET COUNT 174 10^3/uL (130-400); RED BLOOD COUNT 4.09 10^6/uL (4.35-5.85); RED CELL DISTRIBUTION WIDTH 14.7 % (10.0-14.5); WHITE BLOOD COUNT 10.4 10^3/uL (4.3-11.0)
[2018-04-25 13:45] LABS: BUN/CREATININE RATIO 4; CARBON DIOXIDE 14 MMOL/L (21-32); CHLORIDE 113 MMOL/L (98-107); GFR ESTIMATED > 60; GLUCOSE 234 MG/DL (70-105); MAGNESIUM 1.7 MG/DL (1.8-2.4); PHOSPHORUS 2.5 MG/DL (2.3-4.7); SODIUM 138 MMOL/L (135-145)
--- NOTE | 2018-04-25 14:11 | NUR ---
NOTIFIED DR. FREDERICK OF ELEVATED TEMP. ORDER FOR ACETAMINOPHEN RECEIVED
[2018-04-25] MEDS: APAP 325 MG/10.15 ML LIQ (TYLENOL) UDC PO PRN (14:33)
--- NOTE | 2018-04-25 15:16 | NUR ---
CALLED dR. Mcelroy WITH LAB RESULTS. oRDER TO RESTART ON dka PROTOCOL ET GIVE 3 BAG iv mG
--- NOTE | 2018-04-25 18:24 | NUR ---
pT TEMP ELEVTED AGAIN. dR. Sandoval NOTIFIED. ORDER FOR IBUPROFEN RECEIVED
[2018-04-25] MEDS ORDERED: IBUPROFEN 600 MG (MOTRIN) TAB PO PRN (18:30)
[2018-04-25] MEDS ORDERED: IBUPROFEN SUSP 100MG/5ML (MOTRIN) UDC PO PRN (18:45)
[2018-04-25] MEDS ORDERED: IBUPROFEN SUSP 100MG/5ML (MOTRIN) UDC ONE (18:52)
[2018-04-25 19:02] LABS: BUN/CREATININE RATIO 5; CALCIUM 8.3 MG/DL (8.5-10.1); CARBON DIOXIDE 15 MMOL/L (21-32); CHLORIDE 111 MMOL/L (98-107); CREATININE SERUM 0.85 MG/DL (0.60-1.30); GFR ESTIMATED > 60; GLUCOSE 276 MG/DL (70-105); POTASSIUM 4.1 MMOL/L (3.6-5.0); SODIUM 139 MMOL/L (135-145)
[2018-04-25 21:30] LABS: BUN/CREATININE RATIO 5; CALCIUM 8.2 MG/DL (8.5-10.1); CARBON DIOXIDE 16 MMOL/L (21-32); CHLORIDE 112 MMOL/L (98-107); CREATININE SERUM 0.85 MG/DL (0.60-1.30); GFR ESTIMATED > 60; GLUCOSE 302 MG/DL (70-105); SODIUM 138 MMOL/L (135-145)
[2018-04-26] VITALS (27 sets, daily range): BP systolic 90–148; BP diastolic 34–120
[2018-04-26 01:35] LABS: BUN/CREATININE RATIO 4; CALCIUM 8.1 MG/DL (8.5-10.1); CARBON DIOXIDE 18 MMOL/L (21-32); CHLORIDE 113 MMOL/L (98-107); GFR ESTIMATED > 60; GLUCOSE 243 MG/DL (70-105); POTASSIUM 3.9 MMOL/L (3.6-5.0); SODIUM 140 MMOL/L (135-145)
[2018-04-26] MEDS: PROPOFOL DRIP (ICU) 100 ML IV SCH ×2 (01:41→06:44)
[2018-04-26] MEDS: DEXMEDETOMIDINE INJECTION 1,000 MCG in NS (IVPB) 250 ML IV SCH ×2 (01:41→06:46)
[2018-04-26] MEDS: POTASSIUM CL 10MEQ/50ML IVPB 50 ML IV SCH ×11 (02:12→23:14)
[2018-04-26] MEDS: D5 1/2 NS 1000 ML IV SOLUTION 1,000 ML IV SCH ×3 (02:50→18:00)
[2018-04-26 03:40] LABS: BASOPHILS % (AUTO) 0 % (0-10); EOSINOPHILS # (AUTO) 0.1 10^3/uL (0.0-0.3); EOSINOPHILS % (AUTO) 1 % (0-10); HEMATOCRIT 36 % (40-54); HEMOGLOBIN 12.1 G/DL (13.3-17.7); LYMPHOCYTES % (AUTO) 26 % (12-44); MEAN CORPUSCULAR HEMOGLOBIN 29 PG (25-34); MEAN CORPUSCULAR HGB CONC 34 G/DL (32-36); MEAN CORPUSCULAR VOLUME 86 FL (80-99); MEAN PLATELET VOLUME 11.1 FL (7.4-10.4); MONOCYTES # (AUTO) 1.1 X 10^3 (0.0-1.0); MONOCYTES % (AUTO) 10 % (0-12); NEUTROPHILS # (AUTO) 7.2 X 10^3 (1.8-7.8); NEUTROPHILS % (AUTO) 63 % (42-75); PLATELET COUNT 209 10^3/uL (130-400); RED BLOOD COUNT 4.15 10^6/uL (4.35-5.85); RED CELL DISTRIBUTION WIDTH 15.1 % (10.0-14.5); WHITE BLOOD COUNT 11.4 10^3/uL (4.3-11.0)
[2018-04-26 04:03] LABS: BUN/CREATININE RATIO 5; CALCIUM 8.1 MG/DL (8.5-10.1); CARBON DIOXIDE 18 MMOL/L (21-32); CHLORIDE 113 MMOL/L (98-107); CREATININE SERUM 0.73 MG/DL (0.60-1.30); GFR ESTIMATED > 60; GLUCOSE 172 MG/DL (70-105); MAGNESIUM 2.2 MG/DL (1.8-2.4); PHOSPHORUS 2.3 MG/DL (2.3-4.7); SODIUM 140 MMOL/L (135-145)
[2018-04-26 04:30] LABS: ABG BASE EXCESS -5.7 MMOL/L (-2.5-2.5); ABG OXYGEN SATURATION 97 % (94-100); ABG PCO2 29 MMHG (35-45); ABG PH 7.41 (7.37-7.43); ABG PO2 70 MMHG (79-93)
[2018-04-26 04:33] LABS: ALLENS TEST YES-POS; INSPIRED O2 40%; PATIENT TEMP 98.6; VENTILATOR YES
[2018-04-26] MEDS: fentaNYL INJECTION 1,250 MCG in NS (IVPB) 250 ML IV SCH (05:17)
--- NOTE | 2018-04-26 05:59 | Pulmonary Progress Note ---
Subjective Time Seen by a Provider: 06:03 Subjective/Events-last exam Pt is sedated on vent. He has been running a fever. Sepsis Event Evaluation Height, Weight, BMI Height: 5'6.00" Weight: 310lbs. 0.0oz. 140.722452mj; 46.9 BMI Method:Stated Focused Exam Lactate Level 04/24/18 05:40: Lactic Acid Level 1.06 Exam Exam Vital Signs Date Time Temp Pulse Resp B/P (MAP) Pulse Ox O2 Delivery O2 Flow Rate FiO2 04/26/18 05:00 90 23 101/85 (90) 96 Mechanical Ventilator 40.00 04/26/18 04:00 92 23 94 40 04/26/18 04:00 92 26 104/65 (78) 95 Mechanical Ventilator 40.00 04/26/18 03:00 89 23 94/65 (75) 93 Mechanical Ventilator 30.00 04/26/18 02:15 93 26 94 30 04/26/18 02:00 85 25 90/34 (52) 93 Mechanical Ventilator 30.00 04/26/18 01:41 85 04/26/18 01:00 87 28 92/63 (73) 94 Mechanical Ventilator 30.00 04/26/18 01:00 87 04/26/18 00:30 85 25 94 30 04/26/18 00:00 Mechanical Ventilator 04/26/18 00:00 92 28 93/66 (75) 95 Mechanical Ventilator 30.00 04/25/18 23:00 96 24 95/64 (74) 95 Mechanical Ventilator 30.00 04/25/18 22:35 92 25 95 30 04/25/18 22:00 96 20 101/66 (78) 90 Mechanical Ventilator 21.00 04/25/18 21:41 96 04/25/18 21:00 99 25 90/66 (74) 90 Mechanical Ventilator 21.00 04/25/18 20:21 101 22 93 21 04/25/18 20:00 102 24 107/68 (81) 94 Mechanical Ventilator 21.00 04/25/18 20:00 Mechanical Ventilator 04/25/18 19:00 101 22 103/71 (82) 94 Mechanical Ventilator 21.00 04/25/18 19:00 102 04/25/18 18:52 101 26 94 21 04/25/18 18:00 102.3 04/25/18 18:00 105 22 113/75 (88) 94 Mechanical Ventilator 21.00 04/25/18 17:12 108/67 04/25/18 17:00 108 29 108/67 (81) 93 Mechanical Ventilator 21.00 04/25/18 16:16 Mechanical Ventilator 21.00 04/25/18 16:02 103 23 97 30 04/25/18 16:00 104 24 105/75 (85) 97 Mechanical Ventilator 30.00 04/25/18 16:00 Mechanical Ventilator 04/25/18 15:30 101.3 04/25/18 15:00 106 22 110/72 (85) 97 Mechanical Ventilator 30.00 04/25/18 14:51 98/69 04/25/18 14:00 102.2 04/25/18 14:00 107 24 108/66 (80) 96 Mechanical Ventilator 30.00 04/25/18 13:15 98 04/25/18 13:00 98 26 97/67 (77) 95 Mechanical Ventilator 30.00 04/25/18 12:40 Mechanical Ventilator 30.00 04/25/18 12:32 98 24 97 40 04/25/18 12:00 Mechanical Ventilator 04/25/18 12:00 101 22 116/79 (91) 100 Mechanical Ventilator 40.00 04/25/18 12:00 101.5 04/25/18 11:00 103 23 109/74 (86) 96 Mechanical Ventilator 40.00 04/25/18 10:20 101 25 96 40 04/25/18 10:00 103 25 101/59 (73) 96 Mechanical Ventilator 40.00 04/25/18 09:00 105 26 97/56 (70) 96 Mechanical Ventilator 40.00 04/25/18 08:06 100.1 04/25/18 08:00 108 25 102/63 (76) Mechanical Ventilator 40.00 04/25/18 08:00 Mechanical Ventilator 04/25/18 07:30 Mechanical Ventilator 40.00 04/25/18 07:23 97 25 95 30 04/25/18 07:10 96 04/25/18 07:00 96 24 91/62 (72) 96 Mechanical Ventilator 30.00 04/25/18 06:11 99/57 04/25/18 06:00 100 26 99/57 (71) 97 Mechanical Ventilator 30.00 I & O 04/26/18 07:00 Intake Total 1990 ml Output Total 3700 ml Balance -1710 ml Height & Weight Height: 5'6.00" Weight: 310lbs. 0.0oz. 140.996017sw; 46.9 BMI Method:Stated General Appearance: Obese, Severe Distress, Other (appears older than stated age) HEENT: PERRL/EOMI, Moist Mucous Membranes Neck: Non Tender, Supple Respiratory: Lungs Clear, Accessory Muscle Use, Other (tachypneic) Cardiovascular: No JVD, No Murmur, Tachycardia Capillary Refill: Less Than 3 Seconds Gastrointestinal: non tender, soft Extremity: No Calf Tenderness, No Pedal Edema Neurologic/Psychiatric: Alert, Oriented x3 Skin: Tattoos/Piercings Results Lab Laboratory Tests 04/24/18 13:25 04/24/18 19:40 04/24/18 22:08 04/25/18 03:45 04/25/18 13:20 04/25/18 18:35 04/25/18 21:05 04/26/18 01:10 04/26/18 03:33 Assessment/Plan Assessment/Plan Acute respiratory failure -Continue ventilator care for now -Will attempt vent weaning today -Decrease IVF to 100 many need to change IVF to D10 for blood sugar and insulin gtt. -Check BNP Acute severe DKA -Continue DKA protocol -once C02 is >20 start long acting and d/c insulin 2hrs after -GAP is closed however his C02 is still only 17. I recommend continuing insulin gtt. UTI with persistent fever and increased leukocytosis -Change Rocephin to Zosyn -Repeat cultures Anemia -Gastric occult is positive - protonix BID IV -PT is high risk for DVT/PE- will continue ppx lovenox for now and montior hb -hb has dropped however he has received a lot of IVF. Hypokalemia, hypophos -replace Morbid obesity with OHS genital yeast infection/folliculitis -add miconazole powder Penile yellow discharge -check STD panel AJ KELLEY DO Apr 26, 2018 05:59
[2018-04-26] MEDS: KCL 20 MEQ TAB (K-DUR) PO SCH (06:44)
[2018-04-26] MEDS: MAGNESIUM 1 GM/100 ML IVPB 100 ML IV SCH (06:44)
[2018-04-26] MEDS: 1/2 NS IV SOLUTION 1,000 ML IV SCH ×8 (06:48→18:53)
[2018-04-26] MEDS: PIPERACILLIN SODIUM/TAZOBACTAM 4.5 GM in NS (IVPB) 100 ML IV SCH ×3 (06:54→21:14)
[2018-04-26] MEDS: RT-ALBUTEROL/IPRATROPIUM 3 ML (DUONEB) VIAL INH SCH ×6 (07:10→22:15)
--- NOTE | 2018-04-26 08:19 | Diagnostic Imaging Report ---
Indication: Dyspnea Comparison: 04/25/2018 Technique: Single frontal radiograph Of the chest dated 04/26/2018. Findings: Right IJ central venous catheter, endotracheal tube, and enteric catheter are again identified, appearing stable. The cardiac silhouette is enlarged, though stable from the prior examination. Mild central pulmonary vascular congestion persists. Significantly low lung volumes. Mild perihilar opacities are again identified, appearing similar to the prior examination. No large pleural effusion. No pneumothorax. No acute osseous abnormality. Impression: Stable-appearing examination demonstrating cardiomegaly, mild central pulmonary vascular congestion and presumed mild perihilar edema or atelectasis. Unchanged lines and tubes. Dictated by: Dictated on workstation # [id number]
--- NOTE | 2018-04-26 08:49 | Progress Note-Hospitalist ---
Subjective HPI/CC On Admission Date Seen by Provider: Apr 26, 2018 Time Seen by Provider: 08:43 Pt is a 38yoCM with a PMH of NIDDMII and HTN who presented to the ER due to shortness of breath. He is very dyspneic during my exam and his history is limited due to that. He also gives a varying history with what he is able to give. He states at first all of his symptoms started last night but review of records show he was in the ER on 04/21 for similar symptoms and was diagnosed with DKA but left AMA. Subjective/Events-last exam Pt is intubated. Currently on weaning trial. Opens eyes but otherwise did not participate in ROS. Focused Exam Lactate Level 04/24/18 05:40: Lactic Acid Level 1.06 04/26/18 06:10: Lactic Acid Level 1.81 Lactic Acid Level Laboratory Tests Test 04/26/18 06:10 Lactic Acid Level 1.81 MMOL/L (0.50-2.00) Objective Exam Vital Signs Vital Signs Date Time Temp Pulse Resp B/P (MAP) Pulse Ox O2 Delivery O2 Flow Rate FiO2 04/26/18 08:00 92 24 114/88 (97) 96 Mechanical Ventilator 40.00 04/26/18 07:11 40 04/26/18 04:00 98.8 Capillary Refill : Less Than 3 Seconds General Appearance: Chronically ill, Other (on vent) Respiratory: Lungs Clear, No Respiratory Distress Cardiovascular: Regular Rate, Rhythm, No Murmur Gastrointestinal: Normal Bowel Sounds, Soft Genital/Rectal: Other (hannon in place) Neurologic/Psychiatric: Alert, Other (opens eyes to verbal stimuli) Skin: Tattoos/Piercings Results/Procedures Lab Laboratory Tests 04/25/18 13:20 04/25/18 18:35 04/25/18 21:05 04/26/18 01:10 04/26/18 03:33 Patient resulted labs reviewed. Imaging: Reviewed Imaging Report Assessment/Plan Assessment and Plan Assess & Plan/Chief Complaint DKA Diagnosis/Problems Diagnosis/Problems (1) Diabetic ketoacidosis Status: Acute Assessment & Plan: Severe DKA Attempted to transition off drip yesterday but acidosis Maintain on insulin gtt today Has been noncompliant with home meds- will need education prior to discharge A1c 15.5 Qualifiers: Diabetes mellitus type: type 2 Diabetes mellitus complication detail: without coma Qualified Codes: E11.10 - Type 2 diabetes mellitus with ketoacidosis without coma (2) Acute respiratory distress Assessment & Plan: Intubated, undergoing weaning trial currently Pulm consulted, appreciate recs On propofol for sedation but attempt to keep at dosing less than 50 due to hypertriglyceridemia (3) Penile discharge Assessment & Plan: Await culture results and GC/Chlam testing yeast is only things growing currently Switched to Zosyn (4) UTI (urinary tract infection) Status: Acute Assessment & Plan: Became febrile yesterday so switched to zosyn Await culture- NGTD Qualifiers: Urinary tract infection type: acute cystitis Hematuria presence: without hematuria Qualified Codes: N30.00 - Acute cystitis without hematuria (5) JOE (acute kidney injury) Status: Resolved Assessment & Plan: Resolved Resolution Date/Time: 04/26/18 @ 08:47 (6) Fever Assessment & Plan: Cultures reordered today May be drug fever CXR negative UA negative today Leukocytosis up slightly today but still <12 Does not appear to be sepsis Qualifiers: Fever type: unspecified Qualified Codes: R50.9 - Fever, unspecified (7) Hypophosphatemia Status: Resolved Assessment & Plan: Improving Likely due to electrolyte shifts Continue replacement per protocol Resolution Date/Time: 04/26/18 @ 08:47 (8) Transaminitis Assessment & Plan: Likely due to hypovolemia Trend Underlying ANDERSON possible though (9) Essential (primary) hypertension Status: Chronic Assessment & Plan: Well controlled currently, will trend (10) Marijuana abuse Assessment & Plan: Reports daily marijuana use Recommend cessation Clinical Quality Measures DVT/VTE Risk/Contraindication: Risk Factor Score Per Nursin RFS Level Per Nursing on Admit: 2=Moderate ROMA FREDERICK MD Apr 26, 2018 08:49
[2018-04-26] MEDS: MICONAZOLE 2% POWDER (DESENEX AF) 90 GM TOP SCH ×2 (09:08→21:14)
[2018-04-26] MEDS: POT PHOS/NA PHOS (K-PHOS NEUTRAL) NG SCH ×3 (09:13→21:13)
[2018-04-26] MEDS: ENOXAPARIN 60 MG/0.6 ML (LOVENOX) SYR SC SCH ×2 (09:13→21:14)
[2018-04-26] MEDS: FLUCONAZOLE 200 MG/100 ML 50 ML, EMPTY IV BAG (PVC) 1 EA IV SCH ×2 (09:13)
[2018-04-26] MEDS: PANTOPRAZOLE 40 MG (PROTONIX) VIAL IV SCH (09:13)
[2018-04-26] MEDS: APAP 325 MG/10.15 ML LIQ (TYLENOL) UDC PO PRN (09:15)
[2018-04-26 09:16] LABS: ABG OXYGEN SATURATION 96 % (94-100); ABG PCO2 30 MMHG (35-45); ABG PH 7.39 (7.37-7.43); ABG PO2 68 MMHG (79-93); ABG TCO2 18.7 MMOL/L (21.0-31.0)
[2018-04-26 09:17] LABS: ALLENS TEST POSITIVE; INSPIRED O2 40%; PATIENT TEMP 100.1; VENTILATOR YES
--- NOTE | 2018-04-26 09:30 | NUR ---
PATIENT EXTUBATED AND PLACED ON 10L HIGHFLOW NC. PROPOFOL DC, 700MG WASTED AND 245ML OF FENTANYL WASTED, WYATT RN WITNESSED. PATIENT PASSED BEDSIDE SWALLOW AT 1045. PATIENT DENIES ANY NEEDS/PAIN. SAFETY PRECAUTIONS IN PLACE. MAINTAINING POC.
--- NOTE | 2018-04-26 09:30 | NUR ---
PT EXTUBATED AND PLACED ON 10LPM HIGH FLOW CANNULA WILL TITRATE OXGEN TOLERATED
[2018-04-26] MEDS: risperiDONE 1 MG (RisperDAL) TAB PO SCH ×2 (11:32→21:14)
[2018-04-26] MEDS: LORazepam INJ 2 MG/ML (ATIVAN) VIAL IVP PRN ×2 (11:32→21:15)
[2018-04-26 12:45] LABS: BUN/CREATININE RATIO 6; CALCIUM 8.2 MG/DL (8.5-10.1); CARBON DIOXIDE 18 MMOL/L (21-32); CHLORIDE 113 MMOL/L (98-107); GFR ESTIMATED > 60; GLUCOSE 158 MG/DL (70-105); POTASSIUM 3.6 MMOL/L (3.6-5.0); SODIUM 140 MMOL/L (135-145)
[2018-04-26 19:51] LABS: BUN/CREATININE RATIO 6; CALCIUM 8.9 MG/DL (8.5-10.1); CARBON DIOXIDE 16 MMOL/L (21-32); GFR ESTIMATED > 60; GLUCOSE 184 MG/DL (70-105)
[2018-04-26 20:33] LABS: CHLORIDE 110 MMOL/L (98-107); POTASSIUM 3.5 MMOL/L (3.6-5.0); SODIUM 140 MMOL/L (135-145)
[2018-04-26] MEDS ORDERED: NORMAL SALINE 250 ML ONE (23:03)
[2018-04-26] MEDS ORDERED: inSUlin (REGULAR) HUMAN 1 UNIT/0.01 ML (CHARGE PER UNIT) ONE (23:04)
[2018-04-27] VITALS (23 sets, daily range): BP systolic 113–149; BP diastolic 68–93
[2018-04-27 00:38] LABS: BUN/CREATININE RATIO 5; CALCIUM 8.3 MG/DL (8.5-10.1); CARBON DIOXIDE 18 MMOL/L (21-32); CHLORIDE 111 MMOL/L (98-107); CREATININE SERUM 0.65 MG/DL (0.60-1.30); GFR ESTIMATED > 60; GLUCOSE 162 MG/DL (70-105); POTASSIUM 3.2 MMOL/L (3.6-5.0); SODIUM 141 MMOL/L (135-145)
[2018-04-27] MEDS: POTASSIUM CL 10MEQ/50ML IVPB 50 ML IV SCH ×16 (01:06→21:55)
[2018-04-27] MEDS: LORazepam INJ 2 MG/ML (ATIVAN) VIAL IVP PRN (02:20)
[2018-04-27] MEDS: RT-ALBUTEROL/IPRATROPIUM 3 ML (DUONEB) VIAL INH SCH ×6 (02:27→21:54)
--- NOTE | 2018-04-27 03:16 | NUR ---
This RN called EICU regarding HR in 140's. New orders received at this time.
[2018-04-27] MEDS ORDERED: fentaNYL INJECTION 100 MCG/2 ML AMP ONE (03:42)
[2018-04-27 04:06] LABS: BASOPHILS % (AUTO) 0 % (0-10); EOSINOPHILS # (AUTO) 0.1 10^3/uL (0.0-0.3); EOSINOPHILS % (AUTO) 1 % (0-10); HEMATOCRIT 37 % (40-54); HEMOGLOBIN 12.2 G/DL (13.3-17.7); LYMPHOCYTES # (AUTO) 2.2 X 10^3 (1.0-4.0); LYMPHOCYTES % (AUTO) 18 % (12-44); MEAN CORPUSCULAR HEMOGLOBIN 29 PG (25-34); MEAN CORPUSCULAR HGB CONC 33 G/DL (32-36); MEAN CORPUSCULAR VOLUME 86 FL (80-99); MEAN PLATELET VOLUME 10.9 FL (7.4-10.4); MONOCYTES # (AUTO) 1.3 X 10^3 (0.0-1.0); MONOCYTES % (AUTO) 11 % (0-12); NEUTROPHILS # (AUTO) 8.5 X 10^3 (1.8-7.8); NEUTROPHILS % (AUTO) 70 % (42-75); PLATELET COUNT 234 10^3/uL (130-400); RED BLOOD COUNT 4.25 10^6/uL (4.35-5.85); RED CELL DISTRIBUTION WIDTH 14.9 % (10.0-14.5); WHITE BLOOD COUNT 12.1 10^3/uL (4.3-11.0)
[2018-04-27] MEDS ORDERED: fentaNYL INJECTION 100 MCG/2 ML AMP IV ONE (04:45)
[2018-04-27 04:50] LABS: BUN/CREATININE RATIO 5; CALCIUM 8.4 MG/DL (8.5-10.1); CARBON DIOXIDE 18 MMOL/L (21-32); CHLORIDE 110 MMOL/L (98-107); CREATININE SERUM 0.66 MG/DL (0.60-1.30); GFR ESTIMATED > 60; GLUCOSE 179 MG/DL (70-105); MAGNESIUM 1.5 MG/DL (1.8-2.4); PHOSPHORUS 2.9 MG/DL (2.3-4.7); POTASSIUM 3.5 MMOL/L (3.6-5.0); SODIUM 141 MMOL/L (135-145); TRIGLYCERIDES 193 MG/DL (<150)
--- NOTE | 2018-04-27 05:17 | Pulmonary Progress Note ---
Subjective Time Seen by a Provider: 05:33 Subjective/Events-last exam pt is doing well off vent. Sepsis Event Evaluation Height, Weight, BMI Height: 5'6.00" Weight: 310lbs. 0.0oz. 140.222856rj; 46.9 BMI Method:Stated Focused Exam Lactate Level 04/24/18 05:40: Lactic Acid Level 1.06 04/26/18 06:10: Lactic Acid Level 1.81 Exam Exam Vital Signs Date Time Temp Pulse Resp B/P (MAP) Pulse Ox O2 Delivery O2 Flow Rate FiO2 04/27/18 04:00 138 18 120/69 (86) 96 High Flow N/C 4.00 04/27/18 04:00 99.2 04/27/18 03:00 146 20 117/69 (85) 98 High Flow N/C 4.00 04/27/18 02:27 99 High Flow N/C 6.00 04/27/18 02:00 140 14 128/75 (92) 97 High Flow N/C 6.00 04/27/18 01:14 99.7 04/27/18 01:00 135 04/27/18 01:00 135 20 129/79 (96) 98 High Flow N/C 6.00 04/27/18 00:00 134 18 140/77 (98) 97 High Flow N/C 6.00 04/27/18 00:00 100.1 04/26/18 23:00 134 21 124/82 (96) 99 High Flow N/C 6.00 04/26/18 22:15 97 High Flow N/C 8.00 04/26/18 22:00 133 20 130/90 (103) 99 High Flow N/C 6.00 04/26/18 21:00 129 17 124/86 (99) 99 High Flow N/C 8.00 04/26/18 20:00 122 20 134/85 (101) 99 High Flow N/C 8.00 04/26/18 19:00 100.5 04/26/18 19:00 135 04/26/18 19:00 20 147/99 (115) 99 High Flow N/C 8.00 04/26/18 18:29 99 High Flow N/C 10.00 04/26/18 18:00 130 16 148/95 (112) 98 High Flow N/C 8.00 04/26/18 17:00 120 18 129/89 (102) 98 High Flow N/C 04/26/18 16:00 112 20 126/85 (99) 99 High Flow N/C 04/26/18 16:00 98 Mechanical Ventilator 40 04/26/18 15:00 108 30 129/82 (98) 99 High Flow N/C 04/26/18 15:00 95 High Flow N/C 10.00 04/26/18 14:00 106 18 121/86 (98) 100 High Flow N/C 04/26/18 13:10 105 04/26/18 13:00 107 23 130/84 (99) 100 High Flow N/C 04/26/18 12:09 106 20 112/75 (87) 97 Mechanical Ventilator 40.00 04/26/18 12:00 98 Mechanical Ventilator 40 04/26/18 12:00 98.7 04/26/18 11:15 97 High Flow N/C 10.00 04/26/18 11:00 98 21 113/78 (90) 96 Mechanical Ventilator 40.00 04/26/18 10:00 105 15 117/74 (88) 95 Mechanical Ventilator 40.00 04/26/18 09:00 110 26 136/120 (125) 85 Mechanical Ventilator 40.00 04/26/18 08:00 100.1 04/26/18 08:00 92 24 114/88 (97) 96 Mechanical Ventilator 40.00 04/26/18 08:00 98 Mechanical Ventilator 40 04/26/18 07:11 86 27 96 40 04/26/18 07:00 90 04/26/18 07:00 87 28 96/66 (76) 96 Mechanical Ventilator 40.00 04/26/18 06:44 87 04/26/18 06:00 87 28 96/66 (76) 96 Mechanical Ventilator 40.00 I & O 04/27/18 07:00 Intake Total 680 ml Output Total 3110 ml Balance -2430 ml Height & Weight Height: 5'6.00" Weight: 310lbs. 0.0oz. 140.912670hb; 46.9 BMI Method:Stated General Appearance: Anxious, Chronically ill, Mild Distress HEENT: PERRL/EOMI, Moist Mucous Membranes Neck: Non Tender, Supple Respiratory: Lungs Clear, No Respiratory Distress, Decreased Breath Sounds Cardiovascular: Regular Rate, Rhythm, No Murmur Capillary Refill: Less Than 3 Seconds Gastrointestinal: non tender, soft Extremity: No Calf Tenderness, No Pedal Edema Neurologic/Psychiatric: Alert, Other (opens eyes to verbal stimuli) Skin: Tattoos/Piercings Results Lab Laboratory Tests 04/25/18 13:20 04/25/18 18:35 04/25/18 21:05 04/26/18 01:10 04/26/18 03:33 04/26/18 12:15 04/26/18 18:05 04/26/18 23:55 04/27/18 04:00 Assessment/Plan Assessment/Plan Acute respiratory failure -PT is off ventilator -BNP - is normal Acute severe DKA -Continue DKA protocol -C02 is still 18 -GAP is now up to 13 -once C02 is >20 start long acting and d/c insulin 2hrs after - repeat UA for ketones, check LA -Change BMP to Q4 to keep closer eye on K+ and C02 Hypokalemia, hypomag -Will give 40 IV and 60meq PO -recheck 2hrs after KCL -Give 3grms of Mg sulfate -Increase BMP to Q4 while on insulin gtt Sinus tach -Increase IVF UTI with persistent fever and increased leukocytosis - Zosyn - -Repeat cultures Anemia -Gastric occult is positive - protonix BID IV -PT is high risk for DVT/PE- will continue ppx lovenox for now and montior hb -hb has dropped however he has received a lot of IVF. Morbid obesity with OHS genital yeast infection/folliculitis -add miconazole powder Penile yellow discharge -check STD panel Daily marijuana use AJ KELLEY DO Apr 27, 2018 05:17
[2018-04-27] MEDS ORDERED: MAGNESIUM 1 GM/100 ML IVPB 100 ML IV SCH (05:30)
[2018-04-27] MEDS: PIPERACILLIN SODIUM/TAZOBACTAM 4.5 GM in NS (IVPB) 100 ML IV SCH ×3 (05:38→20:47)
[2018-04-27] MEDS: MAGNESIUM 1 GM/100 ML IVPB 100 ML IV SCH ×4 (05:45→07:55)
[2018-04-27] MEDS: KCL 20 MEQ TAB (K-DUR) PO SCH (06:18)
[2018-04-27] MEDS ORDERED: D5 1/2 NS 1000 ML IV SOLUTION 1,000 ML IV ONE (06:30)
[2018-04-27] MEDS: inSUlin REGULAR TPN/DRIP ONLY 250 UNITS in NORMAL SALINE 250 ML IV SCH (06:45)
[2018-04-27] MEDS ORDERED: KCL 20 MEQ POWDER FOR ORAL SOLUTION PO ONE (07:00)
--- NOTE | 2018-04-27 07:50 | Diagnostic Imaging Report ---
EXAMINATION: Single frontal view of the chest. INDICATION: Dyspnea. COMPARISON: Multiple priors, most recent performed on 04/26/2018. FINDINGS: The right CP angle is excluded from the [id number]. Right IJ catheter is unchanged in position, with distal tip overlying the upper portion of the SVC. Endotracheal and enteric tubes have been removed. There is improved aeration of the lung shelby. No focal consolidation is seen. There is central vascular prominence, without overt edema. No large pleural effusion. No evidence of pneumothorax. The cardio mediastinal silhouette is unchanged. No acute osseous abnormality is identified. IMPRESSION: Improving edema, with persistent central vascular congestion. Right IJ catheter is unchanged in position. Interval removal of endotracheal and enteric tubes. Dictated by: Dictated on workstation # [id number]
[2018-04-27 08:53] LABS: BUN/CREATININE RATIO 3; CALCIUM 8.2 MG/DL (8.5-10.1); CARBON DIOXIDE 19 MMOL/L (21-32); CHLORIDE 110 MMOL/L (98-107); CREATININE SERUM 0.66 MG/DL (0.60-1.30); GFR ESTIMATED > 60; GLUCOSE 222 MG/DL (70-105); POTASSIUM 3.7 MMOL/L (3.6-5.0); SODIUM 139 MMOL/L (135-145)
[2018-04-27] MEDS: risperiDONE 1 MG (RisperDAL) TAB PO SCH ×2 (09:53→20:40)
[2018-04-27] MEDS: MICONAZOLE 2% POWDER (DESENEX AF) 90 GM TOP SCH ×2 (09:54→20:29)
[2018-04-27] MEDS: PANTOPRAZOLE 40 MG (PROTONIX) VIAL IV SCH (10:04)
[2018-04-27] MEDS: POT PHOS/NA PHOS (K-PHOS NEUTRAL) NG SCH (10:04)
[2018-04-27] MEDS: ENOXAPARIN 60 MG/0.6 ML (LOVENOX) SYR SC SCH ×2 (10:05→20:29)
[2018-04-27] MEDS: FLUCONAZOLE 200 MG/100 ML 50 ML, EMPTY IV BAG (PVC) 1 EA IV SCH ×2 (10:05)
[2018-04-27] MEDS ORDERED: D5 1/2 NS 1000 ML IV SOLUTION 1,000 ML IV SCH (10:30)
[2018-04-27 11:08] LABS: BILIRUBIN,URINE NEGATIVE (NEGATIVE); CLARITY,URINE CLEAR; COLOR,URINE YELLOW; GLUCOSE, URINE (UA) 4+ (NEGATIVE); KETONES,URINE 3+ (NEGATIVE); LEUKOCYTE ESTERASE ,URINE NEGATIVE (NEGATIVE); NITRITE,URINE NEGATIVE (NEGATIVE); PH,URINE 5 (5-9); PROTEIN,URINE NEGATIVE (NEGATIVE); UROBILINOGEN,URINE NORMAL (NORMAL)
[2018-04-27 11:14] LABS: BACTERIA,URINE NEGATIVE /HPF
--- NOTE | 2018-04-27 11:15 | NUR ---
Pastoral Care Visit.
[2018-04-27 13:00] LABS: BUN/CREATININE RATIO 3; CALCIUM 8.4 MG/DL (8.5-10.1); CARBON DIOXIDE 21 MMOL/L (21-32); CHLORIDE 110 MMOL/L (98-107); CREATININE SERUM 0.67 MG/DL (0.60-1.30); GFR ESTIMATED > 60; GLUCOSE 214 MG/DL (70-105); POTASSIUM 3.8 MMOL/L (3.6-5.0); SODIUM 139 MMOL/L (135-145)
--- NOTE | 2018-04-27 16:58 | Progress Note-Hospitalist ---
Progress Note Progress Notes/Assess & Plan Date Seen 04/27/18 Time Seen by Provider: 16:56 Assessment & Plan The patient is a 38-year-old white male known to me since his childhood. He is morbidly obese and a diabetic requiring insulin. He reports that 2 months ago or so he became disenchanted with his provider and set out on his own. He 7 ran out of insulin and was ultimately admitted here with diabetic ketoacidosis. Focused Exam Lactate Level 04/26/18 06:10: Lactic Acid Level 1.81 04/27/18 07:20: Lactic Acid Level 0.93 CÉSAR WASHINGTON MD Apr 27, 2018 16:58
[2018-04-27] MEDS ORDERED: inSUlin DETERMIR 1 UNIT/0.01 ML (LEVEMIR) CHARGE PER UNIT SQ NR (18:00)
[2018-04-27 18:42] LABS: BUN/CREATININE RATIO 3; CALCIUM 8.2 MG/DL (8.5-10.1); CARBON DIOXIDE 22 MMOL/L (21-32); CHLORIDE 110 MMOL/L (98-107); CREATININE SERUM 0.59 MG/DL (0.60-1.30); GFR ESTIMATED > 60; GLUCOSE 135 MG/DL (70-105); POTASSIUM 3.2 MMOL/L (3.6-5.0); SODIUM 142 MMOL/L (135-145)
[2018-04-27] MEDS: inSUlin ASPART (NovoLOG) 1 UNIT/0.01 ML (CHARGE PER UNIT) SQ SCH (20:35)
[2018-04-27 21:08] LABS: BUN/CREATININE RATIO 3; CALCIUM 8.3 MG/DL (8.5-10.1); CARBON DIOXIDE 22 MMOL/L (21-32); CHLORIDE 111 MMOL/L (98-107); CREATININE SERUM 0.61 MG/DL (0.60-1.30); GFR ESTIMATED > 60; GLUCOSE 127 MG/DL (70-105); POTASSIUM 3.7 MMOL/L (3.6-5.0); SODIUM 142 MMOL/L (135-145)
[2018-04-28] VITALS (12 sets, daily range): BP systolic 116–158; BP diastolic 78–98
[2018-04-28] MEDS: inSUlin ASPART (NovoLOG) 1 UNIT/0.01 ML (CHARGE PER UNIT) SQ SCH ×4 (00:18→13:35)
[2018-04-28] MEDS: RT-ALBUTEROL/IPRATROPIUM 3 ML (DUONEB) VIAL INH SCH ×5 (01:57→21:27)
--- NOTE | 2018-04-28 04:21 | Pulmonary Progress Note ---
TEO ROMAN Nii STUDENT 04/28/18 0421: Subjective Date Seen by a Provider: Apr 28, 2018 Time Seen by a Provider: 04:17 Review of Systems General: No Chills, No Night Sweats, No Fatigue HEENT: No Head Aches, No Sore Throat Pulmonary: No Dyspnea, No Cough, No Pleuritic Chest Pain Cardiovascular: No: Chest Pain, Palpitations, Orthopnea Gastrointestinal: No: Abdominal Pain Genitourinary: No Dysuria, No Frequency Sepsis Event Evaluation Height, Weight, BMI Height: 5'6.00" Weight: 320lbs. 3.0oz. 145.735108oe; 46.9 BMI Method:Stated Focused Exam Lactate Level 04/26/18 06:10: Lactic Acid Level 1.81 04/27/18 07:20: Lactic Acid Level 0.93 Exam Exam Vital Signs Date Time Temp Pulse Resp B/P (MAP) Pulse Ox O2 Delivery O2 Flow Rate FiO2 04/28/18 04:07 99.0 04/28/18 04:00 120 34 145/93 (110) 94 High Flow N/C 4.00 04/28/18 03:00 118 21 158/88 (111) 97 High Flow N/C 4.00 04/28/18 02:00 116 20 150/90 (110) 97 High Flow N/C 4.00 04/28/18 01:58 95 Room Air 04/28/18 01:00 123 04/28/18 01:00 115 19 143/98 (113) 95 High Flow N/C 4.00 04/28/18 00:19 99.8 04/28/18 00:00 Room Air 04/28/18 00:00 131 18 High Flow N/C 4.00 04/27/18 23:00 120 13 126/72 (90) 94 High Flow N/C 4.00 04/27/18 22:00 118 25 134/77 (96) 96 High Flow N/C 4.00 04/27/18 21:56 99 Room Air 04/27/18 21:00 117 21 135/90 (105) 95 High Flow N/C 4.00 04/27/18 20:26 99.6 04/27/18 20:00 120 19 120/68 (85) 94 High Flow N/C 4.00 04/27/18 20:00 Room Air 04/27/18 19:00 116 18 143/93 (110) 95 High Flow N/C 4.00 04/27/18 19:00 119 04/27/18 18:23 95 Room Air 04/27/18 18:00 115 26 138/88 (105) High Flow N/C 4.00 04/27/18 17:00 114 19 135/82 (99) High Flow N/C 4.00 04/27/18 16:00 96 High Flow N/C 1.00 04/27/18 16:00 117 13 130/72 (91) High Flow N/C 4.00 04/27/18 16:00 98.7 04/27/18 15:00 120 23 140/84 (102) High Flow N/C 4.00 04/27/18 14:21 94 Room Air 04/27/18 14:00 121 23 149/83 (105) High Flow N/C 4.00 04/27/18 13:00 120 04/27/18 13:00 120 23 142/88 (106) High Flow N/C 4.00 04/27/18 12:00 123 21 129/76 (93) High Flow N/C 4.00 04/27/18 12:00 99.1 04/27/18 12:00 96 High Flow N/C 1.00 04/27/18 11:00 125 18 113/69 (84) High Flow N/C 4.00 04/27/18 10:26 99 High Flow N/C 4.00 04/27/18 10:00 121 21 125/80 (95) High Flow N/C 4.00 04/27/18 09:00 120 19 128/78 (95) High Flow N/C 4.00 04/27/18 08:00 96 High Flow N/C 1.00 04/27/18 08:00 98.6 04/27/18 08:00 124 15 125/87 (100) High Flow N/C 4.00 04/27/18 07:00 131 22 132/83 (99) High Flow N/C 4.00 04/27/18 07:00 131 04/27/18 06:16 125/73 (90) 04/27/18 06:10 94 High Flow N/C 4.00 04/27/18 06:00 128 13 High Flow N/C 4.00 04/27/18 05:00 134 19 96 High Flow N/C 4.00 I & O 04/28/18 07:00 Intake Total 2550 ml Output Total 3300 ml Balance -750 ml Height & Weight Height: 5'6.00" Weight: 320lbs. 3.0oz. 145.351102yf; 46.9 BMI Method:Stated General Appearance: Anxious, Chronically ill, Mild Distress, Obese HEENT: PERRL/EOMI, Moist Mucous Membranes Neck: Non Tender, Supple Respiratory: Lungs Clear, No Respiratory Distress, Decreased Breath Sounds Cardiovascular: Regular Rate, Rhythm, No Murmur Capillary Refill: Less Than 3 Seconds Gastrointestinal: non tender, soft Extremity: No Calf Tenderness, No Pedal Edema Neurologic/Psychiatric: Alert, Other (opens eyes to verbal stimuli) Skin: Tattoos/Piercings Results Lab Laboratory Tests Test 04/27/18 05:06 04/27/18 06:17 04/27/18 07:20 04/27/18 07:31 Range/Units Glucometer 176 H 175 H 186 H 70-110 MG/DL Lactic Acid Level 0.93 0.50-2.00 MMOL/L Test 04/27/18 08:25 04/27/18 08:27 04/27/18 08:35 04/27/18 09:47 Range/Units Sodium Level 139 135-145 MMOL/L Potassium Level 3.7 3.6-5.0 MMOL/L Chloride Level 110 H 98-107 MMOL/L Carbon Dioxide Level 19 L 21-32 MMOL/L Anion Gap 10 5-14 MMOL/L Blood Urea Nitrogen 2 L 7-18 MG/DL Creatinine 0.66 0.60-1.30 MG/DL Estimat Glomerular Filtration Rate > 60 BUN/Creatinine Ratio 3 Glucose Level 222 H 70-105 MG/DL Calcium Level 8.2 L 8.5-10.1 MG/DL Glucometer 189 H 238 H 70-110 MG/DL Urine Color YELLOW Urine Clarity CLEAR Urine pH 5 5-9 Urine Specific [place] 1.015 L 1.016-1.022 Urine Protein NEGATIVE NEGATIVE Urine Glucose (UA) 4+ H NEGATIVE Urine Ketones 3+ H NEGATIVE Urine Nitrite NEGATIVE NEGATIVE Urine Bilirubin NEGATIVE NEGATIVE Urine Urobilinogen NORMAL NORMAL MG/DL Urine Leukocyte Esterase NEGATIVE NEGATIVE Urine RBC (Auto) 2+ H NEGATIVE Urine RBC 5-10 H /HPF Urine WBC NONE /HPF Urine Squamous Epithelial Cells NONE /HPF Urine Crystals NONE /LPF Urine Bacteria NEGATIVE /HPF Urine Casts NONE /LPF Urine Mucus NEGATIVE /LPF Urine Culture Indicated NO Test 04/27/18 10:45 04/27/18 12:10 04/27/18 12:35 04/27/18 13:22 Range/Units Glucometer 150 H 207 H 192 H 70-110 MG/DL Sodium Level 139 135-145 MMOL/L Potassium Level 3.8 3.6-5.0 MMOL/L Chloride Level 110 H 98-107 MMOL/L Carbon Dioxide Level 21 21-32 MMOL/L Anion Gap 8 5-14 MMOL/L Blood Urea Nitrogen 2 L 7-18 MG/DL Creatinine 0.67 0.60-1.30 MG/DL Estimat Glomerular Filtration Rate > 60 BUN/Creatinine Ratio 3 Glucose Level 214 H 70-105 MG/DL Calcium Level 8.4 L 8.5-10.1 MG/DL Test 04/27/18 14:20 04/27/18 15:30 04/27/18 16:34 04/27/18 16:35 Range/Units Glucometer 178 H 147 H 130 H 70-110 MG/DL Sodium Level 142 135-145 MMOL/L Potassium Level 3.2 L 3.6-5.0 MMOL/L Chloride Level 110 H 98-107 MMOL/L Carbon Dioxide Level 22 21-32 MMOL/L Anion Gap 10 5-14 MMOL/L Blood Urea Nitrogen 2 L 7-18 MG/DL Creatinine 0.59 L 0.60-1.30 MG/DL Estimat Glomerular Filtration Rate > 60 BUN/Creatinine Ratio 3 Glucose Level 135 H 70-105 MG/DL Calcium Level 8.2 L 8.5-10.1 MG/DL Test 04/27/18 18:15 04/27/18 20:35 04/28/18 00:17 04/28/18 04:10 Range/Units Glucometer 121 H 121 H 148 H 151 H 70-110 MG/DL Sodium Level 142 135-145 MMOL/L Potassium Level 3.7 3.6-5.0 MMOL/L Chloride Level 111 H 98-107 MMOL/L Carbon Dioxide Level 22 21-32 MMOL/L Anion Gap 9 5-14 MMOL/L Blood Urea Nitrogen 2 L 7-18 MG/DL Creatinine 0.61 0.60-1.30 MG/DL Estimat Glomerular Filtration Rate > 60 BUN/Creatinine Ratio 3 Glucose Level 127 H 70-105 MG/DL Calcium Level 8.3 L 8.5-10.1 MG/DL Test 04/28/18 04:12 Range/Units White Blood Count 11.1 H 4.3-11.0 10^3/uL Red Blood Count 3.91 L 4.35-5.85 10^6/uL Hemoglobin 11.4 L 13.3-17.7 G/DL Hematocrit 34 L 40-54 % Mean Corpuscular Volume 88 80-99 FL Mean Corpuscular Hemoglobin 29 25-34 PG Mean Corpuscular Hemoglobin Concent 33 32-36 G/DL Red Cell Distribution Width 15.2 H 10.0-14.5 % Platelet Count 300 130-400 10^3/uL Mean Platelet Volume 10.5 H 7.4-10.4 FL Neutrophils (%) (Auto) 64 42-75 % Lymphocytes (%) (Auto) 22 12-44 % Monocytes (%) (Auto) 12 0-12 % Eosinophils (%) (Auto) 2 0-10 % Basophils (%) (Auto) 0 0-10 % Neutrophils # (Auto) 7.1 1.8-7.8 X 10^3 Lymphocytes # (Auto) 2.5 1.0-4.0 X 10^3 Monocytes # (Auto) 1.3 H 0.0-1.0 X 10^3 Eosinophils # (Auto) 0.2 0.0-0.3 10^3/uL Basophils # (Auto) 0.0 0.0-0.1 10^3/uL Sodium Level 143 135-145 MMOL/L Potassium Level 3.9 3.6-5.0 MMOL/L Chloride Level 109 H 98-107 MMOL/L Carbon Dioxide Level 20 L 21-32 MMOL/L Anion Gap 14 5-14 MMOL/L Blood Urea Nitrogen 3 L 7-18 MG/DL Creatinine 0.70 0.60-1.30 MG/DL Estimat Glomerular Filtration Rate > 60 BUN/Creatinine Ratio 4 Glucose Level 165 H 70-105 MG/DL Calcium Level 8.4 L 8.5-10.1 MG/DL Phosphorus Level 2.7 2.3-4.7 MG/DL Magnesium Level 1.5 L 1.8-2.4 MG/DL Assessment/Plan Assessment/Plan Acute respiratory failure -PT is off ventilator Acute severe DKA -D/C'ed DKA protocol -C02 is 20 today -GAP is now up to 14 - UA positive for 3+ ketones yesterday -Change BMP to Q4 to keep closer eye on K+ and C02 Hypokalemia, hypomag -Will give 40 IV and 60meq PO -recheck 2hrs after KCL -Give 3grms of Mg sulfate -Increase BMP to Q4 while on insulin gtt Sinus tach -Increase IVF UTI with persistent fever and increased leukocytosis - Zosyn - -Repeat cultures Anemia -Gastric occult is positive - protonix BID IV -PT is high risk for DVT/PE- will continue ppx lovenox for now and montior hb -hb has dropped however he has received a lot of IVF. Morbid obesity with OHS genital yeast infection/folliculitis -add miconazole powder Penile yellow discharge -check STD panel Daily marijuana use AJ KELLEY DO 04/28/18 0506: Subjective Time Seen by a Provider: 05:01 Subjective/Events-last exam Insulin gtt was D/C'd yesterday. Assessment/Plan Assessment/Plan Acute severe DKA -Currently off insulin gtt however anion gap went from 9 to 14. C02 22 to 20. -Will give Levemir now and repeat BMP in 4hrs Hypokalemia, hypomag -Will give 40 IV and 60meq PO -recheck 2hrs after KCL -Give 3grms of Mg sulfate -Increase BMP to Q4 while on insulin gtt Sinus tach -Increase IVF UTI with persistent fever and increased leukocytosis - Zosyn -Repeat cultures Anemia -Gastric occult is positive - protonix BID IV -PT is high risk for DVT/PE- will continue ppx lovenox for now and montior hb -hb has dropped however he has received a lot of IVF. Morbid obesity with OHS genital yeast infection/folliculitis -miconazole powder Penile yellow discharge -check STD panel Daily marijuana use MORGAN-TEO LE Apr 28, 2018 04:21 AJ KELLEY DO Apr 28, 2018 05:06
[2018-04-28 04:24] LABS: BASOPHILS % (AUTO) 0 % (0-10); EOSINOPHILS # (AUTO) 0.2 10^3/uL (0.0-0.3); EOSINOPHILS % (AUTO) 2 % (0-10); HEMATOCRIT 34 % (40-54); HEMOGLOBIN 11.4 G/DL (13.3-17.7); LYMPHOCYTES # (AUTO) 2.5 X 10^3 (1.0-4.0); LYMPHOCYTES % (AUTO) 22 % (12-44); MEAN CORPUSCULAR HEMOGLOBIN 29 PG (25-34); MEAN CORPUSCULAR HGB CONC 33 G/DL (32-36); MEAN CORPUSCULAR VOLUME 88 FL (80-99); MEAN PLATELET VOLUME 10.5 FL (7.4-10.4); MONOCYTES # (AUTO) 1.3 X 10^3 (0.0-1.0); MONOCYTES % (AUTO) 12 % (0-12); NEUTROPHILS # (AUTO) 7.1 X 10^3 (1.8-7.8); NEUTROPHILS % (AUTO) 64 % (42-75); PLATELET COUNT 300 10^3/uL (130-400); RED BLOOD COUNT 3.91 10^6/uL (4.35-5.85); RED CELL DISTRIBUTION WIDTH 15.2 % (10.0-14.5); WHITE BLOOD COUNT 11.1 10^3/uL (4.3-11.0)
[2018-04-28 04:41] LABS: BUN/CREATININE RATIO 4; CALCIUM 8.4 MG/DL (8.5-10.1); CARBON DIOXIDE 20 MMOL/L (21-32); CHLORIDE 109 MMOL/L (98-107); GFR ESTIMATED > 60; GLUCOSE 165 MG/DL (70-105); MAGNESIUM 1.5 MG/DL (1.8-2.4); PHOSPHORUS 2.7 MG/DL (2.3-4.7); POTASSIUM 3.9 MMOL/L (3.6-5.0); SODIUM 143 MMOL/L (135-145)
[2018-04-28] MEDS: PIPERACILLIN SODIUM/TAZOBACTAM 4.5 GM in NS (IVPB) 100 ML IV SCH ×3 (05:15→21:56)
[2018-04-28] MEDS: POTASSIUM CL 10MEQ/50ML IVPB 50 ML IV SCH (05:33)
[2018-04-28] MEDS: KCL 20 MEQ TAB (K-DUR) PO SCH (05:33)
[2018-04-28] MEDS: MAGNESIUM 1 GM/100 ML IVPB 100 ML IV SCH ×3 (05:33→06:55)
[2018-04-28] MEDS: IBUPROFEN 600 MG (MOTRIN) TAB PO PRN ×2 (07:00→20:34)
--- NOTE | 2018-04-28 07:51 | Diagnostic Imaging Report ---
INDICATION: Dyspnea. COMPARISON: 04/27/2018. FINDINGS: Stable right IJ central venous catheter. Improved but persistent patchy right basilar pulmonary opacities. No pleural effusion or pneumothorax. Stable enlargement of the cardiac silhouette which can be accentuated by portable technique. IMPRESSION: 1. Improved but persistent right basilar patchy pulmonary opacities. Dictated by: Dictated on workstation # [id number]
[2018-04-28 08:31] LABS: BUN/CREATININE RATIO 4; CALCIUM 8.4 MG/DL (8.5-10.1); CARBON DIOXIDE 21 MMOL/L (21-32); CHLORIDE 107 MMOL/L (98-107); CREATININE SERUM 0.69 MG/DL (0.60-1.30); GFR ESTIMATED > 60; GLUCOSE 179 MG/DL (70-105); MAGNESIUM 1.9 MG/DL (1.8-2.4); POTASSIUM 3.8 MMOL/L (3.6-5.0); SODIUM 141 MMOL/L (135-145)
[2018-04-28] MEDS: meTOprolol TARTRATE 25 MG (LOPRESSOR) TABLET PO SCH ×2 (08:39→20:34)
[2018-04-28] MEDS: ENOXAPARIN 60 MG/0.6 ML (LOVENOX) SYR SC SCH ×2 (08:39→20:35)
[2018-04-28] MEDS: lisINopril 10 MG (PRINIVIL) TABLET PO SCH (08:39)
[2018-04-28] MEDS: PANTOPRAZOLE 40 MG (PROTONIX) VIAL IV SCH (08:39)
[2018-04-28] MEDS: fluCOnazole (DIFLUCAN) 100 MG TAB PO SCH (08:39)
[2018-04-28] MEDS: inSUlin DETERMIR 1 UNIT/0.01 ML (LEVEMIR) CHARGE PER UNIT SQ SCH ×2 (08:39→21:56)
[2018-04-28] MEDS: MICONAZOLE 2% POWDER (DESENEX AF) 90 GM TOP SCH ×2 (08:40→20:37)
--- NOTE | 2018-04-28 10:50 | NUR ---
Discussed with pt definition of diabetes and complications. Reviewed counting carbs, benefit of exercise, medication adherence. Spoke with pt reference s/sx of hypo and hyper glycemia and how to avoid. Reviewed monitoring BS, A1c, eyes and foot care. Spoke with in depth about living a diabetic lifestyle, benefits, different resources and etc. Addendum: 04/28/18 at 1102 by JI CRAIG RN Amended: Links added.
--- NOTE | 2018-04-28 11:25 | NUR ---
Pastoral Care Visit.
--- NOTE | 2018-04-28 11:30 | NUR ---
Patient transferred to [facility] per wheelchair accompanied by Rosibel Marin RN Patient and family notified and understand transfer. Personal belongings with patient. Report received from PAOLO Gleason at this time. see EMR for this RN's physical assessment. patient voices no c/o. This RN to assume care at this time.
[2018-04-28 13:33] LABS: BUN/CREATININE RATIO 6; CARBON DIOXIDE 24 MMOL/L (21-32); CHLORIDE 105 MMOL/L (98-107); CREATININE SERUM 0.77 MG/DL (0.60-1.30); GFR ESTIMATED > 60; GLUCOSE 230 MG/DL (70-105); POTASSIUM 4.1 MMOL/L (3.6-5.0); SODIUM 140 MMOL/L (135-145)
--- NOTE | 2018-04-28 14:13 | Progress Note-Hospitalist ---
Progress Note Progress Notes/Assess & Plan Date Seen 04/28/18 Time Seen by Provider: 14:09 Assessment & Plan The patient has been transferred from the ICU to the floor. He is full of high hopes at this time relative to the treatment of his diabetes including dieting and weight loss. He does not have a community physician at this time. He was informed that this will be necessary. Blood sugars are satisfactory at this time and will be adjusted by virtue of the fingersticks. He may be ready for discharge as soon as tomorrow. Physical exam: Lungs are clear to auscultation. CV is regular without murmur. Abdomen is grossly obese. Extremities showed no palpable edema. Impression: Diabetic acidosis now resolved. 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 3.morbid obesity Plan: Diabetic diet. Levemir twice daily. Fingerstick blood sugar monitoring. Meal-related sliding scale at this point. Focused Exam Lactate Level 04/26/18 06:10: Lactic Acid Level 1.81 04/27/18 07:20: Lactic Acid Level 0.93 CÉSAR WASHINGTON MD Apr 28, 2018 14:13
[2018-04-28] MEDS: inSUlin ASPART (NovoLOG) 1 UNIT/0.01 ML (CHARGE PER UNIT) SC SCH ×2 (17:46→21:56)
[2018-04-29] VITALS: BP 138/82
[2018-04-29] MEDS: RT-ALBUTEROL/IPRATROPIUM 3 ML (DUONEB) VIAL INH SCH ×3 (01:39→11:56)
[2018-04-29 03:35] VITALS: BP 136/84
--- NOTE | 2018-04-29 05:59 | Pulmonary Progress Note ---
ABELTEO STUDENT 04/29/18 0559: Subjective Date Seen by a Provider: Apr 29, 2018 Subjective/Events-last exam Patient moved to 4th floor yesterday. He is doing well. He does complain of a painful sore on his tongue and swollen testicles today. Review of Systems General: No Chills, No Night Sweats, No Fatigue HEENT: No Head Aches, No Sore Throat; Other (sore on tongue) Pulmonary: No Dyspnea, No Cough, No Pleuritic Chest Pain Cardiovascular: No: Chest Pain, Palpitations, Edema Gastrointestinal: No: Nausea, Abdominal Pain, Diarrhea, Constipation Genitourinary: No Dysuria, No Frequency; Other (swollen testicles) Sepsis Event Evaluation Height, Weight, BMI Height: 5'6.00" Weight: 319lbs. 8.0oz. 144.785628zk; 46.9 BMI Method:Stated Focused Exam Lactate Level 04/26/18 06:10: Lactic Acid Level 1.81 04/27/18 07:20: Lactic Acid Level 0.93 Exam Exam Vital Signs Date Time Temp Pulse Resp B/P (MAP) Pulse Ox O2 Delivery O2 Flow Rate FiO2 04/29/18 03:35 99.0 112 22 136/84 (101) 96 Room Air 04/29/18 01:39 94 Room Air 04/29/18 01:00 112 04/29/18 00:00 99.2 110 22 138/82 (100) 94 Room Air 04/28/18 21:28 94 Room Air 04/28/18 20:30 Room Air 04/28/18 20:30 92 148/80 (102) 04/28/18 19:00 117 04/28/18 18:41 95 Room Air 04/28/18 18:15 99.3 109 24 142/97 (112) 97 Room Air 04/28/18 16:00 98.9 118 23 152/94 (113) 94 Room Air 04/28/18 13:00 126 04/28/18 12:00 99.2 107 20 132/78 (96) 94 Room Air 04/28/18 11:30 Room Air 04/28/18 11:18 93 Room Air 04/28/18 10:00 108 16 145/84 (104) 95 High Flow N/C 4.00 04/28/18 09:00 115 25 High Flow N/C 4.00 04/28/18 08:00 116 26 94 High Flow N/C 4.00 04/28/18 08:00 Room Air 04/28/18 07:00 116 22 116/95 (102) 94 High Flow N/C 4.00 04/28/18 07:00 113 04/28/18 07:00 93 Room Air 04/28/18 06:00 116 16 148/98 (115) 92 High Flow N/C 4.00 I & O 04/29/18 07:00 Intake Total 1550 ml Output Total 1250 ml Balance 300 ml Height & Weight Height: 5'6.00" Weight: 319lbs. 8.0oz. 144.484150gb; 46.9 BMI Method:Stated General Appearance: Anxious, Chronically ill, Mild Distress, Obese HEENT: PERRL/EOMI, Moist Mucous Membranes, Other (ulcer on tongue) Neck: Non Tender, Supple Respiratory: Lungs Clear, No Respiratory Distress, Decreased Breath Sounds Cardiovascular: Regular Rate, Rhythm, No Murmur Capillary Refill: Less Than 3 Seconds Gastrointestinal: non tender, soft Extremity: No Calf Tenderness, No Pedal Edema Neurologic/Psychiatric: Alert, Oriented x3, Other (opens eyes to verbal stimuli ) Skin: Tattoos/Piercings Results Lab Laboratory Tests 04/27/18 08:25 04/27/18 12:10 04/27/18 16:35 04/27/18 20:35 04/28/18 04:12 04/28/18 08:00 04/28/18 13:00 Assessment/Plan Assessment/Plan Acute severe DKA, resolved -Off insulin gtt -Monitor blood sugars -Levemir and novolog -Diabetic education yesterday Hypokalemia, hypomag -Recheck BMP Sinus tach -Metoprolol Hypertension -Lisinopril -Lopressor UTI with persistent low-grade fever - Continue Zosyn Anemia -Gastric occult is positive - protonix BID IV -PT is high risk for DVT/PE- will continue ppx lovenox for now and montior hb Morbid obesity with OHS genital yeast infection/folliculitis -miconazole powder -Fluconazole Penile yellow discharge -STD panel negative for GC/C Daily marijuana use AJ KELLEY DO 04/29/1828: Subjective Time Seen by a Provider: 07:22 Subjective/Events-last exam No SOB, No productive cough. Pt wants to go home. Exam Exam General Appearance: No Apparent Distress, Anxious, Chronically ill, Obese HEENT: Moist Mucous Membranes, Other (ulcer on tongue) Respiratory: Lungs Clear, No Respiratory Distress, Decreased Breath Sounds Cardiovascular: Regular Rate, Rhythm, No Murmur Gastrointestinal: non tender, soft Neurologic/Psychiatric: Alert, Oriented x3, Other (opens eyes to verbal stimuli ) Skin: Normal Color, Tattoos/Piercings Assessment/Plan Assessment/Plan Acute severe DKA, resolved -Off insulin gtt -Monitor blood sugars -Levemir and novolog -Diabetic education yesterday Hypoglycemia -Insulin per hospitalist management -Hypoglycemia protocol Hypokalemia, hypomag -replace Sinus tach -Metoprolol Hypertension -Lisinopril -Lopressor UTI with persistent low-grade fever - Continue Zosyn Anemia -Gastric occult is positive - protonix BID IV -PT is high risk for DVT/PE- will continue ppx lovenox for now and montior hb Morbid obesity with OHS genital yeast infection/folliculitis -miconazole powder -Fluconazole Penile yellow discharge -STD panel negative for GC/C Daily marijuana use MORGAN-TEO LE STUDENT Apr 29, 2018 05:59 AJ KELLEY DO Apr 29, 2018 07:28
[2018-04-29] MEDS: PIPERACILLIN SODIUM/TAZOBACTAM 4.5 GM in NS (IVPB) 100 ML IV SCH (06:15)
[2018-04-29] MEDS ORDERED: PANTOPRAZOLE 40 MG (PROTONIX) TAB PO SCH (06:30)
[2018-04-29] MEDS: inSUlin ASPART (NovoLOG) 1 UNIT/0.01 ML (CHARGE PER UNIT) SC SCH ×2 (06:49→12:57)
[2018-04-29 07:17] LABS: BASOPHILS # (AUTO) 0.1 10^3/uL (0.0-0.1); BASOPHILS % (AUTO) 1 % (0-10); EOSINOPHILS # (AUTO) 0.5 10^3/uL (0.0-0.3); EOSINOPHILS % (AUTO) 4 % (0-10); HEMATOCRIT 36 % (40-54); HEMOGLOBIN 11.6 G/DL (13.3-17.7); LYMPHOCYTES # (AUTO) 2.6 X 10^3 (1.0-4.0); LYMPHOCYTES % (AUTO) 24 % (12-44); MEAN CORPUSCULAR HEMOGLOBIN 29 PG (25-34); MEAN CORPUSCULAR HGB CONC 32 G/DL (32-36); MEAN CORPUSCULAR VOLUME 89 FL (80-99); MEAN PLATELET VOLUME 10.1 FL (7.4-10.4); MONOCYTES # (AUTO) 1.3 X 10^3 (0.0-1.0); MONOCYTES % (AUTO) 12 % (0-12); NEUTROPHILS # (AUTO) 6.7 X 10^3 (1.8-7.8); NEUTROPHILS % (AUTO) 60 % (42-75); PLATELET COUNT 332 10^3/uL (130-400); RED BLOOD COUNT 4.07 10^6/uL (4.35-5.85); RED CELL DISTRIBUTION WIDTH 14.8 % (10.0-14.5); WHITE BLOOD COUNT 11.1 10^3/uL (4.3-11.0)
--- NOTE | 2018-04-29 07:32 | NUR ---
0628-pt blood sugar 56-pt A&O sweat present on his forehead, not shaky or exhibiting any other symptoms-given 2 alejandra crackers and 1 carton of milk-pt refused to eat the alejandra crackers after 2 bites-this rn gave the pt 1 peanut butter packet. 0645-bs 60-pt was given another milk and 1 peanut butter packet. 0717-bs 94-pt was given an orange juice, pt did not want to order breakfast yet as he wanted to wait until his gets here. 0776-dr. stuart was notified by telephone about the hypoglycemic episode. no new orders
[2018-04-29 07:36] LABS: BUN/CREATININE RATIO 10; CALCIUM 8.6 MG/DL (8.5-10.1); CARBON DIOXIDE 24 MMOL/L (21-32); CHLORIDE 107 MMOL/L (98-107); CREATININE SERUM 0.59 MG/DL (0.60-1.30); GFR ESTIMATED > 60; GLUCOSE 83 MG/DL (70-105); SODIUM 141 MMOL/L (135-145)
[2018-04-29] MEDS: inSUlin DETERMIR 1 UNIT/0.01 ML (LEVEMIR) CHARGE PER UNIT SQ SCH (08:07)
[2018-04-29] MEDS: fluCOnazole (DIFLUCAN) 100 MG TAB PO SCH (08:07)
[2018-04-29] MEDS: lisINopril 10 MG (PRINIVIL) TABLET PO SCH (08:07)
[2018-04-29] MEDS: meTOprolol TARTRATE 25 MG (LOPRESSOR) TABLET PO SCH (08:07)
[2018-04-29] MEDS: ENOXAPARIN 60 MG/0.6 ML (LOVENOX) SYR SC SCH (08:07)
[2018-04-29] MEDS: MICONAZOLE 2% POWDER (DESENEX AF) 90 GM TOP SCH (08:08)
[2018-04-29 08:57] VITALS: BP 145/85
[2018-04-29 11:16] VITALS: BP 146/88
--- NOTE | 2018-04-29 13:33 | Progress Note-Hospitalist ---
Progress Note Progress Notes/Assess & Plan Date Seen 04/29/18 Time Seen by Provider: 13:28 Assessment & Plan The patient is now showing blood sugars in the low normal range. He is ready for discharge but will need to be followed up frequently in the beginning. [employer] has secured a promise from [facility] that he will be seen there by a new provider. He promises to give better effort to the control. He Is also eager to get back to work. I informed him that he would need to see his provider at [facility] before returning to work. He has a glucometer and strips plus lancets. He will require insulin. He is also reminded to take his log on his Physical exam: He is alert and oriented. Lungs are clear to auscultation. CV is regular without murmur. Impression: Diabetes mellitus, likely type II, insulin-requiring. Diabetic ketoacidosis. 3.respiratory failure and mechanical ventilator requirement secondary to ketoacidosis. Plan: Discharge. See discharge sequence for medications and routines. Focused Exam Lactate Level 04/27/18 07:20: Lactic Acid Level 0.93 CÉSAR WASHINGTON MD Apr 29, 2018 13:33
[2018-04-29] MEDS ORDERED: INSU100I29 SQ (13:41)
[2018-04-29] MEDS ORDERED: INSU100V16 SC (13:41)
[2018-04-29] MEDS ORDERED: METF-399 PO (13:41)
[2018-04-29] MEDS ORDERED: MICO90PO TOP (13:41)
[2018-04-29] MEDS ORDERED: LISI10TA2 PO (13:41)
--- NOTE | 2018-04-29 13:44 | Discharge Inst-Simple/Standard ---
Discharge Inst-Standard Discharge Medications New, Converted or Re-Newed RX: Transmitted to Pharmacy Patient Instructions/Follow Up Plan of Care/Instructions/FU: Follow up at [facility] within the week. Bring your log of blood sugars to your appointment. Your appointment will determine when he returned to work. Activity as Tolerated: Yes Goal: Establish better control of diabetes with a goal of a hemoglobin A1c less than 8. Diabetic diet and weight loss. Clearance of yeast infection in the groin. Discharge Diet: ADA Diet CÉSAR WASHINGTON MD Apr 29, 2018 13:44
--- NOTE | 2018-04-29 16:10 | NUR ---
CM/SS, respond to consult for patient with No PCP. Reviewed EMR, patient noted as noncompliant to diabetic monitor, nutrition, Rx, appointments. Discussed the importance of a PCP with patient and his female friend. Patient has history with [facility], but they indicate they contacted [facility] and asked to be reassigned to a different PCP and that it was Hoa Dueñas. Updated Unit RN who indicates she tried to make a followup at [facility] with this provider and they are not there. Food Service Assistant advised to make appointment with first available for post hospitalization reassessment. Patient is vague and does not communicate motivation about management of self health. He does have Medicaid as noted, they have been getting Rx at [facility]. Food Service Assistant encouraged them to consider [facility] pharmacy if that was of assistance to them to stay under their benefit umbrella. 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 Appears capable to manage care needs better if willing.
[2018-04-29] MEDS ORDERED: inSUlin DETERMIR 1 UNIT/0.01 ML (LEVEMIR) CHARGE PER UNIT SQ SCH (21:00)
== END 2018-04-29 14:35 | disposition home or self-care (01) | DRG 637 ==
LOC: EDUNIT# 07:06 → ER 07:07 → ICU 09:32 → 4TH 04-28 11:29
PROVIDERS: ADMIT Family Medicine; ATTEND Family Medicine
PROC: 5A1945Z Respiratory Ventilation, 24-96 Consecutive Hours (ICD-10-PCS; principal; 2018-04-23)
DX: E11.10 Type 2 diabetes mellitus with ketoacidosis without coma (principal); R06.03 Acute respiratory distress; J96.00 Acute respiratory failure, unspecified whether with hypoxia or hypercapnia; N17.9 Acute kidney failure, unspecified; N30.00 Acute cystitis without hematuria; E66.2 Morbid (severe) obesity with alveolar hypoventilation; Z68.43 Body mass index [BMI] 50.0-59.9, adult; E87.2 Acidosis; B37.49 Other urogenital candidiasis; E86.0 Dehydration; R45.1 Restlessness and agitation; J45.909 Unspecified asthma, uncomplicated; I10 Essential (primary) hypertension; E78.00 Pure hypercholesterolemia, unspecified; R74.0 Nonspecific elevation of levels of transaminase and lactic acid dehydrogenase [LDH]; F41.9 Anxiety disorder, unspecified; F12.10 Cannabis abuse, uncomplicated; E87.6 Hypokalemia; E83.39 Other disorders of phosphorus metabolism; E86.1 Hypovolemia; R36.9 Urethral discharge, unspecified; L73.9 Follicular disorder, unspecified; Z79.84 Long term (current) use of oral hypoglycemic drugs; Z91.19 Patient's noncompliance with other medical treatment and regimen; Z87.442 Personal history of urinary calculi; R85.89 Other abnormal findings in specimens from digestive organs and abdominal cavity
CPT/HCPCS: 36415; 71045; 80048; 80053; 81000; 82010; 82271; 82550; 82805; 82962; 83036; 83605; 83735; 83880; 84100; 84478; 85007; 85025; 85027; 86141; 86703; 87040; 87070; 87077; 87081; 87088; 87205; 87491; 87591; 93005; 93306; 94002; 94003; 94640; 94760; 94799; 96361; 96365; 96374; 96375; 96376

== ENCOUNTER 2018-05-29 14:06 | Outpatient (CLI) | payer MEDICAID ==
[~2018-05-29 14:06] MED LIST changes: +INSU100V16 SC; +LISI10TA2 PO; +MICO90PO TOP
== END 2018-05-29 14:34 | disposition home or self-care (01) ==
LOC: SLEEP 14:06
PROVIDERS: ATTEND Nurse Practitioner Family
DX: G47.50 Parasomnia, unspecified (principal); G47.10 Hypersomnia, unspecified

== ENCOUNTER 2018-09-22 17:55 | Emergency (ER) | payer MEDICAID ==
[~2018-09-22] VITALS: Ht 167.6 cm; Wt 125.0 kg
--- NOTE | 2018-09-22 18:28 | ED Lower Extremity ---
General Chief Complaint: Lower Extremity Stated Complaint: R ANKLE PAIN Nursing Triage Note: AMB TO ROOM WITH REPORTS THAT HE TWISTD HIS ANKLE YESTERDAY. Nursing Sepsis Screen: No Definite Risk Source: patient Exam Limitations: no limitations History of Present Illness Date Seen by Provider: Sep 22, 2018 Time Seen by Provider: 18:25 Initial Comments To ER with reports that he twisted his right ankle yesterday and missed work because of it he now needs a work note. Onset: yesterday Severity: moderate Pain/Injury Location: right ankle Method of Injury: twisted Modifying Factors: Worse With Movement Allergies and Home Medications Allergies Coded Allergies: No Known Drug Allergies (Unverified , 04/23/18) Home Medications Insulin Aspart 100 Unit/1 Ml Susp, 1 UNIT SC ACHS Sliding scale C as above Prescribed by: CÉSAR WASHINGTON on 04/29/18 1341 Insulin Detemir 100 Unit/1 Ml Insuln.pen, 30 UNIT SQ twice a day Prescribed by: CÉSAR WASHINGTON on 04/29/18 1341 Lisinopril 10 Mg Tablet, 10 MG PO DAILY Prescribed by: CÉSAR WASHINGTON on 04/29/18 1341 Metformin HCl 1,000 Mg Tablet, 1,000 MG PO BID Prescribed by: CÉSAR WASHINGTON on 04/29/18 1341 Miconazole Nitrate 90 Gm Powder, 1 GM TOP BID Apply to perineum twice a day Prescribed by: CÉSAR WASHINGTON on 04/29/18 1341 Patient Home Medication List Home Medication List Reviewed: Yes Review of Systems Constitutional: see HPI EENTM: see HPI Respiratory: no symptoms reported Cardiovascular: no symptoms reported Genitourinary: no symptoms reported Musculoskeletal: see HPI Skin: no symptoms reported Psychiatric/Neurological: No Symptoms Reported Past Gploofc-Ucuxvt-Pixyvy Hx Patient Social History Alcohol Use: Denies Use Recreational Drug Use: Yes (MARIJUANA IN PAST MONTH) Drug of Choice: POT Smoking Status: Never a Smoker Former Smoker, Quit: Jan 07, 2009 2nd Hand Smoke Exposure: No Recent Foreign Travel: No Contact w/Someone Who Travel: No Recent Infectious Disease Expo: No Recent Hopitalizations: Yes (UTI 11/22) Immunizations Up To Date Tetanus Booster (TDap): Unknown PED Vaccines UTD: No Date of Influenza Vaccine: Feb 06, 2012 Seasonal Allergies Seasonal Allergies: No Past Medical History Surgeries: Yes (EAR TUBES, UMBILICAL HERNIA) Abdominal, Ear Surgery Respiratory: Yes Asthma Currently Using CPAP: No Currently Using BIPAP: No Cardiac: Yes High Cholesterol, Hypertension Neurological: No Reproductive Disorders: No Genitourinary: Yes Kidney Stones Gastrointestinal: Yes (UMBILICAL HERNIA) Musculoskeletal: Yes (ANKLE FRACTURE) Fractures Endocrine: Yes Diabetes, Non-Insulin dep HEENT: No Cancer: No Psychosocial: Yes Anxiety Integumentary: No Blood Disorders: No Adverse Reaction/Blood Tranf: No Family Medical History Patient reports no known family medical history. No Pertinent Family Hx, Diabetes, Hypertension Physical Exam Vital Signs Vital Signs - First Documented 09/22/18 18:07 Temp 98.9 Pulse 91 Resp 18 B/P (MAP) 134/86 (102) Pulse Ox 99 O2 Delivery Room Air Capillary Refill : Less Than 3 Seconds Height, Weight, BMI Height: 5'6.00" Weight: 275lbs. 8.0oz. 124.174342pt; 46.9 BMI Method:Stated General Appearance: WD/WN, no apparent distress Legs: bilateral leg non-tender, bilateral leg normal inspection, bilateral leg normal range of motion Knees: bilateral knee non-tender, bilateral knee normal inspection, bilateral knee normal range of motion Ankles: bilateral ankle non-tender, bilateral ankle normal inspection, bilateral ankle normal range of motion Feet: bilateral foot non-tender, bilateral foot normal inspection, bilateral foot normal range of motion Neurologic/Psychiatric: alert, normal mood/affect Skin: normal color, warm/dry Procedures/Interventions Date of ETT Placement: Apr 23, 2018 Time of ETT Placement: 1304 Progress/Results/Core Measures Results/Orders My Orders Orders - LILIAN BROWNE APRN Ankle, Left, 3 Views (09/22/18 18:11) Vital Signs/I&O 09/22/18 18:07 Temp 98.9 Pulse 91 Resp 18 B/P (MAP) 134/86 (102) Pulse Ox 99 O2 Delivery Room Air Blood Pressure Mean: 102 Departure Impression Primary Impression: Sprain and strain of ankle Disposition: 01 HOME, SELF-CARE Condition: Stable Departure-Patient Inst. Decision time for Depature: 18:27 Referrals: MARGARITA THOMAS MD (PCP/Family) Primary Care Physician Patient Instructions: Sprain (DC) Add. Discharge Instructions: 1. Tylenol and ibuprofen for pain control. If pain persists then follow up with primary care later this week or next week for further evaluation. All discharge instructions reviewed with patient and/or family. Voiced understanding. Work/School Note: Work Release Form Date Seen in the Emergency Department: Sep 22, 2018 Return to Work: Sep 23, 2018 LILIAN BROWNE APRN Sep 22, 2018 18:28
--- NOTE | 2018-09-22 18:35 | Diagnostic Imaging Report ---
INDICATION: Right ankle injury, tripped in a hole. FINDINGS: Three views of the right ankle show no fracture, dislocation or other acute abnormalities. IMPRESSION: Negative right ankle. Dictated by: Dictated on workstation # [id number]
[2018-09-22 18:45] VITALS: BP 134/86
== END 2018-09-22 18:43 | disposition home or self-care (01) ==
LOC: EDUNIT# 17:55 → ER 17:56
DX: S96.911A Strain of unspecified muscle and tendon at ankle and foot level, right foot, initial encounter (principal); J45.909 Unspecified asthma, uncomplicated; E78.00 Pure hypercholesterolemia, unspecified; I10 Essential (primary) hypertension; E11.9 Type 2 diabetes mellitus without complications; F41.9 Anxiety disorder, unspecified; Z82.49 Family history of ischemic heart disease and other diseases of the circulatory system; Z87.442 Personal history of urinary calculi; Z79.4 Long term (current) use of insulin; Z87.891 Personal history of nicotine dependence; Z96.22 Myringotomy tube(s) status; Z98.890 Other specified postprocedural states; X50.1XXA Overexertion from prolonged static or awkward postures, initial encounter
CPT/HCPCS: 73610

== ENCOUNTER 2021-06-10 05:19 | Emergency (ER) | payer SELFPAY ==
[~2021-06-10 05:19] MED LIST changes: +CLIN-144 PO; -CLIN300C11 PO; +CYCL10TA25 PO; -CYCL10TA9 PO; -LEVO500T80 PO; +LEVO500T81 PO; -LISI-556 PO; -LISI10TA2 PO; +LISI10TA25 PO; +LISI5TAB20 PO; +METF-865 PO; -METF500T8 PO
[2021-06-10] MEDS ORDERED: ROCURONIUM 10 MG/ML 5 ML SYRINGE IV ONE (05:22)
[2021-06-10] MEDS ORDERED: ETOMIDATE IV SOLN 20 MG/10 ML VIAL IV ONE (05:22)
[2021-06-10] MEDS ORDERED: proPOfol 200 MG/20 ML (DIPRIVAN) VIAL IV ONE (05:22)
[2021-06-10] MEDS ORDERED: NS IV 1000 ML 1,000 ML ONE (05:44)
[2021-06-10] MEDS ORDERED: PIPERACILLIN SODIUM/TAZOBACTAM 4.5 GM in NS (IVPB) 100 ML IV ONE (05:45)
[2021-06-10] MEDS: NS IV 1000 ML 1,000 ML IV SCH ×2 (05:49→05:57)
[2021-06-10 05:50] LABS: BASOPHILS # (AUTO) 0.2 10^3/uL (0.0-0.1); BASOPHILS % (AUTO) 1 % (0-10); EOSINOPHILS % (AUTO) 0 % (0-10); HEMATOCRIT 46 % (40-54); HEMOGLOBIN 14.5 g/dL (13.3-17.7); LYMPHOCYTES # (AUTO) 2.2 10^3/uL (1.0-4.0); LYMPHOCYTES % (AUTO) 10 % (12-44); MEAN CORPUSCULAR HEMOGLOBIN 29 pg (25-34); MEAN CORPUSCULAR HGB CONC 31 g/dL (32-36); MEAN CORPUSCULAR VOLUME 92 fL (80-99); MEAN PLATELET VOLUME 12.4 fL (9.0-12.2); MONOCYTES # (AUTO) 1.2 10^3/uL (0.0-1.0); MONOCYTES % (AUTO) 5 % (0-12); NEUTROPHILS # (AUTO) 17.9 10^3/uL (1.8-7.8); NEUTROPHILS % (AUTO) 81 % (42-75); PLATELET COUNT 292 10^3/uL (130-400); WHITE BLOOD COUNT 22.1 10^3/uL (4.3-11.0)
[2021-06-10] MEDS ORDERED: PIPERACILLIN/TAZO 4.5 GM VIAL (ZOSYN) IV ONE (05:50)
[2021-06-10] MEDS ORDERED: inSUlin (REGULAR) HUMAN 1 UNIT/0.01 ML (CHARGE PER UNIT) IV STA (05:51)
[2021-06-10] MEDS ORDERED: inSUlin (REGULAR) HUMAN 1 UNIT/0.01 ML (CHARGE PER UNIT) SC STA (05:51)
--- NOTE | 2021-06-10 05:51 | ED General ---
General Chief Complaint: Altered Mental Status Stated Complaint: FALL - AMS - COUGH - VOMTING Nursing Triage Note: TO ED VIA POV AND W/C TO ROOM 5 WITH S/O WHO BROUGHT HIM TO ER R/T AMS RECENTLY. S/O STATES PT HAD SPIDER BITE ON BACK WITH RECENT ANTIBX. PT IS DIABETIC, BUT DOES NOT TAKE MEDICATIONS FOR THIS. APPROX 2H GENERAL MAGISTRATE PT FELL DOWN STEPS AND LAC NOTED TO BACK OF HEAD. Source of Information: Caregiver (girlfriend) Exam Limitations: Physical Impairments (KRUPA MAURICE MD) History of Present Illness Date Seen by Provider: Jun 10, 2021 Time Seen by Provider: 05:35 Initial Comments Patient is a 41-year-old male who presents with his girlfriend today chief complaint altered mental status, concern for high blood sugar, fall this evening, recent "spider bite". Patient has a history of diabetes, longstanding, no medications for this. His girlfriend states that he had a "spider bite" about a week and a half ago that was draining copious amounts of fluids/pus, she was able to get him to go to the [facility] walk-in clinic about 3 days ago, they started him on some Bactrim. She states at that time he started "getting worse". He has not been acting normally. Tonight he fell down some carpeted stairs 5 or 6 she did not note that he hit his head until he came into the emergency department and she realized he had a cut on the back of his head. No loss of consciousness was witnessed. He is not vomited. He does not routinely check his blood sugar and she did not check it this morning. He does not take any oqto-fdk-wqdagst medications except for occasional Tylenol. She thinks he has been taking his Bactrim. He complains of being very thirsty. No reported diarrhea or problems with urination according to the girlfriend at the bedside. She has been with him for 14 years. He does seem kind of confused, "glassy eyed". But he is able to answer questions. Denies headache. Review of systems difficult secondary to the patient's clinical condition. Timing/Duration: 3-4 Days Associated Systoms: Malaise, Weakness (KRUPA MAURICE MD) Allergies and Home Medications Allergies Coded Allergies: No Known Drug Allergies (Unverified , 04/23/18) Patient Home Medication List Home Medication List Reviewed: Yes (KRUPA MAURICE MD) Insulin Aspart (Novolog) 100 Unit/1 Ml Susp, 1 UNIT SC ACHS Prescribed by: CÉSAR WASHINGTON on 04/29/18 134 Insulin Detemir (Levemir Flextouch) 100 Unit/1 Ml Insuln.pen, 30 UNIT SQ twice a day Prescribed by: CÉSAR WASHINGTON on 04/29/18 134 Lisinopril (Lisinopril) 10 Mg Tablet, 10 MG PO DAILY Prescribed by: CÉSAR WASHINGTON on 04/29/18 134 Metformin HCl (Metformin HCl) 1,000 Mg Tablet, 1,000 MG PO BID Prescribed by: CÉSAR WASHINGTON on 04/29/18 134 Miconazole Nitrate (Lotrimin AF) 90 Gm Powder, 1 GM TOP BID Prescribed by: CÉSAR WASHINGTON on 04/29/18 1341 Review of Systems Review of Systems Constitutional: see HPI EENTM: other (dry mouth) Respiratory: no symptoms reported Cardiovascular: no symptoms reported Gastrointestinal: no symptoms reported Genitourinary: no symptoms reported Musculoskeletal: no symptoms reported Skin: other (wound on back from "spider bite") Psychiatric/Neurological: Weakness (KRUPA MAURICE MD) All Other Systems Reviewed Negative Unless Noted: Yes (KRUPA MAURICE MD) Past Fqtlpac-Qqamlj-Amiihk Hx Patient Social History Substance use?: Yes Substance type: Marijuana Alcohol Use?: Yes Alcohol type: Beer Alcohol Frequency: Daily (KRUPA MAURICE MD) Immunizations Up To Date Tetanus Booster (TDap): Unknown PED Vaccines UTD: No (KRUPA MAURICE MD) Seasonal Allergies Seasonal Allergies: No (KRUPA MAURICE MD) Past Medical History Surgeries: Yes (EAR TUBES, UMBILICAL HERNIA) Abdominal, Ear Surgery Respiratory: Yes Asthma Currently Using CPAP: No Currently Using BIPAP: No Cardiac: Yes High Cholesterol, Hypertension Neurological: No Reproductive Disorders: No Genitourinary: Yes Kidney Stones Gastrointestinal: Yes (UMBILICAL HERNIA) Musculoskeletal: Yes (ANKLE FRACTURE) Fractures Endocrine: Yes Diabetes, Non-Insulin dep HEENT: No Cancer: No Psychosocial: Yes Anxiety Integumentary: No Blood Disorders: No Adverse Reaction/Blood Tranf: No (KRUPA MAURICE MD) Family Medical History Patient reports no known family medical history. No Pertinent Family Hx, Diabetes, Hypertension (KRUPA MAURICE MD) Physical Exam-Suspected Sepsis Physical Exam Vital Signs Vital Signs - First Documented 06/10/21 05:27 Temp 37.0 Pulse 84 Resp 16 B/P (MAP) 97/55 (69) Pulse Ox 92 O2 Delivery Room Air (DEE STEPHENSON MD) Vital Signs Capillary Refill : Less Than 3 Seconds (KRUPA MAURICE MD) Blood Pressure Mean: 69 Height, Weight, BMI Height: 5'6.00" Weight: 275lbs. 8.0oz. 124.963382gd; 46.9 BMI Method:Stated General Appearance: No Apparent Distress, WD/WN, Chronically ill Eyes: Bilateral Eye Normal Inspection, Bilateral Eye PERRL (4-5mm equally reactive), Bilateral Eye EOMI HEENT: PERRL/EOMI, Pharynx Normal (dry oral mucosa) Neck: Normal Inspection, Non Tender (no midline tenderness) Respiratory: Lungs Clear (Pox 94%), Normal Breath Sounds, No Accessory Muscle Use, No Respiratory Distress Cardiovascular: Regular Rate, Rhythm (90"s; BP 94 systolic), Normal Peripheral Pulses Gastrointestinal: Normal Bowel Sounds, Non Tender, Soft Back: No Vertebral Tenderness, Other (see skin exam) Extremity: Non Tender Neurologic/Psychiatric: Alert, No Motor/Sensory Deficits, Depressed Affect, Other (slow responses; able to tell me month and year and that he is at the hospital) Skin: normal color, warm/dry, other (small punctate wound inferior right scapula, medial with surrounding erythema and significant area of fluctuance that extends across the midline upper thoracic spine about 14cm; no crepitance; TTP - entire area is fluctuant. I am unable to express purulence from the wound. There is a gauze dressing over the wound that is dry; additionally there is a 3cm vertical scalp laceration to the right of midline occipital scalp; no active bleeding extends to subcutaneous tissues) (KRUPA MAURICE MD) Focused Exam Lactate Level 06/10/21 05:45: Lactic Acid Level 2.21*H 06/10/21 07:45: Lactic Acid Level 2.25*H (DEE STEPHENSON MD) Lactic Acid Level (DEE STEPHENSON MD) Procedures/Interventions Date of ETT Placement: Apr 23, 2018 Time of ETT Placement: 1304 (KRUPA MAURICE MD) Intubation Method: orotracheal Tube Size: 7.5 Medications: Etomidate, Propofol, Rocuronium Positive End Tide CO2: Yes Breath Sounds after Intubation: bilateral-equal Intubation Complications: other (Required multiple attempts) Induction was achieved using etomidate 20 mg and rocuronium 50 mg. First intubation attempt was performed by Janine Mari, MS 4. This attempt was not successful. Second attempt was by Dr. Stephenson and cords could not be adequately visualized or reached during this attempt using traditional laryngoscope. A third attempt was successful using the fiberoptic video laryngoscope. Patient did receive a bolus of propofol 40 mg during intubation as he did have some muscle movement. Sedation is being maintained on a propofol drip. ET tube placement was confirmed by color change capnography as well as bilateral breath sounds with no abdominal sounds. Oxygen saturations were maintained in the upper 90s throughout intubation attempts and post intubation. Patient was noted to have a very dry oropharynx and larynx with white debris consistent with dry mucous and/or candidiasis. Post intubation x-ray was not obtained as the flight crew urgently needed to get in the air to avoid inclement weather. (DEE STEPHENSON MD) Wound Location: Scalp Other Wound Location right occipital Wound Length (cm): 3 Wound's Depth, Shape: superficial, into muscle, linear Wound Explored: clean Irrigated w/ Saline (ccs): 250 Anesthesia: 1% Lidocaine Volume Anesthetic (ccs): 2 Staple Repair: Stapler 35W (3) (KRUPA MAURICE MD) Progress/Results/Core Measures Suspected Sepsis SIRS Temperature: Pulse: 84 Respiratory Rate: 16 Laboratory Tests 06/10/21 05:35: White Blood Count 22.1H Blood Pressure 97 /55 Mean: 69 06/10/21 05:45: Laboratory Tests 06/10/21 05:35: INR Comment 1.0, Platelet Count 292 (KRUPA MAURICE MD) Results/Orders Lab Results Laboratory Tests Test 06/10/21 05:31 06/10/21 05:35 06/10/21 05:45 06/10/21 05:50 Range/Units Glucometer > 600 *H 70-110 MG/DL White Blood Count 22.1 H 4.3-11.0 10^3/uL Red Blood Count 5.06 4.30-5.52 10^6/uL Hemoglobin 14.5 13.3-17.7 g/dL Hematocrit 46 40-54 % Mean Corpuscular Volume 92 80-99 fL Mean Corpuscular Hemoglobin 29 25-34 pg Mean Corpuscular Hemoglobin Concent 31 L 32-36 g/dL Red Cell Distribution Width 13.3 10.0-14.5 % Platelet Count 292 130-400 10^3/uL Mean Platelet Volume 12.4 H 9.0-12.2 fL Immature Granulocyte % (Auto) 2 % Neutrophils (%) (Auto) 81 H 42-75 % Lymphocytes (%) (Auto) 10 L 12-44 % Monocytes (%) (Auto) 5 0-12 % Eosinophils (%) (Auto) 0 0-10 % Basophils (%) (Auto) 1 0-10 % Neutrophils # (Auto) 17.9 H 1.8-7.8 10^3/uL Lymphocytes # (Auto) 2.2 1.0-4.0 10^3/uL Monocytes # (Auto) 1.2 H 0.0-1.0 10^3/uL Eosinophils # (Auto) 0.0 0.0-0.3 10^3/uL Basophils # (Auto) 0.2 H 0.0-0.1 10^3/uL Immature Granulocyte # (Auto) 0.5 H 0.0-0.1 10^3/uL Neutrophils % (Manual) 73 % Lymphocytes % (Manual) 3 % Monocytes % (Manual) 12 % Band Neutrophils 12 % Blood Morphology Comment NORMAL Prothrombin Time 13.8 12.2-14.7 SEC INR Comment 1.0 0.8-1.4 Activated Partial Thromboplast Time 25 24-35 SEC Sodium Level 130 L 135-145 MMOL/L Potassium Level 4.5 3.6-5.0 MMOL/L Chloride Level 89 L 98-107 MMOL/L Carbon Dioxide Level 23 21-32 MMOL/L Anion Gap 18 H 5-14 MMOL/L Blood Urea Nitrogen 37 H 7-18 MG/DL Creatinine 2.09 H 0.60-1.30 MG/DL Estimat Glomerular Filtration Rate 41 BUN/Creatinine Ratio 18 Glucose Level 1204 *H 70-105 MG/DL Calcium Level 10.7 H 8.5-10.1 MG/DL Corrected Calcium 11.5 H 8.5-10.1 MG/DL Total Bilirubin 0.4 0.1-1.0 MG/DL Aspartate Amino Transf (AST/SGOT) 25 5-34 U/L Alanine Aminotransferase (ALT/SGPT) 42 0-55 U/L Alkaline Phosphatase 359 H 40-136 U/L Total Protein 6.9 6.4-8.2 GM/DL Albumin 3.0 L 3.2-4.5 GM/DL Beta-Hydroxybutyrate (Chem panel) 2.30 H 0.00-0.27 MMOL/L Lactic Acid Level 2.21 *H 0.50-2.00 MMOL/L C-Reactive Protein High Sensitivity 9.02 H 0.00-0.50 MG/DL Procalcitonin 0.89 H <0.10 NG/ML Influenza Type A (RT-PCR) Not Detected Not Detecte Influenza Type B (RT-PCR) Not Detected Not Detecte SARS-CoV-2 RNA (RT-PCR) Not Detected Not Detecte Test 06/10/21 06:33 06/10/21 07:25 06/10/21 07:45 06/10/21 09:31 Range/Units Blood Gas Puncture Site LEFT RADIAL Blood Gas Patient Temperature 37.0 Arterial Blood pH 7.40 7.37-7.43 Arterial Blood Partial Pressure CO2 41 35-45 MMHG Arterial Blood Partial Pressure O2 76 L 79-93 MMHG Arterial Blood HCO3 25 23-27 MMOL/L Arterial Blood Total CO2 26.1 21.0-31.0 MMOL/L Arterial Blood Oxygen Saturation 95 94-100 % Arterial Blood Base Excess 0.7 -2.5-2.5 MMOL/L Andrea Test YES-POS Blood Gas Ventilator Setting NO Blood Gas Inspired Oxygen ROOM AIR Urine Color YELLOW Urine Clarity CLEAR Urine pH 6.0 5-9 Urine Specific Ovid <=1.005 1.016-1.022 Urine Protein NEGATIVE NEGATIVE Urine Glucose (UA) 3+ H NEGATIVE Urine Ketones TRACE H NEGATIVE Urine Nitrite NEGATIVE NEGATIVE Urine Bilirubin NEGATIVE NEGATIVE Urine Urobilinogen 0.2 < = 1.0 MG/DL Urine Leukocyte Esterase NEGATIVE NEGATIVE Urine RBC (Auto) TRACE-L H NEGATIVE Urine RBC RARE /HPF Urine WBC NONE /HPF Urine Crystals NONE /LPF Urine Bacteria NEGATIVE /HPF Urine Casts NONE /LPF Urine Mucus NEGATIVE /LPF Urine Yeast FEW H /HPF Urine Culture Indicated CULTURE PENDING Sodium Level 139 135-145 MMOL/L Potassium Level 4.4 3.6-5.0 MMOL/L Chloride Level 102 98-107 MMOL/L Carbon Dioxide Level 22 21-32 MMOL/L Anion Gap 15 H 5-14 MMOL/L Blood Urea Nitrogen 32 H 7-18 MG/DL Creatinine 1.66 H 0.60-1.30 MG/DL Estimat Glomerular Filtration Rate 53 BUN/Creatinine Ratio 19 Glucose Level 769 *H 70-105 MG/DL Lactic Acid Level 2.25 *H 0.50-2.00 MMOL/L Calcium Level 9.8 8.5-10.1 MG/DL Glucometer 530 *H 70-110 MG/DL (DEE STEPHENSON MD) My Orders Orders - DEE STEPHENSON MD Vancomycin Injection (Vancomycin Injecti (06/10/21 06:00) Hs C Reactive Protein (06/10/21 05:58) Procalcitonin (Pct) (06/10/21 05:58) Norepinephrine 8 Mg/250 Ml (Norepinephri (06/10/21 06:15) Ct Chest Wo (06/10/21 06:06) Norepinephrine 8 Mg/250 Ml (Norepinephri (06/10/21 06:06) Ns Iv 1000 Ml (Sodium Chloride 0.9%) (06/10/21 06:30) Arterial Blood Gas (06/10/21 06:28) Arterial Blood Draw - Obtain (06/10/21 06:33) Basic Metabolic Panel (06/10/21 07:35) Ceftriaxone (Rocephin) (06/10/21 08:15) Propofol Drip (Icu) (Diprivan Drip (Icu) (06/10/21 09:00) Propofol Drip (Icu) (Diprivan Drip (Icu) (06/10/21 09:03) Chest 1 View, Ap/Pa Only (06/10/21 09:26) (DEE STEPHENSON MD) Medications Given in ED Current Medications Medications Dose Ordered Sig/Franco Route Start Time Stop Time Status Last Admin Dose Admin Ceftriaxone Sodium 2000 mg/ Sodium Chloride 50 ml @ 240 mls/hr ONCE ONCE IV 06/10/21 08:15 06/10/21 08:27 DC 06/10/21 08:52 240 MLS/HR Piperacillin Sod/ Tazobactam Sod 4.5 gm/Sodium Chloride 100 ml @ 200 mls/hr ONCE ONCE IV 06/10/21 05:45 06/10/21 06:14 DC 06/10/21 06:08 200 MLS/HR (DEE STEPHENSON MD) Vital Signs/I&O 06/10/21 06/10/21 06/10/21 06/10/21 05:27 05:33 06:31 09:19 Temp 37.0 Pulse 84 84 Resp 16 B/P (MAP) 97/55 (69) 81/46 102/70 Pulse Ox 92 O2 Delivery Room Air Room Air 06/10/21 09:50 Temp 37.2 Pulse 63 Resp 16 B/P (MAP) 80/66 Pulse Ox 99 O2 Delivery Mechanical Ventilator (DEE STEPHENSON MD) Vital Signs/I&O Capillary Refill : Less Than 3 Seconds (KRUPA MAURICE MD) Blood Pressure Mean: 69 Progress Note #1: Time: 06:26 Progress Note Care of this patient was assumed from Dr. Maurice at shift change. He has been reexamined and updated on the plan. He is hypotensive with systolic blood pressures in the 80s at this time. He has 2 L of IV fluid presently infusing. A third liter has been ordered to give after these 2 have completed. Blood sugar was 1204 on the blood draw. He has received 5 units of insulin by IV route and 5 units subcutaneously as ordered by Dr. Maurice. Zosyn is presently infusing and will be followed by vancomycin. CT scans of the head, cervical spine, and chest are pending. Levophed has been ordered to start if he is still hypotensive after the 2 L bolus. I discussed CODE STATUS with the patient and his significant other. They both agree that he would like to be full code at this time. Patient is still able to converse but mentation is rather sluggish. Surprisingly, his lactic acid is only 2.2. I suspect much of his compromised subjective status is secondary to the severe hyperglycemia rather than severe sepsis. Progress Note #2: Time: 08:20 Progress Note I have consulted Dr. Wilson (general surgeon) and reviewed CT with him. Upon reviewing the CTs there is concern about the depth of the abscess extending to the level of the spine and possibly even the dura. I have contacted Dr. Buenrostro (radiologist) to review the CT images with me again. He cannot rule out dural involvement versus artifact. We do not have MRI available to help differentiate spinal involvement. I discussed the situation with the patient and notified him that further evaluation with MRI and neurosurgery needs to be pursued. He did not have a preference on location. I have called at [facility] in [place] and spoke with Dr. Jha (lot boss) at 08:05. He recommended obtaining LP if possible and giving Rocephin 2 g IV to cover for possible meningitis now that there is concern for spinal involvement. I spoke with the ER physician, Dr. Phelan, at 08:10. Transfer to the ER was recommended by Dr. Jha due to the fall involved with this case. The ER was willing to take the patient but requested we speak with neurosurgery, Dr. Lim, first. After hearing the specifics of the case, Dr. Lim conferred with his colleagues and decided they do not have the surgical support necessary for this case including plastics. He recommended that this patient be transferred to a high level academic center such as [facility]. I will attempt an LP prior to transfer if time allows. The Rocephin has been ordered. Repeat labs revealed no significant change in the lactic acid, and a slight decrease in creatinine now at 1.66 and a satisfactory drop in blood sugar down to 769. I will not give any more insulin at this time as I do not want to shift the blood sugar too rapidly. Vital signs remained stable on a minimal Levophed drip. Progress Note #3: Time: 09:29 Progress Note [facility] accepted transfer to Dr. Trimble. We were not able to obtain a lumbar puncture prior to transfer. Flight crew is in a time constraint due to inclement weather moving into the area. For the safety of the patient and staff, it was determined intubation was necessary. Patient has stated he wanted his longtime girlfriend Doris to make decisions for him. We discussed transfer and decision to intubate with Doris. She consented to both transfer and intubation. Although patient was able to talk and answer questions, none of the ER staff felt he was a competent decision maker in regard to answering questions about intubation. Flight crew is now present and loading patient for transfer. He was intubated with some difficulty. Traditional laryngoscope was first attempted, but cords could not be adequately reached. The fiberoptic video laryngoscope was then used with success. Progress Note #4: Progress Note The final blood sugar was 530 just prior to departure. A post intubation x-ray was obtained just prior to transferring to the air crew's cot. ET tube appeared to be in reasonable position. (DEE STEPHENSON MD) Diagnostic Imaging Diagonstic Imaging: Xray Plain Films/CT/US/NM/MRI: chest Comments NAME: GRAEME ROBERTS [facility] REC#: [id number] PT STATUS: REG ER : 1980 PHYSICIAN: KRUPA MAURICE MD ADMIT DATE: 06/10/21/ER Draft Date of Exam:06/10/21 CHEST 1 VIEW, AP/PA ONLY INDICATION: Followup sepsis COMPARISON: 04/28/2018 FINDINGS: Single view of the chest demonstrates cardiac enlargement with slight central vascular congestion. There is no pneumothorax or effusion. Osseous structures are age-appropriate. There is a nonspecific gas collection in the base of the right neck of uncertain etiology. IMPRESSION: 1. Cardiac enlargement with slight central vascular congestion 2. Nonspecific gas within the base of the neck on the right. Dictated on workstation # [id number] Dict: 06/10/21 0711 Trans: 06/10/21 0717 MISTY [id number] Interpreted by: MAURO MCKEON Diagonstic Imaging: CT Plain Films/CT/US/NM/MRI: c-spine, head Comments CT head and cervical spine viewed by me. Discussed with Dr. Wilson and Dr. Buenrostro. See report below. It should be noted that this report was edited by Dr. Buenrostro after discussion: NAME: GRAEME ROBERTS [facility] REC#: [id number] PT STATUS: REG ER : 1980 PHYSICIAN: KRUPA MAURICE MD ADMIT DATE: 06/10/21/ER Signed Date of Exam:06/10/21 CT HEAD/CERVICAL SPINE WO PROCEDURE: CT head and CT cervical spine without contrast. TECHNIQUE: Multiple contiguous axial images were obtained through the brain and cervical spine without the use of intravenous contrast. Sagittal and coronal reformations through the cervical spine were then performed. Auto Exposure Controls were utilized during the CT exam to meet ALARA standards for radiation dose reduction. INDICATION: Fall. Head injury. Altered mental status. Scalp laceration. COMPARISON: None. FINDINGS: CT HEAD: Scalp laceration overlying the right parietal convexity. No intracranial hemorrhage, mass effect, hydrocephalus or extra-axial fluid collections. No CT evidence for territorial infarction. Osseous structures are intact. Mild mucosal thickening in the left maxillary sinus. Mastoids are clear. CT cervical spine: Normal alignment. Vertebral body heights are preserved. No fractures. No substantial spondylotic change. No evidence of neural impingement on noncontrast CT. The lung apices are clear. Large amount of edema and soft tissue gas in the posterior soft tissues from the level of C2 extending inferiorly to the level of T2 is partially visualized. This measures at least 18 cm in the left to right dimension. There is some low-attenuation seen in the posterior epidural space and interspinous region at the levels of C7-T1. No suspicious osteoblastic or lytic changes. IMPRESSION: 1. No acute intracranial or cervical spine CT findings. 2. Large amount of edema and soft tissue gas in the posterior soft tissues at the cervicothoracic junction is partially visualized. This is contiguous with some low-attenuation in the epidural space and interspinous region at the level of C7-T2 suspicious for spine involvement of the soft tissue process. Recommend MRI without and with IV contrast for further evaluation. 3. Repaired right parietal scalp laceration. Findings were discussed with Dr. DEE STEPHENSON MD at 7:47 AM on 06/10/2021. Dictated by: Dictated on workstation # [id number] Dict: 06/10/21 0711 Trans: 06/10/21 075 MISTY [id number] Interpreted by: ELLY BUENROSTRO MD Electronically signed by: ELLY BUENROSTRO MD 06/10/21 0751 Diagonstic Imaging: CT Plain Films/CT/US/NM/MRI: chest Comments CT chest viewed by me and report reviewed. Discussed with Dr. Buenrostro and Dr. Wilson. See report below: NAME: GRAEME ROBERTS [facility] REC#: [id number] PT STATUS: [facility] ER : 1980 PHYSICIAN: DEE STEPHENSON MD ADMIT DATE: 06/10/21/ER Signed Date of Exam:06/10/21 CT CHEST WO PROCEDURE: CT chest without contrast. TECHNIQUE: Multiple contiguous axial images were obtained through the chest without the use of intravenous contrast. Auto Exposure Controls were utilized during the CT exam to meet ALARA standards for radiation dose reduction. INDICATION: Agitation, fall, chest pain COMPARISON: None FINDINGS: The heart is not enlarged. There is no pericardial effusion. Mediastinum is unremarkable. The lungs are clear throughout. No mass, nodule, or infiltrate is seen. There is no pneumothorax or effusion. Osseous structures are age-appropriate. There are no rib fractures. Thoracic spine is well aligned. Visualized upper abdominal solid organs are intact. IMPRESSION: No acute trauma identified. Dictated by: Dictated on workstation # [id number] Dict: 06/10/21 0713 Trans: 06/10/21 1249 [facility] [id number] Interpreted by: MAURO MCKEON Electronically signed by: MAURO MCKEON 06/10/21 1249 Diagonstic Imaging: Xray Plain Films/CT/US/NM/MRI: chest Comments Chest x-ray viewed by me and report reviewed. See report below: NAME: GRAEME ROBERTS [facility] REC#: [id number] PT STATUS: [facility] ER : 1980 PHYSICIAN: DEE STEPHENSON MD ADMIT DATE: 06/10/21/ER Signed Date of Exam:06/10/21 CHEST 1 VIEW, AP/PA ONLY INDICATION: Intubated COMPARISON: 06/09/2021 FINDINGS: Single view of the chest demonstrates an ET and NG tubes in appropriate positions. There is no pneumothorax. Gas pocket in the base of the neck on the right remains. IMPRESSION: Well-positioned support devices. Dictated by: Dictated on workstation # [id number] Dict: 06/10/21 0953 Trans: 06/10/21 1249 [facility] [id number] Interpreted by: MAURO MCKEON Electronically signed by: MAURO MCKEON 06/10/21 1249 (DEE STEPHENSON MD) Departure Impression Primary Impression: Severe sepsis Additional Impressions: Abscess of back Hyperglycemia Altered mental status Qualified Codes: R41.82 - Altered mental status, unspecified Abnormal CT of thoracic spine Acute kidney injury Scalp laceration Qualified Codes: S01.01XA - Laceration without foreign body of scalp, initial encounter Disposition: XFER SHT-TRM HOSP Condition: Stable Transfer Transfer Reason: Exceeds level of care Time Spoke to Accepting Phy: 08:30 (Via craft coordinator) Transfer Progress Notes Transfer accepted by Dr. Trimble. Transfer Time: 09:35 Transfer Facility: [facility] Method of Transfer: Air (DEE STEPHENSON MD) Departure-Patient Inst. Referrals: NO,LOCAL PHYSICIAN (PCP/Family) Primary Care Physician KRUPA MAURICE MD Jun 10, 2021 05:50 DEE STEPHENSON MD Jun 10, 2021 06:30
[2021-06-10] MEDS ORDERED: NS (IVPB) 100 ML ONE (05:52)
[2021-06-10 05:56] LABS: PROTHROMBIN TIME PATIENT 13.8 SEC (12.2-14.7)
[2021-06-10 06:00] LABS: POTASSIUM 4.5 MMOL/L (3.6-5.0)
[2021-06-10 06:01] LABS: CALCIUM 10.7 MG/DL (8.5-10.1)
[2021-06-10 06:02] LABS: TOTAL PROTEIN 6.9 GM/DL (6.4-8.2)
[2021-06-10 06:04] LABS: BILIRUBIN,TOTAL 0.4 MG/DL (0.1-1.0)
[2021-06-10 06:06] LABS: CREATININE SERUM 2.09 MG/DL (0.60-1.30)
[2021-06-10] MEDS ORDERED: NOREPINEPHRINE 8 MG/250 ML 250 ML IV ONE (06:06)
[2021-06-10 06:15] LABS: BAND NEUTROPHILS 12 %; LYMPHOCYTES % (MANUAL) 3 %; MONOCYTES % (MANUAL) 12 %; NEUTROPHILS % (MANUAL) 73 %; RBC MORPH NORMAL
[2021-06-10] MEDS ORDERED: NOREPINEPHRINE 8 MG/250 ML 250 ML IV SCH (06:15)
[2021-06-10] MEDS ORDERED: NS IV 1000 ML 1,000 ML IV SCH (06:30)
[2021-06-10 06:40] LABS: ABG BASE EXCESS 0.7 MMOL/L (-2.5-2.5); ABG OXYGEN SATURATION 95 % (94-100); ABG PCO2 41 MMHG (35-45); ABG PO2 76 MMHG (79-93); ABG TCO2 26.1 MMOL/L (21.0-31.0)
[2021-06-10 06:46] LABS: ALLENS TEST YES-POS; INSPIRED O2 ROOM AIR; VENTILATOR NO
--- NOTE | 2021-06-10 07:17 | Diagnostic Imaging Report ---
INDICATION: Followup sepsis COMPARISON: 04/28/2018 FINDINGS: Single view of the chest demonstrates cardiac enlargement with slight central vascular congestion. There is no pneumothorax or effusion. Osseous structures are age-appropriate. There is a nonspecific gas collection in the base of the right neck of uncertain etiology. IMPRESSION: 1. Cardiac enlargement with slight central vascular congestion 2. Nonspecific gas within the base of the neck on the right. Dictated by: Dictated on workstation # [id number]
--- NOTE | 2021-06-10 07:19 | Diagnostic Imaging Report ---
PROCEDURE: CT head and CT cervical spine without contrast. TECHNIQUE: Multiple contiguous axial images were obtained through the brain and cervical spine without the use of intravenous contrast. Sagittal and coronal reformations through the cervical spine were then performed. Auto Exposure Controls were utilized during the CT exam to meet ALARA standards for radiation dose reduction. INDICATION: Fall. Head injury. Altered mental status. Scalp laceration. COMPARISON: None. FINDINGS: CT HEAD: Scalp laceration overlying the right parietal convexity. No intracranial hemorrhage, mass effect, hydrocephalus or extra-axial fluid collections. No CT evidence for territorial infarction. Osseous structures are intact. Mild mucosal thickening in the left maxillary sinus. Mastoids are clear. CT cervical spine: Normal alignment. Vertebral body heights are preserved. No fractures. No substantial spondylotic change. No evidence of neural impingement on noncontrast CT. The lung apices are clear. Large amount of edema and soft tissue gas in the posterior soft tissues from the level of C2 extending inferiorly to the level of T2 is partially visualized. This measures at least 18 cm in the left to right dimension. There is some low-attenuation seen in the posterior epidural space and interspinous region at the levels of C7-T1. No suspicious osteoblastic or lytic changes. IMPRESSION: 1. No acute intracranial or cervical spine CT findings. 2. Large amount of edema and soft tissue gas in the posterior soft tissues at the cervicothoracic junction is partially visualized. This is contiguous with some low-attenuation in the epidural space and interspinous region at the level of C7-T2 suspicious for spine involvement of the soft tissue process. Recommend MRI without and with IV contrast for further evaluation. 3. Repaired right parietal scalp laceration. Findings were discussed with Dr. EDE MOROCHO MD at 7:47 AM on 06/10/2021. Dictated by: Dictated on workstation # [id number]
--- NOTE | 2021-06-10 07:20 | Diagnostic Imaging Report ---
PROCEDURE: CT chest without contrast. TECHNIQUE: Multiple contiguous axial images were obtained through the chest without the use of intravenous contrast. Auto Exposure Controls were utilized during the CT exam to meet ALARA standards for radiation dose reduction. INDICATION: Agitation, fall, chest pain COMPARISON: None FINDINGS: The heart is not enlarged. There is no pericardial effusion. Mediastinum is unremarkable. The lungs are clear throughout. No mass, nodule, or infiltrate is seen. There is no pneumothorax or effusion. Osseous structures are age-appropriate. There are no rib fractures. Thoracic spine is well aligned. Visualized upper abdominal solid organs are intact. IMPRESSION: No acute trauma identified. Dictated by: Dictated on workstation # [id number]
[2021-06-10 07:32] LABS: BILIRUBIN,URINE NEGATIVE (NEGATIVE); CLARITY,URINE CLEAR; COLOR,URINE YELLOW; GLUCOSE, URINE (UA) 3+ (NEGATIVE); KETONES,URINE TRACE (NEGATIVE); LEUKOCYTE ESTERASE ,URINE NEGATIVE (NEGATIVE); NITRITE,URINE NEGATIVE (NEGATIVE); PROTEIN,URINE NEGATIVE (NEGATIVE)
[2021-06-10 07:38] LABS: BACTERIA,URINE NEGATIVE /HPF; RBC,URINE RARE /HPF; YEAST,URINE FEW /HPF
[2021-06-10] MEDS: VANCOMYCIN INJECTION 1,000 MG in NS (IVPB) 250 ML IV SCH ×2 (07:38→09:03)
[2021-06-10 08:00] LABS: POTASSIUM 4.4 MMOL/L (3.6-5.0)
[2021-06-10 08:02] LABS: CALCIUM 9.8 MG/DL (8.5-10.1)
[2021-06-10 08:06] LABS: CREATININE SERUM 1.66 MG/DL (0.60-1.30)
[2021-06-10] MEDS ORDERED: cefTRIAXone 2,000 MG in NS (IVPB) 50 ML IV ONE (08:15)
[2021-06-10] MEDS ORDERED: PROPOFOL DRIP (ICU) 100 ML IV SCH (09:00)
[2021-06-10] MEDS ORDERED: PROPOFOL DRIP (ICU) 100 ML IV ONE (09:03)
[2021-06-10 09:50] VITALS: BP 80/66
--- NOTE | 2021-06-10 09:57 | Diagnostic Imaging Report ---
INDICATION: Intubated COMPARISON: 06/09/2021 FINDINGS: Single view of the chest demonstrates an ET and NG tubes in appropriate positions. There is no pneumothorax. Gas pocket in the base of the neck on the right remains. IMPRESSION: Well-positioned support devices. Dictated by: Dictated on workstation # [id number]
== END 2021-06-10 09:50 | disposition short-term general hospital (02) ==
LOC: EDUNIT# 05:19 → ER 05:21
DX: S01.01XA Laceration without foreign body of scalp, initial encounter (principal); R65.20 Severe sepsis without septic shock; L02.212 Cutaneous abscess of back [any part, except buttock and flank]; R73.9 Hyperglycemia, unspecified; R41.82 Altered mental status, unspecified; N17.9 Acute kidney failure, unspecified; R93.7 Abnormal findings on diagnostic imaging of other parts of musculoskeletal system; Z20.822 Contact with and (suspected) exposure to COVID-19; W10.9XXA Fall (on) (from) unspecified stairs and steps, initial encounter
CPT/HCPCS: 12002; 31500; 36415; 36600; 51702; 70450; 71045; 71250; 72125; 80048; 80053; 81000; 82010; 82805; 82947; 83605; 84145; 85007; 85027; 85610; 85730; 86141; 87040; 87070; 87077; 87088; 87186; 87205; 87636; 99291

== ENCOUNTER 2021-06-29 11:18 | Outpatient (RCR) | payer OTHER ==
[2021-06-22 12:40] VITALS: BP 100/72
[2021-06-22 13:17] LABS: BASOPHILS # (AUTO) 0.1 10^3/uL (0.0-0.1); BASOPHILS % (AUTO) 0 % (0-10); EOSINOPHILS # (AUTO) 0.2 10^3/uL (0.0-0.3); EOSINOPHILS % (AUTO) 1 % (0-10); HEMATOCRIT 39 % (40-54); HEMOGLOBIN 12.6 g/dL (13.3-17.7); LYMPHOCYTES # (AUTO) 3.7 10^3/uL (1.0-4.0); LYMPHOCYTES % (AUTO) 28 % (12-44); MEAN CORPUSCULAR HEMOGLOBIN 29 pg (25-34); MEAN CORPUSCULAR HGB CONC 32 g/dL (32-36); MEAN CORPUSCULAR VOLUME 90 fL (80-99); MEAN PLATELET VOLUME 10.7 fL (9.0-12.2); MONOCYTES # (AUTO) 1.1 10^3/uL (0.0-1.0); MONOCYTES % (AUTO) 9 % (0-12); NEUTROPHILS % (AUTO) 61 % (42-75); PLATELET COUNT 542 10^3/uL (130-400); WHITE BLOOD COUNT 13.2 10^3/uL (4.3-11.0)
[2021-06-22 13:34] LABS: ALBUMIN 3.4 GM/DL (3.2-4.5); BILIRUBIN,TOTAL 0.3 MG/DL (0.1-1.0); CALCIUM 9.1 MG/DL (8.5-10.1); CREATININE SERUM 0.72 MG/DL (0.60-1.30); POTASSIUM 4.2 MMOL/L (3.6-5.0); TOTAL PROTEIN 7.2 GM/DL (6.4-8.2)
[2021-06-27 10:00] VITALS: BP 112/73
[2021-06-29 11:20] VITALS: BP 120/85
[2021-06-29 15:44] LABS: BASOPHILS # (AUTO) 0.1 10^3/uL (0.0-0.1); BASOPHILS % (AUTO) 1 % (0-10); EOSINOPHILS # (AUTO) 0.2 10^3/uL (0.0-0.3); EOSINOPHILS % (AUTO) 3 % (0-10); HEMATOCRIT 35 % (40-54); HEMOGLOBIN 11.2 g/dL (13.3-17.7); LYMPHOCYTES # (AUTO) 2.5 X 10^3 (1.0-4.0); LYMPHOCYTES % (AUTO) 32 % (12-44); MEAN CORPUSCULAR HEMOGLOBIN 29 pg (25-34); MEAN CORPUSCULAR HGB CONC 32 g/dL (32-36); MEAN CORPUSCULAR VOLUME 91 fL (80-99); MEAN PLATELET VOLUME 11.1 fL (9.0-12.2); MONOCYTES # (AUTO) 0.6 X 10^3 (0.0-1.0); MONOCYTES % (AUTO) 8 % (0-12); NEUTROPHILS # (AUTO) 4.4 X 10^3 (1.8-7.8); NEUTROPHILS % (AUTO) 57 % (42-75); PLATELET COUNT 299 10^3/uL (130-400); WHITE BLOOD COUNT 7.7 10^3/uL (4.3-11.0)
[2021-06-29 15:52] LABS: ALBUMIN 3.4 GM/DL (3.2-4.5); POTASSIUM 3.7 MMOL/L (3.6-5.0)
[2021-06-29 15:53] LABS: CALCIUM 8.9 MG/DL (8.5-10.1)
[2021-06-29 15:55] LABS: TOTAL PROTEIN 6.4 GM/DL (6.4-8.2)
[2021-06-29 15:56] LABS: BILIRUBIN,TOTAL 0.5 MG/DL (0.1-1.0)
[2021-06-29 15:58] LABS: CREATININE SERUM 0.62 MG/DL (0.60-1.30)
== END 2021-07-05 | disposition home or self-care (01) ==
LOC: SDC 11:18
PROVIDERS: ATTEND Internal Medicine Critical Care Medicine
DX: L02.91 Cutaneous abscess, unspecified (principal); R78.81 Bacteremia
CPT/HCPCS: 80053; 85025; G0463; 36415; 99211

== ENCOUNTER 2021-07-02 19:22 | Emergency (ER) | payer SELFPAY ==
[2021-07-02 19:50] VITALS: BP 131/81
== END 2021-07-02 20:02 | disposition home or self-care (01) ==
LOC: EDUNIT# 19:22 → ER 19:25
DX: Z48.02 Encounter for removal of sutures (principal)

== ENCOUNTER 2021-07-10 14:45 | Outpatient (RCR) | payer OTHER ==
[2021-07-06 12:00] VITALS: BP 156/100
[2021-07-06 12:15] LABS: BASOPHILS % (AUTO) 1 % (0-10); EOSINOPHILS # (AUTO) 0.1 10^3/uL (0.0-0.3); EOSINOPHILS % (AUTO) 3 % (0-10); HEMATOCRIT 42 % (40-54); HEMOGLOBIN 13.7 g/dL (13.3-17.7); LYMPHOCYTES # (AUTO) 1.4 10^3/uL (1.0-4.0); LYMPHOCYTES % (AUTO) 56 % (12-44); MEAN CORPUSCULAR HEMOGLOBIN 29 pg (25-34); MEAN CORPUSCULAR HGB CONC 32 g/dL (32-36); MEAN CORPUSCULAR VOLUME 89 fL (80-99); MEAN PLATELET VOLUME 9.7 fL (9.0-12.2); MONOCYTES # (AUTO) 0.5 10^3/uL (0.0-1.0); MONOCYTES % (AUTO) 21 % (0-12); NEUTROPHILS # (AUTO) 0.4 10^3/uL (1.8-7.8); NEUTROPHILS % (AUTO) 18 % (42-75); PLATELET COUNT 213 10^3/uL (130-400); WHITE BLOOD COUNT 2.4 10^3/uL (4.3-11.0)
[2021-07-06 12:35] LABS: BILIRUBIN,TOTAL 0.9 MG/DL (0.1-1.0); CALCIUM 9.5 MG/DL (8.5-10.1); CREATININE SERUM 0.7 MG/DL (0.60-1.30); POTASSIUM 3.5 MMOL/L (3.6-5.0); TOTAL PROTEIN 7.4 GM/DL (6.4-8.2)
[2021-07-06 12:53] LABS: ANISOCYTOSIS SLIGHT; BAND NEUTROPHILS 2 %; LYMPHOCYTES % (MANUAL) 62 %; MONOCYTES % (MANUAL) 20 %; NEUTROPHILS % (MANUAL) 20 %; POLYCHROMASIA SLIGHT
[2021-07-06 12:54] LABS: PLATELET CLUMPS NONE SEEN
[2021-07-10 15:00] VITALS: BP 156/100
[2021-07-10 15:20] LABS: BASOPHILS # (AUTO) 0.1 10^3/uL (0.0-0.1); BASOPHILS % (AUTO) 1 % (0-10); EOSINOPHILS # (AUTO) 0.4 10^3/uL (0.0-0.3); EOSINOPHILS % (AUTO) 7 % (0-10); HEMATOCRIT 44 % (40-54); HEMOGLOBIN 14.2 g/dL (13.3-17.7); LYMPHOCYTES # (AUTO) 2.5 X 10^3 (1.0-4.0); LYMPHOCYTES % (AUTO) 52 % (12-44); MEAN CORPUSCULAR HEMOGLOBIN 29 pg (25-34); MEAN CORPUSCULAR HGB CONC 32 g/dL (32-36); MEAN CORPUSCULAR VOLUME 90 fL (80-99); MEAN PLATELET VOLUME 9.6 fL (9.0-12.2); MONOCYTES # (AUTO) 0.7 X 10^3 (0.0-1.0); MONOCYTES % (AUTO) 15 % (0-12); NEUTROPHILS # (AUTO) 1.2 X 10^3 (1.8-7.8); NEUTROPHILS % (AUTO) 24 % (42-75); PLATELET COUNT 304 10^3/uL (130-400); WHITE BLOOD COUNT 4.9 10^3/uL (4.3-11.0)
== END 2021-08-04 | disposition home or self-care (01) ==
LOC: SDC 14:45
PROVIDERS: ATTEND Internal Medicine Critical Care Medicine
DX: L02.91 Cutaneous abscess, unspecified (principal); R78.81 Bacteremia
CPT/HCPCS: 80053; 85007; 85027; G0463; 36415; 85025; 99211